=== PATIENT | male | born 1940 | race Caucasian/White ===

== ENCOUNTER 2020-08-24 13:40 | Emergency (ER) | payer MEDICARE, OTHER, SELFPAY ==
[2020-08-24 13:49] VITALS: BP 152/93; PULSE 71; RESP 18; TEMP 36.4; O2SAT 98; BMI 20.8
--- NOTE | 2020-08-24 14:10 | W.ED.SYNCOPE ---
HPI - Syncope General: Chief Complaint: Syncope Stated Complaint: LOW BP Time Seen by Provider: 08/24/20 13:51 Source: patient Mode of arrival: ambulatory Limitations: no limitations History of Present Illness: HPI narrative: 80-year-old male states he is out working in his garage and felt lightheaded. He took his blood pressure and it was in the 80s. He states this was roughly 45 minutes ago when he feels improved currently. His blood pressure here is normal. He denies any chest pain or headache before or after the event. Denies any vomiting or diarrhea. Associated symptoms: Deny abdominal pain, fever(s), headache(s) or nausea Review of Systems Const: Denies: fever(s), chills, body aches or change in appetite Eyes: Denies: blurry vision or eye discomfort ENMT: Denies: throat pain or dental pain Card: Reports: syncope Resp: Denies: dyspnea GI: Denies: abdominal pain, nausea, vomiting or diarrhea : Denies: dysuria Musc: Denies: neck pain or back pain Skin/Breast: Denies: rash Neuro: Denies: headache(s) Psych: Denies: depression [place]/Lymph: Denies: easy bruising All/Imm: Denies: urticaria Physical Exam Const: COMMON NORMALS: no acute distress, patient oriented x3 and healthy appearing HENMT: COMMON NORMALS: normocephalic and atraumatic HEAD & SCALP: normocephalic and atraumatic Eye: COMMON NORMALS: Equal, round and reactive pupils present and EOMs intact bilaterally PUPIL: Yes Equal, round and reactive pupils present Neck/C-Spine: COMMON NORMALS: full ROM and supple Chest: COMMONS NORMALS: normal inspection of the chest and normal palpation of entire chest wall Resp: COMMON NORMALS: normal respiratory effort, No retractions, No use of accessory muscles and clear to auscultation bilaterally AUSCULTATION: clear to auscultation bilaterally Cardio: COMMON NORMALS: regular rate, regular rhythm and No murmurs present (Cardio) RATE: regular rate RHYTHM: regular rhythm GI: COMMON NORMALS: Normal to inspection, nondistended, normoactive bowel sounds present, Soft to palpation, non-tender and no masses PALPATION: Yes Soft to palpation Extremity: COMMON NORMALS: normal to inspection and full ROM Neuro: COMMON NORMALS: patient oriented x3, moves all extremities and no focal motor deficits Psych: COMMON NORMALS: mental status grossly normal, Normal thought process present and cooperative THOUGHT PROCESS: Normal thought process present Skin: COMMON NORMALS: no rashes or lesions noted and no wounds GENERAL SKIN EXAM: no rashes or lesions noted Course Vital Signs: Vital signs: Vital Signs Temperature 97.5 F L 08/24/20 13:49 Pulse Rate 71 08/24/20 14:26 Respiratory Rate 16 08/24/20 14:26 Blood Pressure 133/79 08/24/20 14:26 Pulse Oximetry 99 08/24/20 14:26 MDM - Syncope MDM Narrative: Medical decision making narrative: Judd presents here with a syncopal episode that is likely vagal in nature. He has been well-appearing here with a normal blood pressure. Blood work here is normal as well. He has no signs of pulmonary bruising. Patient is stable for discharge is to follow-up with his PCP return if worsening. He understands agrees to plan. Lab Data: Labs: Lab Results 08/24/20 08/24/20 Range/Units 14:10 14:10 WBC 7.4 (4.0-10.0) 10^3/ uL RBC 5.40 H (4.1-5.3) 10^6/u L Hgb 15.3 (11.7-16.6) g/dL Hct 48.2 (42.0-52.0) % MCV 89.3 (80-94) fL MCH 28.3 (28.0-34.0) pg MCHC 31.7 (30.0-36.0) g/dL RDW 13.7 (12.1-15.1) % Plt Count 275 (130-400) 10^3/c mm MPV 10.0 (7.4-10.4) fL Neut % (Auto) 63.1 % Lymph % (Auto) 27.7 % [place] % (Auto) 6.9 % Eos % (Auto) 1.5 % Baso % (Auto) 0.5 % Neut # (Auto) 4.68 (1.8-7.7) 10^3/u L Lymph # (Auto) 2.1 (0.8-4.8) 10^3/u L [place] # (Auto) 0.5 (0.2-0.9) 10^3/u L Eos # (Auto) 0.1 (0.0-0.8) 10^3/u L Baso # (Auto) 0.0 (0.0-0.1) 10^3/u L Nucleated RBC % (a uto) 0 % Nucleated RBCs # 0.0 /100WBC Sodium 139 (136-145) mmol/L Potassium 3.8 (3.5-5.1) mmol/L Chloride 102 (98-107) mmol/L Carbon Dioxide 26 (22-29) mmol/L Anion Gap 14.8 (5-19) BUN 28 H (8-23) mg/dL Creatinine 1.2 (0.7-1.2) mg/dL GFR Calculation Not Reportable Glucose 101 (65-115) mg/dL Calculated Osmolal ity 294 (285-295) mOsm/k g Calcium 9.5 (8.5-10.5) mg/dL Imaging Data^: CXR: Attestation: I personally reviewed and interpreted this imaging study as follows: My impression: No acute abnormality Discharge Plan Discharge Patient Disposition: Home Clinical Impression: Near syncope Condition: Stable Prescriptions: No Action meloxicam 7.5 mg Tablet 7.5 mg PO DAILY PRN (Reason: UNKNOWN) RF: 0 alprazolam 0.5 mg Tablet See Rx Instructions .ROUTE .COMPLEX RF: 0 montelukast 10 mg tablet 10 mg PO DAILY RF: 0 hydrochlorothiazide 25 mg tablet 25 mg PO DAILY RF: 0 lisinopril 40 mg tablet 40 mg PO DAILY RF: 0 Discharge Orders: Discharge Order (Routine); Ordered 08/24/20 Ordered By: Britni Dorman Referrals: Bruno Mai DO [Primary Care Provider] - 1-3 days Discharge Diet: Advance as tolerated Discharge Activity: Resume usual activity Patient Instructions: Near Syncope (ED) Coding Level of Care Code ED Alley Cleaner for Brandan Fwd Exam Comprehensive
[2020-08-24 14:22] LABS: Basophils % 0.5 %; Eosinophils # 0.1 10^3/uL (0.0-0.8); Eosinophils % 1.5 %; Hematocrit 48.2 % (42.0-52.0); Hemoglobin 15.3 g/dL (11.7-16.6); Lymphocytes # 2.1 10^3/uL (0.8-4.8); Lymphocytes % 27.7 %; Mean Corpuscular HGB Conc 31.7 g/dL (30.0-36.0); Mean Corpuscular Hemoglobin 28.3 pg (28.0-34.0); Mean Corpuscular Volume 89.3 fL (80-94); Monocytes # 0.5 10^3/uL (0.2-0.9); Monocytes % 6.9 %; Neutrophils # 4.68 10^3/uL (1.8-7.7); Neutrophils % 63.1 %; Nucleated Red Blood Cells % 0 %; Platelet Count 275 10^3/cmm (130-400); Red Cell Distribution Width 13.7 % (12.1-15.1); White Blood Count 7.4 10^3/uL (4.0-10.0)
[2020-08-24] MEDS: sodium chloride 0.9% 1,000 ML 999 ML IV (14:25)
[2020-08-24 14:26] VITALS: BP 133/79; PULSE 71; RESP 16; O2SAT 99
[2020-08-24 14:42] LABS: Anion Gap 14.8 (5-19); Blood Urea Nitrogen 28 mg/dL (8-23); Calcium 9.5 mg/dL (8.5-10.5); Carbon Dioxide 26 mmol/L (22-29); Chloride 102 mmol/L (98-107); Glucose 101 mg/dL (65-115); Osmolality Calculated 294 mOsm/kg (285-295); Potassium 3.8 mmol/L (3.5-5.1); Sodium 139 mmol/L (136-145)
--- NOTE | 2020-08-24 14:54 | XR_ITS ---
WS: [id number] XR chest 1V portable [id number] REASON FOR EXAM: syncope FINDINGS: The chest is unchanged compared to 06/01/2020. Moderate tortuosity of the thoracic aorta. Normal heart size. Flattening of the hemidiaphragms and some prominence of the interstitial bronchovascular markings in both lower lungs. Old calcified granulomatous changes bilaterally. No active pulmonary parenchymal or pleural disease. No significant abnormality of the bony thorax. XR/XR chest 1V portable [id number] IMPRESSION: No acute chest abnormality.
[2020-08-24 15:26] VITALS: BP 151/86; PULSE 74; RESP 18; O2SAT 98
== END 2020-08-24 15:27 | disposition home or self-care (01) ==
PROVIDERS: Emergency Provider Emergency Medicine; Family Provider Internal Medicine; PCP Internal Medicine
DX: R55 Syncope and collapse (principal)
CPT/HCPCS: 12345; 71045; 80048; 85025; 96360; 99283; J7030

== ENCOUNTER 2020-10-23 13:31 | Emergency (ER) | payer MEDICARE, OTHER, SELFPAY ==
[2020-10-23 13:50] VITALS: BP 142/92; PULSE 75; RESP 20; TEMP 36.3; O2SAT 99; BMI 23.5
--- NOTE | 2020-10-23 14:14 | XRR_ITS ---
PROCEDURE INFORMATION: Exam: XR Chest, 1 View Exam date and time: 10/23/2020 2:14 PM Age: 80 years old Clinical indication: Condition or disease; Other: Covid TECHNIQUE: Imaging protocol: XR of the chest Views: 1 view. COMPARISON: CR XR chest 1V portable [id number] 08/24/2020 2:54 PM FINDINGS: Lungs: Mildly hyperaerated lungs consistent with deep inspiratory effort vs reactive airway disease vs mild COPD . Pleural space: Unremarkable. No pleural effusion. No pneumothorax. Heart/Mediastinum: Unremarkable. No cardiomegaly. Bones/joints: Unremarkable. XR/XR chest 1V portable [id number] IMPRESSION: Mildly hyperaerated lungs consistent with deep inspiratory effort vs reactive airway disease vs mild COPD .
[2020-10-23] MEDS: ondansetron 4 MG Tablet PO (18:21)
[2020-10-23 18:23] VITALS: O2SAT 99
--- NOTE | 2020-10-23 18:40 | ED_ITS ---
HPI - COVID General: Chief Complaint: COVID symptoms Stated Complaint: COVID + Time Seen by Provider: 10/23/20 16:59 Source: patient Mode of arrival: ambulatory Limitations: no limitations Triage information: No fever, cough or shortness of breath . Exposure to COVID + person last 14 days History of Present Illness: MD complaint: known COVID positive Prior covid testing: yes, results known Prior testing date: 10/21/20 COVID 19 common symptoms: positive fever(s), chills, cough, non-productive cough, fatigue, body aches and nausea; negative dyspnea, headache(s), loss of sense of smell and/or taste, throat pain, nasal congestion, vomiting or diarrhea COVID 19 other sytmptoms: positive lethargy; negative chest pressure, chest pain, pleuritic pain, requiring oxygen, requiring more oxygen, respiratory distress, cyanosis, confusion, new neurological complaints or other concerning symptoms Onset (ago): day(s) (4) Severity: moderate Pertinent comorbid conditions: hypertension Treatment prior to arrival: acetaminophen COVID Results: No Data to Display Review of Systems General: Reports: 10 or more systems reviewed and unremarkable except in HPI and below Const: Reports: fever(s), chills, body aches and fatigue Eyes: Denies: change in vision or blurry vision ENMT: Denies: throat pain or nasal congestion Card: Denies: chest pain Resp: Reports: non-productive cough; Denies: dyspnea GI: Reports: nausea; Denies: vomiting or diarrhea : Denies: flank pain, dysuria, urinary frequency, urinary urgency or urinary hesitancy Musc: Denies: neck pain, back pain or extremity swelling Skin/Breast: Denies: rash, pruritus or erythema Neuro: Denies: headache(s) or confusion Endo: Denies: polyuria, polydipsia or tired all the time Physical Exam Const: COMMON NORMALS: no acute distress, average body habitus, patient oriented x3, no limitations, healthy appearing, alert and well nourished HENMT: COMMON NORMALS: normocephalic, atraumatic and moist oral mucous membranes HEAD & SCALP: normocephalic and atraumatic Neck/C-Spine: COMMON NORMALS: no meningeal signs and no JVD Resp: COMMON NORMALS: normal respiratory effort, No retractions, No use of accessory muscles, clear to auscultation bilaterally and percussion normal AUSCULTATION: clear to auscultation bilaterally PERCUSSION: percussion normal Cardio: COMMON NORMALS: no JVD, regular rate, regular rhythm, S1 normal heart sound present, S2 normal heart sound present, No gallops present (Cardio), No clicks present (Cardio), No murmurs present (Cardio), No rub (Cardio) and Peripheral pulses 2+ throughout RATE: regular rate RHYTHM: regular rhythm HEART SOUNDS: S1 normal heart sound present and S2 normal heart sound present PERIPHERAL PULSES: Peripheral pulses 2+ throughout GI: COMMON NORMALS: Normal to inspection, nondistended, normoactive bowel sounds present, Soft to palpation, non-tender, No hepatosplenomegaly present, no masses and no bruits PALPATION: Yes Soft to palpation and Yes No hepatosplenomegaly present Extremity: COMMON NORMALS: normal to inspection, full ROM, capillary refill normal, no calf tenderness and no pedal edema Neuro: COMMON NORMALS: patient oriented x3 SENSORIUM/ORIENTATION: Yes alert MENINGEAL SIGNS: Yes no meningeal signs Skin: COMMON NORMALS: no rashes or lesions noted, no wounds, turgor normal, no jaundice, no petechiae and no mottling GENERAL SKIN EXAM: no rashes or lesions noted and turgor normal Course Reevaluation(s): Reevaluation #1: When I went over the information including the EUA for the antibody infusion for COVID-19, the patient was concerned that it is an emergency use authorization and noted for FDA approval. He therefore said he wants to talk to his about it before agreeing to get the medication. He therefore did not sign the consent form would like to be discharged home to discuss with his . We will therefore discharge him home. I advised him that he will need to follow-up with his primary care provider to have him set up for the infusion if he does agree to get it. He voiced understanding. Time: 19:20 Vital Signs: Vital signs: Vital Signs Temperature 97.3 F L 10/23/20 13:50 Pulse Rate 84 10/23/20 20:03 Respiratory Rate 18 10/23/20 20:03 Blood Pressure 142/92 10/23/20 13:50 Pulse Oximetry 98 10/23/20 20:03 MDM - COVID MDM Narrative: Medical decision making narrative: 80-year-old male with a history of hypertension who was recently diagnosed with COVID-19. He presents because he was feeling worse with body aches, nausea but no difficulty breathing. His vital signs were stable throughout his ED stay and his oxygen saturation was in the high 90s on room air. I discussed getting antibody infusions with him and setting him up in the infusion center to get it. His is scheduled to get it tomorrow and they are going to get it together. However when the patient was informed that this is an emergency use authorization he was hesitant to sign the consent form and wants to discuss with his before he agrees to the infusion. He is therefore advised to discuss with his primary care provider when he makes a decision and to be set up for an outpatient infusion if he agrees to receive the infusion otherwise he should continue conservative measures. He is advised to self isolate for at least 10 days from symptom onset. Medical Records: Attestation: I reviewed the patient's medical records. Lab Data: Attestation: I reviewed the patient's lab results. Labs: Lab Results 10/23/20 10/23/20 Range/Units 18:25 18:25 WBC 5.8 (4.0-10.0) 10^3/ uL RBC 5.63 H (4.1-5.3) 10^6/u L Hgb 16.0 (11.7-16.6) g/dL Hct 50.3 (42.0-52.0) % MCV 89.3 (80-94) fL MCH 28.4 (28.0-34.0) pg MCHC 31.8 (30.0-36.0) g/dL RDW 14.7 (12.1-15.1) % Plt Count 230 (130-400) 10^3/c mm MPV 10.4 (7.4-10.4) fL Neut % (Auto) 74.6 % Lymph % (Auto) 16.8 % [place] % (Auto) 8.2 % Eos % (Auto) 0.0 % Baso % (Auto) 0.2 % Neut # (Auto) 4.36 (1.8-7.7) 10^3/u L Lymph # (Auto) 1.0 (0.8-4.8) 10^3/u L [place] # (Auto) 0.5 (0.2-0.9) 10^3/u L Eos # (Auto) 0.0 (0.0-0.8) 10^3/u L Baso # (Auto) 0.0 (0.0-0.1) 10^3/u L Nucleated RBC % (a uto) 0 % Nucleated RBCs # 0.0 /100WBC Sodium 139 (136-145) mmol/L Potassium 4.4 (3.5-5.1) mmol/L Chloride 100 (98-107) mmol/L Carbon Dioxide 26 (22-29) mmol/L Anion Gap 17.4 (5-19) BUN 26 H (8-23) mg/dL Creatinine 0.8 (0.7-1.2) mg/dL GFR Calculation Not Reportable Glucose 122 H (65-115) mg/dL Calculated Osmolal ity 294 (285-295) mOsm/k g Calcium 10.0 (8.5-10.5) mg/dL Total Bilirubin 0.4 (0.15-1.2) mg/dL AST 29 (0-40) U/L ALT 32 (0-41) U/L Alkaline Phosphata se 105 (40-130) IU/L Total Protein 7.8 (6.6-8.7) g/dL Albumin 4.4 (3.5-5.2) g/dL Globulin 3.4 (1.3-4.6) g/dL Imaging Data: CXR: Attestation: I personally reviewed and interpreted this imaging study as follows: Radiologist's impression: [address] [address] XRay Report Signed Patient: Judd Beth #: [id number] : 2Acct#:[id number] Age/Sex: 80 / MADM Date: 10/23/20 Loc: ERRoom/Bed: Attending Dr: Ordering Provider/Ordering MD: Zoey Blanchard Date of Service: 10/23/20 Procedure(s): XR chest 1V portable [id number] Accession Number(s): [id number] Report Number: [id number] PROCEDURE INFORMATION: Exam: XR Chest, 1 View Exam date and time: 10/23/2020 2:14 PM Age: 80 years old Clinical indication: Condition or disease; Other: Covid TECHNIQUE: Imaging protocol: XR of the chest Views: 1 view. COMPARISON: CR XR chest 1V portable [id number] 08/24/2020 2:54 PM FINDINGS: Lungs: Mildly hyperaerated lungs consistent with deep inspiratory effort vs reactive airway disease vs mild COPD . Pleural space: Unremarkable. No pleural effusion. No pneumothorax. Heart/Mediastinum: Unremarkable. No cardiomegaly. Bones/joints: Unremarkable. XR/XR chest 1V portable [id number] IMPRESSION: Mildly hyperaerated lungs consistent with deep inspiratory effort vs reactive airway disease vs mild COPD . Dictated By:Mathieu Sheppard MD Signed By:Mathieu Sheppardigned Date/Time:10/23/201446 DD/ 45 COVID Results: No Data to Display Monoclonal Antibody Treatments Inclusion/Exclusion Criteria weight >/= 40 kg and + direct Sars-Cov-2 test less than 7-10 days ago age >/= 65 and age >/= 55 and has hypertension not requiring hospitalization, not requiring oxygen (if not chronically on oxygen) and no increase oxygen requirement (if chronically on oxygen) Patient education patient/family/caregiver received/reviewed fact sheet, Emergency Use Authorization/unapproved drug status discussed with patient/family/caregiver, alternatives to this treatment discussed with patient/family/caregiver, risks and benefits of medication reviewed with patient/family/caregiver, patient/family/caregiver given opportunity for questions, which were answered and patient does not consent (DO NOT GIVE) (He does not consent at this time) Plan for treatment Meets criteria for Monoclonal Antibody infusion Other information We will discuss his before he makes a final determination as to whether to receive the antibody infusion. Discharge Plan Discharge Patient Disposition: Home Clinical Impression: COVID-19, Nausea Condition: Stable Prescriptions: New Zofran 4 mg tablet 4 mg PO Q8H PRN (Reason: nausea and vomiting) Qty: 20 RF: 0 Continued prednisone 20 mg tablet 20 mg PO DAILY@0600 RF: 0 doxycycline monohydrate 100 mg capsule 100 mg PO DAILY@0600 RF: 0 meloxicam 7.5 mg Tablet 7.5 mg PO DAILY PRN (Reason: UNKNOWN) RF: 0 montelukast 10 mg tablet 10 mg PO DAILY@0600 RF: 0 hydrochlorothiazide 25 mg tablet 25 mg PO DAILY@0600 RF: 0 lisinopril 40 mg tablet 40 mg PO DAILY@0600 RF: 0 Discharge Orders: Discharge ED (Routine); Ordered 10/23/20 Ordered By: Shira Fox Referrals: Bruno Mai DO [Primary Care Provider] - 1-3 days Discharge Diet: Usual diet Discharge Activity: Increase activity as tolerated Patient Instructions: Acute Nausea and Vomiting (ED), Viral Syndrome - Adult Activity Restrictions/Additional Instructions: Return for any new or worsening symptoms. Have the conversation with your as he wanted to to see if you are willing to take the antibody infusion. If you do decide to take the infusion, discuss with your primary care provider who can then set up the outpatient infusion for this. Continue your home medications. Coding Level of Care Code ED Resident Programs Assistant for Brandan Fwd Exam Comprehensive
[2020-10-23 18:41] LABS: Basophils % 0.2 %; Hematocrit 50.3 % (42.0-52.0); Lymphocytes % 16.8 %; Mean Corpuscular HGB Conc 31.8 g/dL (30.0-36.0); Mean Corpuscular Hemoglobin 28.4 pg (28.0-34.0); Mean Corpuscular Volume 89.3 fL (80-94); Mean Platelet Volume 10.4 fL (7.4-10.4); Monocytes # 0.5 10^3/uL (0.2-0.9); Monocytes % 8.2 %; Neutrophils # 4.36 10^3/uL (1.8-7.7); Neutrophils % 74.6 %; Nucleated Red Blood Cells % 0 %; Platelet Count 230 10^3/cmm (130-400); Red Blood Count 5.63 10^6/uL (4.1-5.3); Red Cell Distribution Width 14.7 % (12.1-15.1); White Blood Count 5.8 10^3/uL (4.0-10.0)
--- NOTE | 2020-10-23 19:01 | PC.NURSE ---
Pt stated he was not sure if he wants to take the BUM IV infusing in AM. Provided pt with paperwork and sent home with pt for review. Provider at bedside.
[2020-10-23 19:02] LABS: Alanine Aminotransferase 32 U/L (0-41); Albumin Level 4.4 g/dL (3.5-5.2); Alkaline Phosphatase 105 IU/L (40-130); Anion Gap 17.4 (5-19); Aspartate Amino Transferase 29 U/L (0-40); Blood Urea Nitrogen 26 mg/dL (8-23); Carbon Dioxide 26 mmol/L (22-29); Chloride 100 mmol/L (98-107); Creatinine Clr Calc Pharmacy 86.3647; Globulin 3.4 g/dL (1.3-4.6); Glucose 122 mg/dL (65-115); Osmolality Calculated 294 mOsm/kg (285-295); Potassium 4.4 mmol/L (3.5-5.1); Sodium 139 mmol/L (136-145); Total Bilirubin 0.4 mg/dL (0.15-1.2); Total Protein 7.8 g/dL (6.6-8.7)
--- NOTE | 2020-10-23 19:59 | PC.NURSE ---
Report from KENTON Blancas
[2020-10-23 20:03] VITALS: PULSE 84; RESP 18; O2SAT 98
== END 2020-10-23 20:05 | disposition home or self-care (01) ==
PROVIDERS: Physician Assistant; Emergency Provider Family Medicine; PCP Internal Medicine
DX: U07.1 COVID-19 (principal); R11.0 Nausea
CPT/HCPCS: 12345; 71045; 80053; 85025; 99281; 99283; Q0162

== ENCOUNTER 2021-01-02 21:11 | Emergency (ER) | payer MEDICARE, OTHER, SELFPAY ==
[2021-01-02 21:14] VITALS: BP 95/53; PULSE 79; RESP 20; TEMP 36.3; O2SAT 95; BMI 23.5
--- NOTE | 2021-01-02 21:21 | ECG_ITS ---
[facility] Test Date: 2021-01-02 Pat Name: Judd Beth Department: Room: Gender: Male [employer] Machine: : 1940 Requested By: Paulie Moralez Order Number: [id number] Donnelly MD: Armida Dillard M.D. Measurements Intervals [place] Rate: 69 P: 44 PA: 167 QRS: 268 QRSD: 156 T: 59 QT: 422 QTc: 454 Interpretive Statements SINUS RHYTHM RIGHT AXIS DEVIATION [QRS AXIS > 100] RIGHT BUNDLE BRANCH BLOCK [120+ ms QRS DURATION, UPRIGHT V1, 40+ ms S IN I/aVL/V4/V5/V6] Compared to ECG 02/09/2015 09:22:38 Right-axis deviation now present Left-axis deviation no longer present Electronically Signed On 01-03-2021 7:27:37 CDT by Armida Dillard M.D. [id number]
[2021-01-02 21:22] VITALS: BP 95/53; PULSE 69; RESP 17; O2SAT 94
--- NOTE | 2021-01-02 21:22 | XR_ITS ---
WS: [id number] XR chest 1V portable [id number] REASON FOR EXAM: Cough FINDINGS: The chest is unchanged compared to previous examination of 10/23/2020. Mild tortuosity of the thoracic aorta without aneurysmal dilatation. Normal heart size. Mild accentuation of the interstitium in both lower lungs. Calcified granulomatous change in both hem ithoraces. No active pulmonary parenchymal or pleural disease. No significant change in the bony thorax for age. XR/XR chest 1V portable [id number] IMPRESSION: No acute pulmonary abnormality.
--- NOTE | 2021-01-02 21:22 | ED_ITS ---
HPI - General Adult General: Chief complaint: General Medical Stated complaint: LIGHT HEADED Time Seen by Provider: 01/02/21 21:17 Source: patient, EMS and RN notes reviewed Mode of arrival: EMS History of Present Illness: HPI narrative: This patient is a 80-year-old male who presents to the emergency department with complaint of profound fatigue weakness body aches hypotension and fever. Patient states he feels exactly the same as he did when he had the arboleda virus. Patient states he received his first vaccine shot yesterday and has had these profound symptoms today. Patient's blood pressure reportedly was 60 systolic via EMS and they gave the patient IV fluid bolus during transport. Patient temperature on arrival is 97.8. Blood pressure is low 90s over 60s. Patient distal fingers on both hands appear to be purpleish. Patient denies a history of Raynaud's phenomenon. Patient denies pain. Onset (ago): hour(s) Severity: moderate Associated symptoms: Deny chest pain, dyspnea, headache(s), nausea, rash, palpitations or vomiting Review of Systems General: Reports: 10 or more systems reviewed and unremarkable except in HPI and below Const: Reports: fever(s) and fatigue; Denies: chills or body aches Eyes: Denies: change in vision or blurry vision ENMT: Denies: throat pain, hoarseness or mouth pain Card: Denies: chest pain, palpitations, irregular heart rhythm, edema, swelling of feet/ankles or lightheadedness Resp: Denies: dyspnea, productive cough, non-productive cough, wheezing or pain on inspiration GI: Reports: abdominal pain; Denies: nausea or vomiting : Reports: flank pain; Denies: dysuria, urinary frequency, urinary urgency or urinary hesitancy Musc: Reports: muscle weakness; Denies: neck pain, back pain, extremity pain, extremity swelling, joint pain, joint swelling, joint redness, joint warmth or limited range of motion Skin/Breast: Denies: rash, pruritus, erythema or skin tenderness Neuro: Denies: headache(s), numbness in extremities or weakness in extremities Psych: Denies: anxiety or depression PFS ED PFSH: Medical History COPD (chronic obstructive pulmonary disease) Essential (primary) hypertension Lung nodule Osteoarthritis (arthritis due to wear and tear of joints) Personal history of nicotine dependence Surgical History History of cholecystectomy Family History Other Hypertension Social History Smoking and tobacco status: current every day smoker Alcohol intake: current Alcohol intake frequency: few times a month Caregiver/support person: Yes Lives independently: Yes Household members: spouse Housing: House Marital status: service: Yes Current occupational status: retired Current gender identity: Male Physical Exam Const: COMMON NORMALS: no acute distress, average body habitus, patient oriented x3, no limitations, healthy appearing, alert and well nourished HENMT: COMMON NORMALS: normocephalic, atraumatic, external ears normal, EAC's normal, TM's normal bilaterally, Normal external nose present and Normal nasal mucous membranes and turbinates present HEAD & SCALP: normocephalic and atraumatic NOSE: Normal external nose present and Normal nasal mucous membranes and turbinates present EXTERNAL EAR: Yes external ears normal EXTERNAL AUDITORY CANAL: EAC's normal TYMPANIC MEMBRANE: TM's normal bilaterally Neck/C-Spine: COMMON NORMALS: full ROM, no lymphadenopathy, supple, no meningeal signs, no JVD, Thyroid normal and No carotid bruits THYROID: Thyroid normal Chest: COMMONS NORMALS: normal inspection of the chest, normal palpation of entire chest wall, normal inspection of the breasts and normal palpation of the breasts Breast/axilla inspection: Yes normal inspection of the breasts BREAST/AXILLA PALPATION: Yes normal palpation of the breasts Resp: COMMON NORMALS: normal respiratory effort, No retractions, No use of accessory muscles, clear to auscultation bilaterally and percussion normal AUSCULTATION: clear to auscultation bilaterally PERCUSSION: percussion normal Cardio: COMMON NORMALS: no JVD, regular rate, regular rhythm, S1 normal heart sound present, S2 normal heart sound present, No gallops present (Cardio), No clicks present (Cardio), No murmurs present (Cardio), No rub (Cardio) and Peripheral pulses 2+ throughout RATE: regular rate RHYTHM: regular rhythm HEART SOUNDS: S1 normal heart sound present and S2 normal heart sound present PERIPHERAL PULSES: Peripheral pulses 2+ throughout GI: COMMON NORMALS: Normal to inspection, nondistended, normoactive bowel sounds present, Soft to palpation, non-tender, No hepatosplenomegaly present, no masses and no bruits PALPATION: Yes Soft to palpation and Yes No hepatosplenomegaly present : COMMON NORMALS: Yes no CVA tenderness BLADDER/KIDNEY EXAM: Yes no CVA tenderness Back/Pelvis: COMMON NORMALS: no CVA tenderness, thoracic and lumbar spine normal to inspection, no thoracic nor lumbar tenderness, thoraco-lumbar ROM normal and straight leg raise negative bilaterally Extremity: COMMON NORMALS: full ROM, capillary refill normal, no joint enlargement, no clubbing, cyanosis or edema, no calf tenderness and no pedal edema NARRATIVE EXTREMITY EXAM: Tips of his fingers on the distal part of the phalanges are bluish in color while the rest of his hands and skin are red patient denies pain Neuro: COMMON NORMALS: patient oriented x3 SENSORIUM/ORIENTATION: Yes alert MENINGEAL SIGNS: Yes no meningeal signs Course Reevaluation(s): Reevaluation #1: Myself and the nurse at the bedside. Patient is feeling much improved blood pressure 109/67 heart rate 69 patient has no complaints other than laying in the bed. Patient states that hurts his back. I did recommend the patient be admitted to observation for further evaluation and continued fluid. Patient has declined and wishes to be discharged home. I did discuss at length with patient risk concerns with significant reaction to the vaccine considering that the patient has significant reaction to the Covid virus itself. Patient states understanding the risk concerns but wishes to be discharged home nurse at the bedside present during this interview. Patient be discharged home per his request Time: 22:55 Vital Signs: Vital signs: Vital Signs Temperature 97.3 F L 01/02/21 21:14 Pulse Rate 69 01/02/21 22:51 Respiratory Rate 19 H 01/02/21 22:51 Blood Pressure 109/67 01/02/21 22:51 Pulse Oximetry 98 01/02/21 22:51 MDM - General Adult MDM Narrative: Medical decision making narrative: Hypotension, cardiac disease, viral syndrome, immune response, Lab Data: Attestation: I reviewed the patient's lab results. Labs: Lab Results 01/02/21 01/02/21 01/02/21 Range/Units 20:51 20:51 20:51 WBC 5.7 (4.0-10.0) 10^3/ uL RBC 5.08 (4.1-5.3) 10^6/u L Hgb 14.7 (11.7-16.6) g/dL Hct 46.0 (42.0-52.0) % MCV 90.6 (80-94) fL MCH 28.9 (28.0-34.0) pg MCHC 32.0 (30.0-36.0) g/dL RDW 14.7 (12.1-15.1) % Plt Count 202 (130-400) 10^3/c mm MPV 10.9 H (7.4-10.4) fL Neut % (Auto) 73.0 % Lymph % (Auto) 17.8 % [place] % (Auto) 7.9 % Eos % (Auto) 0.2 % Baso % (Auto) 0.9 % Neut # (Auto) 4.16 (1.8-7.7) 10^3/u L Lymph # (Auto) 1.0 (0.8-4.8) 10^3/u L [place] # (Auto) 0.5 (0.2-0.9) 10^3/u L Eos # (Auto) 0.0 (0.0-0.8) 10^3/u L Baso # (Auto) 0.1 (0.0-0.1) 10^3/u L Nucleated RBC % (a uto) 0 % Nucleated RBCs # 0.0 /100WBC PT 14.60 (12.1-14.9) SECO NDS INR 1.11 (0.8-1.2) APTT 30.9 (23.9-36.7) SECO NDS D-Dimer 1.77 H (0-0.59) ug/mIFE U Sodium 138 (136-145) mmol/L Potassium 4.0 (3.5-5.1) mmol/L Chloride 103 (98-107) mmol/L Carbon Dioxide 23 (22-29) mmol/L Anion Gap 16.0 (5-19) BUN 24 H (8-23) mg/dL Creatinine 1.3 H (0.7-1.2) mg/dL GFR Calculation Not Reportable Glucose 104 (65-115) mg/dL Calculated Osmolal ity 290 (285-295) mOsm/k g Calcium 8.8 (8.5-10.5) mg/dL Total Bilirubin 0.9 (0.15-1.2) mg/dL AST 18 (0-40) U/L ALT 11 (0-41) U/L Alkaline Phosphata se 85 (40-130) IU/L Troponin T Gen 5 n g/L (0-15) ng/L NT-Pro-B Natriuret Pep 267 (0-450) pg/mL Total Protein 6.1 L (6.6-8.7) g/dL Albumin 3.7 (3.5-5.2) g/dL Globulin 2.4 (1.3-4.6) g/dL / Range/Units 20:51 WBC (4.0-10.0) 10^3/ uL RBC (4.1-5.3) 10^6/u L Hgb (11.7-16.6) g/dL Hct (42.0-52.0) % MCV (80-94) fL MCH (28.0-34.0) pg MCHC (30.0-36.0) g/dL RDW (12.1-15.1) % Plt Count (130-400) 10^3/c mm MPV (7.4-10.4) fL Neut % (Auto) % Lymph % (Auto) % [place] % (Auto) % Eos % (Auto) % Baso % (Auto) % Neut # (Auto) (1.8-7.7) 10^3/u L Lymph # (Auto) (0.8-4.8) 10^3/u L [place] # (Auto) (0.2-0.9) 10^3/u L Eos # (Auto) (0.0-0.8) 10^3/u L Baso # (Auto) (0.0-0.1) 10^3/u L Nucleated RBC % (a uto) % Nucleated RBCs # /100WBC PT (12.1-14.9) SECO NDS INR (0.8-1.2) APTT (23.9-36.7) SECO NDS D-Dimer (0-0.59) ug/mIFE U Sodium (136-145) mmol/L Potassium (3.5-5.1) mmol/L Chloride (98-107) mmol/L Carbon Dioxide (22-29) mmol/L Anion Gap (5-19) BUN (8-23) mg/dL Creatinine (0.7-1.2) mg/dL GFR Calculation Glucose (65-115) mg/dL Calculated Osmolal ity (285-295) mOsm/k g Calcium (8.5-10.5) mg/dL Total Bilirubin (0.15-1.2) mg/dL AST (0-40) U/L ALT (0-41) U/L Alkaline Phosphata se (40-130) IU/L Troponin T Gen 5 n g/L 41 H (0-15) ng/L NT-Pro-B Natriuret Pep (0-450) pg/mL Total Protein (6.6-8.7) g/dL Albumin (3.5-5.2) g/dL Globulin (1.3-4.6) g/dL Discharge Plan Discharge Patient Disposition: Home Clinical Impression: Hypotension, Alteration in immune response, Vaccination complication Condition: Stable Prescriptions: No Action ipratropium-albuterol 0.5 mg-3 mg(2.5 mg base)/3 mL solution for nebulization 3 ml inhalation Q6H RF: 0 hydrocodone-acetaminophen 5-325 mg tablet 1 tab PO BID PRNRF: 0 cyclobenzaprine 10 mg tablet 10 mg PO BID PRN (Reason: muscle spasm) RF: 0 prednisone 20 mg tablet 20 mg PO DAILY@0600 RF: 0 doxycycline monohydrate 100 mg capsule 100 mg PO DAILY@0600 RF: 0 Zofran 4 mg tablet 4 mg PO Q8H PRN (Reason: nausea and vomiting) Qty: 20 RF: 0 meloxicam 7.5 mg Tablet 7.5 mg PO DAILY PRN (Reason: UNKNOWN) RF: 0 montelukast 10 mg tablet 10 mg PO DAILY@0600 RF: 0 hydrochlorothiazide 25 mg tablet 25 mg PO DAILY@0600 RF: 0 lisinopril 40 mg tablet 40 mg PO DAILY@0600 RF: 0 Discharge Orders: Discharge ED (Routine); Ordered 01/02/21 Ordered By: Paulie Moralez Referrals: Bruno Mai DO [Primary Care Provider] - Discharge Diet: Usual diet Discharge Activity: Resume usual activity and Increase activity as tolerated Patient Instructions: Opioid Safety Activity Restrictions/Additional Instructions: Encourage p.o. fluids. Tylenol Motrin as needed for fever pain. Understand low blood pressure you have a risk for falls. you are being discharged per your request follow-up with your primary care physician in 2 to 3 days. 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
[2021-01-02 21:30] LABS: Basophils # 0.1 10^3/uL (0.0-0.1); Basophils % 0.9 %; Eosinophils % 0.2 %; Hemoglobin 14.7 g/dL (11.7-16.6); Lymphocytes % 17.8 %; Mean Corpuscular Hemoglobin 28.9 pg (28.0-34.0); Mean Corpuscular Volume 90.6 fL (80-94); Mean Platelet Volume 10.9 fL (7.4-10.4); Monocytes # 0.5 10^3/uL (0.2-0.9); Monocytes % 7.9 %; Neutrophils # 4.16 10^3/uL (1.8-7.7); Nucleated Red Blood Cells % 0 %; Platelet Count 202 10^3/cmm (130-400); Red Blood Count 5.08 10^6/uL (4.1-5.3); Red Cell Distribution Width 14.7 % (12.1-15.1); White Blood Count 5.7 10^3/uL (4.0-10.0)
[2021-01-02 21:42] LABS: INR 1.11 (0.8-1.2); Partial Thromboplastin Time 30.9 SECONDS (23.9-36.7)
[2021-01-02 21:45] LABS: D Dimer 1.77 ug/mIFEU (0-0.59)
[2021-01-02 21:55] LABS: Troponin T (5th) Once 41 ng/L (0-15)
[2021-01-02 22:00] VITALS: BP 97/52; PULSE 68; RESP 23; O2SAT 96
[2021-01-02 22:05] LABS: Alanine Aminotransferase 11 U/L (0-41); Albumin Level 3.7 g/dL (3.5-5.2); Alkaline Phosphatase 85 IU/L (40-130); Aspartate Amino Transferase 18 U/L (0-40); Blood Urea Nitrogen 24 mg/dL (8-23); Calcium 8.8 mg/dL (8.5-10.5); Carbon Dioxide 23 mmol/L (22-29); Chloride 103 mmol/L (98-107); Globulin 2.4 g/dL (1.3-4.6); Glucose 104 mg/dL (65-115); NT Pro B Type Natriuretic Pept 267 pg/mL (0-450); Osmolality Calculated 290 mOsm/kg (285-295); Sodium 138 mmol/L (136-145); Total Bilirubin 0.9 mg/dL (0.15-1.2); Total Protein 6.1 g/dL (6.6-8.7)
[2021-01-02] MEDS: sodium chloride 0.9% 1,000 ML 999 ML IV (22:25)
[2021-01-02 22:30] VITALS: BP 107/63; PULSE 67; RESP 21; O2SAT 96
[2021-01-02 22:51] VITALS: BP 109/67; PULSE 69; RESP 19; O2SAT 98
[2021-01-02 23:00] VITALS: BP 120/71; PULSE 71; RESP 21; O2SAT 98
[2021-01-03 00:02] VITALS: BP 133/85; PULSE 76; RESP 21; O2SAT 98
== END 2021-01-03 00:05 | disposition home or self-care (01) ==
PROVIDERS: Emergency Provider Emergency Medicine; PCP Internal Medicine
DX: T88.1XXA Other complications following immunization, not elsewhere classified, initial encounter (principal); I95.9 Hypotension, unspecified; J44.9 Chronic obstructive pulmonary disease, unspecified; I10 Essential (primary) hypertension; F17.210 Nicotine dependence, cigarettes, uncomplicated; I70.0 Atherosclerosis of aorta
CPT/HCPCS: 71045; 80053; 83880; 84484; 85025; 85378; 85610; 85730; 93005; 99284; J7030

== ENCOUNTER → 2021-09-19 10:31 | Outpatient (BNVA) | payer MEDICARE, BC, SELFPAY | PROVIDERS: PCP Internal Medicine; Visit Provider Nurse Practitioner | DX: M25.552 Pain in left hip (principal); I10 Essential (primary) hypertension; E55.9 Vitamin D deficiency, unspecified; M54.50 Low back pain, unspecified; M54.6 Pain in thoracic spine | CPT/HCPCS: 72072; 72100; 73502; 80053; 80061; 82306; 82607; 84443; 85025 ==

== ENCOUNTER 2022-02-02 20:47 | Emergency (ER) | payer MEDICARE, BC, SELFPAY ==
[2022-02-02] VITALS (7 sets, daily range): BP systolic 78–93; BP diastolic 52–60; PULSE 73–83; RESP 18; TEMP 37.2; O2SAT 94–98; BMI 21.0
--- NOTE | 2022-02-02 21:24 | XRR_ITS ---
PROCEDURE INFORMATION: Exam: XR Chest Exam date and time: 02/02/2022 9:34 PM Age: 81 years old Clinical indication: Sternal or substernal pain; Additional info: Chest pain TECHNIQUE: Imaging protocol: XR of the chest. Views: 1 view. COMPARISON: CR XR chest 1V portable [id number] 01/02/2021 9:23 PM FINDINGS: Lungs: There is a background emphysema and pulmonary fibrosis. This appears stable compared with 01/02/2021. Pleural spaces: Unremarkable. No pleural effusion. No pneumothorax. Heart/Mediastinum: Unremarkable. No cardiomegaly. Vasculature: There is mild tortuosity of the thoracic aorta. Bones/joints: Unremarkable. XR/XR chest 1V portable [id number] IMPRESSION: There are no acute chest findings. Stable appearance of the chest compared with 01/02/2021.
--- NOTE | 2022-02-02 21:25 | ECG_ITS ---
[facility] Test Date: 2022-02-02 Pat Name: Judd Beth Department: Room: Gender: Male [employer] Technician: : 1940 Requested By: Gustavo Chao Order Number: [id number] Andrzej MD: Armida Dillard M.D. Measurements Intervals [place] Rate: 75 P: 70 DC: 167 QRS: 259 QRSD: 148 T: 67 QT: 407 QTc: 457 Interpretive Statements SINUS RHYTHM RIGHT AXIS DEVIATION [QRS AXIS > 100] RIGHT BUNDLE BRANCH BLOCK Compared to ECG 01/02/2021 21:25:53 Myocardial infarct finding now present Electronically Signed On 02-03-2022 16:11:50 CDT by Armida Dillard M.D. [email or web address]
--- NOTE | 2022-02-02 21:37 | ED_ITS ---
Documented by User: Gustavo Chao MD 02/04/22 12:54 HPI - General Adult General: Chief complaint: Dizziness Stated complaint: Nauseous Time Seen by Provider: 02/02/22 21:13 History of Present Illness: Patient is a 81-year-old male with a history of COPD, hypertension, generalized anxiety presenting to the emergency room for concerns of decreased PO intake, nauesa/vomiting/diarrhea, and lightheadedness and generalized weakness for last 2 to 3 days. Per patient son, patient has not been eating for the last 2 to 3 days. Has been feeling increasingly more lightheaded last 2 days. In addition, patient has nausea and vomiting and diarrhea. Patient's son and wanted patient to be checked out. On arrival, patient denies any chest pain, palpitation, lightheadedness, nausea/vomiting fever/chills currently. Patient has no abdominal complaints, diarrhea, melena/hematochezia or complaints. Onset:2-3 days ago Duration:intermittent Location:home Severity:moderate Associated symptoms: Reports nausea and vomiting; Deny chest pain, dyspnea, rash or palpitations Review of Systems Const: Reports: other (+generalized weakness); Denies: fever(s) or chills Eyes: Denies: change in vision ENMT: Denies: mouth pain Card: Denies: chest pain or palpitations Resp: Denies: dyspnea or non-productive cough GI: Reports: nausea, vomiting and diarrhea; Denies: abdominal pain : Denies: dysuria Musc: Denies: extremity pain Skin/Breast: Denies: rash or new lesions Neuro: Denies: weakness in extremities Psych: Reports: other (Normal mood) Fuad/Lymph: Denies: easy bruising PFSH ED PFSH: Medical History COPD (chronic obstructive pulmonary disease) Essential (primary) hypertension RIAZ (generalized anxiety disorder) Lung nodule Osteoarthritis (arthritis due to wear and tear of joints) Personal history of nicotine dependence Surgical History History of cholecystectomy Family History Other Hypertension Social History Smoking and tobacco status: current every day smoker Second hand smoke exposure: No Smoking risk assessment/counseling performed?: Yes Alcohol intake: current Alcohol intake frequency: few times a month Desire information about alcohol rehabilitation?: No Counseling given: No Desire information about substance/drug rehabilitation?: No Counseling given: No Adopted: No Caregiver/support person: Yes Lives independently: Yes Household members: spouse Housing: House Marital status: service: Yes Current occupational status: retired Current occupational exposures/hazards: No Current gender identity: Male Physical Exam Const: COMMON NORMALS: alert HENMT: COMMON NORMALS: atraumatic HEAD & SCALP: atraumatic MOUTH: moist mucous membranes abnormal Eye: COMMON NORMALS: EOMs intact bilaterally and conjunctivae normal CONJUNCTIVA: Yes conjunctivae normal Neck/C-Spine: COMMON NORMALS: full ROM and supple Resp: COMMON NORMALS: normal respiratory effort and clear to auscultation bilaterally AUSCULTATION: clear to auscultation bilaterally Cardio: COMMON NORMALS: regular rate RATE: regular rate GI: COMMON NORMALS: Soft to palpation and non-tender PALPATION: Yes Soft to palpation OTHER: No focal TTP. NO guarding rebound, guarding, rigidity. No CVA tenderness to percussion. Neg Bryant/Neg McBurney's point tenderness, no suprabupic tenderness to palpation. Extremity: COMMON NORMALS: full ROM Neuro: SENSORIUM/ORIENTATION: Yes alert MOTOR EXAM: No Abnormal motor strength present and Other motor observations present (no focal motor deficits) Psych: COMMON NORMALS: speech normal SPEECH: Yes normal speech MOOD & AFFECT: Yes euthymic mood Course Vital Signs: Vital signs: Vital Signs Temperature 99.0 F 02/02/22 20:55 Pulse Rate 74 02/03/22 02:05 Respiratory Rate 18 02/03/22 02:05 Blood Pressure 93/70 02/03/22 02:05 Pulse Oximetry 97 02/03/22 02:05 MDM - General Adult Medical Decision Making 81-year-old male with a history of COPD/ hypertension presenting to emergency room for concerns of nausea vomiting diarrhea decreased p.o. intake and generalized weakness. On physical exam, patient is noted to be dry. Rest of exam within normal limit. Work-up to show white count 7.9. Creatinine 1.3. Troponin of 618. On presentation but this is concerning for possible enteritis. Patient received IVF, and GI cocktail. Case signed out to Dr. Dorman pending reassessment and repeat troponin. Lab Data : 02/02/22 21:35 02/02/22 21:35 Radiology Impressions Chest X-Ray 02/02/22 21:24 IMPRESSION: There are no acute chest findings. Stable appearance of the chest compared with 01/02/2021. Laboratory Results WBC 7.9 10^3/uL (4.0-10.0) 02/02/22 21:35 RBC 5.40 10^6/uL (4.1-5.3) H 02/02/22 21:35 Hgb 15.6 g/dL (11.7-16.6) 02/02/22 21:35 Hct 48.2 % (42.0-52.0) 02/02/22 21:35 MCV 89.3 fl (80-94) 02/02/22 21:35 MCH 28.9 pg (28.0-34.0) 02/02/22 21:35 MCHC 32.4 g/dL (30.0-36.0) 02/02/22 21:35 RDW 14.6 % (12.1-15.1) 02/02/22 21:35 Plt Count 196 10^3/cmm (130-400) 02/02/22 21:35 MPV 11.1 fL (7.4-10.4) H 02/02/22 21:35 Neut % (Auto) 78.8 % 02/02/22 21:35 Lymph % (Auto) 14.2 % 02/02/22 21:35 Vernon % (Auto) 5.4 % 02/02/22 21:35 Eos % (Auto) 0.9 % 02/02/22 21:35 Baso % (Auto) 0.4 % 02/02/22 21:35 Neut # (Auto) 6.23 10^3/uL (1.8-7.7) 02/02/22 21:35 Lymph # (Auto) 1.1 10^3/uL (0.8-4.8) 02/02/22 21:35 Vernon # (Auto) 0.4 10^3/uL (0.2-0.9) 02/02/22 21:35 Eos # (Auto) 0.1 10^3/uL (0.0-0.8) 02/02/22 21:35 Baso # (Auto) 0.0 10^3/uL (0.0-0.1) 02/02/22 21:35 Nucleated RBC % (auto) 0 % 02/02/22 21:35 Nucleated RBCs # 0.0 /100WBC 02/02/22 21:35 Sodium 137 mmol/L (136-145) 02/02/22 21:35 Potassium 3.9 mmol/L (3.5-5.1) 02/02/22 21:35 Chloride 101 mmol/L (98-107) 02/02/22 21:35 Carbon Dioxide 23 mmol/L (22-29) 02/02/22 21:35 Anion Gap 16.9 (5-19) 02/02/22 21:35 BUN 35 mg/dL (8-23) H 02/02/22 21:35 Creatinine 1.3 mg/dL (0.7-1.2) H 02/02/22 21:35 GFR Calculation Not Reportable 02/02/22 21:35 Glucose 117 mg/dL (65-115) H 02/02/22 21:35 Calculated Osmolality 293 mOsm/kg (285-295) 02/02/22 21:35 Calcium 8.6 mg/dL (8.5-10.5) 02/02/22 21:35 Total Bilirubin 0.9 mg/dL (0.15-1.2) 02/02/22 21:35 AST 18 U/L (0-40) 02/02/22 21:35 ALT 13 U/L (0-41) 02/02/22 21:35 Alkaline Phosphatase 89 IU/L (40-130) 02/02/22 21:35 Troponin T Baseline 18 ng/L (0-15) H 02/02/22 21:35 Troponin T 120 Minute 17.52 ng/L (0-15) H 02/02/22 23:35 Delta Troponin T -0.48 ABS# (0-10) L 02/02/22 23:35 NT-Pro-B Natriuret Pep 127 pg/mL (0-450) 02/02/22 21:35 Total Protein 6.8 g/dL (6.6-8.7) 02/02/22 21:35 Albumin 3.7 g/dL (3.5-5.2) 02/02/22 21:35 Globulin 3.1 g/dL (1.3-4.6) 02/02/22 21:35 Lipase 16 U/L (13-60) 02/02/22 21:35 Imaging Data Other Imaging: Radiologist's impression: [address] [place] [address] XRay Report Signed Patient: Judd Beth Unit #: [id number] : 1940 Age/Sex: 81 / M ADM Date: 02/02/22 Loc: ER Room/Bed: Attending Dr: Ordering Provider/Ordering MD: Gustavo Chao MD Date of Service: 02/02/22 Procedure(s): XR chest 1V portable [id number] Accession Number(s): [id number] Report Number: [id number] PROCEDURE INFORMATION: Exam: XR Chest Exam date and time: 02/02/2022 9:34 PM Age: 81 years old Clinical indication: Sternal or substernal pain; Additional info: Chest pain TECHNIQUE: Imaging protocol: XR of the chest. Views: 1 view. COMPARISON: CR XR chest 1V portable [id number] 01/02/2021 9:23 PM FINDINGS: Lungs: There is a background emphysema and pulmonary fibrosis. This appears stable compared with 01/02/2021. Pleural spaces: Unremarkable. No pleural effusion. No pneumothorax. Heart/Mediastinum: Unremarkable. No cardiomegaly. Vasculature: There is mild tortuosity of the thoracic aorta. Bones/joints: Unremarkable. XR/XR chest 1V portable [id number] IMPRESSION: There are no acute chest findings. Stable appearance of the chest compared with 01/02/2021. ? Dictated By: Luis Enrique William MD Signed By: Luis Enrique William MD Signed Date/Time: 02/02/222158 DD/ 33 Discharge Plan Discharge Patient Disposition: Home Clinical Impression: Nausea & vomiting, Diarrhea Condition: Stable Prescriptions: New acetaminophen 500 mg tablet 500 mg PO Q6H PRN (Reason: pain) 5 Days Qty: 20 0RF Pepcid 20 mg tablet 20 mg PO BID PRN (Reason: abdominal pain) 10 Days Qty: 20 0RF ondansetron 4 mg tablet,disintegrating 4 mg PO TID PRN (Reason: nausea and vomiting) 4 Days Qty: 12 0RF Maalox Advanced 1,000-60 mg tablet,chewable 1 tab PO TID PRN (Reason: abdominal pain) 7 Days Qty: 21 0RF No Action ipratropium-albuterol 0.5 mg-3 mg(2.5 mg base)/3 mL solution for nebulization 3 ml inhalation Q6H 0RF hydrochlorothiazide 25 mg tablet 25 mg PO DAILY@0600 Qty: 90 0RF lisinopril 40 mg tablet 40 mg PO DAILY@0600 Qty: 90 0RF gabapentin 100 mg capsule 100 mg PO TID Qty: 90 2RF fluoxetine [Prozac] 20 mg capsule 20 mg PO QAM Qty: 90 1RF albuterol sulfate [Ventolin HFA] 90 mcg/actuation HFA aerosol inhaler 2 puff inhalation Q6H PRN (Reason: shortness of breath or wheezing) Qty: 8.5 2RF montelukast 10 mg tablet 10 mg PO DAILY@0600 0RF Discharge Orders: Discharge ED (Routine); Ordered 02/03/22 Ordered By: Britni Dorman Referrals: Bruno Mai DO [Primary Care Provider] - Discharge Diet: Advance as tolerated Discharge Activity: Increase activity as tolerated Patient Instructions: Acute Nausea and Vomiting (ED) Activity Restrictions/Additional Instructions: Please come back if you have any worsening abdominal pain, fever or chills, nausea or vomiting, diarrhea, blood in the stool, inability hold down liquid or solids, or any new concerning complaints. Coding Level of Care Code ED Micromatic Hone Operator for Chg Fwd Exam Comprehensive Documented by User: Britni Dorman MD 02/03/22 02:17 HPI - General Adult General: Chief complaint: Dizziness Stated complaint: Nauseous Time Seen by Provider: 02/02/22 21:13 PFSH ED PFSH: Medical History COPD (chronic obstructive pulmonary disease) Essential (primary) hypertension RIAZ (generalized anxiety disorder) Lung nodule Osteoarthritis (arthritis due to wear and tear of joints) Personal history of nicotine dependence Surgical History History of cholecystectomy Family History Other Hypertension Social History Smoking and tobacco status: current every day smoker Second hand smoke exposure: No Smoking risk assessment/counseling performed?: Yes Alcohol intake: current Alcohol intake frequency: few times a month Desire information about alcohol rehabilitation?: No Counseling given: No Desire information about substance/drug rehabilitation?: No Counseling given: No Adopted: No Caregiver/support person: Yes Lives independently: Yes Household members: spouse Housing: House Marital status: service: Yes Current occupational status: retired Current occupational exposures/hazards: No Current gender identity: Male Course Vital Signs: Vital signs: Vital Signs Temperature 99.0 F 02/02/22 20:55 Pulse Rate 74 02/03/22 02:05 Respiratory Rate 18 02/03/22 02:05 Blood Pressure 93/70 02/03/22 02:05 Pulse Oximetry 97 02/03/22 02:05 [facility] - General Adult Medical Decision Making 81-year-old male with a history of COPD/ hypertension presenting to emergency room for concerns of nausea vomiting diarrhea decreased p.o. intake and gener alized weakness. On physical exam, patient is noted to be dry. Rest of exam within normal limit. Work-up to show white count 7.9. Creatinine 1.3. Troponin of 618. On presentation but this is concerning for possible enteritis. Patient received IVF, and GI cocktail. Case signed out to Dr. Dorman pending reassessment and repeat troponin. Patient presents with some dehydration he feels much improved after IV fluids requesting discharge blood work repeat troponin here normal blood pressure here has been improved with IV fluids he is to follow-up with his PCP and return if worsening understands agrees to plan. Lab Data : 02/02/22 21:35 02/02/22 21:35 Radiology Impressions Chest X-Ray 02/02/22 21:24 IMPRESSION: There are no acute chest findings. Stable appearance of the chest compared with 01/02/2021. Laboratory Results WBC 7.9 10^3/uL (4.0-10.0) 02/02/22 21:35 RBC 5.40 10^6/uL (4.1-5.3) H 02/02/22 21:35 Hgb 15.6 g/dL (11.7-16.6) 02/02/22 21:35 Hct 48.2 % (42.0-52.0) 02/02/22 21:35 MCV 89.3 fl (80-94) 02/02/22 21:35 MCH 28.9 pg (28.0-34.0) 02/02/22 21:35 MCHC 32.4 g/dL (30.0-36.0) 02/02/22 21:35 RDW 14.6 % (12.1-15.1) 02/02/22 21:35 Plt Count 196 10^3/cmm (130-400) 02/02/22 21:35 MPV 11.1 fL (7.4-10.4) H 02/02/22 21:35 Neut % (Auto) 78.8 % 02/02/22 21:35 Lymph % (Auto) 14.2 % 02/02/22 21:35 Vernon % (Auto) 5.4 % 02/02/22 21:35 Eos % (Auto) 0.9 % 02/02/22: Baso % (Auto) 0.4 % 02/02/22:35 Neut # (Auto) 6.23 10^3/uL (1.8-7.7) 02/02/22 21:35 Lymph # (Auto) 1.1 10^3/uL (0.8-4.8) 02/02/22:35 Vernon # (Auto) 0.4 10^3/uL (0.2-0.9) 02/02/22 21:35 Eos # (Auto) 0.1 10^3/uL (0.0-0.8) 02/02/22 21:35 Baso # (Auto) 0.0 10^3/uL (0.0-0.1) 02/02/22 21:35 Nucleated RBC % (auto) 0 % 02/02/22 21:35 Nucleated RBCs # 0.0 /100WBC 02/02/22 21:35 Sodium 137 mmol/L (136-145) 02/02/22 21:35 Potassium 3.9 mmol/L (3.5-5.1) 02/02/22 21:35 Chloride 101 mmol/L (98-107) 02/02/22 21:35 Carbon Dioxide 23 mmol/L (22-29) 02/02/22 21:35 Anion Gap 16.9 (5-19) 02/02/22 21:35 BUN 35 mg/dL (8-23) H 02/02/22 21:35 Creatinine 1.3 mg/dL (0.7-1.2) H 02/02/22 21:35 GFR Calculation Not Reportable 02/02/22 21:35 Glucose 117 mg/dL (65-115) H 02/02/22 21:35 Calculated Osmolality 293 mOsm/kg (285-295) 02/02/22 21:35 Calcium 8.6 mg/dL (8.5-10.5) 02/02/22 21:35 Total Bilirubin 0.9 mg/dL (0.15-1.2) 02/02/22 21:35 AST 18 U/L (0-40) 02/02/22 21:35 ALT 13 U/L (0-41) 02/02/22 21:35 Alkaline Phosphatase 89 IU/L (40-130) 02/02/22 21:35 Troponin T Baseline 18 ng/L (0-15) H 02/02/22 21:35 Troponin T 120 Minute 17.52 ng/L (0-15) H 02/02/22 23:35 Delta Troponin T -0.48 ABS# (0-10) L 02/02/22 23:35 NT-Pro-B Natriuret Pep 127 pg/mL (0-450) 02/02/22 21:35 Total Protein 6.8 g/dL (6.6-8.7) 02/02/22 21:35 Albumin 3.7 g/dL (3.5-5.2) 02/02/22 21:35 Globulin 3.1 g/dL (1.3-4.6) 02/02/22 21:35 Lipase 16 U/L (13-60) 02/02/22 21:35 Discharge Plan Discharge Patient Disposition: Home Clinical Impression: Nausea & vomiting, Diarrhea Condition: Stable Prescriptions: New acetaminophen 500 mg tablet 500 mg PO Q6H PRN (Reason: pain) 5 Days Qty: 20 0RF Pepcid 20 mg tablet 20 mg PO BID PRN (Reason: abdominal pain) 10 Days Qty: 20 0RF ondansetron 4 mg tablet,disintegrating 4 mg PO TID PRN (Reason: nausea and vomiting) 4 Days Qty: 12 0RF Maalox Advanced 1,000-60 mg tablet,chewable 1 tab PO TID PRN (Reason: abdominal pain) 7 Days Qty: 21 0RF No Action ipratropium-albuterol 0.5 mg-3 mg(2.5 mg base)/3 mL solution for nebulization 3 ml inhalation Q6H 0RF hydrochlorothiazide 25 mg tablet 25 mg PO DAILY@0600 Qty: 90 0RF lisinopril 40 mg tablet 40 mg PO DAILY@0600 Qty: 90 0RF gabapentin 100 mg capsule 100 mg PO TID Qty: 90 2RF fluoxetine [Prozac] 20 mg capsule 20 mg PO QAM Qty: 90 1RF albuterol sulfate [Ventolin HFA] 90 mcg/actuation HFA aerosol inhaler 2 puff inhalation Q6H PRN (Reason: shortness of breath or wheezing) Qty: 8.5 2RF montelukast 10 mg tablet 10 mg PO DAILY@0600 0RF Discharge Orders: Discharge ED (Routine); Ordered 02/03/22 Ordered By: Britni Dorman Referrals: Bruno Mai DO [Primary Care Provider] - Discharge Diet: Advance as tolerated Discharge Activity: Increase activity as tolerated Patient Instructions: Acute Nausea and Vomiting (ED) Activity Restrictions/Additional Instructions: Please come back if you have any worsening abdominal pain, fever or chills, nausea or vomiting, diarrhea, blood in the stool, inability hold down liquid or solids, or any new concerning complaints. Coding Level of Care Code ED Micromatic Hone Operator for Chg Fwd Exam Comprehensive
[2022-02-02 21:47] LABS: Basophils % 0.4 %; Eosinophils # 0.1 10^3/uL (0.0-0.8); Eosinophils % 0.9 %; Hematocrit 48.2 % (42.0-52.0); Hemoglobin 15.6 g/dL (11.7-16.6); Lymphocytes # 1.1 10^3/uL (0.8-4.8); Lymphocytes % 14.2 %; Mean Corpuscular HGB Conc 32.4 g/dL (30.0-36.0); Mean Corpuscular Hemoglobin 28.9 pg (28.0-34.0); Mean Corpuscular Volume 89.3 fl (80-94); Mean Platelet Volume 11.1 fL (7.4-10.4); Monocytes # 0.4 10^3/uL (0.2-0.9); Monocytes % 5.4 %; Neutrophils # 6.23 10^3/uL (1.8-7.7); Neutrophils % 78.8 %; Nucleated Red Blood Cells % 0 %; Platelet Count 196 10^3/cmm (130-400); Red Cell Distribution Width 14.6 % (12.1-15.1); White Blood Count 7.9 10^3/uL (4.0-10.0)
[2022-02-02 22:10] LABS: Troponin(5th) Baseline 18 ng/L (0-15)
[2022-02-02 22:15] LABS: Alanine Aminotransferase 13 U/L (0-41); Albumin Level 3.7 g/dL (3.5-5.2); Alkaline Phosphatase 89 IU/L (40-130); Anion Gap 16.9 (5-19); Aspartate Amino Transferase 18 U/L (0-40); Blood Urea Nitrogen 35 mg/dL (8-23); Calcium 8.6 mg/dL (8.5-10.5); Carbon Dioxide 23 mmol/L (22-29); Chloride 101 mmol/L (98-107); Globulin 3.1 g/dL (1.3-4.6); Glucose 117 mg/dL (65-115); Lipase 16 U/L (13-60); NT Pro B Type Natriuretic Pept 127 pg/mL (0-450); Osmolality Calculated 293 mOsm/kg (285-295); Potassium 3.9 mmol/L (3.5-5.1); Sodium 137 mmol/L (136-145); Total Bilirubin 0.9 mg/dL (0.15-1.2); Total Protein 6.8 g/dL (6.6-8.7)
[2022-02-02] MEDS: lidocaine 2% viscous 15 ML, aluminum-mag hydrox-simethicon 30 ML, sucralfate oral liq 1 GM PO (22:26)
[2022-02-02] MEDS: sodium chloride 0.9% 1,000 ML 999 ML IV (22:32)
--- NOTE | 2022-02-02 23:25 | ECG_ITS ---
[facility] Test Date: 2022-02-02 Pat Name: Judd Beth Department: Room: Gender: Male [employer] K[employer]: : 1940 Requested By: Gustavo Chao Order Number: [id number] Andrzej MD: Armida Dillard M.D. Measurements Intervals [place] Rate: 71 P: 62 AK: 167 QRS: 262 QRSD: 154 T: 64 QT: 417 QTc: 454 Interpretive Statements SINUS RHYTHM RIGHT AXIS DEVIATION [QRS AXIS > 100] RIGHT BUNDLE BRANCH BLOCK [120+ ms QRS DURATION, UPRIGHT V1, 40+ ms S IN I/aVL/V4/V5/V6] POSSIBLE SEPTAL MYOCARDIAL INFARCTION , OF INDETERMINATE AGE [30 ms Q WAVE IN V1/V2] Compared to ECG 02/02/2022 21:32:06 No significant changes Electronically Signed On 02-03-2022 16:21:38 CDT by Armida Dillard M.D. [id number]
[2022-02-03 00:08] VITALS: BP 98/62; PULSE 75; RESP 18; O2SAT 97
[2022-02-03 00:31] LABS: Troponin 5 2HR 17.52 ng/L (0-15)
[2022-02-03 00:33] LABS: Troponin 5 2HR Delta -0.48 ABS# (0-10)
[2022-02-03 00:38] VITALS: BP 90/58; PULSE 73; RESP 18; O2SAT 99
[2022-02-03] MEDS: sodium chloride 0.9% 1,000 ML 999 ML IV (00:44)
[2022-02-03 01:08] VITALS: BP 97/62; PULSE 75; RESP 18; O2SAT 97
[2022-02-03 01:38] VITALS: BP 99/64; PULSE 79; RESP 18; O2SAT 96
[2022-02-03] MEDS: diphenoxylate/atropine Tablet 1 TAB PO (02:00)
[2022-02-03 02:05] VITALS: BP 93/70; PULSE 74; RESP 18; O2SAT 97
--- NOTE | 2022-02-05 11:13 | DCPLANNER ---
manager home had message to speak with patient about getting a follow up appointment for patient with his primary care physician. Patient stated that he could make his appointment if he feels like he needs it.
== END 2022-02-03 02:05 | disposition home or self-care (01) ==
PROVIDERS: Emergency Medicine; Emergency Provider Emergency Medicine; PCP Internal Medicine
DX: R11.2 Nausea with vomiting, unspecified (principal); R19.7 Diarrhea, unspecified; J44.9 Chronic obstructive pulmonary disease, unspecified; I10 Essential (primary) hypertension; F41.1 Generalized anxiety disorder; F17.210 Nicotine dependence, cigarettes, uncomplicated; E86.0 Dehydration
CPT/HCPCS: 71045; 80053; 83690; 83880; 84484; 85025; 93005; 96360; 96361; 99284; J7030

== ENCOUNTER → 2022-05-07 09:40 | Outpatient (BNVA) | payer MEDICARE, BC, SELFPAY | PROVIDERS: PCP Internal Medicine; Visit Provider Nurse Practitioner | DX: I10 Essential (primary) hypertension (principal); E55.9 Vitamin D deficiency, unspecified; K58.9 Irritable bowel syndrome, unspecified; M51.36 Other intervertebral disc degeneration, lumbar region; J30.2 Other seasonal allergic rhinitis; J44.9 Chronic obstructive pulmonary disease, unspecified | CPT/HCPCS: 80053; 80061; 82306; 84443; 85025 ==

== ENCOUNTER → 2022-07-24 08:48 | Outpatient (BNVA) | payer MEDICARE, BC, SELFPAY | PROVIDERS: PCP Internal Medicine; Visit Provider Nurse Practitioner | DX: K58.0 Irritable bowel syndrome with diarrhea (principal); R63.4 Abnormal weight loss; R19.7 Diarrhea, unspecified | CPT/HCPCS: 80053; 81000; 85025 ==

== ENCOUNTER → 2022-12-02 15:54 | Outpatient (BNVA) | payer MEDICARE, BC, SELFPAY | PROVIDERS: PCP Internal Medicine; Visit Provider Nurse Practitioner | DX: I10 Essential (primary) hypertension (principal); K21.9 Gastro-esophageal reflux disease without esophagitis | CPT/HCPCS: 80053 ==

== ENCOUNTER → 2023-02-25 10:03 | Outpatient (BNVA) | payer MEDICARE, BC, SELFPAY | PROVIDERS: PCP Internal Medicine; Visit Provider Nurse Practitioner | DX: R63.4 Abnormal weight loss (principal); J44.9 Chronic obstructive pulmonary disease, unspecified; M19.90 Unspecified osteoarthritis, unspecified site; M48.061 Spinal stenosis, lumbar region without neurogenic claudication | CPT/HCPCS: 71046; 73522 ==

== ENCOUNTER → 2023-06-12 08:56 | Outpatient (BNVA) | payer MEDICARE, BC, SELFPAY | PROVIDERS: PCP Internal Medicine; Visit Provider Anesthesiology Pain Medicine | DX: M54.16 Radiculopathy, lumbar region (principal); M47.816 Spondylosis without myelopathy or radiculopathy, lumbar region; M51.36 Other intervertebral disc degeneration, lumbar region; M19.90 Unspecified osteoarthritis, unspecified site; M43.16 Spondylolisthesis, lumbar region | CPT/HCPCS: 99204 ==

== ENCOUNTER → 2023-06-30 16:41 | Outpatient (BNVA) | payer MEDICARE, BC, SELFPAY | PROVIDERS: PCP Internal Medicine; Visit Provider Nurse Practitioner | DX: I10 Essential (primary) hypertension | CPT/HCPCS: 80053; 80061; 84443; 85025 ==

== ENCOUNTER 2023-07-08 07:44 | Outpatient (CLI) | payer MEDICARE, BC, SELFPAY ==
--- NOTE | 2023-07-08 08:00 | MR_ITS ---
WS: [id number] MRI LUMBAR SPINE NONCONTRAST HISTORY: Chronic back pain reading to LEFT hip. COMPARISON: 01/06/2009 TECHNIQUE: Sagittal and axial multisequence imaging is submitted. Straightening of the normal lumbar lordosis. 2 mm retrolisthesis of L1, L2 and L3. No acute fracture. Marrow edema in the endplates of L4 and L5. Severe disc space narrowing at L4-5 and moderate at L5-S1. Conus terminates normally at L1-2 disc level. L1-L2: Mild annular disc bulging and osteophytic ridging. Disc encroaches upon the subarticular reces ses, greatest on the RIGHT. There is disc contacting the traversing RIGHT L2 nerve root. Less contact on the LEFT L2 nerve root. Mild central, bilateral subarticular recess and foraminal stenosis. L2-L3: Mild annular disc bulging with mild facet hypertrophy. Mild disc encroachment upon the subarti cular recesses. L3-L4: Mild osteophytic ridging and annular disc bulging. LEFT subarticular recess disc protrusion di splaces the LEFT lateral thecal sac and the nerve roots. There is contact on both traversing nerve ro ots. Disc contacts the traversing L4 nerve roots, RIGHT greater than LEFT. Moderate central, bilatera l subarticular recess and mild foraminal stenosis. L4-L5: Diffuse annular disc bulging with mild osteophytic ridging. Disc encroaches upon the subarticu lar recesses. Mild contact on the traversing L5 nerve roots. Mild central and subarticular recess jaida nosis. Moderate RIGHT foraminal stenosis due to combination of osteophytes, facet and disc disease. L5-S1: Moderate diffuse annular disc bulging with ligamentum flavum and facet arthritis. Disc encroac iván upon the thecal sac. Focal disc protrusion contacts the RIGHT S1 nerve root. Lesser contact on t he LEFT S1 nerve root. Mild central, bilateral subarticular recess stenosis. Severe LEFT foraminal st enosis. Complete effacement of fat in the LEFT foramen. Moderate RIGHT foraminal stenosis. Abdominal aortic aneurysm at 3.9 cm. No aneurysm was described on the CT of 01/11/2015. IMPRESSION: 1. 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 2. L3-4: LEFT subarticular recess disc protrusion displacing the LEFT L4 nerve root. Moderate central , bilateral subarticular recess and mild foraminal stenosis. 3. L4-5: Moderate RIGHT foraminal stenosis. Disc contacts the traversing nerve roots in the subarticu lar recesses. 4. L5-S1: Severe LEFT foraminal stenosis and moderate RIGHT foraminal stenosis. There is a tiny focal disc protrusion contacting the RIGHT S1 nerve root. Mild central and bilateral subarticular recess s tenosis. 5. L1-2: Mild central, bilateral subarticular recess and foraminal stenosis. Disc contacts the evans sing RIGHT L2 nerve root. 6. Abdominal aortic aneurysm 3.9 cm. Recommend follow-up CT angiogram abdominal aorta. Aneurysm is ne w since 2014.
== END 2023-07-08 07:45 | disposition home or self-care (01) ==
PROVIDERS: PCP Internal Medicine; Visit Provider Anesthesiology Pain Medicine
DX: M48.07 Spinal stenosis, lumbosacral region (principal); M51.17 Intervertebral disc disorders with radiculopathy, lumbosacral region; G89.29 Other chronic pain; I71.40 Abdominal aortic aneurysm, without rupture, unspecified
CPT/HCPCS: 72148

== ENCOUNTER → 2023-07-16 09:12 | Outpatient (BNVA) | payer MEDICARE, BC, SELFPAY | PROVIDERS: PCP Internal Medicine; Visit Provider Anesthesiology Pain Medicine | DX: M47.816 Spondylosis without myelopathy or radiculopathy, lumbar region; M51.36 Other intervertebral disc degeneration, lumbar region; M19.90 Unspecified osteoarthritis, unspecified site; M48.061 Spinal stenosis, lumbar region without neurogenic claudication | CPT/HCPCS: 99214 ==

== ENCOUNTER → 2023-07-23 14:53 | Outpatient (BNVA) | payer MEDICARE, BC, SELFPAY | PROVIDERS: PCP Internal Medicine; Visit Provider Anesthesiology Pain Medicine | DX: M54.16 Radiculopathy, lumbar region (principal) | CPT/HCPCS: 64483; 64484; J1100; J3490 ==

== ENCOUNTER → 2023-08-06 08:53 | Outpatient (BNVA) | payer MEDICARE, BC, SELFPAY | PROVIDERS: PCP Nurse Practitioner; Visit Provider Anesthesiology Pain Medicine | DX: M47.816 Spondylosis without myelopathy or radiculopathy, lumbar region; M51.36 Other intervertebral disc degeneration, lumbar region; M19.90 Unspecified osteoarthritis, unspecified site; M43.16 Spondylolisthesis, lumbar region | CPT/HCPCS: 99214 ==

== ENCOUNTER → 2023-09-30 10:12 | Outpatient (BNVA) | payer MEDICARE, BC, SELFPAY | PROVIDERS: PCP Nurse Practitioner; Visit Provider Anesthesiology Pain Medicine | DX: M47.816 Spondylosis without myelopathy or radiculopathy, lumbar region; M51.36 Other intervertebral disc degeneration, lumbar region; M19.90 Unspecified osteoarthritis, unspecified site; M43.16 Spondylolisthesis, lumbar region | CPT/HCPCS: 99214 ==

== ENCOUNTER → 2023-10-30 09:13 | Outpatient (BNVA) | payer MEDICARE, BC, SELFPAY | PROVIDERS: PCP Nurse Practitioner; Visit Provider Anesthesiology Pain Medicine | DX: M51.36 Other intervertebral disc degeneration, lumbar region; M47.816 Spondylosis without myelopathy or radiculopathy, lumbar region; M19.90 Unspecified osteoarthritis, unspecified site; M43.16 Spondylolisthesis, lumbar region | CPT/HCPCS: 99214 ==

== ENCOUNTER → 2023-12-02 09:07 | Outpatient (BNVA) | payer MEDICARE, BC, SELFPAY | PROVIDERS: PCP Nurse Practitioner; Visit Provider Anesthesiology Pain Medicine | DX: M51.36 Other intervertebral disc degeneration, lumbar region; M47.816 Spondylosis without myelopathy or radiculopathy, lumbar region; M19.90 Unspecified osteoarthritis, unspecified site; M43.16 Spondylolisthesis, lumbar region | CPT/HCPCS: 99214 ==

== ENCOUNTER → 2023-12-09 11:38 | Outpatient (BNVA) | payer MEDICARE, SELFPAY | PROVIDERS: PCP Nurse Practitioner; Visit Provider Nurse Practitioner | DX: I10 Essential (primary) hypertension | CPT/HCPCS: 80053; 80061; 82607; 84443; 85025 ==

== ENCOUNTER → 2024-01-06 11:03 | Outpatient (BNVA) | payer MEDICARE, SELFPAY | PROVIDERS: PCP Nurse Practitioner; Visit Provider Anesthesiology Pain Medicine | DX: M51.36 Other intervertebral disc degeneration, lumbar region; M47.816 Spondylosis without myelopathy or radiculopathy, lumbar region; M19.90 Unspecified osteoarthritis, unspecified site; M43.16 Spondylolisthesis, lumbar region | CPT/HCPCS: 99214 ==

== ENCOUNTER → 2024-02-25 11:45 | Outpatient (BNVA) | payer MEDICARE, SELFPAY | PROVIDERS: PCP Nurse Practitioner; Visit Provider Nurse Practitioner | DX: R63.4 Abnormal weight loss (principal); E53.8 Deficiency of other specified B group vitamins; F41.1 Generalized anxiety disorder; I10 Essential (primary) hypertension; J30.89 Other allergic rhinitis; J30.2 Other seasonal allergic rhinitis; K58.0 Irritable bowel syndrome with diarrhea | CPT/HCPCS: 80053; 82607; 85025 ==

== ENCOUNTER → 2024-03-04 10:45 | Outpatient (BNVA) | payer MEDICARE, SELFPAY | PROVIDERS: PCP Nurse Practitioner; Visit Provider Anesthesiology Pain Medicine | DX: M19.90 Unspecified osteoarthritis, unspecified site; Z87.891 Personal history of nicotine dependence; M43.16 Spondylolisthesis, lumbar region; M51.36 Other intervertebral disc degeneration, lumbar region; M47.816 Spondylosis without myelopathy or radiculopathy, lumbar region | CPT/HCPCS: 99214 ==

== ENCOUNTER 2024-03-31 09:33 | Emergency (ER) | payer MEDICARE, SELFPAY ==
[2024-03-31 09:36] VITALS: BP 151/95; PULSE 79; RESP 18; TEMP 36.8; O2SAT 98
--- NOTE | 2024-03-31 09:39 | XRR_ITS ---
PROCEDURE INFORMATION: Exam: XR Right Ribs with PA Chest Exam date and time: 03/31/2024 9:49 AM Age: 84 years old Clinical indication: Injury or trauma; Fall; Rib area; Blunt trauma (contusions or hematomas) TECHNIQUE: Imaging protocol: Radiologic exam of the right ribs with PA chest. Views: 3 views COMPARISON: CR XR chest 2V* [id number] 02/25/2023 10:10 AM FINDINGS: Lungs: Both lungs demonstrate diffuse interstitial coarsening which is felt to be chronic. No lung mass or infiltrate. Pleural spaces: Unremarkable. No pleural effusion. No pneumothorax. Heart/Mediastinum: Unremarkable. No cardiomegaly. Bones/joints: Unremarkable. XR/XR ribs RT mn 3V w CXR1V [id number] IMPRESSION: No acute findings.
--- NOTE | 2024-03-31 09:40 | ED_ITS ---
HPI - Fall General: Chief Complaint: General Medical Stated Complaint: Dr. Kaur sent him. Rib pain and low oxygen Time Seen by Provider: 03/31/24 09:39 Source: patient Mode of arrival: ambulatory Limitations: no limitations History of Present Illness: 84-year-old male states that he had a fa ll last week he fell onto his right side he has been having some right-sided rib pain since then its much worse with palpation he denies hitting his head denies any loss of consciousness. He rates his pain a 5 out of 10 currently. Associated symptoms-after fall: Reports chest pain; Denies abdominal pain, headache(s) or neck pain Review of Systems Const: Denies: fever(s), chills, body aches or change in appetite ENMT: Denies: throat pain or dental pain Card: Reports: chest pain Resp: Denies: dyspnea GI: Denies: abdominal pain, nausea, vomiting or diarrhea Musc: Denies: neck pain or back pain Skin/Breast: Denies: rash Neuro: Denies: headache(s) PFSH ED PFSH: Medical History Abdominal aortic aneurysm (AAA) 3.0 cm to 5.5 cm in diameter in male Irritable bowel syndrome with diarrhea Seasonal and perennial allergic rhinitis RIAZ (generalized anxiety disorder) Personal history of nicotine dependence Lung nodule Osteoarthritis (arthritis due to wear and tear of joints) COPD (chronic obstructive pulmonary disease) Essential (primary) hypertension Surgical History History of cholecystectomy Family History Other Hypertension Social History Smoking and tobacco/nicotine status: current every day tobacco/nicotine user Second hand smoke exposure: No Alcohol intake: current Alcohol intake frequency: few times a month Substance/Drug Use: never Adopted: No Caregiver/support person: Yes Lives independently: Yes Household members: spouse Housing: House Marital status: service: Yes Current occupational status: retired Current occupational exposures/hazards: No Do you think of yourself as: Straight/Heterosexual Current gender identity: Male Physical Exam Const: COMMON NORMALS: no acute distress, patient oriented x3 and healthy appearing HENMT: COMMON NORMALS: normocephalic and atraumatic HEAD & SCALP: normocephalic and atraumatic Eye: COMMON NORMALS: Equal, round and reactive pupils present and EOMs intact bilaterally PUPIL: Yes Equal, round and reactive pupils present Neck/C-Spine: COMMON NORMALS: full ROM and supple Chest: COMMONS NORMALS: normal inspection of the chest OTHER: Tenderness noted to right lateral chest wall Resp: COMMON NORMALS: normal respiratory effort, No retractions, No use of accessory muscles and clear to auscultation bilaterally AUSCULTATION: clear to auscultation bilaterally Cardio: COMMON NORMALS: regular rate, regular rhythm and No murmurs present (Cardio) RATE: regular rate RHYTHM: regular rhythm GI: COMMON NORMALS: Normal to inspection, nondistended, normoactive bowel sounds present, Soft to palpation, non-tender and no masses PALPATION: Yes Soft to palpation Extremity: COMMON NORMALS: normal to inspection and full ROM Neuro: COMMON NORMALS: patient oriented x3, moves all extremities and no focal motor deficits Psych: COMMON NORMALS: mental status grossly normal, Normal thought process present and cooperative THOUGHT PROCESS: Normal thought process present Skin: COMMON NORMALS: no rashes or lesions noted and no wounds GENERAL SKIN EXAM: no rashes or lesions noted Course Vital Signs: Vital signs: Vital Signs Temperature 98.2 F 03/31/24 09:36 Pulse Rate 79 03/31/24 09:36 Respiratory Rate 18 03/31/24 09:36 Blood Pressure 151/95 03/31/24 09:36 Pulse Oximetry 98 03/31/24 09:36 Oxygen Delivery Me thod Room Air 03/31/24 09:36 MDM - Fall Medical Decision Making Patient presents here with likely right-sided chest wall contusion x-ray here showed no acute abnormalities he is stable for discharge follow-up with PCP return if worsening he understands agrees to plan. Medical Records I reviewed the patient's medical records. Lab Data Radiology Impressions Ribs X-Ray 03/31/24 09:39 IMPRESSION: No acute findings. No radiology studies performed this visit Discharge Plan Discharge Patient Disposition: Home Clinical Impression: Contusion of rib on right side Condition: Stable Prescriptions: New Naprosyn 500 mg tablet 500 mg PO BID PRN (Reason: pain) Qty: 20 0RF No Action clonidine HCl 0.1 mg tablet 0.1 mg PO BID PRN (Reason: hypertensive emergency) Qty: 60 2RF Rx Instructions: SPB>160 or DBP> 90 acetaminophen-codeine 300-30 mg tablet 1 tab PO TID PRN (Reason: pain) 30 Days Qty: 90 1RF Rx Instructions: Not to be taken with other opioids, benzodiazepines or alcohol mirtazapine [Remeron] 15 mg tablet 15 mg PO .at supper Qty: 30 2RF Rx Instructions: Help eat and sleep cyanocobalamin (vitamin B-12) 1,000 mcg/mL solution 1,000 mcg IM .monthly Qty: 1 2RF escitalopram oxalate [Lexapro] 20 mg tablet 20 mg PO DAILY Qty: 90 1RF hydrochlorothiazide 25 mg tablet 25 mg PO DAILY@0600 Qty: 90 1RF Hold Instructions: Doctor's Order lisinopril 40 mg tablet 40 mg PO DAILY@0600 Qty: 90 1RF montelukast 10 mg tablet 10 mg PO DAILY@0600 Qty: 90 1RF dexamethasone 4 mg tablet 4 mg PO DAILY Qty: 30 2RF (DME) syringe with needle 3 mL 22 gauge x 1 syringe See Rx Instructions .ROUTE .MEDSUPPLY Qty: 1 2RF Rx Instructions: monthly with B12 Discharge Orders: Discharge ED (Routine); Ordered 03/31/24 Ordered By: Britni Dorman Referrals: Chon Gloria, IMAGING SYSTEM ADMINISTRATOR-C [Primary Care Provider] - 1-3 days Discharge Diet: Advance as tolerated Discharge Activity: Resume usual activity Patient Instructions: Chest Wall Pain (ED) Coding Level of Care Code ED Cloth Bleaching Range Back Tender for Brandan Naranjo
[2024-03-31] MEDS: HYDROcodone-acetaminophen 5-325 mg Tablet 1 TAB PO (09:46)
[2024-03-31 10:39] VITALS: PULSE 63; O2SAT 95
== END 2024-03-31 10:41 | disposition home or self-care (01) ==
PROVIDERS: Emergency Provider Emergency Medicine; PCP Nurse Practitioner
DX: S20.211A Contusion of right front wall of thorax, initial encounter (principal); Z72.0 Tobacco use; J44.9 Chronic obstructive pulmonary disease, unspecified; I10 Essential (primary) hypertension; W19.XXXA Unspecified fall, initial encounter; M51.36 Other intervertebral disc degeneration, lumbar region; M47.816 Spondylosis without myelopathy or radiculopathy, lumbar region; M43.16 Spondylolisthesis, lumbar region; M19.90 Unspecified osteoarthritis, unspecified site
CPT/HCPCS: 71101; 99214; 99283

== ENCOUNTER 2024-04-15 15:10 | Observation (INO) | payer MEDICARE, SELFPAY ==
[2024-04-15] VITALS (8 sets, daily range): BP systolic 109–141; BP diastolic 58–87; PULSE 54–84; RESP 13–20; TEMP 36.4–36.6; O2SAT 93–99; BMI 18.4
--- NOTE | 2024-04-15 16:47 | XRR_ITS ---
PROCEDURE INFORMATION: Exam: XR Chest Exam date and time: 04/15/2024 4:53 PM Age: 84 years old Clinical indication: Tachypnea; Additional info: Dyspnea/cough TECHNIQUE: Imaging protocol: Radiologic exam of the chest. Views: 1 view. COMPARISON: CR XR ribs RT mn 3V w CXR1V [id number] 03/31/2024 9:49 AM FINDINGS: Lungs: Emphysema. Density in the right infrahilar region appears similar to 03/31/2024. The lungs are otherwise clear. Pleural spaces: Unremarkable. No pleural effusion. No pneumothorax. Heart/Mediastinum: Unremarkable. No cardiomegaly. Bones/joints: C-spine fusion hardware. XR/XR chest 1V portable [id number] IMPRESSION: 1. Density in the right infrahilar region could represent pneumonia. A neoplastic nodule is not entirely excluded. Follow-up with CT imaging is recommended.
[2024-04-15 17:01] LABS: Basophils % 0.3 %; Eosinophils # 0.1 10^3/uL (0.0-0.8); Eosinophils % 0.8 %; Hematocrit 43.1 % (37-53); Lymphocytes # 2.9 10^3/uL (0.8-4.8); Lymphocytes % 30.7 %; Mean Corpuscular HGB Conc 32.7 g/dL (30-55); Mean Corpuscular Hemoglobin 30.6 pg (27-33); Mean Corpuscular Volume 93.5 fl (82-101); Mean Platelet Volume 9.3 fL (7.4-10.4); Monocytes # 0.5 10^3/uL (0.2-0.9); Monocytes % 5.2 %; Neutrophils # 5.79 10^3/uL (1.8-7.7); Neutrophils % 62.5 %; Nucleated Red Blood Cells % 0 %; Platelet Count 265 10^3/cmm (157-399); Red Blood Count 4.61 10^6/uL (3.85-5.65); Red Cell Distribution Width 14.8 % (12.1-15.1); White Blood Count 9.27 10^3/uL (3.29-11.43)
--- NOTE | 2024-04-15 17:05 | ED_ITS ---
HPI - Recheck/Abnormal Lab/Rx 2 General: Chief Complaint: Recheck/Abnormal Lab/Rx Stated Complaint: low bp, sent from urgent care to admitt Time Seen by Provider: 04/15/24 16:43 Source: patient Mode of arrival: ambulatory History of Present Illness: 84-year-old male presents emergency room complaining of low blood pressure and significant leg swellings began over the last several days. States normally his legs are not swollen. He said some mild orthopnea no PND. He notes that any exertion he gets very short of breath. He usually is very active is up weed eating doing outdoor work became more short of breath with it denies any chest pain. He went into the primary care clinic today because his blood pressure was very low he got lightheaded and dizzy and is found to have systolic pressure of 72 he is on hydrochlorothiazide and furosemide as well as lisinopril and has as needed clonidine for accelerated hypertension. Associated symptoms: shortness of breath Review of Systems 2 Const: Denies: fever(s) or chills Card: Reports: edema, swelling of feet/ankles, dyspnea on exertion and orthopnea; Denies: chest pain or palpitations Resp: Reports: dyspnea GI: Denies: abdominal pain : Denies: dysuria, urinary frequency or urinary urgency Musc: Denies: neck pain or back pain Skin/Breast: Denies: rash PFSH ED 2 PFSH: Medical History Abdominal aortic aneurysm (AAA) 3.0 cm to 5.5 cm in diameter in male Irritable bowel syndrome with diarrhea Seasonal and perennial allergic rhinitis RIAZ (generalized anxiety disorder) Personal history of nicotine dependence Lung nodule Osteoarthritis (arthritis due to wear and tear of joints) COPD (chronic obstructive pulmonary disease) Essential (primary) hypertension Surgical History History of cholecystectomy Family History Other Hypertension Social History Smoking and tobacco/nicotine status: unknown if used tobacco/nicotine Second hand smoke exposure: No Alcohol intake: current Alcohol intake frequency: few times a month Substance/Drug Use: never Adopted: No Caregiver/support person: Yes Lives independently: Yes Household members: spouse Housing: House Marital status: service: Yes Current occupational status: retired Current occupational exposures/hazards: No Do you think of yourself as: Straight/Heterosexual Current gender identity: Male Physical Exam 2 Const: GENERAL APPEARANCE: cooperative and comfortable O RIENTATION/CONSCIOUSNESS: Yes awake, Yes oriented to person, Yes oriented to place and Yes oriented to time HENMT: COMMON NORMALS: normocephalic, atraumatic and hearing grossly normal bilaterally HEAD & SCALP: normocephalic and atraumatic Resp: COMMON NORMALS: normal respiratory effort, No retractions and No use of accessory muscles AUSCULTATION: crackles Cardio: COMMON NORMALS: regular rate, regular rhythm and No murmurs present (Cardio) RATE: regular rate RHYTHM: regular rhythm GI: COMMON NORMALS: Soft to palpation and No hepatosplenomegaly present A USCULTATION: Yes normoactive bowel sounds PALPATION: Yes Soft to palpation, No Tenderness to palpation present (GI), No Guarding due to palpation present (GI) and Yes No hepatosplenomegaly present Extremity: COMMON NORMALS: normal to inspection, capillary refill normal and no calf tenderness GENERAL: Yes edema Neuro: SENSORIUM/ORIENTATION: Yes oriented to person, Yes oriented to place and Yes oriented to time Skin: COMMON NORMALS: no rashes or lesions noted GENERAL SKIN EXAM: no rashes or lesions noted Course 2 Vital Signs: Vital signs: Vital Signs Temperature 97.7 F 04/16/24 04:00 Pulse Rate 57 L 04/16/24 05:57 Respiratory Rate 18 04/16/24 04:00 Blood Pressure 135/78 04/16/24 04:00 Pulse Oximetry 94 04/16/24 04:00 Oxygen Delivery Me thod Room Air 04/16/24 04:00 MDM - Recheck/Abnormal Lab/Rx Medical Decision Making Significant swelling bilateral lower extremities. He has no sign of DVT he has not been hypoxic or tachycardic. He has been hypotensive earlier. He denies any chest pain or discomfort. Will admit he is on several potentially nephrotoxic drugs Lasix hydrochlorothiazide and lisinopril he does have a mild acute kidney injury. Chest x-ray is abnormal will likely need a CT with contrast at some point to evaluate further. He is not requiring any oxygen supplementation. Blood pressures initially at his doctor's office from the 70 systolic range. They have improved some. Additionally he is noted poor exercise tolerance. Discussed with hospitalist will admit for further evaluation Justman medications treatment of his acute kidney injury and evaluation of the abnormal chest x-ray and fluid overload. Medical Records I reviewed the patient's medical records. Lab Data I reviewed the patient's lab results. 04/16/24 03:45 04/16/24 03:45 Radiology Impressions Chest X-Ray 04/15/24 16:47 IMPRESSION: 1. Density in the right infrahilar region could represent pneumonia. A neoplastic nodule is not entirely excluded. Follow-up with CT imaging is recommended. Chest CT 04/15/24 18:15 IMPRESSION: 1. Wedge-shaped atelectasis or less likely pneumonia in the medial segment of the right middle lobe. No definite evidence of neoplasm. 2. Centrilobular emphysema. 3. 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 4. Age-indeterminate mild T3 compression fracture. Laboratory Results WBC 9.27 10^3/uL (3.29-11.43) 04/15/24 16:52 RBC 4.61 10^6/uL (3.85-5.65) 04/15/24 16:52 Hgb 14.10 g/dL (11.27-16.99) 04/15/24 16:52 Hct 43.1 % (37-53) 04/15/24 16:52 MCV 93.5 fl (82-101) 04/15/24 16:52 MCH 30.6 pg (27-33) 04/15/24 16:52 MCHC 32.7 g/dL (30-55) 04/15/24 16:52 RDW 14.8 % (12.1-15.1) 04/15/24 16:52 Plt Count 265 10^3/cmm (157-399) 04/15/24 16:52 MPV 9.3 fL (7.4-10.4) 04/15/24 16:52 Neut % (Auto) 62.5 % 04/15/24 16:52 Lymph % (Auto) 30.7 % 04/15/24 16:52 [place] % (Auto) 5.2 % 04/15/24 16:52 Eos % (Auto) 0.8 % 04/15/24 16:52 Baso % (Auto) 0.3 % 04/15/24 16:52 Neut # (Auto) 5.79 10^3/uL (1.8-7.7) 04/15/24 16:52 Lymph # (Auto) 2.9 10^3/uL (0.8-4.8) 04/15/24 16:52 [place] # (Auto) 0.5 10^3/uL (0.2-0.9) 04/15/24 16:52 Eos # (Auto) 0.1 10^3/uL (0.0-0.8) 04/15/24 16:52 Baso # (Auto) 0.0 10^3/uL (0.0-0.1) 04/15/24 16:52 Nucleated RBC % (auto) 0 % 04/15/24 16:52 Nucleated RBCs # 0.0 /100WBC 04/15/24 16:52 D-Dimer 3.07 ug/mLFEU (0-0.59) H 04/15/24 16:52 Sodium 143 mmol/L (136-145) 04/15/24 16:52 Potassium 3.5 mmol/L (3.5-5.1) 04/15/24 16:52 Chloride 102 mmol/L (98-107) 04/15/24 16:52 Carbon Dioxide 32 mmol/L (22-29) H 04/15/24 16:52 Anion Gap 12.5 (5-19) 04/15/24 16:52 BUN 29 mg/dL (8-23) H 04/15/24 16:52 Creatinine 1.4 mg/dL (0.7-1.2) H 04/15/24 16:52 GFR Calculation Not Reportable 04/15/24 16:52 Glucose 73 mg/dL (65-115) 04/15/24 16:52 Calculated Osmolality 300 mOsm/kg (285-295) H 04/15/24 16:52 Calcium 9.1 mg/dL (8.5-10.5) 04/15/24 16:52 Total Bilirubin 0.4 mg/dL (0.15-1.2) 04/15/24 16:52 AST 22 U/L (0-40) 04/15/24 16:52 ALT 18 U/L (0-41) 04/15/24 16:52 Alkaline Phosphatase 101 U/L (40-130) 04/15/24 16:52 Creatine Kinase 56 U/L (39-308) 04/15/24 16:52 Troponin T Baseline 22 ng/L (0-15) H 04/15/24 16:52 NT-Pro-B Natriuret Pep 178 pg/mL (0-450) 04/15/24 16:52 Total Protein 6.0 g/dL (6.6-8.7) L 04/15/24 16:52 Albumin 3.8 g/dL (3.5-5.2) 04/15/24 16:52 Globulin 2.2 g/dL (1.3-4.6) 04/15/24 16:52 Procalcitonin 0.07 ng/mL (0-0.5) 04/15/24 16:52 TSH 3.46 uIU/mL (0.27-4.20) 04/15/24 16:52 All radiology interpretation(s) finalized by discharge Discharge Plan Discharge Patient Disposition: Admitted As Inpatient Admit Provider: Amy Middleton Clinical Impression: New onset of congestive heart failure, DEAN (acute kidney injury), Hypotension Condition: Stable Coding Level of Care Code ED Bit Setter for Brandan Naranjo
[2024-04-15 17:19] LABS: Anion Gap 12.5 (5-19); Blood Urea Nitrogen 29 mg/dL (8-23); Calcium 9.1 mg/dL (8.5-10.5); Carbon Dioxide 32 mmol/L (22-29); Chloride 102 mmol/L (98-107); Potassium 3.5 mmol/L (3.5-5.1); Sodium 143 mmol/L (136-145); Total Bilirubin 0.4 mg/dL (0.15-1.2)
--- NOTE | 2024-04-15 17:26 | ECG_ITS ---
[facility] Test Date: 2024-04-15 Pat Name: Judd Beth Department: Room: Gender: Male Tennis Net Maker: : 1940 Requested By: Manjit Colón Order Number: [id number] Andrzej MD: Tim Win M.D. Measurements Intervals [place] Rate: 72 P: 81 TN: 144 QRS: 255 QRSD: 149 T: 64 QT: 438 QTc: 481 Interpretive Statements SINUS RHYTHM RIGHT AXIS DEVIATION [QRS AXIS > 100] RIGHT BUNDLE BRANCH BLOCK [120+ ms QRS DURATION, UPRIGHT V1, 40+ ms S IN I/aVL/V4/V5/V6] Compared to ECG 02/02/2022 23:00:28 Myocardial infarct finding no longer present Electronically Signed On 04-16-2024 20:36:54 CDT by Tim Win M.D. [id number]
[2024-04-15 17:33] LABS: Troponin(5th) Baseline 22 ng/L (0-15)
[2024-04-15 17:50] LABS: Alanine Aminotransferase 18 U/L (0-41); Albumin Level 3.8 g/dL (3.5-5.2); Alkaline Phosphatase 101 U/L (40-130); Aspartate Amino Transferase 22 U/L (0-40); Creatine Phosphokinase 56 U/L (39-308); Globulin 2.2 g/dL (1.3-4.6); Glucose 73 mg/dL (65-115); NT Pro B Type Natriuretic Pept 178 pg/mL (0-450); Osmolality Calculated 300 mOsm/kg (285-295)
[2024-04-15 17:57] LABS: Procalcitonin 0.07 ng/mL (0-0.5)
--- NOTE | 2024-04-15 18:15 | CTR_ITS ---
PROCEDURE INFORMATION: Exam: CT Chest Without Contrast; Diagnostic Exam date and time: 04/15/2024 6:59 PM Age: 84 years old Clinical indication: Other: Pna TECHNIQUE: Imaging protocol: Diagnostic computed tomography of the chest without contrast. Radiation optimization: All CT scans at this facility use at least one of these dose optimization techniques: automated exposure control; mA and/or kV adjustment per patient size (includes targeted exams where dose is matched to clinical indication); or iterative reconstruction. COMPARISON: CR (CHEST, ) 04/15/2024 4:53 PM RADIATION DOSE METRICS: Total DLP (mGy-cm): 287.51 FINDINGS: Lungs: Centrilobular emphysema. Small calcified granulomas in the posterior right upper lobe. Wedge-shaped opacity with volume loss and patent bronchi in the medial segment of the right middle lobe. No visible mass or nodule. Pleural spaces: Unremarkable. No pneumothorax. No pleural effusion. Heart: Unremarkable. No cardiomegaly. No pericardial effusion. Coronary arteries: Dense coronary artery calcifications. Lymph nodes: Small intrapulmonary lymph node along the left major fissure. No follow-up recommended. No mediastinal or hilar lymphadenopathy. Vasculature: 4.2 cm aneurysmal dilatation of the ascending thoracic aorta. Partially visualized 3.1 cm aneurysm in the infrarenal abdominal aorta. Calcified plaque throughout the aorta. Gallbladder and biliary ducts: Cholecystectomy. Prominence of the bile ducts is most likely chronic reservoir effect. Pneumobilia, consistent with prior sphincterotomy. Bones/joints: C-spine fusion hardware. Mild degenerative changes in the thoracic spine. Mild age-indeterminate T3 compression fracture. Soft tissues: Unremarkable. CT/CT chest con [id number] IMPRESSION: 1. Wedge-shaped atelectasis or less likely pneumonia in the medial segment of the right middle lobe. No definite evidence of neoplasm. 2. Centrilobular emphysema. 3. 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 4. Age-indeterminate mild T3 compression fracture.
--- NOTE | 2024-04-15 18:18 | P.HP_ITS ---
Providers/Chief Complaint 2 Primary Care Provider: JOVANNY Downs Chief Complaint: low bp, sent from urgent care to admitt History of Present Illness Judd Beth is a 84 year old male who presented to hospital with 2-week history of orthopnea PND lower extremity weakness and swelling. Patient stating that he has been very active for his age, no history of CO or CHF, he smokes 2 packs/day, went to urgent care clinic for worsening of lower extremity weakness. Patient is stating that today he started getting nauseous when he was working in his backyard that prompted his visit to the urgent clinic from there he was sent to the ER for further evaluation of CHF. In the ER he has significant D- dimer I have requested CT scan of chest without contrast for now to rule out malignancy there is concern for CHF versus pneumonia, creatinine 1.4, CA significant extremity swelling, BNP is below 400, will request venous Doppler and CT chest for now Patient will get IV diuresis, will get admission to the hospital Review of Systems 2 Const: Reports: fatigue; Denies: fever(s) Eyes: Denies: change in vision ENMT: Denies: throat pain Card: Reports: swelling of feet/ankles Resp: Reports: dyspnea GI: Reports: nausea; Denies: abdominal pain Medications/Allergies Home Medications Medication Instructions Recorded Confirmed Last Taken Type clonidine HCl 0.1 mg tablet 0.1 mg PO BID PRN hypertensive 10/06/23 04/15/24 Unknown Rx emergency #60 tabs cyanocobalamin (vitamin B-12) 1,000 mcg IM .monthly #1 mL 02/25/24 04/15/24 Unknown Rx 1,000 mcg/mL injection solution dexamethasone 4 mg tablet 4 mg PO DAILY #30 tabs 02/25/24 04/15/24 03/31/24 Rx escitalopram oxalate 20 mg tablet 20 mg PO DAILY #90 tabs 02/25/24 04/15/24 03/31/24 Rx (Lexapro) hydrochlorothiazide 25 mg tablet 25 mg PO DAILY@0600 swelling or 02/25/24 04/15/24 03/31/24 Rx high blood pressure #90 tabs lisinopril 40 mg tablet 40 mg PO DAILY@0600 #90 tabs 02/25/24 04/15/24 03/31/24 Rx mirtazapine 15 mg tablet (Remeron) 15 mg PO .at supper #30 tabs 02/25/24 04/15/24 03/30/24 Rx montelukast 10 mg tablet 10 mg PO DAILY@0600 #90 tabs 02/25/24 04/15/24 03/31/24 Rx syringe with needle 3 mL 22 gauge #1 ea 03/15/24 04/15/24 Unknown Rx x 1 acetaminophen 300 mg-codeine 30 mg 1 tab PO TID PRN pain 30 days #90 03/31/24 04/15/24 Unknown Rx tablet tabs naproxen 500 mg tablet (Naprosyn) 500 mg PO BID PRN pain #20 tabs 03/31/24 04/15/24 Unknown Rx furosemide 40 mg tablet See Rx Instructions PO QAM 5 days 04/09/24 04/15/24 Unknown Rx #10 tabs Allergies Allergy/AdvReac Type Severity Reaction Status Date / Time No Known Allergies Allergy Verified 04/15/24 14:15 PFSH Acute 2 PFSH: Medical History Abdominal aortic aneurysm (AAA) 3.0 cm to 5.5 cm in diameter in male Irritable bowel syndrome with diarrhea Seasonal and perennial allergic rhinitis RIAZ (generalized anxiety disorder) Personal history of nicotine dependence Lung nodule Osteoarthritis (arthritis due to wear and tear of joints) COPD (chronic obstructive pulmonary disease) Essential (primary) hypertension Surgical History History of cholecystectomy Family History Other Hypertension Social History Smoking and tobacco/nicotine status: unknown if used tobacco/nicotine Second hand smoke exposure: No Alcohol intake: current Alcohol intake frequency: few times a month Substance/Drug Use: never Adopted: No Caregiver/support person: Yes Lives independently: Yes Household members: spouse Housing: House Marital status: service: Yes Current occupational status: retired Current occupational exposures/hazards: No Do you think of yourself as: Straight/Heterosexual Current gender identity: Male Vitals/I&O/Wt Last Vital Signs Temp 97.5 F L 04/15/24 15:14 Pulse 70 04/15/24 17:28 Resp 18 04/15/24 17:28 BP 136/75 04/15/24 17:28 Pulse Ox 96 04/15/24 17:28 O2 Del Method Room Air 04/15/24 17:28 Weight last 48 hrs Weight 65.317 kg Physical Exam 2 Narrative: Active sign of fluid overload Currently room air Hemodynamically stable GCS 15 Lower extremity edema extending all the way up to his knees Awake and alert S1, S2 Currently on room air Pleasant cooperative Abdomen soft Laying in Semi-Garcia position Data 04/15/24 16:52 04/15/24 16:52 A&P Assessment and plan (1) New onset of congestive heart failure: (2) Essential (primary) hypertension: (3) Lower extremity edema: (4) Personal history of nicotine dependence: (5) DEAN (acute kidney injury): Plan New onset CHF Requested echo Start IV Lasix No active chest pain Troponin without significant delta EKG without ischemic or infarctive changes Check D-dimer Rule out malignancy DEAN: Cardiorenal? Patient takes hydrochlorothiazide, lisinopril naproxen along Lasix which can contribute to her high creatinine Baseline creatinine seems to be normal Community-acquired pneumonia Start ceftriaxone azithromycin Not requiring oxygen Afebrile Smokes 2 packs/day Active for his age Lives with son, raising her grandson as well Owns his own home Goals of care discussed: He is DNR/DNI Request procalcitonin, B12, TSH, D-dimer Follows up with Dr. Kaur for his opioids he takes for back pain, no typical signs of cauda equina Attestations 2 Medical Necessity Statement*: Anticipating more than 2 midnights for management of new onset CHF, pneumonia, DEAN Diagnoses New onset of congestive heart failure I50.9 Essential (primary) hypertension I10 Lower extremity edema R60.0 Personal history of nicotine dependence Z87.891 DEAN (acute kidney injury) N17.9
[2024-04-15 18:39] LABS: D Dimer 3.07 ug/mLFEU (0-0.59)
--- NOTE | 2024-04-15 18:47 | ECG_ITS ---
[facility] Test Date: 2024-04-15 Pat Name: Judd Beth Department: Room: 278 Gender: Male Cross Tie Maker: : 1940 Requested By: Manjit Colón Order Number: [id number] Andrzej MD: Tim Win M.D. Measurements Intervals [place] Rate: 68 P: 85 HI: 146 QRS: 259 QRSD: 152 T: 75 QT: 457 QTc: 487 Interpretive Statements SINUS RHYTHM RIGHT AXIS DEVIATION [QRS AXIS > 100] RIGHT BUNDLE BRANCH BLOCK [120+ ms QRS DURATION, UPRIGHT V1, 40+ ms S IN I/aVL/V4/V5/V6] Compared to ECG 04/15/2024 17:26:06 No significant changes Electronically Signed On 04-16-2024 20:48:26 CDT by Tim Win M.D. [email or web address]
[2024-04-15] MEDS: FUROsemide 10 mg/mL SDV 4mL 40 MG IVP (19:07)
--- NOTE | 2024-04-15 20:24 | USCV_ITS ---
Judd Beth Age: 84 Gender: M : 1940 Exam Date: 04/15/2024 20:39 Ordering Phys: Amy Middleton MD Technologist: MEGHA Exam Location: [facility] [place] Indication: BLE edema. No history of DVT per patient. HISTORY: BLE edema. No history of DVT per patient. PROCEDURES: Venous duplex imaging was performed in bilateral lower extremities. The following venous structures were evaluated: common femoral vein, profunda vein, proximal portion of the greater saphenous vein, superficial femoral vein, and the popliteal vein. In addition, the posterior tibial and peroneal veins were evaluated. Serial compression, augmentation maneuvers, and spectral Doppler flow evaluation were performed, which were normal. FINDINGS: Normal 2-D Doppler and augmentation and compressibility throughout the lower extremity venous structures. Additional imaging through the proximal calf veins also reveals no thrombus. Limited evaluation of the greater saphenous vein is patent with no thrombus. CONCLUSIONS No DVT bilateral lower extremities. Dr. Edith Hagen DO (Electronically Signed) Final Date: 16 April 2024 09:37 S
--- NOTE | 2024-04-15 20:24 | USCV_ITS ---
Judd Beth Age: 84 Gender: M : 1940 Exam Date: 04/15/2024 21:08 Ordering Phys: Amy Middleton MD Technologist: MEGHA [place]am Location[place] [facility] [place] Indication: Orthopnea, dyspnea on exertion, BLE edema, evaluate for possible CHF. No history of cardiac intervention per patient. BP: 136 / 80 HR: 55 Rhythm: Sinus bradycardia Technical Quality: Adequate MEASUREMENTS (Male / Female) Normal Values 2D ECHO LV Diastolic Diameter PLAX 3.8 cm 4.2 - 5.9 / 3.9 - 5.3 cm IVS Diastolic Thickness 1.5 cm 0.6 - 1.0 / 0.6 - 0.9 cm IVS Systolic Thickness 2.0 cm LVPW Diastolic Thickness 1.5 cm 0.6 - 1.0 / 0.6 - 0.9 cm LVPW Systolic Thickness 1.2 cm LVOT Diameter 1.9 cm LV Ejection Fraction 2D Teich 56.8 % LV Ejection Fraction MOD 2C 65.2 % LV Ejection Fraction 2C AL 65.0 % LA Diameter 2.0 cm LA Sys Volume AL 20.8 cm cubed LA Sys Volume Index AL 11.3 cm cubed/m squared Aorta at Sinotubular Diameter 3.3 cm IVC Diameter 1.2 cm M-MODE LA Ao Ratio MM 1.0 AV Cusp Separation MM 2.0 cm DOPPLER AV Peak Velocity 99.0 cm/s LVOT Peak Velocity 84.0 cm/s AV Area Cont Eq vti 2.4 cm squared AV Area Cont Eq pk 2.3 cm squared MV Peak Velocity 76.0 cm/s MV Area PHT 2.2 cm squared Mitral E to A Ratio 0.7 TV Peak Velocity 240.7 cm/s TR Peak Velocity 258.0 cm/s TR Peak Gradient 26.6 mmHg TV Peak E Velocity 47.0 cm/s Right Atrial Pressure 3.0 mmHg Pulmonary Artery Systolic Pressu 29.6 mmHg PV Peak Velocity 80.0 cm/s FINDINGS Left Ventricle Normal left ventricular size and systolic function, EF 65%. No regional wall motion abnormalities. Right Ventricle Normal right ventricular size and systolic function. Right Atrium Normal right atrial size. Left Atrium Normal left atrial size. Mitral Valve No significant valvular abnormalities Aortic Valve Thickened aortic valve. Tricuspid Valve Trace tricuspid valve regurgitation. Pulmonic Valve Pulmonic valve not well visualized. Pericardium Echo-free space suggestive of left-sided pleural effusion Aorta Normal aortic annulus size. IVC Normal inferior vena cava. CONCLUSIONS Normal left ventricular size and systolic function, EF 65%. No regional wall motion abnormalities. Normal right ventricular size and systolic function. Thickened aortic valve. Trace tricuspid valve regurgitation. Estimated pulmonary artery peak systolic pressure 30 mmHg Possible left-sided pleural effusion, moderate No similar previous studies are available for comparison Dr Tim Win MD [facility] (Electronically Signed) Final Date: 15 April 2024 22:08 S
[2024-04-15 21:08] LABS: Thyroid Stimulating Hormone 3.46 uIU/mL (0.27-4.20)
[2024-04-15 21:26] LABS: Troponin(5th) Baseline 21 ng/L (0-15)
[2024-04-15] MEDS: heparin 5,000 unit/mL INJ 1 mL 5000 UNIT SUBCUT (21:52)
[2024-04-15 22:14] LABS: Add Urine Microscopic? NO
[2024-04-15 22:17] LABS: Bilirubin Urine Neg (Negative); Blood Urine Neg (Negative); Glucose Urine UA Norm (Normal); Ketones Urine Negative (Negative); Leukocyte Esterase Urine Negative (Negative); Nitrate Urine Negative; Protein Urine Neg (Negative); Urine Appearance Clear (CLEAR); Urine Color Yellow (Yellow); Urobilinogen Urine Norm (Negative); pH Urine 7 (5-7)
[2024-04-15 22:18] LABS: Charge for UA Resulting for Rev
--- NOTE | 2024-04-15 22:47 | ECG_ITS ---
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 Measurements Intervals [place] Rate: 52 P: -13 AL: 177 QRS: 158 QRSD: 161 T: -13 QT: 490 QTc: 457 Interpretive Statements SINUS BRADYCARDIA RIGHT BUNDLE BRANCH BLOCK [120+ ms QRS DURATION, UPRIGHT V1, 40+ ms S IN I/aVL/V4/V5/V6] LEFT POSTERIOR FASCICULAR BLOCK [QRS AXIS > 109, INFERIOR Q] SEPTAL MYOCARDIAL INFARCTION , OF INDETERMINATE AGE [40+ ms Q WAVE IN V1/V2] Compared to ECG 04/15/2024 20:21:55 Left posterior fascicular block now present Myocardial infarct finding now present Sinus rhythm no longer present Right-axis deviation no longer present Electronically Signed On 04-16-2024 20:50:26 CDT by Tim Win M.D. [email or web address]
[2024-04-15 23:36] LABS: Troponin 5 2HR 20.76 ng/L (0-15)
[2024-04-15 23:37] LABS: Troponin 5 2HR Delta -0.24 ABS# (0-10)
[2024-04-16] MEDS: acetaminophen 325 mg Tablet 650 MG PO (03:26)
[2024-04-16 04:00] VITALS: BP 135/78; PULSE 60; RESP 18; TEMP 36.5; O2SAT 94
--- NOTE | 2024-04-16 04:19 | PC.NURSE ---
Pt stated he went to the bathroom twice and forgot he had a urinal at bedside.
[2024-04-16 04:21] VITALS: BMI 18.3
[2024-04-16 05:13] LABS: Basophils # 0.1 10^3/uL (0.0-0.1); Basophils % 0.7 %; Eosinophils # 0.1 10^3/uL (0.0-0.8); Eosinophils % 1.1 %; Hematocrit 44.8 % (37-53); Lymphocytes # 2.1 10^3/uL (0.8-4.8); Mean Corpuscular HGB Conc 32.4 g/dL (30-55); Mean Corpuscular Hemoglobin 30.5 pg (27-33); Mean Corpuscular Volume 94.3 fl (82-101); Mean Platelet Volume 9.6 fL (7.4-10.4); Monocytes # 0.6 10^3/uL (0.2-0.9); Monocytes % 6.3 %; Neutrophils # 5.87 10^3/uL (1.8-7.7); Neutrophils % 67.6 %; Nucleated Red Blood Cells % 0 %; Platelet Count 246 10^3/cmm (157-399); Red Blood Count 4.75 10^6/uL (3.85-5.65); Red Cell Distribution Width 14.7 % (12.1-15.1)
[2024-04-16 05:38] LABS: Troponin 5 6HR 20.93 ng/L (0-15)
[2024-04-16 05:43] LABS: Anion Gap 14.4 (5-19); Blood Urea Nitrogen 26 mg/dL (8-23); Calcium 8.6 mg/dL (8.5-10.5); Carbon Dioxide 33 mmol/L (22-29); Chloride 102 mmol/L (98-107); Glucose 85 mg/dL (65-115); Magnesium 2.1 mg/dL (1.7-2.3); Osmolality Calculated 306 mOsm/kg (285-295); Phosphorus 3.3 mg/dL (2.5-4.5); Potassium 3.4 mmol/L (3.5-5.1); Sodium 146 mmol/L (136-145); Troponin 5 6HR Delta -0.07 ng/L (0-12)
[2024-04-16 05:57] VITALS: PULSE 57
[2024-04-16 07:23] VITALS: BP 132/70; PULSE 73; RESP 17; TEMP 36.8; O2SAT 92
[2024-04-16] MEDS: sennosides-docusate Tablet 1 TAB PO (08:18)
[2024-04-16] MEDS: amlodipine 10 mg Tablet PO (08:18)
[2024-04-16] MEDS: FUROsemide 10 mg/mL SDV 10mL 40 MG IVP (08:18)
[2024-04-16] MEDS: azithromycin 250 mg Tablet 500 MG PO (08:18)
[2024-04-16] MEDS: cefTRIAXone 1,000 MG in sodium chloride 0.9% (plus) 50 ML 100 MG IV (08:19)
[2024-04-16] MEDS: heparin 5,000 unit/mL INJ 1 mL 5000 UNIT SUBCUT (08:19)
--- NOTE | 2024-04-16 09:59 | PC.SOCIAL ---
IMM Update pg 2 of IMM updated and reviewed w/ patient. Copy provided and copy dated, initialed and placed in chart.
--- NOTE | 2024-04-16 10:07 | PC.CHAP ---
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 visit [] Patient/Family/Request visit [] Outpatient visit [] Follow-up visit [] Physician referral [] Code/Alert [x] Routine visit [] Staff referral [] Actively dying [] Patient sleeping [] Family support [] [] Out of room [] Palliative care [] [] Receiving care in room [] Pre-surgical visit [] Trauma [] Long length of stay [] ICU visit [] Other: Relational/Emotional Strength [x] Patient feels connected with others/family/visitors/staff [] Distress [] Loneliness/isolation [] Abandonment Spirituality of Patient [x] Person of Mae [] Attends Hindu of their Mea [x] Believes in Prayer [] Reads Bible or Worship materials [] There are Spiritual issues to be addressed Assembler Unit Interventions [x] Prayer [x] Active listening [x] Non-anxious presence [] Spiritual/emotional support [] Crisis/trauma care [] Spiritual counseling [] Bereavement support [] Provided bereavement packet [] Provided Bible/devotional materials [] Provided toy/stuffed animal, coloring book to patient or family member [] Provided Communion [] Anointing/[place] [] Salvation [] Completed spiritual assessment [] Other: Impact on Illness or Injury [] Angry [] Fearful [x] Anxious [] Often cries [] Exhaustion [] Unable to work [] Unable to attend sabianist [] Unable to walk/stand [] Unable to read [] Unable to drive [] Unable to eat/drink [] Unable to sleep [] Unable to be with family [] Patient intubated [] Other: Summary Patient Stated can not wait to go home. Time spent with patient 15 Min
--- NOTE | 2024-04-16 10:16 | PM.DCS ---
Discharge Providers Date of Admission: 04/15/24 18:30 Date of Discharge: April 16, 2024 Attending Provider at Admission: Amy Middleton MD Attending Provider at Discharge: Amy Middleton MD Primary Care Provider: JOVANNY Downs Diagnoses at Discharge Discharge Diagnosis (1) New onset of congestive heart failure: Status: Acute (2) Essential (primary) hypertension: Status: Chronic (3) Lower extremity edema: Status: Acute (4) Personal history of nicotine dependence: Status: Chronic (5) DEAN (acute kidney injury): Status: Acute Reason for Visit Reason for Visit: low bp, sent from urgent care to [facility] Hospital Course Hospital Course 84-year-old male who was admitted for management evaluation of new onset CHF with orthopnea PND, he also required 2 L of oxygen, had DEAN cardiorenal in nature, patient was given IV Lasix which improved kidney function, we have weaned him off oxygen to room air at the time of discharge, patient is wanting to go home, his echo showed preserved ejection fraction, venous Doppler did not show any sign of DVT however his D-dimer 3.07, requested CT chest with did not show any signs of malignancy however there was concern on chest x-ray, patient is an active smoker, patient stating that in case of any emergency he does not want chest compressions or intubation or defibrillation he is DNR/DNI. I have asked patient to take Lasix along potassium. I have asked and counseled him to keep his output foot greater than the input and watch his sodium which should be less than 2 g a day. His troponins were trending down during this hospitalization he never experienced any chest pain. He has been in sinus bradycardia without significant symptoms. Does not need pacemaker at this point. His creatinine is 1.2 at the time of discharge, patient will get potassium for hypokalemia. High B12, normal TSH, Physical Exam Narrative: Awake and alert Currently on room air Abdomen soft Lower extremity edema improving Edema still present Pleasant cooperative Nonfocal neuroexam Uses a cane Discharge Data Studies Completed and Pending Completed Studies During Hospitalization Category Date Time Status CT chest wo con [id number] Stat Cat Scan 04/15/24 18:15 Completed XR chest 1V portable [id number] Stat Exams 04/15/24 16:47 [place] [id number] Routine Ultrasound 04/15/24 20:24 Completed CV. echo complete* [id number] Routine Ultrasound 04/15/24 20:24 Completed Radiology Impressions Chest X-Ray 04/15/24 16:47 IMPRESSION: 1. Density in the right infrahilar region could represent pneumonia. A neoplastic nodule is not entirely excluded. Follow-up with CT imaging is recommended. Chest CT 04/15/24 18:15 IMPRESSION: 1. Wedge-shaped atelectasis or less likely pneumonia in the medial segment of the right middle lobe. No definite evidence of neoplasm. 2. Centrilobular emphysema. 3. 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 4. Age-indeterminate mild T3 compression fracture. Laboratory Results WBC 8.70 10^3/uL (3.29-11.43) 04/16/24 03:45 RBC 4.75 10^6/uL (3.85-5.65) 04/16/24 03:45 Hgb 14.50 g/dL (11.27-16.99) 04/16/24 03:45 Hct 44.8 % (37-53) 04/16/24 03:45 MCV 94.3 fl (82-101) 04/16/24 03:45 MCH 30.5 pg (27-33) 04/16/24 03:45 MCHC 32.4 g/dL (30-55) 04/16/24 03:45 RDW 14.7 % (12.1-15.1) 04/16/24 03:45 Plt Count 246 10^3/cmm (157-399) 04/16/24 03:45 MPV 9.6 fL (7.4-10.4) 04/16/24 03:45 Neut % (Auto) 67.6 % 04/16/24 03:45 Lymph % (Auto) 24.0 % 04/16/24 03:45 Sanders % (Auto) 6.3 % 04/16/24 03:45 Eos % (Auto) 1.1 % 04/16/24 03:45 Baso % (Auto) 0.7 % 04/16/24 03:45 Neut # (Auto) 5.87 10^3/uL (1.8-7.7) 04/16/24 03:45 Lymph # (Auto) 2.1 10^3/uL (0.8-4.8) 04/16/24 03:45 Sanders # (Auto) 0.6 10^3/uL (0.2-0.9) 04/16/24 03:45 Eos # (Auto) 0.1 10^3/uL (0.0-0.8) 04/16/24 03:45 Baso # (Auto) 0.1 10^3/uL (0.0-0.1) 04/16/24 03:45 Nucleated RBC % (auto) 0 % 04/16/24 03:45 Nucleated RBCs # 0.0 /100WBC 04/16/24 03:45 D-Dimer 3.07 ug/mLFEU (0-0.59) H 04/15/24 16:52 Sodium 146 mmol/L (136-145) H 04/16/24 03:45 Potassium 3.4 mmol/L (3.5-5.1) L 04/16/24 03:45 Chloride 102 mmol/L (98-107) 04/16/24 03:45 Carbon Dioxide 33 mmol/L (22-29) H 04/16/24 03:45 Anion Gap 14.4 (5-19) 04/16/24 03:45 BUN 26 mg/dL (8-23) H 04/16/24 03:45 Creatinine 1.2 mg/dL (0.7-1.2) 04/16/24 03:45 GFR Calculation Not Reportable 04/16/24 03:45 Glucose 85 mg/dL (65-115) 04/16/24 03:45 Calculated Osmolality 306 mOsm/kg (285-295) H 04/16/24 03:45 Calcium 8.6 mg/dL (8.5-10.5) 04/16/24 03:45 Phosphorus 3.3 mg/dL (2.5-4.5) 04/16/24 03:45 Magnesium 2.1 mg/dL (1.7-2.3) 04/16/24 03:45 Total Bilirubin 0.4 mg/dL (0.15-1.2) 04/15/24 16:52 AST 22 U/L (0-40) 04/15/24 16:52 ALT 18 U/L (0-41) 04/15/24 16:52 Alkaline Phosphatase 101 U/L (40-130) 04/15/24 16:52 Creatine Kinase 56 U/L (39-308) 04/15/24 16:52 Troponin T Baseline 21 ng/L (0-15) H 04/15/24 21:01 Troponin T 120 Minute 20.76 ng/L (0-15) H 04/15/24 23:07 Delta Troponin T -0.24 ABS# (0-10) L 04/15/24 23:07 Troponin T Hi Sens 6Hr 20.93 ng/L (0-15) H 04/16/24 03:45 Troponin T Hi Sens 6Hr Delta -0.07 ng/L (0-12) L 04/16/24 03:45 NT-Pro-B Natriuret Pep 178 pg/mL (0-450) 04/15/24 16:52 Total Protein 6.0 g/dL (6.6-8.7) L 04/15/24 16:52 Albumin 3.8 g/dL (3.5-5.2) 04/15/24 16:52 Globulin 2.2 g/dL (1.3-4.6) 04/15/24 16:52 Procalcitonin 0.07 ng/mL (0-0.5) 04/15/24 16:52 TSH 3.46 uIU/mL (0.27-4.20) 04/15/24 16:52 Urine Color Yellow (Yellow) 04/15/24 21:49 Urine Appearance Clear (CLEAR) 04/15/24 21:49 Urine pH 7 (5-7) 04/15/24 21:49 Ur Specific [place] 1.000 (1.005-1.030) L 04/15/24 21:49 Urine Protein Neg (Negative) 04/15/24 21:49 Urine Glucose (UA) Norm (Normal) 04/15/24 21:49 Urine Ketones Negative (Negative) 04/15/24 21:49 Urine Blood Neg (Negative) 04/15/24 21:49 Urine Nitrate Negative 04/15/24 21:49 Urine Bilirubin Neg (Negative) 04/15/24 21:49 Urine Urobilinogen Norm mg/dL (Negative) 04/15/24 21:49 Ur Leukocyte Esterase Negative (Negative) 04/15/24 21:49 Vitals Last Vital Signs Temp 98.2 F 04/16/24 07:23 Pulse 73 04/16/24 07:23 Resp 17 04/16/24 07:23 BP 132/70 04/16/24 07:23 Pulse Ox 92 04/16/24 07:23 O2 Del Method Room Air 04/16/24 07:23 Discharge Plan Discharge Patient Disposition: Home Condition: Stable Prescriptions: New azithromycin 250 mg Tablet 500 mg PO DAILY Qty: 5 0RF potassium chloride 10 mEq tablet extended release 10 meq PO DAILY Qty: 30 1RF Rx Instructions: Only take when you take Lasix Continued mirtazapine [Remeron] 15 mg tablet 15 mg PO .at supper Qty: 30 2RF Rx Instructions: Help eat and sleep cyanocobalamin (vitamin B-12) 1,000 mcg/mL solution 1,000 mcg IM .monthly Qty: 1 2RF escitalopram oxalate [Lexapro] 20 mg tablet 20 mg PO DAILY Qty: 90 1RF lisinopril 40 mg tablet 40 mg PO DAILY@0600 Qty: 90 1RF montelukast 10 mg tablet 10 mg PO DAILY@0600 Qty: 90 1RF acetaminophen-codeine 300-30 mg tablet 1 tab PO TID PRN (Reason: pain) 30 Days Qty: 90 1RF Rx Instructions: Not to be taken with other opioids, benzodiazepines or alcohol (DME) syringe with needle 3 mL 22 gauge x 1 syringe See Rx Instructions .ROUTE .MEDSUPPLY Qty: 1 2RF Rx Instructions: monthly with B12 Changed furosemide 40 mg tablet 40 mg PO QAM Qty: 90 2RF Rx Instructions: take in ONE tablet in the AM, Discontinued clonidine HCl 0.1 mg tablet 0.1 mg PO BID PRN (Reason: hypertensive emergency) Qty: 60 2RF Rx Instructions: SPB>160 or DBP> 90 hydrochlorothiazide 25 mg tablet 25 mg PO DAILY@0600 Qty: 90 1RF Hold Instructions: Doctor's Order dexamethasone 4 mg tablet 4 mg PO DAILY Qty: 30 2RF naproxen [Naprosyn] 500 mg tablet 500 mg PO BID PRN (Reason: pain) Qty: 20 0RF Discharge Orders: Discharge Order (Routine); Ordered 04/16/24 Ordered By: Amy Middleton Referrals: Chon Gloria [facility] [Primary Care Provider] - (We have notified your physician's clinic of the need for a follow-up appointment to be scheduled. If you have not heard from them within the next 2 business days, please call them directly. ) Discharge Diet: Cardiac Patient Instructions: Azithromycin (By mouth), Heart Failure (GEN), Acute Kidney Injury (GEN), CHF Stoplight, Opioid Safety Activity Restrictions/Additional Instructions: You will take Lasix 40 mg daily, whenever you take Lasix please make sure to take potassium with it, in case you achieve your dry weight and there is no significant swelling of lower extremity you can stop taking Lasix and potassium I have discontinued your hydrochlorothiazide You may resume your lisinopril for your blood pressure We have started treating you for diastolic congestive heart failure with preserved ejection fraction. There is no sign of clot in your legs, Please watch her sodium which should be less than 2 g a day, your output should be greater than your input for fluid to keep in negative fluid balance during your heart failure exacerbations You also have T3 spine fracture for which we will recommend Tylenol, Discharge Attestations Time Spent in Discharge Care*: greater than 30 min Quality Metrics Clinical Quality Measures [ No reported AMI, CVA or VTE this stay] Coding Level of Care Code Acute Code for Chg Fwd Diagnoses New onset of congestive heart failure I50.9 Essential (primary) hypertension I10 Lower extremity edema R60.0 Personal history of nicotine dependence Z87.891 DEAN (acute kidney injury) N17.9
[2024-04-16 11:23] VITALS: BP 111/63; PULSE 84
--- NOTE | 2024-04-16 12:11 | PC.NURSE ---
Discharge Note Patient discharged to home via POV accompanied by spouse. 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 Mobile pharmacy medications and/or prescriptions provided. Belongings/home medications returned.
[2024-04-16 12:12] VITALS: BP 111/63; PULSE 84
== END 2024-04-16 12:12 | disposition home or self-care (01) ==
LOC: ER 17:06 → MEDSURG 19:43
PROVIDERS: Admitting Provider Internal Medicine; Emergency Provider Family Medicine; PCP Nurse Practitioner; Visit Provider Internal Medicine
DX: I11.0 Hypertensive heart disease with heart failure (principal); I50.30 Unspecified diastolic (congestive) heart failure; R60.0 Localized edema; Z87.891 Personal history of nicotine dependence; N17.9 Acute kidney failure, unspecified; F41.1 Generalized anxiety disorder; J44.9 Chronic obstructive pulmonary disease, unspecified
CPT/HCPCS: 36415; 71045; 71250; 80048; 80053; 81003; 82550; 83735; 83880; 84100; 84145; 84443; 84484; 85025; 85378; 93005; 93306; 93970; 96372; 96374; 99285; G0378; J0696; J1644; J1940; Q0144

== ENCOUNTER 2024-04-28 19:12 | Emergency (ER) | payer OTHER, SELFPAY ==
[2024-04-28 19:13] VITALS: BP 92/55; PULSE 80; RESP 15; TEMP 36.9; O2SAT 97
--- NOTE | 2024-04-28 19:39 | ED_ITS ---
HPI - General Adult 2 General: Chief complaint: General Medical Stated complaint: Swollen feet and ankles Time Seen by Provider: 04/28/24 19:21 Source: patient and family Mode of arrival: ambulatory Limitations: no limitations History of Present Illness: This patient returns to the emergency department because of swelling of both his feet and ankles. He was recently admitted to this facility because of similar symptoms and left after treatment in the hospital. He states that despite the medications he feels like that his swelling has not had much improvement in his lower extremity swelling. He states he also has intermittent episodes of what he calls heartburn. He states they sometimes, with activity sometimes at rest. He states that his not necessarily associated with eating. He states he has shortness of breath with lying flat and also with activity. He continues to smoke tobacco. according to his he does have a nebulizer at home but rarely uses it. He had no recent fevers chills or other illness. He is unaware of any heart attacks or MIs or stenting. He does have a history of congestive heart failure. Associated symptoms: Reports dyspnea; Deny confusion, nausea, rash, palpitations, syncope or vomiting Review of Systems 2 Const: Denies: fever(s) or chills ENMT: Denies: odynophagia, nasal discharge or nasal congestion Card: Denies: palpitations, irregular heart rhythm, syncope or pre-syncope Resp: Reports: dyspnea; Denies: productive cough or non-productive cough GI: Denies: abdominal pain, nausea, vomiting or diarrhea Musc: Reports: extremity swelling; Denies: neck pain, back pain or extremity pain Skin/Breast: Denies: rash Neuro: Denies: numbness in extremities, weakness in extremities or confusion Endo: Denies: polyuria or polydipsia Fuad/Lymph: Denies: easy bruising or easy bleeding PFSH ED 2 PFSH: Medical History Hypotension DEAN (acute kidney injury) New onset of congestive heart failure Lower extremity edema Abdominal aortic aneurysm (AAA) 3.0 cm to 5.5 cm in diameter in male Irritable bowel syndrome with diarrhea Seasonal and perennial allergic rhinitis RIAZ (generalized anxiety disorder) Personal history of nicotine dependence Lung nodule Osteoarthritis (arthritis due to wear and tear of joints) COPD (chronic obstructive pulmonary disease) Essential (primary) hypertension Surgical History History of cholecystectomy Family History Other Hypertension Social History Smoking and tobacco/nicotine status: unknown if used tobacco/nicotine Second hand smoke exposure: No Alcohol intake: current Alcohol intake frequency: few times a month Substance/Drug Use: never Adopted: No Caregiver/support person: Yes Lives independently: Yes Household members: spouse Housing: House Marital status: service: Yes Current occupational status: retired Current occupational exposures/hazards: No Do you think of yourself as: Straight/Heterosexual Current gender identity: Male Physical Exam 2 Narrative: EXAM NARRATIVE: Patient is alert no acute distress. Is somewhat hard of hearing but wears hearing aids bilaterally. He is comfortable and cooperative Const: COMMON NORMALS: no acute distress, average body habitus and patient oriented x3 GENERAL APPEARANCE: cooperative and comfortable HENMT: COMMON NORMALS: normocephalic, Normal nasal mucous membranes and turbinates present and moist oral mucous membranes HEAD & SCALP: n ormocephalic NOSE: Normal nasal mucous membranes and turbinates present Eye: COMMON NORMALS: Equal, round and reactive pupils present, EOMs intact bilaterally and conjunctivae normal CONJUNCTIVA: Yes conjunctivae normal P UPIL: Yes Equal, round and reactive pupils present Neck/C-Spine: COMMON NORMALS: full ROM, no JVD and No carotid bruits Chest: COMMONS NORMALS: normal inspection of the chest and normal palpation of entire chest wall Resp: COMMON NORMALS: normal respiratory effort, No retractions, No use of accessory muscles and clear to auscultation bilaterally AUSCULTATION: clear to auscultation bilaterally and diminished lung sounds (At bases) Cardio: COMMON NORMALS: no JVD, regular rate, regular rhythm, No murmurs present (Cardio) and Peripheral pulses 2+ throughout RATE: regular rate R HYTHM: regular rhythm PERIPHERAL PULSES: Peripheral pulses 2+ throughout GI: COMMON NORMALS: Normal to inspection, nondistended, normoactive bowel sounds present, Soft to palpation, non-tender, no masses and no bruits P ALPATION: Yes Soft to palpation : COMMON NORMALS: Yes no CVA tenderness BLADDER/KIDNEY EXAM: Yes no CVA tenderness Back/Pelvis: COMMON NORMALS: no CVA tenderness, thoracic and lumbar spine normal to inspection, no thoracic nor lumbar tenderness and thoraco-lumbar ROM normal Extremity: COMMON NORMALS: full ROM, capillary refill normal and no calf tenderness NARRATIVE EXTREMITY EXAM: Bilateral pretibial edema extending approximately two thirds up the lower leg. Intact peripheral pulses and good capillary refill. Neuro: COMMON NORMALS: patient oriented x3, moves all extremities, no focal motor deficits and no sensory deficits noted Skin: COMMON NORMALS: no rashes or lesions noted, turgor normal and no jaundice GENERAL SKIN EXAM: no rashes or lesions noted and turgor normal Course 2 Reevaluation(s): Reevaluation #1: POCUS was used to perform a limited bedside cardiac ultrasound. Using his subxiphoid view the LV RV LA and RA are all visualized. There did not appear to be any gross regional wall motion abnormalities. Was no evidence of pericardial effusion. Time: 19:55 Reevaluation #2: After 2 voiding attempts the patient still had residual volume in excess of 250 mL. Plan will be to place a Osborne catheter and start him on Flomax. Will have him follow-up with his primary care office in 1 week for Osborne removal and repeat chemistries. We will hold his lisinopril to continue his Lasix. He is also advised to avoid nonsteroidals. We discussed return precautions in detail with the patient and his spouse. They were both appreciative of care. Time: 21:55 Vital Signs: Vital signs: Vital Signs Temperature 98.4 F 04/28/24 19:13 Pulse Rate 80 04/28/24 19:13 Respiratory Rate 15 04/28/24 19:13 Blood Pressure 92/55 04/28/24 19:13 Pulse Oximetry 97 04/28/24 19:13 Oxygen Delivery Me thod Room Air 04/28/24 19:13 [facility] - General Adult Medical Decision Making This patient returns to the emergency department because of lower extremity swelling. He states that despite his use of medications prescribed he has not had much improvement. [place] any other concomitant symptoms other than his usual dyspnea with exertion. He denied any specific chest pain but occasionally has heartburn. Denies any fevers chills or other constitutional symptoms. He has current history made a differential rather broad. Laboratories were obtained as well as imaging. It was notable that he had evidence of increased BUN/creatinine ratio with a significant elevation in his creatinine consistent with DEAN. It is unclear whether this was related to his TRISH inhibitor or volume depletion. He has BNP was slightly elevated but this has to be put in context of his diminished kidney function. Bedside echo did not reveal any wall motion abnormalities or pericardial effusion. CT scan will be obtained to ensure no evidence of obstructive uropathy. His biomarkers are not considered significant in the light of his current presentation as well as with no dynamic changes on serial EKGs and his acute kidney injury will affect his clearance. CT scan was reassuring. The patient was noted to have a residual urine volume after spontaneous voiding of 350 mL and even after another attempt at voiding he still had a high residual volume. Osborne catheter was placed and he will be started on Flomax. His TRISH inhibitor will be stopped. He will have a urology consult placed as well as a follow-up with his primary care doctor. Medical Records I reviewed the patient's medical records. Prior echocardiogram is reassuring. Prior kidney function was noted as well. Lab Data I reviewed the patient's lab results. 04/28/24 19:52 04/28/24 19:52 Radiology Impressions Chest X-Ray 04/28/24 19:39 IMPRESSION: 1. No acute cardiopulmonary abnormality. If there is ongoing clinical concern, consider correlation with CT. 2. Emphysematous changes. Abdomen/Pelvis CT 04/28/24 20:40 IMPRESSION: 1. No evidence of acute abnormality in the abdomen or pelvis within limitations of a noncontrast exam. 2. Aneurysmal dilatation of the infrarenal abdominal aorta. Follow-up vascular evaluation is recommended. Laboratory Results WBC 6.07 10^3/uL (3.29-11.43) 04/28/24 19:52 RBC 4.24 10^6/uL (3.85-5.65) 04/28/24 19:52 Hgb 12.70 g/dL (11.27-16.99) 04/28/24 19: Hct 38.9 % (37-53) 04/28/24 19:52 MCV 91.7 fl (82-101) 04/28/24 19: MCH 30.0 pg (27-33) 04/28/24 19: MCHC 32.6 g/dL (30-55) 04/28/24 19:52 RDW 14.9 % (12.1-15.1) 04/28/24 19:52 Plt Count 206 10^3/cmm (157-399) 04/28/24 19:52 MPV 9.6 fL (7.4-10.4) 04/28/24 19:52 Neut % (Auto) 45.9 % 04/28/24 19:52 Lymph % (Auto) 45.3 % 04/28/24 19:52 Adams % (Auto) 7.9 % 04/28/24 19:52 Eos % (Auto) 0.3 % 04/28/24 19:52 Baso % (Auto) 0.3 % 04/28/24 19:52 Neut # (Auto) 2.78 10^3/uL (1.8-7.7) 04/28/24 19:52 Lymph # (Auto) 2.8 10^3/uL (0.8-4.8) 04/28/24 19:52 Adams # (Auto) 0.5 10^3/uL (0.2-0.9) 04/28/24 19:52 Eos # (Auto) 0.0 10^3/uL (0.0-0.8) 04/28/24 19:52 Baso # (Auto) 0.0 10^3/uL (0.0-0.1) 04/28/24 19:52 Nucleated RBC % (auto) 0 % 04/28/24 19:52 Nucleated RBCs # 0.0 /100WBC 04/28/24 19:52 Sodium 140 mmol/L (136-145) 04/28/24 19:52 Potassium 3.3 mmol/L (3.5-5.1) L 04/28/24 19:52 Chloride 106 mmol/L (98-107) 04/28/24 19:52 Carbon Dioxide 20 mmol/L (22-29) L 04/28/24 19:52 Anion Gap 17.3 (5-19) 04/28/24 19:52 BUN 53 mg/dL (8-23) H 04/28/24 19:52 Creatinine 3.4 mg/dL (0.7-1.2) H 04/28/24 19:52 GFR Calculation Not Reportable 04/28/24 19:52 Glucose 93 mg/dL (65-115) 04/28/24 19:52 Calculated Osmolality 304 mOsm/kg (285-295) H 04/28/24 19:52 Calcium 8.9 mg/dL (8.5-10.5) 04/28/24 19:52 Total Bilirubin 0.2 mg/dL (0.15-1.2) 04/28/24 19:52 AST 21 U/L (0-40) 04/28/24 19:52 ALT 13 U/L (0-41) 04/28/24 19:52 Alkaline Phosphatase 86 U/L (40-130) 04/28/24 19:52 Troponin T Baseline 35 ng/L (0-15) H 04/28/24 19:52 NT-Pro-B Natriuret Pep 552 pg/mL (0-450) H 04/28/24 19:52 Total Protein 6.0 g/dL (6.6-8.7) L 04/28/24 19:52 Albumin 3.5 g/dL (3.5-5.2) 04/28/24 19:52 Globulin 2.5 g/dL (1.3-4.6) 04/28/24 19:52 All radiology interpretation(s) finalized by discharge EKG Data EKG 1: I personally reviewed and interpreted this EKG as follows: Interpretation: Resting EKG reveals a ventricular rate of 68 bpm. [place] interval, QRS duration, corrected QT interval normal. He has prolonged QRS duration consistent with a right bundle branch block. No acute ST-T wave changes noted. QRS complexes and otherwise EKG unchanged from prior tracings within the system Computer generated interpretation: Chest X-Ray 04/28/24 19:39 IMPRESSION: 1. No acute cardiopulmonary abnormality. If there is ongoing clinical concern, consider correlation with CT. 2. Emphysematous changes. Abdomen/Pelvis CT 04/28/24 20:40 IMPRESSION: 1. No evidence of acute abnormality in the abdomen or pelvis within limitations of a noncontrast exam. 2. Aneurysmal dilatation of the infrarenal abdominal aorta. Follow-up vascular evaluation is recommended. EKG 2: I personally reviewed and interpreted this EKG as follows: Interpretation: Repeat EKG this visit reveals sinus rhythm at 60 bpm with normal [place] interval, QRS duration, corrected QT interval. Continues to have a right bundle branch block pattern unchanged from prior EKG. Computer generated interpretation: Chest X-Ray 04/28/24 19:39 IMPRESSION: 1. No acute cardiopulmonary abnormality. If there is ongoing clinical concern, consider correlation with CT. 2. Emphysematous changes. Abdomen/Pelvis CT 04/28/24 20:40 IMPRESSION: 1. No evidence of acute abnormality in the abdomen or pelvis within limitations of a noncontrast exam. 2. Aneurysmal dilatation of the infrarenal abdominal aorta. Follow-up vascular evaluation is recommended. Discharge Plan Discharge Patient Disposition: Home Clinical Impression: Acute kidney injury, Urinary retention Condition: Stable Prescriptions: New tamsulosin 0.4 mg capsule 0.4 mg PO DAILY Qty: 30 1RF No Action mirtazapine [Remeron] 15 mg tablet 15 mg PO .at supper Qty: 30 2RF Rx Instructions: Help eat and sleep cyanocobalamin (vitamin B-12) 1,000 mcg/mL solution 1,000 mcg IM .monthly Qty: 1 2RF escitalopram oxalate [Lexapro] 20 mg tablet 20 mg PO DAILY Qty: 90 1RF lisinopril 40 mg tablet 40 mg PO DAILY@0600 Qty: 90 1RF montelukast 10 mg tablet 10 mg PO DAILY@0600 Qty: 90 1RF acetaminophen-codeine 300-30 mg tablet 1 tab PO TID PRN (Reason: pain) 30 Days Qty: 90 1RF Rx Instructions: Not to be taken with other opioids, benzodiazepines or alcohol (DME) syringe with needle 3 mL 22 gauge x 1 syringe See Rx Instructions .ROUTE .MEDSUPPLY Qty: 1 2RF Rx Instructions: monthly with B12 azithromycin 250 mg Tablet 500 mg PO DAILY Qty: 5 0RF potassium chloride 10 mEq tablet extended release 10 meq PO DAILY Qty: 30 1RF Rx Instructions: Only take when you take Lasix furosemide 40 mg tablet 40 mg PO QAM Qty: 90 2RF Rx Instructions: take in ONE tablet in the AM, Discharge Orders: Discharge ED (Routine); Ordered 04/28/24 Ordered By: Indio Santos Referrals: Chon Gloria, SKID MACHINE OPERATOR-C [Primary Care Provider] - Mirza Walden MD [Physician] - 4-7 days (DEAN stopped TRISH; follow up) Discharge Diet: Usual diet Patient Instructions: Opioid Safety, Pain Management Activity Restrictions/Additional Instructions: As we discussed you we have placed a catheter because your bladder is not emptying appropriately which is affecting your kidney function. We have asked that you stop your lisinopril and also do not take Naprosyn ibuprofen or any of the similar type medications. You should continue all your other usual medications. You should call Dr. Curry tomorrow to arrange an appointment in the next 4 to 7 days for reevaluation and also catheter removal. If you have any difficulty with your catheter you may return to the emergency department at any time. We have also placed a consultation for urology referral to the urologist in [place]. Coding Level of Care Code ED Director Of Medical Services for Brandan Naranjo
--- NOTE | 2024-04-28 19:39 | XRR_ITS ---
PROCEDURE INFORMATION: Exam: XR Chest Exam date and time: 04/28/2024 7:57 PM Age: 84 years old Clinical indication: Shortness of breath; Additional info: Edema TECHNIQUE: Imaging protocol: Radiologic exam of the chest. Views: 1 view. COMPARISON: CT chest [facility] [id number] 04/15/2024 6:59 PM FINDINGS: Lungs: No focal consolidation. Emphysematous changes. Pleural spaces: No evidence of pneumothorax. No evidence of pleural effusion. Heart/Mediastinum: Cardiomediastinal silhouette is within normal limits. Bones/joints: No evidence of acute osseous abnormality. Cervical fusion hardware noted. XR/XR chest 1V portable [id number] IMPRESSION: 1. No acute cardiopulmonary abnormality. If there is ongoing clinical concern, consider correlation with CT. 2. Emphysematous changes.
--- NOTE | 2024-04-28 19:46 | ECG_ITS ---
[facility] Test Date: 2024-04-28 Pat Name: Judd Beth Department: Room: Gender: Male Channel Cementer: : 1940 Requested By: Indio Santos Order Number: [id number] Andrzej MD: Diego Caldwell M.D. Measurements Intervals [place] Rate: 68 P: 71 IN: 175 QRS: 260 QRSD: 157 T: 77 QT: 437 QTc: 467 Interpretive Statements SINUS RHYTHM RIGHT AXIS DEVIATION [QRS AXIS > 100] RIGHT BUNDLE BRANCH BLOCK [120+ ms QRS DURATION, UPRIGHT V1, 40+ ms S IN I/aVL/V4/V5/V6] Compared to ECG 04/15/2024 23:03:16 Right-axis deviation now present Sinus bradycardia no longer present Left posterior fascicular block no longer present Myocardial infarct finding no longer present Electronically Signed On 04-28-2024 22:42:44 CDT by Diego Caldwell M.D. [id number]
[2024-04-28 20:02] LABS: Basophils % 0.3 %; Eosinophils % 0.3 %; Hematocrit 38.9 % (37-53); Lymphocytes # 2.8 10^3/uL (0.8-4.8); Lymphocytes % 45.3 %; Mean Corpuscular HGB Conc 32.6 g/dL (30-55); Mean Corpuscular Volume 91.7 fl (82-101); Mean Platelet Volume 9.6 fL (7.4-10.4); Monocytes # 0.5 10^3/uL (0.2-0.9); Monocytes % 7.9 %; Neutrophils # 2.78 10^3/uL (1.8-7.7); Neutrophils % 45.9 %; Nucleated Red Blood Cells % 0 %; Platelet Count 206 10^3/cmm (157-399); Red Blood Count 4.24 10^6/uL (3.85-5.65); Red Cell Distribution Width 14.9 % (12.1-15.1); White Blood Count 6.07 10^3/uL (3.29-11.43)
[2024-04-28 20:18] LABS: Troponin(5th) Baseline 35 ng/L (0-15)
[2024-04-28 20:25] LABS: Slide Review Slide Review Perform
[2024-04-28 20:29] LABS: Alanine Aminotransferase 13 U/L (0-41); Albumin Level 3.5 g/dL (3.5-5.2); Alkaline Phosphatase 86 U/L (40-130); Anion Gap 17.3 (5-19); Aspartate Amino Transferase 21 U/L (0-40); Blood Urea Nitrogen 53 mg/dL (8-23); Calcium 8.9 mg/dL (8.5-10.5); Carbon Dioxide 20 mmol/L (22-29); Chloride 106 mmol/L (98-107); Creatinine Clr Calc Pharmacy 15.4754; Globulin 2.5 g/dL (1.3-4.6); Glucose 93 mg/dL (65-115); NT Pro B Type Natriuretic Pept 552 pg/mL (0-450); Osmolality Calculated 304 mOsm/kg (285-295); Potassium 3.3 mmol/L (3.5-5.1); Sodium 140 mmol/L (136-145); Total Bilirubin 0.2 mg/dL (0.15-1.2)
--- NOTE | 2024-04-28 20:40 | CTR_ITS ---
PROCEDURE INFORMATION: Exam: CT Abdomen And Pelvis Without Contrast Exam date and time: 04/28/2024 8:47 PM Age: 84 years old Clinical indication: Screening exam; Other: Shawn eval for obstructive uropathy TECHNIQUE: Imaging protocol: Computed tomography of the abdomen and pelvis without contrast. Radiation optimization: All CT scans at this facility use at least one of these dose optimization techniques: automated exposure control; mA and/or kV adjustment per patient size (includes targeted exams where dose is matched to clinical indication); or iterative reconstruction. COMPARISON: CR XR hip BI 3-4V wo/w pel [id number] 02/25/2023 10:10 AM RADIATION DOSE METRICS: Total DLP (mGy-cm): 345 FINDINGS: Lungs: Subsegmental bibasilar atelectasis. The visualized lung bases are otherwise clear. Diaphragm: No evidence of diaphragmatic defect. Liver: No evidence of focal hepatic lesion within limitation of a noncontrast exam. Gallbladder and biliary ducts: Status post cholecystectomy. Mild intrahepatic biliary dilatation. There is moderate extrahepatic biliary dilatation, frequently seen post cholecystectomy. CBD measures up to 15 mm. No evidence of intraductal stone. Pancreas: Grossly unremarkable. Spleen: Grossly unremarkable. Adrenal glands: Grossly unremarkable. Kidneys and ureters: No gross renal parenchymal abnormality. No evidence of hydronephrosis or ureteral stone. Stomach and bowel: Colonic diverticulosis without evidence of acute diverticulitis. No bowel obstruction or perienteric inflammatory changes. There is wall thickening of the sigmoid colon, possibly secondary to prior bouts of diverticulitis. Consider correlation with follow-up colonoscopy to exclude an underlying mucosal lesion. Appendix: The appendix is not visualized, however there are no findings to suggest appendicitis. Intraperitoneal space: No evidence of free air or fluid collection. Vasculature: Aneurysmal dilatation of the infrarenal abdominal aorta to 3.9 cm in diameter with mural thrombus and extensive calcified atherosclerotic plaque. There is ectasia of the common iliac arteries as well. Lymph nodes: No evidence of adenopathy. Urinary bladder: Grossly unremarkable. Reproductive: Grossly unremarkable. Bones/joints: No evidence of acute fracture or aggresive osseous lesion. Moderate multilevel spondylosis of the lumbar spine with facet arthrosis and osteophytosis. Soft tissues: No evidence of fluid collection or hematoma in the superficial soft tissues. CT/CT abdomen pelvis wo con [id number] IMPRESSION: 1. No evidence of acute abnormality in the abdomen or pelvis within limitations of a noncontrast exam. 2. Aneurysmal dilatation of the infrarenal abdominal aorta. Follow-up vascular evaluation is recommended.
[2024-04-28 20:49] VITALS: BP 100/60; PULSE 63; RESP 18; O2SAT 97
[2024-04-28] MEDS: potassium bicarb 25 mEq Tablet PO (20:58)
[2024-04-28 21:13] VITALS: BP 136/77; PULSE 66; RESP 17; O2SAT 95
[2024-04-28] MEDS: tamsulosin 0.4 mg Capsule PO (21:42)
--- NOTE | 2024-04-28 21:51 | ECG_ITS ---
[facility] Test Date: 2024-04-28 Pat Name: Judd Beth Department: Room: Gender: Male Medical Staff Director: : 1940 Requested By: Indio Santos Order Number: [id number] Donnelly MD: Diego Caldwell M.D. Measurements Intervals [place] Rate: 60 P: 70 DC: 150 QRS: 264 QRSD: 158 T: 67 QT: 457 QTc: 458 Interpretive Statements SINUS RHYTHM RIGHT AXIS DEVIATION [QRS AXIS > 100] RIGHT BUNDLE BRANCH BLOCK [120+ ms QRS DURATION, UPRIGHT V1, 40+ ms S IN I/aVL/V4/V5/V6] Compared to ECG 04/28/2024 19:46:43 No significant changes Electronically Signed On 04-28-2024 22:44:32 CDT by Diego Caldwell M.D. [id number]
--- NOTE | 2024-04-28 22:00 | PC.NURSE ---
attempted to insert Osborne with 16f kit. Unable to pass the cath to the bladder with patients enlarged prostate. Coude cath obtained and attempted with 16f. Again unable to insert cath. Scant blood observed on tip of cath. 14f coude with new kit successfully placed by Veronica weems rn.
[2024-04-28 22:50] VITALS: RESP 18
--- NOTE | 2024-04-29 22:22 | DCPLANNER ---
Message sent to [facility] -
== END 2024-04-28 22:51 | disposition home or self-care (01) ==
PROVIDERS: Emergency Provider Emergency Medicine; PCP Nurse Practitioner
DX: R33.9 Retention of urine, unspecified (principal); N17.9 Acute kidney failure, unspecified; I45.10 Unspecified right bundle-branch block; R60.0 Localized edema; J44.9 Chronic obstructive pulmonary disease, unspecified; I11.0 Hypertensive heart disease with heart failure; I50.9 Heart failure, unspecified
CPT/HCPCS: 36415; 51702; 51798; 71045; 74176; 80053; 83880; 84484; 85025; 93005; 99285

== ENCOUNTER 2024-05-02 19:37 | Emergency (ER) | payer OTHER, SELFPAY ==
[2024-05-02 19:43] VITALS: BP 147/73; PULSE 80; RESP 17; TEMP 36.9; O2SAT 97; BMI 17.2
--- NOTE | 2024-05-02 20:37 | ED_ITS ---
HPI - Male Genitourinary General: Chief complaint: Urogenital-Male Stated complaint: catheter Time Seen by Provider: 05/02/24 20:29 History of Present Illness: 84-year-old male patient comes in today for removal of Osborne catheter. Patient was instructed to return in 4 days to have Osborne catheter removed. Patient appears nontoxic. Patient appears no acute distress. Patient reports discomfort with Osborne catheter in place. No fevers been reported. Review of Systems General: Reports: 10 or more systems reviewed and unremarkable except in HPI and below PFSH ED PFSH: Medical History Hypotension DEAN (acute kidney injury) New onset of congestive heart failure Lower extremity edema Abdominal aortic aneurysm (AAA) 3.0 cm to 5.5 cm in diameter in male Irritable bowel syndrome with diarrhea Seasonal and perennial allergic rhinitis RIAZ (generalized anxiety disorder) Personal history of nicotine dependence Lung nodule Osteoarthritis (arthritis due to wear and tear of joints) COPD (chronic obstructive pulmonary disease) Essential (primary) hypertension Surgical History History of cholecystectomy Family History Other Hypertension Social History Smoking and tobacco/nicotine status: unknown if used tobacco/nicotine Second hand smoke exposure: No Alcohol intake: current Alcohol intake frequency: few times a month Substance/Drug Use: never Adopted: No Caregiver/support person: Yes Lives independently: Yes Household members: spouse Housing: House Marital status: service: Yes Current occupational status: retired Current occupational exposures/hazards: No Do you think of yourself as: Straight/Heterosexual Current gender identity: Male Physical Exam Const: COMMON NORMALS: alert HENMT: COMMON NORMALS: normocephalic HEAD & SCALP: normocephalic Neck/C-Spine: COMMON NORMALS: full ROM Resp: COMMON NORMALS: normal respiratory effort and clear to auscultation bilaterally AUSCULTATION: clear to auscultation bilaterally Cardio: COMMON NORMALS: regular rate RATE: regular rate GI: COMMON NORMALS: non-tender : OTHER: Osborne catheter in place, removal of Osborne catheter, 10 cc of saline removed from balloon, removal of 16 Russian Osborne, balloon intact. Neuro: SENSORIUM/ORIENTATION: Yes alert Skin: NARRATIVE SKIN EXAM: Skin abrasion from tape to the left thigh. Course Vital Signs: Vital signs: Vital Signs Temperature 98.4 F 05/02/24 19:43 Pulse Rate 80 05/02/24 19:43 Respiratory Rate 17 05/02/24 19:43 Blood Pressure 147/73 05/02/24 19:43 Pulse Oximetry 97 05/02/24 19:43 Oxygen Delivery Me thod Room Air 05/02/24 19:43 MDM - Male Medical Decision Making 84-year-old male patient comes in with requesting removal of Osborne catheter. Patient was recommended to have Osborne catheter removed in 4 days. Patient came back this evening for removal of Osborne catheter. Patient appears nontoxic. Patient appears no acute distress. Patient reports no fever. Osborne catheter was removed. Instructed patient to attempt urination in 2 hours and then every 2 hours after. Reported that patient was unable to void in 8 to 12 hours or started having significant abdominal pain and discomfort or high fever he was to return to the ER. Patient and family both reported understanding and agreed to plan. No radiology studies performed this visit Discharge Plan Discharge Patient Disposition: Home Clinical Impression: Encounter for Osborne catheter removal Condition: Stable Prescriptions: No Action mirtazapine [Remeron] 15 mg tablet 15 mg PO .at supper Qty: 30 2RF Rx Instructions: Help eat and sleep cyanocobalamin (vitamin B-12) 1,000 mcg/mL solution 1,000 mcg IM .monthly Qty: 1 2RF escitalopram oxalate [Lexapro] 20 mg tablet 20 mg PO DAILY Qty: 90 1RF lisinopril 40 mg tablet 40 mg PO DAILY@0600 Qty: 90 1RF montelukast 10 mg tablet 10 mg PO DAILY@0600 Qty: 90 1RF acetaminophen-codeine 300-30 mg tablet 1 tab PO TID PRN (Reason: pain) 30 Days Qty: 90 1RF Rx Instructions: Not to be taken with other opioids, benzodiazepines or alcohol (DME) syringe with needle 3 mL 22 gauge x 1 syringe See Rx Instructions .ROUTE .MEDSUPPLY Qty: 1 2RF Rx Instructions: monthly with B12 azithromycin 250 mg Tablet 500 mg PO DAILY Qty: 5 0RF potassium chloride 10 mEq tablet extended release 10 meq PO DAILY Qty: 30 1RF Rx Instructions: Only take when you take Lasix furosemide 40 mg tablet 40 mg PO QAM Qty: 90 2RF Rx Instructions: take in ONE tablet in the AM, tamsulosin 0.4 mg capsule 0.4 mg PO DAILY Qty: 30 1RF Discharge Orders: Discharge ED (Routine); Ordered 05/02/24 Ordered By: Ren Mccloud Referrals: Chon Gloria, ASSISTANT DIRECTOR OF [employer]CIAL [employer] [Primary Care Provider] - Discharge Diet: Usual diet Discharge Activity: Increase activity as tolerated Activity Restrictions/Additional Instructions: In 2 hours attempt to urinate. Continue to try to urinate every 2 hours until you void. Make sure to drink plenty of fluids as you normally would. Follow-up with primary care in 2 to 3 days for recheck. Return to ED for inability to urinate after 8 to 12 hours, severe abdominal pain, or fever greater than 100.4. Coding Level of Care Code ED Granulator Machine Operator for Brandan Naranjo
== END 2024-05-02 20:58 | disposition home or self-care (01) ==
PROVIDERS: Emergency Provider Nurse Practitioner Family; PCP Nurse Practitioner
DX: Z46.6 Encounter for fitting and adjustment of urinary device (principal); I10 Essential (primary) hypertension; J44.9 Chronic obstructive pulmonary disease, unspecified; Z79.899 Other long term (current) drug therapy
CPT/HCPCS: 99282

== ENCOUNTER 2024-06-06 13:52 | Emergency (ER) | payer OTHER, MEDICARE, SELFPAY ==
[2024-06-06] VITALS (13 sets, daily range): BP systolic 98–141; BP diastolic 62–78; PULSE 51–60; RESP 13–20; TEMP 36.9; O2SAT 95–100; BMI 17.9
--- NOTE | 2024-06-06 14:03 | ECG_ITS ---
[facility] Test Date: 2024-06-06 Pat Name: Judd Beth Department: Room: Gender: Male Sql Report Developer: : 1940 Requested By: Britni Dorman Order Number: [id number] Donnelly MD: Diego Caldwell M.D. Measurements Intervals [place] Rate: 58 P: 65 [place]: 165 QRS: 255 QRSD: 149 T: 72 QT: 445 QTc: 438 Interpretive Statements SINUS BRADYCARDIA RIGHT AXIS DEVIATION [QRS AXIS > 100] RIGHT BUNDLE BRANCH BLOCK [120+ ms QRS DURATION, UPRIGHT V1, 40+ ms S IN I/aVL/V4/V5/V6] Compared to ECG 04/28/2024 21:51:24 Sinus rhythm no longer present Electronically Signed On 06-06-2024 20:06:53 CDT by Diego Caldwell M.D. [id number]
--- NOTE | 2024-06-06 14:03 | XRR_ITS ---
PROCEDURE INFORMATION: Exam: XR Chest Exam date and time: 06/06/2024 2:07 PM Age: 84 years old Clinical indication: Other: Weakness; Additional info: SOB TECHNIQUE: Imaging protocol: Radiologic exam of the chest. Views: 1 view. COMPARISON: CR (CHEST, ) 04/28/2024 7:57 PM FINDINGS: Lungs: Hyperinflated emphysematous lungs. Similar right lower lung zone patchy consolidation. Pleural spaces: Unremarkable. No pleural effusion. No pneumothorax. Heart/Mediastinum: Unremarkable. No cardiomegaly. Vasculature: Aortic arch calcifications. Bones/joints: Mild degenerative disease of the left acromioclavicular joint. Intraperitoneal space: Right upper quadrant cholecystectomy clips. XR/XR chest 1V portable [id number] IMPRESSION: No new infiltrates.
[2024-06-06] MEDS: sodium chloride 0.9% 500 ML 999 ML IV (14:10)
--- NOTE | 2024-06-06 14:16 | W.ED.DIZZY ---
HPI - Dizziness General: Chief Complaint: Dizziness Stated Complaint: WEAKNESS Time Seen by Provider: 06/06/24 14:00 Source: patient and EMS Mode of arrival: EMS Limitations: no limitations History of Present Illness: HPI Narrative: 84-year-old male that states he sitting in his garage just prior to arrival and states he started feel short of breath also having some lightheadedness. He states dizziness but upon further questioning had no room spinning or vertigo. He states he just felt weak and short of breath. He denies any headache denies any chest pain patient denies any fevers. Denies any worse improving factors states sincebeing with EMS he is felt improved. Associated symptoms: Denies chest pain, chills, headache(s), nausea or vomiting Related Data Previous Rx's Medication Instructions Recorded cyanocobalamin (vitamin B-12) 1,000 mcg IM .monthly #1 mL 02/25/24 1,000 mcg/mL injection solution escitalopram oxalate 20 mg tablet 20 mg PO DAILY #90 tabs 02/25/24 (Lexapro) lisinopril 40 mg tablet 40 mg PO DAILY@0600 #90 tabs 02/25/24 mirtazapine 15 mg tablet (Remeron) 15 mg PO .at supper #30 tabs 02/25/24 montelukast 10 mg tablet 10 mg PO DAILY@0600 #90 tabs 02/25/24 syringe with needle 3 mL 22 gauge #1 ea 03/15/24 x 1 acetaminophen 300 mg-codeine 30 mg 1 tab PO TID PRN pain 30 days #90 03/31/24 tablet tabs azithromycin 250 mg tablet 500 mg (2 x 250 mg) PO DAILY #5 04/16/24 tabs furosemide 40 mg tablet 40 mg PO QAM #90 tabs 04/16/24 potassium chloride 10 mEq 10 meq PO DAILY #30 tabs 04/16/24 tablet,extended release tamsulosin 0.4 mg capsule 0.4 mg PO DAILY #30 caps 04/28/24 Allergies Allergy/AdvReac Type Severity Reaction Status Date / Time No Known Allergies Allergy Verified 06/06/24 14:11 Review of Systems Const: Denies: fever(s), chills, body aches or change in appetite ENMT: Denies: throat pain or dental pain Card: Denies: chest pain Resp: Reports: dyspnea GI: Denies: abdominal pain, nausea, vomiting or diarrhea Musc: Denies: neck pain or back pain Skin/Breast: Denies: rash Neuro: Reports: weakness in extremities; Denies: headache(s) PFSH ED PFSH: Medical History Hypotension DAEN (acute kidney injury) New onset of congestive heart failure Lower extremity edema Abdominal aortic aneurysm (AAA) 3.0 cm to 5.5 cm in diameter in male Irritable bowel syndrome with diarrhea Seasonal and perennial allergic rhinitis RIAZ (generalized anxiety disorder) Personal history of nicotine dependence Lung nodule Osteoarthritis (arthritis due to wear and tear of joints) COPD (chronic obstructive pulmonary disease) Essential (primary) hypertension Surgical History History of cholecystectomy Family History Other Hypertension Social History Smoking and tobacco/nicotine status: unknown if used tobacco/nicotine Second hand smoke exposure: No Alcohol intake: current Alcohol intake frequency: few times a month Substance/Drug Use: never Adopted: No Caregiver/support person: Yes Lives independently: Yes Household members: spouse Housing: House Marital status: service: Yes Current occupational status: retired Current occupational exposures/hazards: No Do you think of yourself as: Straight/Heterosexual Current gender identity: Male Physical Exam Const: COMMON NORMALS: patient oriented x3 HENMT: COMMON NORMALS: normocephalic and atraumatic HEAD & SCALP: normocephalic and atraumatic Eye: COMMON NORMALS: Equal, round and reactive pupils present and EOMs intact bilaterally PUPIL: Yes Equal, round and reactive pupils present Neck/C-Spine: COMMON NORMALS: full ROM and supple Chest: COMMONS NORMALS: normal inspection of the chest and normal palpation of entire chest wall Resp: COMMON NORMALS: normal respiratory effort, No retractions, No use of accessory muscles and clear to auscultation bilaterally AUSCULTATION: clear to auscultation bilaterally Cardio: COMMON NORMALS: regular rate, regular rhythm and No murmurs present (Cardio) RATE: regular rate RHYTHM: regular rhythm GI: COMMON NORMALS: Normal to inspection, nondistended, normoactive bowel sounds present, Soft to palpation, non-tender and no masses PALPATION: Yes Soft to palpation Extremity: COMMON NORMALS: normal to inspection and full ROM Neuro: COMMON NORMALS: patient oriented x3, moves all extremities and no focal motor deficits Psych: COMMON NORMALS: mental status grossly normal, Normal thought process present and cooperative THOUGHT PROCESS: Normal thought process present Skin: COMMON NORMALS: no rashes or lesions noted and no wounds GENERAL SKIN EXAM: no rashes or lesions noted Course Vital Signs: Vital signs: Vital Signs Temperature 98.5 F 06/06/24 14:00 Pulse Rate 52 L 06/06/24 15:30 Respiratory Rate 16 06/06/24 15:30 Blood Pressure 117/69 06/06/24 15:30 Pulse Oximetry 98 06/06/24 15:30 Oxygen Delivery Me thod Room Air 06/06/24 15:30 MDM - Dizziness Medical Decision Making Patient presents here with an episode of feeling dyspneic and along with some generalized weakness he states he feels much improved here his vitals here been normal he ambulated the halls without any difficulty blood work here is normal no signs of ACS he stable for discharge follow-up with PCP and return if worsening he understands agrees to plan. Medical Records I reviewed the patient's medical records. Lab Data I reviewed the patient's lab results. 06/06/24 13:35 06/06/24 13:35 Radiology Impressions Chest X-Ray 06/06/24 14:03 IMPRESSION: No new infiltrates. Laboratory Results WBC 7.57 10^3/uL (3.29-11.43) 06/06/24 13:35 RBC 4.55 10^6/uL (3.85-5.65) 06/06/24 13:35 Hgb 13.50 g/dL (11.27-16.99) 06/06/24 13:35 Hct 42.0 % (37-53) 06/06/24 13:35 MCV 92.3 fl (82-101) 06/06/24 13:35 MCH 29.7 pg (27-33) 06/06/24 13:35 MCHC 32.1 g/dL (30-55) 06/06/24 13:35 RDW 14.2 % (12.1-15.1) 06/06/24 13:35 Plt Count 236 10^3/cmm (157-399) 06/06/24 13:35 MPV 10.0 fL (7.4-10.4) 06/06/24 13:35 Neut % (Auto) 61.7 % 06/06/24 13:35 Lymph % (Auto) 28.7 % 06/06/24 13:35 [place] % (Auto) 7.8 % 06/06/24 13:35 Eos % (Auto) 0.7 % 06/06/24 13:35 Baso % (Auto) 0.7 % 06/06/24 13:35 Neut # (Auto) 4.68 10^3/uL (1.8-7.7) 06/06/24 13:35 Lymph # (Auto) 2.2 10^3/uL (0.8-4.8) 06/06/24 13:35 [place] # (Auto) 0.6 10^3/uL (0.2-0.9) 06/06/24 13:35 Eos # (Auto) 0.1 10^3/uL (0.0-0.8) 06/06/24 13:35 Baso # (Auto) 0.1 10^3/uL (0.0-0.1) 06/06/24 13:35 Nucleated RBC % (auto) 0 % 06/06/24 13:35 Nucleated RBCs # 0.0 /100WBC 06/06/24 13:35 PT 13.40 SECONDS (12.1-14.9) 06/06/24 13:35 INR 0.99 (0.8-1.2) 06/06/24 13:35 Sodium 143 mmol/L (136-145) 06/06/24 13:35 Potassium 3.2 mmol/L (3.5-5.1) L 06/06/24 13:35 Chloride 104 mmol/L (98-107) 06/06/24 13:35 Carbon Dioxide 26 mmol/L (22-29) 06/06/24 13:35 Anion Gap 16.2 (5-19) 06/06/24 13:35 BUN 20 mg/dL (8-23) 06/06/24 13:35 Creatinine 1.0 mg/dL (0.7-1.2) 06/06/24 13:35 GFR Calculation Not Reportable 06/06/24 13:35 Glucose 101 mg/dL (65-115) 06/06/24 13:35 Calculated Osmolality 299 mOsm/kg (285-295) H 06/06/24 13:35 Calcium 8.5 mg/dL (8.5-10.5) 06/06/24 13:35 Total Bilirubin 0.6 mg/dL (0.15-1.2) 06/06/24 13:35 AST 20 U/L (0-40) 06/06/24 13:35 ALT 10 U/L (0-41) 06/06/24 13:35 Alkaline Phosphatase 74 U/L (40-130) 06/06/24 13:35 Troponin T Baseline 27 ng/L (0-15) H 06/06/24 13:35 Delta Troponin T 3.11 ABS# (0-10) 06/06/24 15:35 NT-Pro-B Natriuret Pep 401 pg/mL (0-450) 06/06/24 13:35 Total Protein 5.7 g/dL (6.6-8.7) L 06/06/24 13:35 Albumin 3.3 g/dL (3.5-5.2) L 06/06/24 13:35 Globulin 2.4 g/dL (1.3-4.6) 06/06/24 13:35 Lipase 14 U/L (13-60) 06/06/24 13:35 All radiology interpretation(s) finalized by discharge EKG Data EKG 1: I personally reviewed and interpreted this EKG as follows: EKG interpretation date: 06/06/24 EKG interpretation time: 14:13 Interpretation: sinus lisa hr [address] elevation qrs 149 qtc 441 Discharge Plan Discharge Patient Disposition: Home Clinical Impression: Dyspnea, Weakness Condition: Stable Prescriptions: No Action mirtazapine [Remeron] 15 mg tablet 15 mg PO .at supper Qty: 30 2RF Rx Instructions: Help eat and sleep cyanocobalamin (vitamin B-12) 1,000 mcg/mL solution 1,000 mcg IM .monthly Qty: 1 2RF escitalopram oxalate [Lexapro] 20 mg tablet 20 mg PO DAILY Qty: 90 1RF lisinopril 40 mg tablet 40 mg PO DAILY@0600 Qty: 90 1RF montelukast 10 mg tablet 10 mg PO DAILY@0600 Qty: 90 1RF acetaminophen-codeine 300-30 mg tablet 1 tab PO TID PRN (Reason: pain) 30 Days Qty: 90 1RF Rx Instructions: Not to be taken with other opioids, benzodiazepines or alcohol (DME) syringe with needle 3 mL 22 gauge x 1 syringe See Rx Instructions .ROUTE .MEDSUPPLY Qty: 1 2RF Rx Instructions: monthly with B12 azithromycin 250 mg Tablet 500 mg PO DAILY Qty: 5 0RF potassium chloride 10 mEq tablet extended release 10 meq PO DAILY Qty: 30 1RF Rx Instructions: Only take when you take Lasix furosemide 40 mg tablet 40 mg PO QAM Qty: 90 2RF Rx Instructions: take in ONE tablet in the AM, tamsulosin 0.4 mg capsule 0.4 mg PO DAILY Qty: 30 1RF Discharge Orders: Discharge ED (Routine); Ordered 06/06/24 Ordered By: Britni Dorman Referrals: Chon Gloria, [employer]PAREL SALES LEADER-C [Primary Care Provider] - 4-7 days Discharge Diet: Advance as tolerated Discharge Activity: Resume usual activity Patient Instructions: Weakness (ED) Coding Level of Care Code ED Skip Operator for Brandan Naranjo
[2024-06-06 14:33] LABS: Basophils # 0.1 10^3/uL (0.0-0.1); Basophils % 0.7 %; Eosinophils # 0.1 10^3/uL (0.0-0.8); Eosinophils % 0.7 %; Lymphocytes # 2.2 10^3/uL (0.8-4.8); Lymphocytes % 28.7 %; Mean Corpuscular HGB Conc 32.1 g/dL (30-55); Mean Corpuscular Hemoglobin 29.7 pg (27-33); Mean Corpuscular Volume 92.3 fl (82-101); Monocytes # 0.6 10^3/uL (0.2-0.9); Monocytes % 7.8 %; Neutrophils # 4.68 10^3/uL (1.8-7.7); Neutrophils % 61.7 %; Nucleated Red Blood Cells % 0 %; Platelet Count 236 10^3/cmm (157-399); Red Blood Count 4.55 10^6/uL (3.85-5.65); Red Cell Distribution Width 14.2 % (12.1-15.1); White Blood Count 7.57 10^3/uL (3.29-11.43)
[2024-06-06 14:45] LABS: INR 0.99 (0.8-1.2)
[2024-06-06 14:53] LABS: Troponin(5th) Baseline 27 ng/L (0-15)
[2024-06-06 15:03] LABS: Alanine Aminotransferase 10 U/L (0-41); Albumin Level 3.3 g/dL (3.5-5.2); Alkaline Phosphatase 74 U/L (40-130); Anion Gap 16.2 (5-19); Aspartate Amino Transferase 20 U/L (0-40); Blood Urea Nitrogen 20 mg/dL (8-23); Calcium 8.5 mg/dL (8.5-10.5); Carbon Dioxide 26 mmol/L (22-29); Chloride 104 mmol/L (98-107); Creatinine Clr Calc Pharmacy 51.1552; Globulin 2.4 g/dL (1.3-4.6); Glucose 101 mg/dL (65-115); Lipase 14 U/L (13-60); NT Pro B Type Natriuretic Pept 401 pg/mL (0-450); Osmolality Calculated 299 mOsm/kg (285-295); Potassium 3.2 mmol/L (3.5-5.1); Sodium 143 mmol/L (136-145); Total Bilirubin 0.6 mg/dL (0.15-1.2); Total Protein 5.7 g/dL (6.6-8.7)
[2024-06-06 15:58] LABS: Troponin 5 2HR 30.11 ng/L (0-15); Troponin 5 2HR Delta 3.11 ABS# (0-10)
--- NOTE | 2024-06-06 16:15 | ECG_ITS ---
[facility] Test Date: 2024-06-06 Pat Name: Judd Beth Department: Room: Gender: Male Student Services Representative: : 1940 Requested By: Britni Dorman Order Number: [id number] Andrzej MD: Diego Caldwell M.D. Measurements Intervals [place] Rate: 50 P: 71 [place]: 155 QRS: 263 QRSD: 161 T: 75 QT: 471 QTc: 431 Interpretive Statements SINUS BRADYCARDIA RIGHT AXIS DEVIATION [QRS AXIS > 100] RIGHT BUNDLE BRANCH BLOCK [120+ ms QRS DURATION, UPRIGHT V1, 40+ ms S IN I/aVL/V4/V5/V6] Compared to ECG 06/06/2024 14:13:13 No significant changes Electronically Signed On 06-06-2024 20:10:26 CDT by Diego Caldwell M.D. [email or web address]
== END 2024-06-06 16:46 | disposition home or self-care (01) ==
PROVIDERS: Emergency Provider Emergency Medicine; PCP Nurse Practitioner
DX: R06.00 Dyspnea, unspecified (principal); R53.1 Weakness; R00.1 Bradycardia, unspecified; I11.0 Hypertensive heart disease with heart failure; I50.9 Heart failure, unspecified; J44.9 Chronic obstructive pulmonary disease, unspecified
CPT/HCPCS: 36415; 71045; 80053; 83690; 83880; 84484; 85025; 85610; 93005; 99285; J7040

== ENCOUNTER 2024-11-12 14:50 | Outpatient (CLI) | payer OTHER, SELFPAY ==
--- NOTE | 2024-11-12 14:54 | USCV_ITS ---
Judd Beth Age: 84 Gender: M : 1940 Exam Date: 11/12/2024 15:12 Ordering Phys: Elma Jones MD Technologist: CT Exam Location: [facility] [place] Indication: BP: 138 / 70 HR: 63 Rhythm: Sinus Technical Quality: Adequate MEASUREMENTS (Male / Female) Normal Values 2D ECHO LVOT Diameter 2.0 cm LV Ejection Fraction MOD 4C 63.9 % LV Ejection Fraction MOD 2C 65.3 % LV Ejection Fraction 2C AL 64.4 % LA Diameter 3.1 cm RA Systolic Volume 4C AL 27.0 ml RA Systolic Volume 4C MOD 26.8 ml LA Sys Volume AL 28.2 cm cubed LA Sys Volume Index AL 15.4 cm cubed/m squared Aorta at Sinotubular Diameter 2.7 cm IVC Diameter 1.5 cm M-MODE LA Ao Ratio MM 1.1 AV Cusp Separation MM 2.0 cm DOPPLER AV Peak Velocity 119.0 cm/s LVOT Peak Velocity 84.0 cm/s AV Area Cont Eq vti 2.4 cm squared AV Area Cont Eq pk 2.3 cm squared MV Peak Velocity 95.0 cm/s MV Area PHT 3.9 cm squared Mitral E to A Ratio 0.7 TR Peak Velocity 253.5 cm/s TR Peak Gradient 25.7 mmHg TR Mean Velocity 195.0 cm/s TR Mean Gradient 16.7 mmHg TR Velocity Time Integral 68.2 cm TV Peak E Velocity 82.0 cm/s PV Peak Velocity 72.0 cm/s FINDINGS Left Ventricle Left ventricle is normal size. LV systolic function is normal with EF of 55-60%. No regional wall motion abnormalities are seen. Grade 1 diastolic dysfunction Right Ventricle Normal in size and function Right Atrium Normal in size Left Atrium Normal in size Mitral Valve Structurally normal mitral valve. Trace mitral regurgitation Aortic Valve Aortic valve is thickened and calcified. No significant stenosis or regurgitation. Tricuspid Valve Mild tricuspid regurgitation. Pulmonary artery systolic pressure is normal. Pulmonic Valve Not well-visualized. Pericardium Normal Aorta Normal in size IVC Appears to be normal CONCLUSIONS LV systolic function is normal with EF of 55-60%. Grade 1 diastolic dysfunction. Trace mitral regurgitation. Mild tricuspid regurgitation. Compared to prior echocardiogram from 2023, no significant changes are seen Diego Caldwell MD (Electronically Signed) Final Date: 13 November 2024 13:24 S
== END 2024-11-12 14:51 | disposition home or self-care (01) ==
LOC: RAD 14:51
PROVIDERS: PCP Nurse Practitioner; Visit Provider Family Medicine
DX: Z01.89 Encounter for other specified special examinations (principal); R93.1 Abnormal findings on diagnostic imaging of heart and coronary circulation; I70.0 Atherosclerosis of aorta; I07.1 Rheumatic tricuspid insufficiency
CPT/HCPCS: 93306

== ENCOUNTER → 2024-12-02 16:50 | Outpatient (BNVA) | payer MEDICARE, SELFPAY | PROVIDERS: PCP Nurse Practitioner; Visit Provider Registered Nurse Neonatal Intensive Care | DX: R50.9 Fever, unspecified (principal) | CPT/HCPCS: 87400 ==

== ENCOUNTER 2024-12-30 14:13 | Observation (INO) | payer OTHER, MEDICARE, SELFPAY ==
[2024-12-30] VITALS (9 sets, daily range): BP systolic 79–134; BP diastolic 50–75; PULSE 50–85; RESP 16–18; TEMP 36.4–36.6; O2SAT 92–100; BMI 17.9
--- NOTE | 2024-12-30 14:27 | XR_ITS ---
WS: [id number] Portable AP upright chest, 12/30/2024 Clinical Data: dyspnea/cough Comparison: Portable chest 06/06/2024 Findings: No nodules, masses or effusions are seen. The heart is normal. The pulmonary vascularity is not increased. No pneumonia or pneumothorax is seen. The diaphragms are flattened. The aortic arch and descending thoracic aorta show calcification and tortuosity. There is an anterior cervical disc fusion. XR/XR chest 1V portable [id number] Impression: Atherosclerosis and hyperinflation.
--- NOTE | 2024-12-30 14:27 | CTR_ITS ---
PROCEDURE INFORMATION: Exam: CT Abdomen And Pelvis Without Contrast Exam date and time: 12/30/2024 3:28 PM Age: 84 years old Clinical indication: Pain and abnormal findings; Abnormal lab test; Abnormal kidney function lab tests; Other: Diarrhea; Abdominal pain; Generalized; Additional info: Abd pain TECHNIQUE: Imaging protocol: Computed tomography of the abdomen and pelvis without contrast. Radiation optimization: All CT scans at this facility use at least one of these dose optimization techniques: automated exposure control; mA and/or kV adjustment per patient size (includes targeted exams where dose is matched to clinical indication); or iterative reconstruction. COMPARISON: CT abdomen pelvis con [id number] 04/28/2024 8:47 PM RADIATION DOSE METRICS: Total DLP (mGy-cm): 315.63 FINDINGS: Lungs: Lung bases are clear. No pleural effusion. Liver: Normal. No mass. Gallbladder and biliary ducts: The gallbladder has been resected. Pancreas: Normal. No ductal dilation. Spleen: Normal. No splenomegaly. Adrenal glands: Normal. No mass. Kidneys and ureters: Normal. No hydronephrosis. Stomach and bowel: There are multiple loops of minimally distended, fluid-filled small bowel and liquid stool is noted throughout the colon. Appendix: No evidence of appendicitis. Intraperitoneal space: Unremarkable. No free air. No significant fluid collection. Vasculature: There is a 4.1 cm infrarenal abdominal aortic aneurysm. Lymph nodes: Unremarkable. No enlarged lymph nodes. Urinary bladder: Unremarkable as visualized. Reproductive: Unremarkable as visualized. Bones/joints: Unremarkable. No acute fracture. Soft tissues: Unremarkable. CT/CT abdomen pelvis con [id number] IMPRESSION: 1. Findings suggesting acute enterocolitis 2. 4.1 cm AAA
--- NOTE | 2024-12-30 14:28 | W.ED.NAVMDI ---
HPI - Nausea/Vomiting/Diarrhea General: Chief complaint: Nausea/Vomiting/Diarrhea Stated complaint: diaherria Time Seen by Provider: 12/30/24 14:27 History of Present Illness: 84-year-old male presents emergency room with complaints of diarrhea with some nausea. He states he chronically has diarrhea for the last few days got markedly worse, multiple times per day once at times uncontrollable no recent antibiotics. Has not had any mucousy stools. He has not had any hematochezia melena hematemesis cough cramps denies dysuria dysuria frequency. Associated nausea: Yes Associated symtoms: Reports nausea; Denies chest pain or dysuria Related Data Home Medications ?Medication ?Instructions ?Recorded ?Confirmed acetaminophen 300 mg-codeine 30 mg 1 tab PO Q6H 12/30/24 12/30/24 tablet hydrochlorothiazide 25 mg tablet 25 mg PO DAILY 12/30/24 12/30/24 potassium chloride 20 mEq 20 meq PO DAILY 12/30/24 12/30/24 tablet,extended release(part/cryst) (Klor-Con M) Previous Rx's ?Medication ?Instructions ?Recorded escitalopram oxalate 20 mg tablet 20 mg PO DAILY #90 tabs 02/25/24 (Lexapro) lisinopril 40 mg tablet 40 mg PO DAILY@0600 #90 tabs 02/25/24 mirtazapine 15 mg tablet (Remeron) 15 mg PO .at supper #30 tabs 02/25/24 montelukast 10 mg tablet 10 mg PO DAILY@0600 #90 tabs 02/25/24 furosemide 40 mg tablet 40 mg PO QAM #90 tabs 04/16/24 tamsulosin 0.4 mg capsule 0.4 mg PO DAILY #30 caps 04/28/24 albuterol sulfate 90 mcg/actuation 2 puff inhalation Q6H PRN 12/02/24 aerosol inhaler (Ventolin HFA) shortness of breath or wheezing #8.5 grams Allergies Allergy/AdvReac Type Severity Reaction Status Date / Time No Known Allergies Allergy Verified 12/02/24 16:27 Review of Systems Const: Denies: fever(s) or chills Card: Denies: chest pain Resp: Denies: dyspnea GI: Reports: nausea and diarrhea; Denies: abdominal pain, hematochezia, melena or mucus in stool : Denies: dysuria, urinary frequency or urinary urgency Musc: Denies: neck pain or back pain Skin/Breast: Denies: rash PFSH ED PFSH: Medical History Hypotension DEAN (acute kidney injury) New onset of congestive heart failure Lower extremity edema Abdominal aortic aneurysm (AAA) 3.0 cm to 5.5 cm in diameter in male Irritable bowel syndrome with diarrhea Seasonal and perennial allergic rhinitis RIAZ (generalized anxiety disorder) Personal history of nicotine dependence Lung nodule Osteoarthritis (arthritis due to wear and tear of joints) COPD (chronic obstructive pulmonary disease) Essential (primary) hypertension Surgical History History of cholecystectomy Family History Other Hypertension Social History Smoking and tobacco/nicotine status: unknown if used tobacco/nicotine Second hand smoke exposure: No Alcohol intake: current Alcohol intake frequency: few times a month Substance/Drug Use: never Adopted: No Caregiver/support person: Yes Lives independently: Yes Household members: spouse Housing: House Marital status: service: Yes Current occupational status: retired Current occupational exposures/hazards: No Do you think of yourself as: Straight/Heterosexual Current gender identity: Male Physical Exam Const: COMMON NORMALS: no acute distress GENERAL APPEARANCE: cooperative and comfortable ORIENTATION/CONSCIOUSNESS: Yes awake, Yes oriented to person, Yes oriented to place and Yes oriented to time HENMT: COMMON NORMALS: normocephalic, atraumatic and hearing grossly normal bilaterally HEAD & SCALP: normocephalic and atraumatic Resp: COMMON NORMALS: normal respiratory effort, No retractions, No use of accessory muscles and clear to auscultation bilaterally AUSCULTATION: clear to auscultation bilaterally Cardio: COMMON NORMALS: regular rate, regular rhythm and No murmurs present (Cardio) RATE: regular rate RHYTHM: regular rhythm GI: COMMON NORMALS: Soft to palpation and No hepatosplenomegaly present AUSCULTATION: Yes normoactive bowel sounds PALPATION: Yes Soft to palpation, No Tenderness to palpation present (GI), No Guarding due to palpation present (GI) and Yes No hepatosplenomegaly present Extremity: COMMON NORMALS: normal to inspection, capillary refill normal, no clubbing, cyanosis or edema, no calf tenderness and no pedal edema Neuro: SENSORIUM/ORIENTATION: Yes oriented to person, Yes oriented to place and Yes oriented to time Skin: COMMON NORMALS: no rashes or lesions noted GENERAL SKIN EXAM: no rashes or lesions noted Course Vital Signs: Vital signs: Vital Signs Temperature 97.8 F 12/30/24 14:20 Pulse Rate 85 12/30/24 15:20 Respiratory Rate 17 12/30/24 14:20 Blood Pressure 84/50 12/30/24 15:20 Pulse Oximetry 98 12/30/24 15:20 Oxygen Delivery Me thod Room Air 12/30/24 15:20 MDM - Nausea/Vomiting/Diarrhea Medical Decision Making Patient has enterocolitis with acute kidney injury. CT shows urinary retention as we well. He had urinated prior to the CT there is large amount of urine in the bladder. I will place a Osborne and monitor his output. Discussed Dr. Washington orders written for observation. Medical Records I reviewed the patient's medical records. Lab Data I reviewed the patient's lab results. 12/30/24 14:45 12/30/24 14:45 Radiology Impressions Abdomen/Pelvis CT 12/30/24 14:27 IMPRESSION: 1. Findings suggesting acute enterocolitis 2. 4.1 cm AAA Chest X-Ray 12/30/24 14:27 Impression: Atherosclerosis and hyperinflation. Laboratory Results WBC 3.73 10^3/uL (3.29-11.43) 12/30/24 14:45 RBC 4.48 10^6/uL (3.85-5.65) 12/30/24 14:45 Hgb 13.00 g/dL (11.27-16.99) 12/30/24 14:45 Hct 40.3 % (37-53) 12/30/24 14:45 MCV 90.0 fl (82-101) 12/30/24 14:45 MCH 29.0 pg (27-33) 12/30/24 14:45 MCHC 32.3 g/dL (30-55) 12/30/24 14:45 RDW 14.9 % (12.1-15.1) 12/30/24 14:45 Plt Count 153 10^3/cmm (157-399) L 12/30/24 14:45 MPV 10.6 fL (7.4-10.4) H 12/30/24 14:45 Neut % (Auto) 60.1 % 12/30/24 14:45 Lymph % (Auto) 30.3 % 12/30/24 14:45 [place] % (Auto) 7.2 % 12/30/24 14:45 Eos % (Auto) 1.3 % 12/30/24 14:45 Baso % (Auto) 0.8 % 12/30/24 14:45 Neut # (Auto) 2.24 10^3/uL (1.8-7.7) 12/30/24 14:45 Lymph # (Auto) 1.1 10^3/uL (0.8-4.8) 12/30/24 14:45 [place] # (Auto) 0.3 10^3/uL (0.2-0.9) 12/30/24 14:45 Eos # (Auto) 0.1 10^3/uL (0.0-0.8) 12/30/24 14:45 Baso # (Auto) 0.0 10^3/uL (0.0-0.1) 12/30/24 14:45 Nucleated RBC % (auto) 0 % 12/30/24 14:45 Nucleated RBCs # 0.0 /100WBC 12/30/24 14:45 Sodium 137 mmol/L (136-145) 12/30/24 14:45 Potassium 3.4 mmol/L (3.5-5.1) L 12/30/24 14:45 Chloride 102 mmol/L (98-107) 12/30/24 14:45 Carbon Dioxide 20 mmol/L (22-29) L 12/30/24 14:45 Anion Gap 18.4 (5-19) 12/30/24 14:45 BUN 45 mg/dL (8-23) H 12/30/24 14:45 Creatinine 2.5 mg/dL (0.7-1.2) H 12/30/24 14:45 GFR Calculation Not Reportable 12/30/24 14:45 Glucose 168 mg/dL (65-115) H 12/30/24 14:45 Calculated Osmolality 299 mOsm/kg (285-295) H 12/30/24 14:45 Lactic Acid 1.9 mmol/L (0.5-2.2) 12/30/24 14:45 Calcium 8.5 mg/dL (8.5-10.5) 12/30/24 14:45 Total Bilirubin 0.4 mg/dL (0.15-1.2) 12/30/24 14:45 AST 19 U/L (0-40) 12/30/24 14:45 ALT 9 U/L (0-41) 12/30/24 14:45 Alkaline Phosphatase 74 U/L (40-130) 12/30/24 14:45 Creatine Kinase 79 U/L (39-308) 12/30/24 14:45 Total Protein 6.6 g/dL (6.6-8.7) 12/30/24 14:45 Albumin 3.8 g/dL (3.5-5.2) 12/30/24 14:45 Globulin 2.8 g/dL (1.3-4.6) 12/30/24 14:45 All radiology interpretation(s) finalized by discharge Discharge Plan Discharge Patient Disposition: Placed in Observation Clinical Impression: Gastroenteritis, Acute kidney injury, Acute urinary retention Coding Level of Care Code ED Netezza Architect for Brandan Naranjo
[2024-12-30] MEDS: sodium chloride 0.9% 500 ML IV (14:54)
[2024-12-30] MEDS: ondansetron 2 mg/ML SDV 2 mL 4 MG IVP (14:54)
--- NOTE | 2024-12-30 14:55 | ECG_ITS ---
[facility]: 2024-12-30 Pat Name: Judd Beth Department: Room: Gender: Male Supervisor Prep: : 1940 Requested By: Manjit Colón Order Number: [id number] Andrzej MD: Diego Caldwell M.D. Measurements Intervals [place] Rate: 59 P: -25 DC: 190 QRS: 163 QRSD: 169 T: -11 QT: 502 QTc: 499 Interpretive Statements SINUS BRADYCARDIA RIGHT BUNDLE BRANCH BLOCK [120+ ms QRS DURATION, UPRIGHT V1, 40+ ms S IN I/aVL/V4/V5/V6] LEFT POSTERIOR FASCICULAR BLOCK [QRS AXIS > 109, INFERIOR Q] Compared to ECG 06/06/2024 16:15:38 Left posterior fascicular block now present Right-axis deviation no longer present Electronically Signed On 12-31-2024 19:05:29 CDT by Diego Caldwell M.D. [email or web address]
[2024-12-30 14:58] LABS: Basophils % 0.8 %; Eosinophils # 0.1 10^3/uL (0.0-0.8); Eosinophils % 1.3 %; Hematocrit 40.3 % (37-53); Lymphocytes # 1.1 10^3/uL (0.8-4.8); Lymphocytes % 30.3 %; Mean Corpuscular HGB Conc 32.3 g/dL (30-55); Mean Platelet Volume 10.6 fL (7.4-10.4); Monocytes # 0.3 10^3/uL (0.2-0.9); Monocytes % 7.2 %; Neutrophils # 2.24 10^3/uL (1.8-7.7); Neutrophils % 60.1 %; Nucleated Red Blood Cells % 0 %; Platelet Count 153 10^3/cmm (157-399); Red Blood Count 4.48 10^6/uL (3.85-5.65); Red Cell Distribution Width 14.9 % (12.1-15.1); White Blood Count 3.73 10^3/uL (3.29-11.43)
[2024-12-30 15:12] LABS: Lactic Sepsis W/Reflex 1.9 mmol/L (0.5-2.2)
[2024-12-30 15:13] LABS: Alanine Aminotransferase 9 U/L (0-41); Albumin Level 3.8 g/dL (3.5-5.2); Alkaline Phosphatase 74 U/L (40-130); Aspartate Amino Transferase 19 U/L (0-40); Blood Urea Nitrogen 45 mg/dL (8-23); Calcium 8.5 mg/dL (8.5-10.5); Carbon Dioxide 20 mmol/L (22-29); Chloride 102 mmol/L (98-107); Creatine Phosphokinase 79 U/L (39-308); Creatinine Clr Calc Pharmacy 17.2466; Globulin 2.8 g/dL (1.3-4.6); Glucose 168 mg/dL (65-115); Osmolality Calculated 299 mOsm/kg (285-295); Sodium 137 mmol/L (136-145); Total Bilirubin 0.4 mg/dL (0.15-1.2); Total Protein 6.6 g/dL (6.6-8.7)
[2024-12-30 15:16] LABS: Anion Gap 18.4 (5-19); Potassium 3.4 mmol/L (3.5-5.1)
[2024-12-30] MEDS: sodium chloride 0.9% 500 ML 999 ML IV (15:31)
--- NOTE | 2024-12-30 16:46 | PM.HP ---
Providers/Chief Complaint Admitting Physician: Dino Lynn MD Primary Care Provider: Chon Gloria, [employer] Chief Complaint: diaherria History of Present Illness Judd Beth is a 84 year old male with a past medical history of COPD, generalized anxiety disorder, chronic diarrhea after his cholecystectomy who presents [facility] due to nausea, diarrhea, poor appetite, weakness. Currently patient is alert oriented x 2, following all commands, is very hard of hearing, his hearing aids are not working, at bedside helps with history taking. According to patient and his , he is lost about he was over 200 pounds about a year ago, he has lost about 15 pounds last few months, he has had a generalized decline, he deals with chronic diarrhea after his cholecystectomy, but recently in the last few days he has been having increased episodes of diarrhea, increased weakness, fatigue, no fevers, no chills, no bloody black stools, no abdominal pain, no lightheaded, dizziness Review of Systems Card: Denies: chest pain Resp: Denies: dyspnea GI: Reports: abdominal pain and vomiting; Denies: nausea, hematochezia or melena Medications/Allergies Home Medications ?Medication ?Instructions ?Recorded ?Confirmed ?Last Taken ?Type escitalopram oxalate 20 mg tablet 20 mg PO DAILY #90 tabs 02/25/24 12/30/24 12/30/24 Rx (Lexapro) lisinopril 40 mg tablet 40 mg PO DAILY@0600 #90 tabs 02/25/24 12/30/24 12/30/24 Rx mirtazapine 15 mg tablet (Remeron) 15 mg PO .at supper #30 tabs 02/25/24 12/30/24 12/29/24 Rx montelukast 10 mg tablet 10 mg PO DAILY@0600 #90 tabs 02/25/24 12/30/24 04/15/24 Rx furosemide 40 mg tablet 40 mg PO QAM #90 tabs 04/16/24 12/30/24 12/30/24 Rx tamsulosin 0.4 mg capsule 0.4 mg PO DAILY #30 caps 04/28/24 12/30/24 12/30/24 Rx albuterol sulfate 90 mcg/actuation 2 puff inhalation Q6H PRN 12/02/24 12/30/24 12/30/24 Rx aerosol inhaler (Ventolin HFA) shortness of breath or wheezing #8.5 grams acetaminophen 300 mg-codeine 30 mg 1 tab PO Q6H 12/30/24 12/30/24 12/30/24 History tablet hydrochlorothiazide 25 mg tablet 25 mg PO DAILY 12/30/24 12/30/24 12/30/24 History potassium chloride 20 mEq 20 meq PO DAILY 12/30/24 12/30/24 12/30/24 History tablet,extended release(part/cryst) (Klor-Con M) Allergies Allergy/AdvReac Type Severity Reaction Status Date / Time No Known Allergies Allergy Verified 12/02/24 16:27 PFSH Acute PFSH: Medical History Hypotension DEAN (acute kidney injury) New onset of congestive heart failure Lower extremity edema Abdominal aortic aneurysm (AAA) 3.0 cm to 5.5 cm in diameter in male Irritable bowel syndrome with diarrhea Seasonal and perennial allergic rhinitis RIAZ (generalized anxiety disorder) Personal history of nicotine dependence Lung nodule Osteoarthritis (arthritis due to wear and tear of joints) COPD (chronic obstructive pulmonary disease) Essential (primary) hypertension Surgical History History of cholecystectomy Family History Other Hypertension Social History Smoking and tobacco/nicotine status: unknown if used tobacco/nicotine Second hand smoke exposure: No Alcohol intake: current Alcohol intake frequency: few times a month Substance/Drug Use: never Adopted: No Caregiver/support person: Yes Lives independently: Yes Household members: spouse Housing: House Marital status: service: Yes Current occupational status: retired Current occupational exposures/hazards: No Do you think of yourself as: Straight/Heterosexual Current gender identity: Male Vitals/I&O/Wt Last Vital Signs Temp 97.8 F 12/30/24 14:20 Pulse 85 12/30/24 15:20 Resp 17 12/30/24 14:20 BP 84/50 12/30/24 15:20 Pulse Ox 98 12/30/24 15:20 O2 Del Method Room Air 12/30/24 15:20 Weight last 48 hrs Weight 53.524 kg Physical Exam Const: COMMON NORMALS: no acute distress ORIENTATION/CONSCIOUSNESS: Yes awake, Yes oriented to person and Yes oriented to place HENMT: COMMON NORMALS: normocephalic HEAD & SCALP: normocephalic Eye: COMMON NORMALS: Equal, round and reactive pupils present Resp: COMMON NORMALS: normal respiratory effort, No retractions, No use of accessory muscles and clear to auscultation bilaterally AUSCULTATION: clear to auscultation bilaterally Cardio: COMMON NORMALS: no JVD, regular rate, regular rhythm, S1 normal heart sound present and S2 normal heart sound present GI: COMMON NORMALS: Normal to inspection, nondistended, normoactive bowel sounds present, Soft to palpation and non-tender Extremity: COMMON NORMALS: no calf tenderness and no pedal edema Neuro: COMMON NORMALS: CN's II-XII intact bilaterally and moves all extremities Psych: COMMON NORMALS: mental status grossly normal Data 12/30/24 14:45 12/30/24 14:45 A&P Assessment and plan (1) Dehydration: (2) Acute kidney injury: (3) Postcholecystectomy syndrome: (4) Gastroenteritis: Plan Acute kidney injury -IV fluids -Monitor renal function Hypotension -Lactic acid within normal limits, -No chest pain, no evidence of fluid overload -History of chronic hypotension -IV fluids Dehydration, IV fluids Acute diarrhea -Has evidence of acute enterocolitis -Stool studies -Start Cipro and Flagyl Chronic diarrhea, 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
[2024-12-30] MEDS: ciprofloxacin 400 MG/200 ML PREMIX 200 MG IV (18:30)
[2024-12-30] MEDS: enoxaparin 40 mg/0.4 mL Syringe SUBCUT (18:33)
[2024-12-30] MEDS: metroNIDAZOLE IV 500 MG/100 ML PREMIX 100 MG IV (18:33)
[2024-12-30] MEDS: sodium chloride 0.9% 1,000 ML 125 ML IV (18:35)
[2024-12-30 18:50] LABS: Procalcitonin 0.08 ng/mL (0-0.5)
[2024-12-30 19:22] LABS: C Reactive Protein 3.5 mg/L (0.0-4.9); Thyroid Stimulating Hormone 6.95 uIU/mL (0.27-4.20)
[2024-12-31] VITALS (10 sets, daily range): BP systolic 89–156; BP diastolic 57–70; PULSE 56–97; RESP 16–18; TEMP 36.4–36.8; O2SAT 92–100
[2024-12-31] MEDS: metroNIDAZOLE IV 500 MG/100 ML PREMIX 100 MG IV ×2 (02:18→09:44)
[2024-12-31] MEDS: sodium chloride 0.9% 1,000 ML 125 ML IV (02:34)
[2024-12-31 02:57] LABS: Basophils % 0.4 %; Eosinophils # 0.2 10^3/uL (0.0-0.8); Lymphocytes # 1.5 10^3/uL (0.8-4.8); Lymphocytes % 28.4 %; Mean Corpuscular HGB Conc 32.3 g/dL (30-55); Mean Corpuscular Hemoglobin 29.4 pg (27-33); Mean Corpuscular Volume 90.9 fl (82-101); Mean Platelet Volume 10.3 fL (7.4-10.4); Monocytes # 0.5 10^3/uL (0.2-0.9); Monocytes % 10.3 %; Neutrophils # 3.02 10^3/uL (1.8-7.7); Neutrophils % 57.5 %; Nucleated Red Blood Cells % 0 %; Platelet Count 150 10^3/cmm (157-399); Red Blood Count 4.73 10^6/uL (3.85-5.65); White Blood Count 5.25 10^3/uL (3.29-11.43)
[2024-12-31 03:22] LABS: Alanine Aminotransferase 8 U/L (0-41); Albumin Level 3.5 g/dL (3.5-5.2); Alkaline Phosphatase 72 U/L (40-130); Anion Gap 15.9 (5-19); Aspartate Amino Transferase 14 U/L (0-40); Blood Urea Nitrogen 39 mg/dL (8-23); Calcium 8.3 mg/dL (8.5-10.5); Carbon Dioxide 23 mmol/L (22-29); Chloride 109 mmol/L (98-107); Creatinine Clr Calc Pharmacy 24.8925; Globulin 2.7 g/dL (1.3-4.6); Glucose 88 mg/dL (65-115); Magnesium 1.9 mg/dL (1.7-2.3); Osmolality Calculated 309 mOsm/kg (285-295); Phosphorus 3.3 mg/dL (2.5-4.5); Sodium 145 mmol/L (136-145); Total Bilirubin 0.3 mg/dL (0.15-1.2); Total Protein 6.2 g/dL (6.6-8.7)
[2024-12-31 03:32] LABS: Potassium 2.9 mmol/L (3.5-5.1)
[2024-12-31] MEDS: ciprofloxacin 400 MG/200 ML PREMIX 200 MG IV (04:27)
[2024-12-31] MEDS: lidocaine 1% 5 ML in potassium chloride premix 100 ML 26.25 ML IV (04:41)
[2024-12-31] MEDS: cholestyramine powder 4 gm Pkt PO (06:13)
[2024-12-31] MEDS: tamsulosin 0.4 mg Capsule PO (09:44)
[2024-12-31] MEDS: escitalopram 10 mg Tablet 20 MG PO (09:45)
--- NOTE | 2024-12-31 10:09 | PC.NURSE ---
Verbal orders for patient to have 20 mEq Potassium PO one time, OT and PT from Dr. Lynn. Orders completed in computer.
[2024-12-31] MEDS: potassium chloride ER 20 mEq Tablet PO (11:00)
[2024-12-31 12:46] LABS: C.Diff PCR (Lab) NEGATIVE (Negative)
--- NOTE | 2024-12-31 13:04 | P.DS_ITS ---
Discharge Providers Date of Admission: 12/30/24 16:39 Date of Discharge: December 31, 2024 Attending Provider at Admission: Dino Lynn MD Attending Provider at Discharge: Dino Lynn MD Primary Care Provider: JOVANNY Downs Diagnoses at Discharge Discharge Diagnosis (1) Dehydration: Status: Acute (2) Acute kidney injury: Status: Acute (3) Postcholecystectomy syndrome: Status: Acute (4) Gastroenteritis: Status: Acute Reason for Visit Reason for Visit: [facility] Hospital Course Hospital Course Judd Beth is a 84 year old male with a past medical history of COPD, generalized anxiety disorder, chronic diarrhea after his cholecystectomy who presents [facility] due to nausea, diarrhea, poor appetite, weakness. Currently patient is alert oriented x 2, following all commands, is very hard of hearing, his hearing aids are not working, at bedside helps with history taking. According to patient and his , he is lost about he was over 200 pounds about a year ago, he has lost about 15 pounds last few months, he has had a generalized decline, he deals with chronic diarrhea after his cholecystectomy, but recently in the last few days he has been having increased episodes of diarrhea, increased weakness, fatigue, no fevers, no chills, no bloody black stools, no abdominal pain, no lightheaded, dizziness Patient was admitted to [facility] for acute kidney injury, dehydration, requiring IV fluids, overall patient's clinical condition improved, creatinine on discharge 2.0. I have strongly recommended for patient to spend at least another 24 hours in the hospital so I can get his creatinine better with further fluid therapy, inpatient PT OT, however patient declines. He understands morbidity and mortality, but is adamant about going home, he has anxiety about being here in the hospital. 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 Recommended further inpatient stay, further IV IV fluids, IV antibiotics, further workup, discussed with the patient he has a high risk of readmission, morbidity and mortality associated, patient is adamant about going home, understands morbidity and mortality, voices understanding, all questions answered. Physical Exam Const: COMMON NORMALS: no acute distress and patient oriented x3 Resp: COMMON NORMALS: normal respiratory effort, No retractions, No use of accessory muscles and clear to auscultation bilaterally AUSCULTATION: clear to auscultation bilaterally Cardio: COMMON NORMALS: regular rate, regular rhythm, S1 normal heart sound present and S2 normal heart sound present RATE: regular rate RHYTHM: regular rhythm HEART SOUNDS: S1 normal heart sound present and S2 normal heart sound present GI: COMMON NORMALS: Normal to inspection, nondistended, normoactive bowel sounds present and non-tender Extremity: COMMON NORMALS: no pedal edema Neuro: COMMON NORMALS: patient oriented x3 Psych: COMMON NORMALS: mental status grossly normal Discharge Data Studies Completed and Pending Completed Studies During Hospitalization Category Date Time Status CT abdomen pelvis wo con [id number] Stat Cat Scan 12/30/24 14:27 Completed XR chest 1V portable [id number] Stat Exams 12/30/24 14:27 Completed Pending at discharge Category Date Time Status Complete Blood Count w/Auto AM LABS Lab 01/01/25 04:00 Ordered Complete Blood Count w/Auto AM LABS Lab 01/02/25 04:00 Ordered Comprehensive Metabolic Panel AM LABS Lab 01/01/25 04:00 Ordered Comprehensive Metabolic Panel AM LABS Lab 01/02/25 04:00 Ordered Immunochemical Fecal OCB Routine Lab 12/30/24 16:42 Received Lactoferrin Routine Lab 12/30/24 16:42 Received Magnesium AM LABS Lab 01/01/25 04:00 Ordered Magnesium AM LABS Lab 01/02/25 04:00 Ordered OVA and Parasites, Conc and PE Routine Lab 12/30/24 16:42 Ordered Phosphorus AM LABS Lab 01/01/25 04:00 Ordered Phosphorus AM LABS Lab 01/02/25 04:00 Ordered Salmonella / Shigella / Campy Routine Lab 12/30/24 16:42 Ordered Urinalysis Stat Lab 12/30/24 17:04 Ordered Radiology Impressions Abdomen/Pelvis CT 12/30/24 14:27 IMPRESSION: 1. Findings suggesting acute enterocolitis 2. 4.1 cm AAA Chest X-Ray 12/30/24 14:27 Impression: Atherosclerosis and hyperinflation. Laboratory Results WBC 5.25 10^3/uL (3.29-11.43) 12/31/24 02:36 RBC 4.73 10^6/uL (3.85-5.65) 12/31/24 02:36 Hgb 13.90 g/dL (11.27-16.99) 12/31/24 02:36 Hct 43.0 % (37-53) 12/31/24 02:36 MCV 90.9 fl (82-101) 12/31/24 02:36 MCH 29.4 pg (27-33) 12/31/24 02:36 MCHC 32.3 g/dL (30-55) 12/31/24 02:36 RDW 15.0 % (12.1-15.1) 12/31/24 02:36 Plt Count 150 10^3/cmm (157-399) L 12/31/24 02:36 MPV 10.3 fL (7.4-10.4) 12/31/24 02:36 Neut % (Auto) 57.5 % 12/31/24 02:36 Lymph % (Auto) 28.4 % 12/31/24 02:36 [place] % (Auto) 10.3 % 12/31/24 02:36 Eos % (Auto) 3.0 % 12/31/24 02:36 Baso % (Auto) 0.4 % 12/31/24 02:36 Neut # (Auto) 3.02 10^3/uL (1.8-7.7) 12/31/24 02:36 Lymph # (Auto) 1.5 10^3/uL (0.8-4.8) 12/31/24 02:36 [place] # (Auto) 0.5 10^3/uL (0.2-0.9) 12/31/24 02:36 Eos # (Auto) 0.2 10^3/uL (0.0-0.8) 12/31/24 02:36 Baso # (Auto) 0.0 10^3/uL (0.0-0.1) 12/31/24 02:36 Nucleated RBC % (auto) 0 % 12/31/24 02:36 Nucleated RBCs # 0.0 /100WBC 12/31/24 02:36 Sodium 145 mmol/L (136-145) 12/31/24 02:36 Potassium 2.9 mmol/L (3.5-5.1) L 12/31/24 02:36 Chloride 109 mmol/L (98-107) H 12/31/24 02:36 Carbon Dioxide 23 mmol/L (22-29) 12/31/24 02:36 Anion Gap 15.9 (5-19) 12/31/24 02:36 BUN 39 mg/dL (8-23) H 12/31/24 02:36 Creatinine 2.0 mg/dL (0.7-1.2) H 12/31/24 02:36 GFR Calculation Not Reportable 12/31/24 02:36 Glucose 88 mg/dL (65-115) 12/31/24 02:36 Calculated Osmolality 309 mOsm/kg (285-295) H 12/31/24 02:36 Lactic Acid 1.9 mmol/L (0.5-2.2) 12/30/24 14:45 Calcium 8.3 mg/dL (8.5-10.5) L 12/31/24 02:36 Phosphorus 3.3 mg/dL (2.5-4.5) 12/31/24 02:36 Magnesium 1.9 mg/dL (1.7-2.3) 12/31/24 02:36 Total Bilirubin 0.3 mg/dL (0.15-1.2) 12/31/24 02:36 AST 14 U/L (0-40) 12/31/24 02:36 ALT 8 U/L (0-41) 12/31/24 02:36 Alkaline Phosphatase 72 U/L (40-130) 12/31/24 02:36 Creatine Kinase 79 U/L (39-308) 12/30/24 14:45 C-Reactive Protein 3.5 mg/L (0.0-4.9) 12/30/24 14:45 Total Protein 6.2 g/dL (6.6-8.7) L 12/31/24 02:36 Albumin 3.5 g/dL (3.5-5.2) 12/31/24 02:36 Globulin 2.7 g/dL (1.3-4.6) 12/31/24 02:36 Procalcitonin 0.08 ng/mL (0-0.5) 12/30/24 14:45 TSH 6.95 uIU/mL (0.27-4.20) H 12/30/24 14:45 C. difficile (PCR) Negative (Negative) 12/31/24 11:30 Vitals Last Vital Signs Temp 98.2 F 12/31/24 11:38 Pulse 72 12/31/24 11:38 Resp 18 12/31/24 11:38 BP 89/57 12/31/24 11:38 Pulse Ox 93 12/31/24 11:38 O2 Del Method Room Air 12/31/24 11:38 O2 Flow Rate 2 12/31/24 08:16 Discharge Plan Discharge Patient Disposition: Home Condition: Stable Prescriptions: New cholestyramine (with sugar) 4 gram Powder In Packet 1 ea PO QAM 30 Days Qty: 60 0RF ciprofloxacin HCl [Cipro] 500 mg tablet 500 mg PO BID 5 Days Qty: 10 0RF metronidazole 500 mg tablet 500 mg PO Q8H 5 Days Qty: 15 0RF Continued mirtazapine [Remeron] 15 mg tablet 15 mg PO .at supper Qty: 30 2RF Rx Instructions: Help eat and sleep escitalopram oxalate [Lexapro] 20 mg tablet 20 mg PO DAILY Qty: 90 1RF montelukast 10 mg tablet 10 mg PO DAILY@0600 Qty: 90 1RF albuterol sulfate [Ventolin HFA] 90 mcg/actuation HFA aerosol inhaler 2 puff inhalation Q6H PRN (Reason: shortness of breath or wheezing) Qty: 8.5 0RF acetaminophen-codeine 300-30 mg tablet 1 tab PO Q6H tamsulosin 0.4 mg capsule 0.4 mg PO DAILY Qty: 30 1RF Held lisinopril 40 mg tablet 40 mg PO DAILY@0600 Qty: 90 1RF Hold Instructions: Resume on 01/03/25. potassium chloride [Klor-Con M20] 20 mEq tablet,ER particles/crystals 20 meq PO DAILY Hold Instructions: Resume on 01/03/25. hydrochlorothiazide 25 mg tablet 25 mg PO DAILY Hold Instructions: Resume on 01/04/25. furosemide 40 mg tablet 40 mg PO QAM Qty: 90 2RF Hold Instructions: Resume on 01/03/25. Rx Instructions: take in ONE tablet in the AM, Discharge Orders: Discharge Order (Routine); Ordered 12/31/24 Ordered By: Dino Lynn Referrals: Chon Gloria, [employer] [Primary Care Provider] - (We have notified your physician's clinic of the need for a follow-up appointment to be scheduled. If you have not heard from them within the next 2 business days, please call them directly. ) Discharge Diet: Cardiac Discharge Activity: Resume usual activity Patient Instructions: Opioid Safety, Pain Management Activity Restrictions/Additional Instructions: - Drink plenty of electrolyte balanced fluids ? Please take antibiotics as prescribed ? Please use cholestyramine for diarrhea Discharge Attestations Time Spent in Discharge Care*: greater than 30 min Quality Metrics Clinical Quality Measures [ No reported AMI, CVA or VTE this stay] Coding Level of Care Code 36877 Total time (in minutes) for Discharge: 45 Diagnoses Dehydration E86.0 Acute kidney injury N17.9 Postcholecystectomy syndrome K91.5 Gastroenteritis K52.9
--- NOTE | 2024-12-31 13:30 | PC.NURSE ---
Notified Dr. Lynn patients blood pressure sitting is 82/54 manually. Patients blood pressure lying down is 96/64. Patient is assymptomatic. No new ordeers at this time.
--- NOTE | 2024-12-31 15:56 | PC.NURSE ---
Discussed discharge with patient and spouse. Discussed new medications, follow up appointments and what medications are to be held and when to restart them. Held medications circled and resume date underlined. All questions answered and verbalized understanding from both parties.
== END 2024-12-31 16:01 | disposition home or self-care (01) ==
LOC: ER 16:00 → MEDSURG 16:39
PROVIDERS: Admitting Provider Family Medicine; Emergency Provider Family Medicine; PCP Nurse Practitioner; Visit Provider Family Medicine
DX: N17.9 Acute kidney failure, unspecified (principal); J44.9 Chronic obstructive pulmonary disease, unspecified; F41.1 Generalized anxiety disorder; Z90.49 Acquired absence of other specified parts of digestive tract; H91.90 Unspecified hearing loss, unspecified ear; I11.0 Hypertensive heart disease with heart failure; I50.9 Heart failure, unspecified; Z87.891 Personal history of nicotine dependence; E86.0 Dehydration; K91.5 Postcholecystectomy syndrome; K52.9 Noninfective gastroenteritis and colitis, unspecified; R63.4 Abnormal weight loss; Z68.1 Body mass index [BMI] 19.9 or less, adult; R33.9 Retention of urine, unspecified; Z79.899 Other long term (current) drug therapy
CPT/HCPCS: 36415; 71045; 74176; 80053; 82274; 82550; 83605; 83630; 83735; 84100; 84145; 84443; 85025; 86140; 87493; 93005; 94664; 96365; 96367; 96372; 96375; 97116; 97161; 97165; 99285; G0378; J0744; J1650; J2405; J3480; J3490; J7030; J7040

== ENCOUNTER → 2025-01-04 14:20 | Outpatient (BNVA) | payer OTHER, MEDICARE, SELFPAY | PROVIDERS: PCP Nurse Practitioner; Visit Provider Nurse Practitioner | DX: E87.6 Hypokalemia (principal) | CPT/HCPCS: 80053; 85025 ==

== ENCOUNTER 2025-01-06 14:22 | Outpatient (CLI) | payer MEDICARE, SELFPAY ==
[2025-01-06 15:08] LABS: Anion Gap 16.9 (5-19); Blood Urea Nitrogen 21 mg/dL (8-23); Calcium 8.7 mg/dL (8.5-10.5); Carbon Dioxide 21 mmol/L (22-29); Chloride 110 mmol/L (98-107); Glucose 137 mg/dL (65-115); Osmolality Calculated 305 mOsm/kg (285-295); Sodium 145 mmol/L (136-145)
[2025-01-06 15:16] LABS: Potassium 2.9 mmol/L (3.5-5.1)
== END 2025-01-06 14:23 | disposition home or self-care (01) ==
LOC: LAB 14:25
PROVIDERS: PCP Nurse Practitioner; Visit Provider Nurse Practitioner
DX: E87.6 Hypokalemia (principal)
CPT/HCPCS: 36415; 80048

== ENCOUNTER 2025-01-21 10:26 | Outpatient (CLI) | payer MEDICARE, SELFPAY ==
[2025-01-21 11:29] LABS: Blood Urea Nitrogen 22 mg/dL (8-23); Calcium 8.7 mg/dL (8.5-10.5); Carbon Dioxide 26 mmol/L (22-29); Chloride 107 mmol/L (98-107); Glucose 84 mg/dL (65-115); Osmolality Calculated 299 mOsm/kg (285-295); Sodium 143 mmol/L (136-145)
== END 2025-01-21 10:27 | disposition home or self-care (01) ==
PROVIDERS: PCP Nurse Practitioner; Visit Provider Nurse Practitioner
DX: E87.6 Hypokalemia (principal)
CPT/HCPCS: 36415; 80048

== ENCOUNTER → 2025-01-24 10:57 | Outpatient (BNVA) | payer MEDICARE, SELFPAY | PROVIDERS: PCP Nurse Practitioner; Referring Provider Family Medicine; Visit Provider Nurse Practitioner Family | DX: L57.8 Other skin changes due to chronic exposure to nonionizing radiation (principal); D48.5 Neoplasm of uncertain behavior of skin; L57.0 Actinic keratosis | CPT/HCPCS: 11102; 17000; 17280; 69100; 99203 ==

== ENCOUNTER 2025-02-27 17:50 | Inpatient (IN) | payer OTHER, SELFPAY ==
--- OUTSIDE RECORDS SUMMARY | 2024-05-06 04:00 | XMS_ITS | Encounter Summary ---
Author Name [facility] Organization [facility] Address [address] [place] [address] Care Team Providers Care Racing Secretary Name Role Phone ELMA JONES Primary Care Provider Unavailabl e Insurance Providers: All historical and current Section Date Range: From patient's date of to the date document was created. This section includes the names of all active insurance providers for the patient. Insurance Provider Type of Coverage Plan Name Start of Policy Coverage End of Policy Coverage Group Number Member ID Insurance Provider's Telephone Number Policy Stapleton's Name Patient's Relationship to Policy Stapleton A[employer]NA [facility] (WNR) MEDICARE ADVANTAGE [facility] (WNR) Oct 20, 2023 [id number] DMITRIY JOHNSON PATIENT Selected Encounter This section includes the information on record at ME for the Encounter. Date/Time Encounter Type Encounter Description Reason Provider Source May 06, 2024 09:00 AM OFFICE O/P EST MOD 30 MIN PRIMARY CARE/MEDICINE ICD-10-CM J44.9 Chronic obstructive pulmonary disease, unspecified ELMA JONES IHBunny Encounter Template Text not used by ME Assessments - Encounter Diagnoses This section includes the primary and secondary diagnoses documented for the Encounter. Date/Time Primary/Secondary Diagnosis Diagnosis Name Provider Source May 06, 2024 10:07 AM PRIMARY Chronic obstructive pulmonary disease, unspecified ELMA JONES [facility] May 06, 2024 10:07 AM SECONDARY Benign prostatic hyperplasia without lower urinry tract symp ELMA JONES [place] [facility] May 06, 2024 10:07 AM SECONDARY Chronic diastolic (congestive) heart failure [facility] May 06, 2024 10:07 AM SECONDARY Essential (primary) hypertension [facility] May 06, 2024 10:07 AM SECONDARY Low back pain, unspecified ELMA JONES [facility] May 06, 2024 10:07 AM SECONDARY Noninfective gastroenteritis and colitis, unspecified [facility] May 06, 2024 10:07 AM SECONDARY Prediabetes [facility] Plan of Treatment: Future Appointments (+ 6 months) and Future Tests (+/- 45 days) The Plan of Treatment section includes future care activities for the [facility] This section includes future appointments and future orders which are active, pending or scheduled. Future Appointments This section includes appointments that were scheduled to occur 6 months from the date of the Encounter, up to a maximum of 20 appointments. The data comes from all [place] treatment facilities. Appointment Date/Time Appointment Type Appointme nt Facility Name May 13, 2024 01:45 PM AMBULATORY - MEDICINE [facility] May 20, 2024 10:00 AM AM[facility]UL[facility]ORY - [place]IC[place] [facility] May 21, 2024 09:45 AM AMBULATORY - MEDICINE [facility] Jun 04, 2024 10:45 AM AMBULATORY - MEDICINE [facility] Jun 07, 2024 10:45 AM AMBULATORY - MEDICINE [facility] Jun 23, 2024 08:30 AM AMBULATORY - MEDICINE [facility] Jun 23, 2024 08:31 AM [facility]BULATORY - MEDICINE [place] [facility] Jun 23, 2024 11:30 AM [facility]ICINE [place] [facility] Jul 20, 2024 10:45 AM [facility]ORY - MEDICINE [place] [facility] Jul 20, 2024 12:00 PM [facility]BULATORY - MEDICINE [place] [facility] Jul 20, 2024 12:01 PM [facility]ORY - MEDICINE [place] [facility] Aug 17, 2024 01:00 PM AMBULATORY - MEDICINE [facility] Aug 17, 2024 01:01 PM AMBULATORY - MEDICINE [place] [facility] Sep 13, 2024 12:00 PM AMBULATORY - MEDICINE [facility] Sep 13, 2024 12:01 PM AMBULATORY - MEDICINE [place] [facility] Sep 23, 2024 09:15 AM AMBULATORY - MEDICINE [facility] Sep 23, 2024 09:16 AM [facility] Oct 26, 2024 09:00 AM AMBULATORY - MEDICINE [facility] Nov 02, 2024 08:30 AM AMBULATORY - MEDICINE [facility] Lab Results: +/- 30 days of the encounter This section includes the Chemistry and Hematology Lab Results on record with ME for the patient. Radiology Reports and Pathology Reports are provided separately, in subsequent sections. Lab Results This section contains the Chemistry/Hematology Results that were resulted 30 days before or 30 daysafter the date of the Encounter. Date/Time Source Result Type Result - Unit Interpretation Reference Range Specimen Type Comment May 06, 2024 10:07 AM [facility] CB PROST. SPECIFIC AG.(PB-STL) SERUM Specimen Ty pe: SERUM No comment entered. Ordering Provider: ELMA JONES Report Released Date/Time: May 06, 2024 09:46 AM Reporting Lab: [place] [facility] [address] [place] [address] Performing Lab: [place] [facility] [address] [place] [address] PROST. SPECIFIC AG.(PB-STL) 0.68 ng/mL 0 -4 May 06, 2024 10:07 AM [facility] BASIC METABOLIC PANEL PLASMA Specimen Type: PL ASMA No comment entered. Ordering Provider: ELMA JONES Report Released Date/Time: May 06, 2024 09:32 AM Reporting Lab: [place] [facility] [address] [place] [address] Performing Lab: [place] [facility] [address] [place] [address] CREATININE 1.44 mg/dL H 0.7-1.3 UREA NITROGEN 21 mg/dL 9-25 GLUCOSE 88 mg/dL 72-99 SODIUM 140 meq/L 136-145 POTASSIUM 3.9 meq/L 3.5-5 CHLORIDE 104 meq/L 98-107 CARBON DIOXIDE 25 meq/L 22-31 CALCIUM 8.9 mg/dL 8.4-10.4 EGFR (CKD-EPI 2020) 49 May 06, 2024 10:07 AM [facility] BRAIN NATRIURETIC PEPTIDE PLASMA Specimen Type : PLASMA No comment entered. Ordering Provider: ELMA JONES Report Released Date/Time: May 06, 2024 10:03 AM Reporting Lab: [place] [facility] [address] [place] [address] Performing Lab: [place] [facility] [address] [place] [address] BRAIN NATRIURETIC PEPTIDE 93 pg/mL 0-100 Vital Signs: All taken on the encounter date This section contains inpatient and outpatient Vital Signs collected on the date of the Encounter. Date/Time Temperature Pulse Blood Pressure Respiratory Rate SP02 Pain Height Weight Body Mass Index Source May 06, 2024 09:42 AM 19 0 74 139.5 18 [facility] May 06, 2024 09:28 AM 97.7 90 99/63 94 [facility] Social History: Smoking Status (Most current) and Tobacco Use (All prior to encounter date) This section includes the most current, and the historical, smoking and tobacco- related health factors from the ME facility where the Encounter took place. Current Smoking Status This section includes the most current smoking, or tobacco-related health factor, from the ME facility where the Encounter took place. Date/Time Current Smoking Status Comment Mauricio ity Oct 31, 2023 08:30 AM VA-TOBACCO USER EVERY DAY [facility] Tobacco Use History This section includes a history of the smoking, or tobacco-related health factors, that were collected on or before the date of the Encounter. The data comes from the ME facility where the Encounter took place. 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 [facility] Oct 31, 2023 08:30 AM VA-TOBACCO USE MED NO [facility] Oct 31, 2023 08:30 AM VA-TOBACCO USE WI 30 MIN OF WAKE UP [place] [facility] Oct 31, 2023 08:30 AM VA-TOBACCO USER EVERY DAY [place] [facility] Oct 29, 2022 08:30 AM VA-TOBACCO USE 30 YEARS OR MORE [place] [facility] Oct 29, 2022 08:30 AM VA-TOBACCO USE ADVICE [place] [place] [facility] Oct 29, 2022 08:30 AM 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 [place] [facility] Oct 29, 2022 08:30 AM VA-TOBACCO USE MED NO [place] [facility] Oct 29, 2022 08:30 AM VA-TOBACCO USE WI 30 MIN OF WAKE UP [place] Oct 29, 2022 08:30 AM VA-TOBACCO USER EVERY DAY [place] [place] Nov 09, 2019 12:37 PM VA-TOBACCO USE > 1 5 LESS THAN 30 YEARS [place] [place] Nov 09, 2019 12:37 PM VA-TOBACCO USE ADVICE [facility] Nov 09, 2019 12:37 PM 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 Date/Time Encounter Note(s) Provider Source May 07, 2024 04:05 PM PHYSICIAN LETTERS: LOCAL TITLE: TEST RESULT GENERAL LETTER [facility] STANDARD TITLE: PHYSICIAN LETTERS DATE OF NOTE: MAY 07, 2024@16:05 ENTRY DATE: MAY 07, 2024@16:05:20 AUTHOR: ELMA JONES COSIGNER: URGENCY: STATUS: COMPLETED [facility] [address] [place] [id number] May 07, 2024 Mr. Linnea Johnson [address] [place] [id number] Dear Mr. Johnson: This letter is to inform you regarding your recent laboratory tests. The ordering provider has reviewed these reports and will take necessary action, if needed. Date Lab Test Result H/L Unit Range 05/06/2024 BNP 93 pg/mL 0 - 100 05/06/2024 PSA, TOTAL 0.68 ng/mL 0 - 4 05/06/2024 eGFR 49 - 05/06/2024 SODIUM 140 mEq/L 136 - 145 05/06/2024 POTASSIUM 3.9 mEq/L 3.5 - 5 05/06/2024 CHLORIDE 104 mEq/L 98 - 107 05/06/2024 UREA NITROGEN 21 mg/dL 9 - 25 05/06/2024 CREATININE, SERUM 1.44 H mg/dL 0.7 - 1.3 05/06/2024 CALCIUM, SERUM 8.9 mg/dL 8.4 - 10.4 05/06/2024 CO2 25 mEq/L 22 - 31 05/06/2024 GLUCOSE 88 mg/dL 72 - 99 If you are seeing any outside provider(s), please share this information with him/her. If you have any questions, please feel free to contact our clinic. Sincerely, Elma Jones MD [facility] Primary [facility] May 06, 2024 09:30 AM PRIMARY CARE PROGR ESS NOTE: LOCAL TITLE: PRIMARY CARE CLINIC PROGRESS NOTE PB STANDARD TITLE: PRIMARY CARE PROGRESS NOTE DATE OF NOTE: MAY 06, 2024@09:30 ENTRY DATE: MAY 06, 2024@09:30:42 AUTHOR: ELMA JONES EXP COSIGNER: URGENCY: STATUS: COMPLETED SUBJECTIVE: LINNEA JOHNSON is a 84 years old MALE. HPI: Presents to the clinic today to establish care with me as well as an ER follow-up. He was in the emergency room on April 28 with urinary retention had a Osborne catheter placed he is also had acute renal injury and his lisinopril was placed on hold. He reports the emergency room due to complaint of swelling in bilateral feet and ankles he has now had that for about a month he has had no change in that. 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 STATIONS/DEPLOYMENTS: No MAJOR ACCIDENTS OR INJURIES WHILE ON ACTIVE DUTY: No MST: No SURGICAL HX: cholycystectomy PROBLEM LIST: 1) COPD - Chronic Obstructive Pulmonary Disease ([facility] [id number]) 2) HTN - Hypertension ([facility] [id number]) 3) Cataracts 4) Chronic low back pain 5) Prediabetes 6) Chronic diarrhea 7) Benign prostatic hyperplasia Active Outpatient Medications (including Supplies): Active Outpatient Medications Status 1) ALBUTEROL 3/IPRATROP 0.5MG/3ML INHL 3ML INHALE 1 VIAL ACTIVE (3ML) BY NEBULIZATION FOUR TIMES A DAY DIRECTED NEEDED FOR COPD 2) ESCITALOPRAM OXALATE 20MG TAB TAKE ONE TABLET BY ACTIVE MOUTH ONCE A DAY FOR DEPRESSION 3) LISINOPRIL 40MG TAB TAKE ONE TABLET BY MOUTH ONCE A ACTIVE DAY FOR HIGH BLOOD PRESSURE 4) MONTELUKAST NA 10MG TAB TAKE ONE TABLET BY MOUTH ACTIVE EVERY EVENING FOR COPD 5) POTASSIUM CL 20MEQ SA TAB (DISPERSIBLE) TAKE ONE-HALF ACTIVE TABLET BY MOUTH ONCE A DAY FOR POTASSIUM SUPPLEMENTATION TAKE WITH FOOD Active Non-VA Medications Status 1) Non-VA CODEINE 30/ACETAMINOPHEN 300MG TAB 1 TABLET BY ACTIVE MOUTH TWICE DAILY NEEDED 2) Non-VA FUROSEMIDE 40MG TAB BY MOUTH EVERY AM ACTIVE 3) Non-VA MIRTAZAPINE 30MG TAB 15MG BY MOUTH AT BEDTIME ACTIVE 4) Non-VA TAMSULOSIN HCL 0.4MG CAP 0.4MG BY MOUTH EVERY ACTIVE EVENING Isosorbide 30 mg daily 9 Total Medications Allergies: Patient has answered NKA Review of Systems: as per HPI and Systemic: Denies fatigue, fever, chills, or weight loss CV: Denies chest pain, palpitations Pulmonary: Denies hemoptysis, Shortness of breath, dyspnea on exertion GI: Denies constipation, bloody stools, diarrhea, indigestion, or n/v Ext: Denies any swelling Neuro: Denies slurred speech or dizziness Skin: Denies abnormal lesions; denies any new rashes PSYCH: Denies SI/HI; denies nightmares OBJECTIVE: Vital Signs Temperature: 97.7 F [36.5 C] (05/06/2024 09:28) Respiratory Rate: 19 (05/06/2024 09:42) Pulse Rate: 90 (05/06/2024 09:28) Blood Pressure: 99/63 (05/06/2024 09:28) HT: 74 in [188.0 cm] (05/06/2024 09:42) WT: 139.5 lb [63.28 kg] (05/06/2024 09:42) BMI: 17.9 94% (05/06/2024 09:28) Physical Exam General: NAD noted, A&Ox3, pleasant, appears stated age HEENT: NCAT, TM's clear, nares and oropharynx clear Neck: Supple with normal active ROM, without any lymphadenopathy Heart: RRR, no murmur, clicks, or rub Resp: Lungs CTA bilaterally, respirations even and unlabored Ext: No clubbing, cyanosis, 3+ edema bilateraal ankles and feety Skin: Warm, pink, and dry, no rashes Neuro: Grossly intact Psych: Affect normal, answers questions appropriately throughout visit A/P: ASSESSMENT and PLAN Health Maintenance: Labs reviewed with patient and printout given to patient. Discussed preventative health to include diet and exercise as well as immunizations. COPD -denies no change in his breathing and has not been using his albuterol CHF-we will add a BNP to his lab work today along with a BMP due to that the Lasix and off the lisinopril. We will increase the Lasix to 40 mg twice daily and stop his isosorbide. HTN -he is little on the low side today we will stop his isosorbide however increase in his Lasix to twice a day at this time due to his edema he will come back in on or for a nurse visit for blood pressure and weight check. Weight loss-we will obtain labs and a dietary consult Chronic diarrhea for several years-stable ECG today shows normal sinus rhythm of 74 with a left axis right bundle branch block Stable. Discussed medications with patient; med rec completed. Continue current regimen as prescribed by PCP and specialists. RTC as needed if developing any new or worsening symptoms. Please notify PACT with medication changes or for orders coordination as needed if seen by a specialist in the future. Will f/u with patient once updated labs / imaging / testing received; otherwise f/u as listed below. Follow-up: As scheduled in October with fasting labs prior to appointment and/or as needed. Discussed with patient that in the event of community imaging / testing being ordered in the future, once the imaging / testing has been completed, please notify PACT of completion at outside facility if not called with results within 1 week by a VA PACT member; this is due to intermittent lapses in notification of imaging completion within [facility]. All questions answered; agrees to plan of care. Follow up as listed above, annually, and as needed. Keep all appointments. Medications Reconciled. See AVS given to . Time spent 30 minutes. /es/ Elma Jones MD [facility] Signed: 05/06/2024 10:08 ELMA JONES [facility] May 06, 2024 09:14 AM PRIMARY CARE NURSI NG NOTE: LOCAL TITLE: PRIMARY CARE NURSING PROGRESS NOTE (TEXT) NURSING P STANDARD TITLE: PRIMARY CARE NURSING NOTE DATE OF NOTE: MAY 06, 2024@09:14 ENTRY DATE: MAY 06, 2024@09:14:45 AUTHOR: NATALIA LANCASTER EXP COSIGNER: URGENCY: STATUS: COMPLETED Established Patient LINNEA JOHNSON IS A 84 YEAR OLD MALE BEING SEEN IN CLINIC MAY 06, 2024. == == REASON FOR VISIT: [place] here for ER follow up Are you receiving care any where other than the ME? Yes, List: [facility] AND [facility]GICAL HISTORY: Does patient report using home oxygen? No CURRENT ACTIVE MEDICATIONS FOR REVIEW: Allergies/ADRs (Tool #5) FACILITY ALLERGY/ADR -------- No Remote Allergy/ADR Data available for this patient [facility] No Known Allergies Med. Reconciliation (Tool #1) INCLUDED IN THIS LIST: Alphabetical list of active outpatient prescriptions dispensed from this ME (local) and dispensed from another ME or [facility] facility (remote) as well as inpatient orders (local pending and active), local clinic medications, locally documented non-VA medications, and local prescriptions that have or been discontinued in the past 90 days. Non-VA Meds Last Documented On: Oct 31, 2023 NOTE The display of VA prescriptions dispensed from another ME or [facility]D facility (remote) is limited to active outpatient prescription entries matched to National Drug File at the originating site and may not include some items such as investigational drugs, compounds, etc. NOT INCLUDED IN THIS LIST: Medications self-entered by the patient into personal health records (i.e. [facility] are NOT included in this list. Non-VA medications documented outside this ME, remote inpatient orders (regardless of status) and remote clinic medications are NOT included in this list. The patient and provider must always discuss medications the patient is taking, regardless of where the medication was dispensed or obtained. OUTPT ALBUTEROL 3/IPRATROP 0.5MG/3ML INHL 3ML (Status = Active) INHALE 1 VIAL (3ML) BY NEBULIZATION FOUR TIMES A DAY DIRECTED NEEDED FOR COPD Rx# [id number] Last Released: 11/05/23 Qty/Days Supply: 360/90 Rx Expiration Date: 10/31/24 Refills Remainin Indication: FOR COPD Non-VA CODEINE 30/ACETAMINOPHEN 300MG TAB TAKE ONE TABLET BY MOUTH TWICE DAILY NEEDED VA RX: Non-VA medication not recommended by VA provider VA RX: Patient wants to buy from Non-ME pharmacy VA RX: Medication prescribed by Non-VA provider OUTPT ESCITALOPRAM OXALATE 20MG TAB (Status = Active) TAKE ONE TABLET BY MOUTH ONCE A DAY FOR DEPRESSION Rx# [id number] Last Released: 11/05/23 Qty/Days Supply: Rx Expiration Date: 10/31/24 Refills Remainin Indication: FOR DEPRESSION Non-VA FUROSEMIDE 20MG TAB TAKE ONE TABLET BY MOUTH EVERY MORNING VA RX: Patient wants to buy from Non-ME pharmacy VA RX: Medication prescribed by Non-VA provider OUTPT LISINOPRIL 40MG TAB (Status = Active) TAKE ONE TABLET BY MOUTH ONCE A DAY FOR HIGH BLOOD PRESSURE Rx# [id number] Last Released: 11/03/23 Qty/Days Supply: Rx Expiration Date: 10/31/24 Refills Remainin Indication: FOR HIGH BLOOD PRESSURE OUTPT MONTELUKAST NA 10MG TAB (Status = Active) TAKE ONE TABLET BY MOUTH EVERY EVENING FOR COPD Rx# [id number] Last Released: 11/04/23 Qty/Days Supply: Rx Expiration Date: 10/31/24 Refills Remainin Indication: FOR COPD OUTPT POTASSIUM CL 20MEQ SA TAB (DISPERSIBLE) (Status = Active) TAKE ONE-HALF TABLET BY MOUTH ONCE A DAY FOR POTASSIUM SUPPLEMENTATION TAKE WITH FOOD Rx# [id number] Last Released: 11/10/23 Qty/Days Supply: Rx Expiration Date: 11/05/24 Refills Remainin Indication: FOR POTASSIUM SUPPLEMENTATION SUPPLIES PHARMACY TERMS AND POSSIBLE PATIENT ACTIONS INPT = ME inpatient order IV = VA intravenous medication OUTPT = ME outpatient prescription PHARMACY POSSIBLE PATIENT TERMS EXPLANATION ACTIONS -------- ----- ACTIVE A prescription that can be If you have refills, filled at the local ME pharmacy. you may request a refill of this prescription from your VA pharmacy. CLINIC A medication you received during If you have questions a visit to a VA clinic or about this medication emergency department. contact your ME healthcare team. DISCONTINUED A prescription your provider has Contact your VA stopped. It is no longer healthcare team if you available to be sent to you or need more of this picked up at the ME pharmacy medication. window. A prescription which is too old Contact your VA to fill. This does not refer to healthcare team if you the expiration date of the need more of this medication in the container. medication. NON-VA A medication that came from If this medication someplace other than a VA information is pharmacy. This may be a incorrect or out of prescription from either the VA date, please tell your or non VA providers that was VA healthcare team. filled outside the VA. Or, it may be an bnnc-hpy-mhrqpmt (OTC), herbal, dietary supplements or sample medication. ON HOLD An active prescription that will Contact your VA not be filled until pharmacy pharmacy when you need resolves the issue. more of this medication. PARKED An active prescription that will Contact your VA not be filled until the patient pharmacy when you need requests it. this medication. PENDING This prescription order has been If you have been sent to the pharmacy for review instructed to start and is not ready yet. this medication now, contact your VA pharmacy. SUSPENDED An active prescription that is Contact your ME not scheduled to be filled yet. pharmacy if you need You should receive it before this medication now. you run out. Patient reports taking meds other than as directed/ordered: IS PATIENT TAKING ANY OVER THE COUNTER MEDICATIONS, SUCH VITAMINS OR HERBAL SUPPLEMENTS, INCLUDING ANY MEDICATIONS PRESCRIBED BY ANOTHER PHYSICIAN? No ALLERGIES/ADVERSE REACTIONS: Patient has answered NKA Does patient have any new allergies to report since last visit? NO VITALS: TEMPERATURE: 97.8 F [36.6 C] (10/31/2023 08:35) BP: 138/84 (10/31/2023 08:49) RESP: 20 (10/31/2023 08:35) PULSE: 80 (10/31/2023 08:35) HT: 74 in [188.0 cm] (10/29/2022 08:30) WT: 146.8 lb [66.59 kg] (10/31/2023 08:35) BMI: 18.9 PAIN ASSESSMENT: (Most Recent Pain Score in Vitals Package: 3 (10/31/2023 08:35) ) The patient indicated that they and their close contacts have not traveled outside of the [place] in the past 21 days. The patient reports the following symptoms: No symptoms present The patient is not immunocompromised. The patient does not report having a history of Multi Drug Resistant Organism (MDRO) within the last five years. The patient does not report having been exposed to measles, chickenpox, or zoster in last 30 days. Patient reports no pain at this visit. Pain Score = 0. STRESS: Thank you for your service. Now let us serve you. At the [facility], we strive to provide you with exceptional health care that improves your health and well-being. Are you feeling sad, empty, or depressed? Yes Do you need to talk about things in your life that worry you or cause you stress? No Do you need to talk about personal problems, family problems, alcohol use, drug use, or mental or emotional illness? No SUICIDE SCREENING: The patient was asked, Over the past two weeks, how often have you been bothered by thoughts that you would be better off or of hurting yourself in some way? Not At All SPIRITUAL ASSESSMENT: Are there christianity practices or spiritual concerns you want the accreditation manager, your physician, and other health care team members to immediately know about? No Patient advised to call the clinic for any concerns, questions, or symptoms. Patient and/or caregiver verbalized understanding of plan of care. /demetrice/ EVELINE PEÑALOZA CBSHARA Signed: 05/06/2024 09:34 NATALIA LANCASTER [place] JORDI
--- OUTSIDE RECORDS SUMMARY | 2024-05-06 06:28 | XMS_ITS ---
Author Organization [employer] [employer] Address [address] [place] [address] Care Team Providers Care Draw Bench Operator Name Role Phone GIAN QIU Unavailable [phone] KATHY KUMAR Unavailable [phone] REASON FOR VISIT Referral Encounters Encounter Location Date Provider Diagnosis [facility] [address] [facility] [place] [address] 05/06/2024 KATHY KUMAR Plan Of Treatment No Information Progress Notes * Judd JOHNSONDOB:1940 ( 84 yo M)Acc No.[id number]:05/06/2024 Patient: Judd ORTIZ :1940 A ge:84 Y S ex:Male Address:[address] [place] [address], [place], [address] * true * Date: Generated for Patel pantoja/Chadwick/Freddyitting on: 0 02/28/2025 05:31 AM CDT
--- OUTSIDE RECORDS SUMMARY | 2024-05-06 08:06 | XMS_ITS | Encounter Summary ---
Author Name [facility] [place] [facility] [place] Address [address] [place] [address] Care Team Providers Care Hay Baler Name Role Phone DARWIN FLETCHER Primary Care Provider Unavailabl e Insurance Providers: [...] Name Patient's Relationship to Policy [place] AETNA [facility] (WNR) MEDICARE ADVANTAGE [facility] (WNR) Oct 20, 2023 [id number] DMITRIY JOHNSON HN PATIENT Selected Encounter This section includes the information on record at [place] for the Encounter. Date/Time Encounter Type Encounter Description Reason Pro vider Source May 06, 2024 01:06 PM Outpatient Encounter PRIMARY CARE/MEDICINE IHE Encounter Template Text not used by [place] Plan of Treatment: Future Appointments (+ 6 months) and Future Tests (+/- 45 days) The Plan of Treatment section includes future care activities for the patient from all [place] treatmentfacilities. This section includes future appointments and future orders which are active, pending or scheduled. Future Appointments This section includes appointments that were scheduled to occur 6 months from the date of the Encounter, up to a maximum of 20 appointments. The data comes from all [place] treatment facilities. Appointment Date/Time Appointment Type Appointme nt Facility Name May 13, 2024 01:45 PM [facility] [place] [facility] May 20, 2024 10:00 AM [facility] [place] [facility] May 21, 2024 09:45 AM [facility] [facility] Jun 04, 2024 10:45 AM [facility] [facility] Jun 07, 2024 10:45 AM [facility] [facility] Jun 23, 2024 08:30 AM [facility] [facility] Jun 23, 2024 08:31 AM [facility] [place] [facility] Jun 23, 2024 11:30 AM [facility] Jul 20, 2024 10:45 AM [facility] [facility] Jul 20, 2024 12:00 PM [facility] [facility] Jul 20, 2024 12:01 PM [facility] [place] [facility] Aug 17, 2024 01:00 PM [facility] Aug 17, 2024 01:01 PM [facility] [place] [facility] Sep 13, 2024 12:00 PM [facility] Sep 13, 2024 12:01 PM [facility] [place] [facility] Sep 23, 2024 09:15 AM [facility] - MEDICINE [facility] Sep 23, 2024 09:16 AM AMBULATORY - MEDICINE [facility] Oct 26, 2024 09:00 AM [facility]BUL[facility]ORY - MEDICINE [facility] Nov 02, 2024 08:30 AM AMBUL[facility]ORY - MEDICINE [facility] Lab Results: +/- 30 days of the encounter This section includes the Chemistry and Hematology Lab Results on record with [place] for the patient. Radiology Reports and Pathology Reports are provided separately, in subsequent sections. Lab Results This section contains the Chemistry/Hematology Results that were resulted 30 days before or 30 daysafter the date of the Encounter. Date/Time Source Result Type Result - Unit Interpretation Reference Range Specimen Type Comment May 06, 2024 10:07 AM [facility] BASIC METABOLIC PANEL PLASMA Specimen Type: PLASMA No comment entered. Ordering Provider: DARWIN FLETCHER Report Released Date/Time: May 06, 2024 09:32 AM Reporting Lab: [place] [facility] [address] [place] [address] Performing Lab: [place] [facility] [address] [place] [address] CREATININE 1.44 mg/dL H 0.7-1.3 UREA NITROGEN 21 mg/dL 9-25 GLUCOSE 88 mg/dL 72-99 SODIUM 140 meq/L 136-145 POTASSIUM 3.9 meq/L 3.5-5 CHLORIDE 104 meq/L 98-107 CARBON DIOXIDE 25 meq/L 22-31 CALCIUM 8.9 mg/dL 8.4-10.4 EGFR (CKD-EPI 2020) 49 May 06, 2024 10:07 AM [facility] PROST. SPECIFIC AG.(PB-STL) SERUM Specimen Ty pe: SERUM No comment entered. Ordering Provider: DARWIN FLETCHER Report Released Date/Time: May 06, 2024 09:46 AM Reporting Lab: [place] [facility] [address] [place] [address] Performing Lab: [place] [facility] [address] [place] [address] PROST. SPECIFIC AG.(PB-STL) 0.68 ng/mL 0 -4 May 06, 2024 10:07 AM [facility] BRAIN NATRIURETIC PEPTIDE PLASMA Specimen Type : PLASMA No comment entered. Ordering Provider: DARWIN FLETCHER Report Released Date/Time: May 06, 2024 10:03 AM Reporting Lab: [place] [facility] [address] [place] [address] Performing Lab: [place] [facility] [address] [place] [address] BRAIN NATRIURETIC PEPTIDE 93 pg/mL 0-100 Vital Signs: All taken on the encounter date This section contains inpatient and outpatient Vital Signs collected on the date of the Encounter. Date/Time Temperature Pulse Blood Pressure Respiratory Rate SP02 Pain Height Weight Body Mass Index Source May 06, 2024 09:42 AM 19 0 74 139.5 18 [facility] May 06, 2024 09:28 AM 97.7 90 99/63 94 [facility] Social History: Smoking Status (Most current) and Tobacco Use (All prior to encounter date) This section includes the most current, and the historical, smoking and tobacco- related health factors from the [place] facility where the Encounter took place. Current Smoking Status This section includes the most current smoking, or tobacco-related health factor, from the [place] facility where the Encounter took place. Date/Time Current Smoking Status Comment Facil ity Oct 31, 2023 08:30 AM VA-TOBACCO USER EVERY DAY [facility] Tobacco Use History This section includes a history of the smoking, or tobacco-related health factors, that were collected on or before the date of the Encounter. The data comes from the [place] facility where the Encounter took place. 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 Date/Time Encounter Note(s) Provider Source May 06, 2024 01:12 PM CARDIOLOGY NOTE: LOCAL TITLE: CP EKG PB STANDARD TITLE: CARDIOLOGY NOTE DATE OF NOTE: MAY 06, 2024@13:12:16 ENTRY DATE: MAY 06, 2024@13:12:16 AUTHOR: CLINICAL,DEVICE PRO EXP COSIGNER: URGENCY: STATUS: COMPLETED PROCEDURE SUMMARY CODE: Machine Resulted DATE/TIME PERFORMED: MAY 06, 2024@09:53:2 DOCUMENT IN On The BillTA IMAGING SEE FULL REPORT IN VISTA IMAGING SIGNATURE NOT REQUIRED SEE SIGNATURE IN VISTA IMAGING (MUSE EKG POP) AUTO-INSTRUMENT DIAGNOSIS Procedure: 26631 12 Lead ECG Release Status: Released Off-Line Verified Date Verified: May 06, 2024@13:12:12 18667.2 Ventricular Rate: 74 BPM 54649.3 Atrial Rate: 74 BPM 14965.4 P-R Interval: 164 ms 91771.5 QRS Duration: 142 ms 27674.6 Q-T Interval: 424 ms 39099 QTC Calculation(Bazett)470 ms 85196.12 Calculated P Moore: 62 degrees 00840.13 Calculated R Moore: 263 degrees 38318.14 Calculated T Moore: 62 degrees Normal sinus rhythm Right bundle branch block Abnormal ECG No previous ECGs available Confirmed by PATRIA JOSEPH . ([id number]) on 05/06/2024 1:12:05 PM Administrative Closure: 05/06/2024 by: CLINICAL,DEVICE PROXY SERVICE CLINICAL,DEVICE PROXY SERVICE [facility]
--- OUTSIDE RECORDS SUMMARY | 2024-05-13 08:45 | XMS_ITS | Encounter Summary ---
Author Name [facility] [place] [facility] [facility] [place] Address [address] [place] [id number] Care Team Providers Care Residential Appliance Repair Technician Name Role Phone DARWIN JONES Primary Care Provider Unavailabl e Insurance [...] Name Patient's Relationship to Policy [place] AETNA [facility] (WNR) MEDICARE ADVANTAGE [facility] (WNR) Oct 20, 2023 [id number] DMITRIY JOHNSON HN PATIENT Selected Encounter This section includes the information on record at [place] for the Encounter. Date/Time Encounter Type Encounter Description Reason Provider Source May 13, 2024 01:45 PM OFF/OP EST FEBRUARY X REQ PHY/QHP PRIMARY CARE/MEDICINE ICD-10-CM I10 Essential (primary) hypertension GERARDO HERNANDEZ [facility] Encounter Template Text not used by [place] Assessments - Encounter Diagnoses This section includes the primary and secondary diagnoses documented for the Encounter. Date/Time Primary/Secondary Diagnosis Diagnosis Name Provider Source May 18, 2024 11:37 AM PRIMARY Essential (primary) hypertension [facility] May 18, 2024 11:37 AM SECONDARY Encounter for exam of blood pressure w abnormal findings ALANA HERNANDEZ [facility] Plan of Treatment: Future Appointments (+ 6 months) and Future Tests (+/- 45 days) The Plan of Treatment section includes future care activities for the patient [facility] [place] [facility] This section includes future appointments and future orders which are active, pending or scheduled. Future Appointments This section includes appointments that were scheduled to occur 6 months from the date of the Encounter, up to a maximum of 20 appointments. The data comes from all [place] treatment facilities. Appointment Date/Time Appointment Type Appointme nt Facility Name May 20, 2024 10:00 AM [facility] [place] [facility] May 21, 2024 09:45 AM [facility] - MEDICINE [facility] Jun 04, 2024 10:45 AM [facility] - MEDICINE [facility] Jun 07, 2024 10:45 AM [facility] [place] [facility] [facility] Jun 23, 2024 08:30 AM [facility] - MEDICINE [facility] Jun 23, 2024 08:31 AM [facility] [place] [facility] Jun 23, 2024 11:30 AM [facility] [place] [facility] Jul 20, 2024 10:45 AM [facility] - MEDICINE [facility] Jul 20, 2024 12:00 PM AMBULATORY - MEDICINE [facility] Jul 20, 2024 12:01 PM [facility] [place] [facility] Aug 17, 2024 01:00 PM AMBULATORY - MEDICINE [facility] Aug 17, 2024 01:01 PM [facility] [place] [facility] Sep 13, 2024 12:00 PM AMBULATORY - MEDICINE [facility] Sep 13, 2024 12:01 PM [facility] [facility] Sep 23, 2024 09:15 AM AMBULATORY - MEDICINE [facility] Sep 23, 2024 09:16 AM AM[facility] - MEDICINE [facility] Oct 26, 2024 09:00 AM [facility] [place] [facility] [facility] Nov 02, 2024 08:30 AM [facility]ORY - MEDICINE [facility] Nov 12, 2024 08:00 AM [facility] [place] [facility] Lab Results: +/- 30 days of the encounter This section includes the Chemistry and Hematology Lab Results on record with [place] for the patient. Radiology Reports and Pathology Reports are provided separately, in subsequent sections. Lab Results This section contains the Chemistry/Hematology Results that were resulted 30 days before or 30 daysafter the date of the Encounter. Date/Time Source Result Type Result - Unit Interpretation Reference Range Specimen Type Comment May 06, 2024 10:07 AM [facility] PROST. SPECIFIC AG.(PB-STL) SERUM Specimen Ty pe: SERUM No comment entered. Ordering Provider: DARWIN JONES Report Released Date/Time: May 06, 2024 09:46 AM Reporting Lab: [place] [facility] [address] [place] [address] Performing Lab: [place] [facility] [address] [place] [address] PROST. SPECIFIC AG.(PB-STL) 0.68 ng/mL 0 -4 May 06, 2024 10:07 AM [facility] BASIC METABOLIC PANEL PLASMA Specimen Type: PL ASMA No comment entered. Ordering Provider: DARWIN JONES Report Released Date/Time: May 06, 2024 09:32 AM Reporting Lab: [place] [facility] [address] [place] [address] Performing Lab: [place] [facility] [address] [place] [address] CREATININE 1.44 mg/dL H 0.7-1.3 UREA NITROGEN 21 mg/dL 9-25 GLUCOSE 88 mg/dL 72-99 SODIUM 140 meq/L 136-145 POTASSIUM 3.9 meq/L 3.5-5 CHLORIDE 104 meq/L 98-107 CARBON DIOXIDE 25 meq/L 22-31 CALCIUM 8.9 mg/dL 8.4-10.4 EGFR (CKD-EPI 2020) 49 May 06, 2024 10:07 AM [facility] BRAIN NATRIURETIC PEPTIDE PLASMA Specimen Type : PLASMA No comment entered. Ordering Provider: DARWIN JONES Report Released Date/Time: May 06, 2024 10:03 AM Reporting Lab: [place] [facility] [address] [place] [address] Performing Lab: [place] [facility] [address] [place] [address] BRAIN NATRIURETIC PEPTIDE 93 pg/mL 0-100 Vital Signs: All taken on the encounter date This section contains inpatient and outpatient Vital Signs collected on the date of the Encounter. Date/Time Temperature Pulse Blood Pressure Respiratory Rate SP02 Pain Height Weight Body Mass Index Source May 13, 2024 02:40 PM 73 137/75 18 143.5 18 [facility] [place] May 13, 2024 02:39 PM 71 145/78 98 [place] [facility] Social History: Smoking Status (Most current) and Tobacco Use (All prior to encounter date) This section includes the most current, and the historical, smoking and tobacco- related health factors from the [place] facility where the Encounter took place. Current Smoking Status This section includes the most current smoking, or tobacco-related health factor, from the [place] facility where the Encounter took place. Date/Time Current Smoking Status Comment Facil ity Oct 31, 2023 08:30 AM VA-TOBACCO USE [place] 30 MIN OF WAKE UP [facility] Tobacco Use History This section includes a history of the smoking, or tobacco-related health factors, that were collected on or before the date of the Encounter. The data comes from the [place] facility where the Encounter took place. 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 [facility] Oct 31, 2023 08:30 AM VA-TOBACCO USE MED NO [facility] Oct 31, 2023 08:30 AM VA-TOBACCO USE WI 30 MIN OF WAKE UP [facility] Oct 31, 2023 08:30 AM VA-TOBACCO USER EVERY DAY [facility] Oct 29, 2022 08:30 AM VA-TOBACCO USE 30 YEARS OR MORE [place] [place] [facility] Oct 29, 2022 08:30 AM VA-TOBACCO USE ADVICE [facility] Oct 29, 2022 08:30 AM VA-TOBACCO USE PRINTER MACHINE NO [facility] Oct 29, 2022 08:30 AM VA-TOBACCO USE MED NO [facility] Oct 29, 2022 08:30 AM VA-TOBACCO USE [place] 30 MIN OF WAKE UP [facility] Oct 29, 2022 08:30 AM VA-TOBACCO USER EVERY DAY [place] [facility] Nov 09, 2019 12:37 PM VA-TOBACCO USE > 1 5 LESS THAN 30 YEARS [facility] Nov 09, 2019 12:37 PM VA-TOBACCO USE ADVICE [facility] Nov 09, 2019 12:37 PM VA-TOBACCO USE PRINTER MACHINE NO [facility] Nov 09, 2019 12:37 PM VA-TOBACCO USE MED NO [facility] Nov 09, 2019 12:37 PM VA-TOBACCO USE [place] 30 MIN OF WAKE UP [facility] Nov 09, 2019 12:37 PM VA-TOBACCO USER EVERY DAY [facility] Encounter Notes: All associated encounter notes This section contains the clinical notes associated to the Encounter. Date/Time Encounter Note(s) Provider Source May 13, 2024 02:34 PM NURSING PROGRESS N OTE: LOCAL TITLE: NURSING NOTE PB STANDARD TITLE: NURSING PROGRESS NOTE DATE OF NOTE: MAY 13, 2024@14:34 ENTRY DATE: MAY 13, 2024@14:34:19 AUTHOR: PARK HERNANDEZ COSIGNER: URGENCY: STATUS: COMPLETED This is a 84 year old MALE with known Allergies as noted: Patient has answered NKA On the following Active Medications: Active Outpatient Medications (including Supplies): Active Outpatient [...] MOUTH TWICE DAILY NEEDED 2) Non-VA FUROSEMIDE 20MG TAB 20MG BY MOUTH EVERY ACTIVE MORNING 3) Non-VA MIRTAZAPINE 30MG TAB 15MG BY MOUTH AT BEDTIME ACTIVE 4) Non-VA TAMSULOSIN HCL 0.4MG CAP 0.4MG BY MOUTH EVERY ACTIVE EVENING 9 Total Medications C/C: BP and weight check S: The presented to the clinic today for BP and weight check. The reports that he is taking a whole tablet of Furosemide 20mg daily and is taking his potassium. The reports that he thinks his swelling has gone down. O/A: The ambulated to the exam room with assistance of a cane, gate is steady. The 's swelling has not improved since he was last seen a week ago. The 's weight has increased 4 lbs. From 139.5 on 05/06/24 to 143.5. His BP has also increased it was 99/63 and today it is 135/75 from 05/06/24 PCP note CHF-we will add a BNP to his lab work today along with a BMP due to that the Lasix and off the lisinopril. We will increase the Lasix to 40 mg twice daily and stop his isosorbide. Vitals were stable today. Vital Signs: as charted P: Discussed the above symptoms and assessment with Dr. Jones. Educated the that Dr. Jones had increased his Lasix to 40mg twice daily. also let him know that he should be taking the whole 20mg tablet of his potassium daily. Also let the know that he would need to come back to the clinic in one week for a follow up Nurse visit for BP and weight check The voiced understanding, is in agreement with the plan and has no further questions or complaints at this time. The ambulated to the exit in satisfactory manner. RTC: as needed Per [facility] Directive 1605.06, wristband documentation: Patient wristband was removed and destroyed by (staff name) Genaro Hernandez RN and placed in the designated [employer], [employer] bin. /demetrice/ Park Hernandez RN,BSN [place], LACY Signed: 05/13/2024 16:01 [place] HERNANDEZ [place] [facility]
--- OUTSIDE RECORDS SUMMARY | 2024-05-20 05:00 | XMS_ITS ---
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 Name Role Phone GIAN QIU Unavailable [phone] NISHA URENA Unavailable [phone] Allergies No Known Allergies Results Component Value Reference Range Notes Urinalysis, Routine Reviewed date:05/20/2024 10:56:59 AM Interpretation: Performing Lab: Notes/Report: Urine-Color yellow Appearance clear Glucose - Bilirubin - Ketones - Specific [place] 1.015 Occult Blood - pH 6.0 Urine Protein - Urobilinogen,Semi-Qn - Nitrite, Urine - WBC Esterase - REASON FOR VISIT Retention/ Pt states he has difficulty emptying bladder Medications Medication SIG (Take, Route, Frequency, Duration) Notes Start Date End Date Status Acetaminophen-Codeine #3 Active Montelukast Sodium 10 MG 1 tablet Orally Once a day Active Potassium Chloride ER 10 MEQ 1 tablet with food Orally Twice a day Active Isosorbide Mononitrate 20 MG 1 tablet Orally Twice a day Active Furosemide 40 MG 1 tablet Orally Once a day Active Mirtazapine 15 MG 1 tablet at bedtime Orally Once a day Active Escitalopram Oxalate 20 MG 1 tablet Oral ly Once a day Active Tamsulosin HCl 0.4 MG 1 capsule Orally O nce a day Active Problems Problem Type SNOMED Code ICD Code Onset Dates Problem Status W/U Status Risk Notes Problem [id number] Benign prostatic hyperplasia with lower urinary tract symptoms (N40.1) Active confirmed Vital Signs Blood pressure systolic 141 mm Hg 05/20/20 24 Blood pressure diastolic 92 mm Hg 024 Heart Rate 65 /min 05/20/2024 Height 74 in 05/20/2024 Weight 140 lbs 05/20/2024 BMI 17.97 kg/m2 05/20/2024 Height-cm 187.96 cm 05/20/2024 Weight-kg 63.5 kg 05/20/2024 Procedures Procedure Date Ordered Date Performed Result Body Sit e Bladder Scan 05/20/2024 05/20/2024 N/A Encounters Encounter Location Date Provider Diagnosis [facility] [place] [address] [facility] [place] [address] 05/20/2024 NISHA URENA Benign prostatic hyperplasia with lower urinary tract symptoms N40.1 and Urinary retention R33.9 Assessments Encounter Date Diagnosis (ICD Code) Assessment Notes Treatment Notes Treatment Clinical Notes Section Notes 05/20/2024 Benign prostatic hyperplasia with lower urinary tract symptoms (ICD-10 - N40.1) Pt with recent hospitalization with mckeon placement for a bladder scan of 250. He had noncontrast CT A/P that did not show any obstructive uropathy. He tells me he didn't feel like he was in retention. Mckeon was removed prior to visit today. His voiding has returned to baseline. He doesn't really have bothersome LUTS. He doesn't empty completely, but asymptomatic. No dysuria or hematuria. He is tolerating tamsulosin well. I do not think we need to escalate care with finasteride or transurethral procedure at this time. Will f/u in 3-4m with FR/PVR. 05/20/2024 Urinary retention (ICD-10 - R33.9) Pt with recent hospitalization with mckeon placement for a bladder scan of 250. He had noncontrast CT A/P that did not show any obstructive uropathy. He tells me he didn't feel like he was in retention. Mckeon was removed prior to visit today. His voiding has returned to baseline. He doesn't really have bothersome LUTS. He doesn't empty completely, but asymptomatic. No dysuria or hematuria. He is tolerating tamsulosin well. I do not think we need to escalate care with finasteride or transurethral procedure at this time. Will f/u in 3-4m with FR/PVR. Plan Of Treatment Next Appt Details Follow Up: 3-4m with FR/PVR, Reason: Progress Notes * Judd JOHNSONDOB:1940 ( 84 yo M)Acc No.[id number]:05/20/2024 Progress Notes Patient: Judd ORTIZ Provider: Patricia Urena APRN :1940 A ge:84 Y S ex:Male Date:05/20/2024 Address:[address] [place] [address], [id number] Subjective: * Chief Complaints: * R etention/ Pt states he has difficulty emptying bladder * HPI: * : Pt is an 84yoM who has been referred here today from the [place] for urinary retention. He was seen at [facility] ER on 04/28/24 with c/o LE edema, he was found to have a Cr was 3.4 from a baseline of 1.2 in October. He had 250cc bladder and mckeon was placed and he was started on tamsulosin. He had noncontrast CT A/P that was unremarkable. Pt denies any prior urologic history. He states that he doesn't think he has a urinary problem. He is now taking tamsulosin. He reports a moderate stream and feels like he empties well. He has frequency and urgency when he takes his lasix, but says it doesn't bother him. He does recall ever needing a catheter prior to recent hospitalization. He denies any dysuria or hematuria. Nocturia x 2. He denies any h/o elevated PSAs. Denies any family h/o malignancy. * ROS: P lease refer to patient intake ROS form. It has been reviewed and is accurate. * Medical History: * Surgical History: c holecystectomy * Hospitalization/Major Diagno stic Procedure: N o Hospitalization History. * Family History: F ather: unknown. M other: unknown. * Medications: T akingTamsulosin HCl 0.4 MG Capsule 1 capsule Orally Once a day Escitalopram Oxalate 20 MG Tablet 1 tablet Orally Once a day Mirtazapine 15 MG Tablet 1 tablet at bedtime Orally Once a day Furosemide 40 MG Tablet 1 tablet Orally Once a day Isosorbide Mononitrate 20 MG Tablet 1 tablet Orally Twice a day Potassium Chloride ER 10 MEQ Tablet Extended Release 1 tablet with food Orally Twice a day Montelukast Sodium 10 MG Tablet 1 tablet Orally Once a day Acetaminophen-Codeine #3 Medication List reviewed and reconciled with the patientTaking Tamsulosin HCl 0.4 MG Capsule 1 capsule Orally Once a day Taking Escitalopram Oxalate 20 MG Tablet 1 tablet Orally Once a day Taking Mirtazapine 15 MG Tablet 1 tablet at bedtime Orally Once a day Taking Furosemide 40 MG Tablet 1 tablet Orally Once a day Taking Isosorbide Mononitrate 20 MG Tablet 1 tablet Orally Twice a day Taking Potassium Chloride ER 10 MEQ Tablet Extended Release 1 tablet with food Orally Twice a day Taking Montelukast Sodium 10 MG Tablet 1 tablet Orally Once a day Taking Acetaminophen-Codeine #3 Medication List reviewed and reconciled with the patient * Allergies: N .K.D.A.no[Allergies Verified] Objective: * Vitals: B P: 141/92 mm Hg, HR: 65 /min, Wt: 140 lbs, Wt-k.5 kg, Ht: 74 in, Ht-cm: 187.96 cm, BMI: 17.97 Index, Body Surface Area: 1.82. * Examination: G eneral Examination: General appearance: e ldervira MCKENNA who is very [place], but alert, oriented, and in NAD. Head: n ormocephalic, atraumatic. Eyes: P ERRL, EOMI. Heart: H R regular, 3+ LE pitting edema to mid calf. Chest: r ruth even and nonlabored. Abdomen: s oft, NT, ND. Male genitourinary: N o CVAT, No SPT, No bladder distention, genital exam deferred.. Neurologic: n onfocal. Psych: n ormal affect / mood w ith good judgement and insight. Assessment: * Assessment: 1. B enign prostatic hyperplasia with lower urinary tract symptoms - N40.1 (Primary) 2 . U rinary retention - R33.9 Pt with recent hospitalizati on with mckeon placement for a bladder scan of 250. He had noncontrast CT A/P that did not show any obstructive uropathy. He tells me he didn't feel like he was in retention. Mckeon was removed prior to visit today. His voiding has returned to baseline. He doesn't really have bothersome LUTS. He doesn't empty completely, but asymptomatic. No dysuria or hematuria. He is tolerating tamsulosin well. I do not think we need to escalate care with finasteride or transurethral procedure at this time. Will f/u in 3-4m with FR/PVR. Plan: * Treatment: Value Reference Range U rine-Color yellow * A ppearance clear * G lucose - * B ilirubin - * K etones - * S pecific [place] 1.015 * O ccult Blood - * p H 6.0 * U rine Protein - * U robilinogen,Semi-Qn - * N itrite, Urine - * W BC Esterase - ?Procedure: Bladder Scan (Performed Date - 05/20/2024)* Lilly Jean 05/20/2024 10 :52:49 AM CDT > 159 ml * Procedure Codes: 5 1798 US URINE CAPACITY [id number] URINALYSIS, AUTO, W/O SCOPE * Follow Up: 3 -4m with FR/PVR * Billing Information: * Visit Code: 19814 Office Visit, New Pt., Level 4. * Procedure Codes: 85055 US URINE CAPACITY MEASURE. 09401 URINALYSIS, AUTO, W/O SCOPE. * Sign off status: Completed true * Provider: Patricia Urena APRN Date: 0 05/20/2024 Generated for Patel pantoja/Chadwick/Freddyitting on: 0 02/28/2025 05:31 AM CDT History and Physical Notes * HPI (History of Present Illness) Category Sub-Category Detail Notes Category Not es Pt is an 84yoM who [facility]. He was seen at [facility] ER on 04/28/24 with c/o LE edema, he was found to have a Cr was 3.4 from a baseline of 1.2 in October. He had 250cc bladder and mckeon was placed and he was started on tamsulosin. He had noncontrast CT A/P that was unremarkable. Pt denies any prior urologic history. He states that he doesn't think he has a urinary problem. He is now taking tamsulosin. He reports a moderate stream and feels like he empties well. He has frequency and urgency when he takes his lasix, but says it doesn't bother him. He does recall ever needing a catheter prior to recent hospitalization. He denies any dysuria or hematuria. Nocturia x 2. He denies any h/o elevated PSAs. Denies any family h/o malignancy. Examination Category Sub-Category Detail Notes Category Not es General Examination General appearance: elderly WM who is very [place], but alert, oriented, and in NAD Head: normocephalic, atrau matic Eyes: PERRL, EOMI Heart: HR regular, 3+ LE pi tting edema to mid calf Chest: resp even and nonlab ored Abdomen: soft, NT, ND Neurologic: nonfocal Male genitourinary: No CVAT, No SPT, No bladder distention, genital exam deferred. Psych: normal affect / mood with good judgement and insight
--- OUTSIDE RECORDS SUMMARY | 2024-05-21 04:45 | XMS_ITS | Encounter Summary ---
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 Date/Time Encounter Type Encounter Description Reason Provider Source May 21, 2024 09:45 AM OFF/OP EST FEBRUARY X REQ PHY/QHP PRIMARY CARE/MEDICINE ICD-10-CM R60.0 Localized edema ALANA HERNANDEZ Encounter Template Text not used by [place] Assessments - Encounter Diagnoses This section includes the primary and secondary diagnoses documented for the Encounter. Date/Time Primary/Secondary Diagnosis Diagnosis Name Provider Source May 21, 2024 11:09 AM PRIMARY Localized edema PARK HERNANDEZ [facility] Plan of Treatment: Future Appointments (+ 6 months) and Future Tests (+/- 45 days) The Plan of Treatment section includes future care activities for the patient from all [place] [facility]. This section includes future appointments and future orders which are active, pending or scheduled. Future Appointments This section includes appointments that were scheduled to occur 6 months from the date of the Encounter, up to a maximum of 20 appointments. The data comes from all [place] treatment facilities. Appointment Date/Time Appointment Type Appointme nt Facility Name Jun 04, 2024 10:45 AM [facility] Jun 07, 2024 10:45 AM [facility] Jun 23, 2024 08:30 AM [facility] Jun 23, 2024 08:31 AM [facility] [place] [facility] Jun 23, 2024 11:30 AM [facility] Jul 20, 2024 10:45 AM [facility] Jul 20, 2024 12:00 PM [facility] Jul 20, 2024 12:01 PM [facility] [place] [facility] Aug 17, 2024 01:00 PM [facility] Aug 17, 2024 01:01 PM [facility] [place] [facility] Sep 13, 2024 12:00 PM [facility] Sep 13, 2024 12:01 PM [facility] [place] [facility] Sep 23, 2024 09:15 AM [facility] Sep 23, 2024 09:16 AM [facility] MED[facility]INE [facility] Oct 26, 2024 09:00 AM [facility] Nov 02, 2024 08:30 AM [facility] Nov 12, 2024 08:00 AM [facility] [place] [facility] Nov 16, 2024 09:20 AM [facility] - MEDICINE [facility] Lab Results: +/- 30 days of the encounter This section includes the Chemistry and Hematology Lab Results on record with [place] for the patient. Radiology Reports and Pathology Reports are provided separately, in subsequent sections. Lab Results This section contains the Chemistry/Hematology Results that were resulted 30 days before or 30 daysafter the date of the Encounter. Date/Time Source Result Type Result - Unit Interpretation Reference Range Specimen Type Comment May 06, 2024 10:07 AM [facility] PROST. SPECIFIC AG.(PB-STL) SERUM Specimen Ty pe: SERUM No comment entered. Ordering Provider: ELMA JONES Report Released Date/Time: May 06, 2024 09:46 AM Reporting Lab: [place] [facility] [address] [place] [id number] Performing Lab: [place] [facility] [address] [place] [id number] PROST. SPECIFIC AG.(PB-STL) 0.68 ng/mL 0 -4 May 06, 2024 10:07 AM [facility] BASIC METABOLIC PANEL PLASMA Specimen Type: PL ASMA No comment entered. Ordering Provider: ELMA JONES Report Released Date/Time: May 06, 2024 09:32 AM Reporting Lab: [place] [facility] [address] [place] [id number] Performing Lab: [place] [facility] [address] [place] [id number] CREATININE 1.44 mg/dL H 0.7-1.3 UREA NITROGEN 21 mg/dL 9-25 GLUCOSE 88 mg/dL 72-99 SODIUM 140 meq/L 136-145 POTASSIUM 3.9 meq/L 3.5-5 CHLORIDE 104 meq/L 98-107 CARBON DIOXIDE 25 meq/L 22-31 CALCIUM 8.9 mg/dL 8.4-10.4 EGFR (CKD-EPI 2020) 49 May 06, 2024 10:07 AM [facility] BRAIN NATRIURETIC PEPTIDE PLASMA Specimen Type : PLASMA No comment entered. Ordering Provider: ELMA JONES Report Released Date/Time: May 06, 2024 10:03 AM Reporting Lab: [place] [facility] [address] [place] [id number] Performing Lab: [place] [facility] [address] [place] [id number] BRAIN NATRIURETIC PEPTIDE 93 pg/mL 0-100 Vital Signs: All taken on the encounter date This section contains inpatient and outpatient Vital Signs collected on the date of the Encounter. Date/Time Temperature Pulse Blood Pressure Respiratory Rate SP02 Pain Height Weight Body Mass Index Source May 21, 2024 09:47 AM 73 97/52 18 96 141.1 18 [facility] Social History: Smoking Status (Most current) and Tobacco Use (All prior to encounter date) This section includes the most current, and the historical, smoking and tobacco- related health factors from the [place] facility where the Encounter took place. Current Smoking Status This section includes the most current smoking, or tobacco-related health factor, from the [place] facility where the Encounter took place. Date/Time Current Smoking Status Comment Facil ity Oct 31, 2023 08:30 AM VA-TOBACCO USER EVERY DAY [facility] Tobacco Use History This section includes a history of the smoking, or tobacco-related health factors, that were collected on or before the date of the Encounter. The data comes from the [place] facility where the Encounter took place. Date/Time Smoking Status/Tobacco Use Comment F acility Oct 31, 2023 08:30 AM VA-TOBACCO USE ADVICE [facility] Oct 31, 2023 08:30 AM VA-TOBACCO USE SHELLAC POLISHER NO [facility] Oct 31, [...] Oct 29, 2022 08:30 AM VA-TOBACCO USE SHELLAC POLISHER NO [facility] Oct 29, [...] Nov 09, 2019 12:37 PM VA-TOBACCO USE SHELLAC POLISHER NO [facility] Nov 09, 2019 12:37 PM VA-TOBACCO USE MED NO [facility] Nov 09, 2019 12:37 PM VA-TOBACCO USE WI 30 MIN OF WAKE UP [facility] Nov 09, 2019 12:37 PM VA-TOBACCO USER EVERY DAY [facility] Encounter Notes: All associated encounter notes This section contains the clinical notes associated to the Encounter. Date/Time Encounter Note(s) Provider Source May 21, 2024 09:29 AM NURSING PROGRESS N OTE: LOCAL TITLE: NURSING NOTE PB STANDARD TITLE: NURSING PROGRESS NOTE DATE OF NOTE: MAY 21, 2024@09:29 ENTRY DATE: MAY 21, 2024@09:29:57 AUTHOR: PARK HERNANDEZ COSIGNER: URGENCY: STATUS: COMPLETED [...] EVERY ACTIVE EVENING 9 Total Medications C/C: Follow up BP check & Weight check S: The presented to the clinic today for follow up BP check and weight check. The reports that he is taking 40mg of Furosemide twice daily as ordered as well as his potassium. O/A: The ambulated to the exam room without assistance, gate is steady. The 's swelling is improved from where it was last week, but he does still have 2+ pitting edema on his feet and lower legs. The 's shoes are looser today and the reports that he is able to get his pants off without assistance from his now. The 's weight today is 141.1 down from 143.5 on 05/06/24. From 05/13/24 nursing note The 's swelling has not improved since he was last seen a week ago. The 's weight has increased 4 lbs. From 139.5 on 05/06/24 to 143.5. Educated the that Dr. Jones had increased his Lasix to 40mg twice daily. also let him know that he should be taking the whole 20mg tablet of his potassium daily. Also let the know that he would need to come back to the clinic in one week for a follow up Nurse visit for BP and weight check -- The 's BP is low today at 97/51. He denies any dizziness or light headedness. The reports that he is no longer taking the Lisinopril reporting that it was stopped about a month ago when he was in the hospital. Vital Signs: as charted. P: Let the know that he should continue with his mediations as ordered and continue to keep BP log and to do daily Wt. checks. Let the know that I would call him with and further recommendations. Talked to the about salt intake. The and his son report that the eats a lot of processed food and adds a lot of salt to his food. Talked to him about not adding extra salt but cautioned him to watch his BP and to notify us if his BP was staying low and or if he started feeling light headed and dizzy. The and his voiced understanding, is in agreement with the plan and has no further questions or complaints at this time. The ambulated to the exit in satisfactory manner. RTC: as needed. Per [facility] Directive 1605.06, wristband documentation: Patient wristband was removed and destroyed by (staff name) Genaro Hernandez RN and placed in the designated SnapMy[employer]ed-It bin. /demetrice/ Park Hernandez RN,BSN [facility] Signed: 05/21/2024 11:14 Receipt Acknowledged By: 05/25/2024 17:01 /es/ Elma Jones MD [facility] PARK HERNANDEZ [facility]
--- OUTSIDE RECORDS SUMMARY | 2024-06-04 05:45 | XMS_ITS | Encounter Summary ---
Author Name [facility] [place] [facility] [place] [facility] [place] Address [address] [place] [id number] Care Team Providers Care Rental Representative Name Role Phone ELMA JONES Primary Care [...] Name Patient's Relationship to Policy [place] [employer] [facility] (WNR) MEDICARE ADVANTAGE [facility] (WNR) Oct 20, 2023 [id number] [phone] [id number] DMITRIY JOHNSON HN PATIENT Selected Encounter This section includes the information on record at [place] for the Encounter. Date/Time Encounter Type Encounter Description Reason Provider Source Jun 04, 2024 10:45 AM OFF/OP EST FEBRUARY X REQ PHY/QHP PRIMARY CARE/MEDICINE ICD-10-CM Z48.02 Encounter for removal of sutures ALANA HERNANDEZ Encounter Template Text not used by [place] Assessments - Encounter Diagnoses This section includes the primary and secondary diagnoses documented for the Encounter. Date/Time Primary/Secondary Diagnosis Diagnosis Name Provider Source Jun 04, 2024 12:12 PM PRIMARY Encounter for removal of sutures [facility] Plan of Treatment: Future Appointments (+ 6 months) and Future Tests (+/- 45 days) The Plan of Treatment section includes [facility] care [facility] the [facility] [place] [facility] This section includes future appointments and future orders which are active, pending or scheduled. Future Appointments This section includes appointments that were scheduled to occur 6 months from the date of the Encounter, up to a maximum of 20 appointments. The data comes from all [place] treatment facilities. Appointment Date/Time Appointment Type Appointme nt Facility Name Jun 07, 2024 10:45 AM [facility] Jun 23, 2024 08:30 AM [facility] Jun 23, 2024 08:31 AM [facility] [place] [facility] Jun 23, 2024 11:30 AM [facility] Jul 20, 2024 10:45 AM [facility] - MEDICINE [facility] Jul 20, 2024 12:00 PM AM[facility] - MEDICINE [facility] Jul 20, 2024 12:01 PM [facility] [facility] Aug 17, 2024 01:00 PM AMBULATORY - MEDICINE [facility] Aug 17, 2024 01:01 PM [facility] [facility] Sep 13, 2024 12:00 PM AMBULATORY - MEDICINE [facility] Sep 13, 2024 12:01 PM [facility] [facility] Sep 23, 2024 09:15 AM [facility]ORY - MEDICINE [facility] Sep 23, 2024 09:16 AM [facility]ULATORY - MEDICINE [facility] Oct 26, 2024 09:00 AM [facility]ORY - MEDICINE [facility] Nov 02, 2024 08:30 AM [facility] - MEDICINE [facility] Nov 12, 2024 08:00 AM [facility] [facility] Nov 16, 2024 09:20 AM [facility]ULATORY - MEDICINE [facility] Lab Results: +/- 30 days of the encounter This section includes the Chemistry and Hematology Lab Results on record with [place] for the patient. Radiology Reports and Pathology Reports are provided separately, in subsequent sections. Lab Results This section contains the Chemistry/Hematology Results that were resulted 30 days before or 30 daysafter the date of the Encounter. Date/Time Source Result Type Result - Unit Interpretation Reference Range Specimen Type Comment Jun 23, 2024 12:19 PM [facility] COMPREHENSIVE METABOLIC PANEL PLASMA Specimen Type: PLASMA No comment entered. Ordering Provider: ELMA JONES Report Released Date/Time: Jun 23, 2024 12:18 PM Reporting Lab: [place] [facility] [address] [place] [address] Performing Lab: [place] [facility] [address] [place] [address] CREATININE 1.23 mg/dL 0.7-1.3 UREA NITROGEN 20 mg/dL 9-25 GLUCOSE 82 mg/dL 72-99 SODIUM 143 meq/L 136-145 POTASSIUM 3.5 meq/L 3.5-5 CHLORIDE 106 meq/L 98-107 CARBON DIOXIDE 23 meq/L 22-31 CALCIUM 8.6 mg/dL 8.4-10.4 PROTEIN 6.1 g/dL 6-8.6 ALBUMIN 3.7 g/dL 3.4-5 TOTAL BILIRUBIN 0.4 mg/dL 0.2-1.2 ALKALINE PHOSPHATASE 77 U/L 40-150 AST/SGOT 22 U/L 5-34 ALT/SGPT 23 U/L 8-40 EGFR (CKD-EPI 2020) 59 Jun 23, 2024 12:19 PM [facility] CBC BLOOD Specimen Type: BLOOD No comment entered. Ordering Provider: ELMA JONES Report Released Date/Time: Jun 23, 2024 12:18 PM Reporting Lab: [place] [facility] [address] [place] [address] Performing Lab: [place] [facility] [address] [place] [address] WBC 6.4 10*3/uL 3.6-11.2 RBC 4.28 10*6/uL 4.10-5.70 HGB 12.7 g/dL L 13.1-16.8 HCT 39.6 38.2-48.4 MCV 92.5 fL 80.0-100.0 MCH 29.7 pg 27.0-34.0 MCHC 32.1 g/dL L 33.0-36.0 PLT 259 10*3/uL 150-400 MPV 11.3 fL H 7.5-11.2 RDW 14.7 11.8-15.1 LYMPHOCYTES, AUTO % 29.0 MONOCYTES, AUTO % 5.6 NEUTROPHILS, AUTO % 63.4 EOSINOPHILS, AUTO % 0.9 BASOPHILS, AUTO % 0.9 LYMPHOCYTES, ABSOLUTE 1.87 10*3/uL 0.77- 4.50 MONOCYTES, ABSOLUTE 0.36 10*3/uL 0.19-0. 8 NEUTROPHILS, ABSOLUTE 4.08 10*3/uL 2.10- 8.00 EOSINOPHILS, ABSOLUTE 0.06 10*3/uL 0.00- 0.60 BASOPHILS, ABSOLUTE 0.06 10*3/uL 0.00-0. 20 IMMATURE GRANS, AUTO % 0.2 IMMATURE GRANS, AUTO ABS 0.01 10*3/uL 0. 00-0.05 May 06, 2024 10:07 AM [facility] BASIC METABOLIC PANEL PLASMA Specimen Type: PL ASMA No comment entered. Ordering Provider: ELMA JONES Report Released Date/Time: May 06, 2024 09:32 AM Reporting Lab: [place] [facility] [address] [facility] [address] Performing Lab: [place] [facility] [address] [place] [facility] CREATININE 1.44 mg/dL H 0.7-1.3 UREA NITROGEN 21 mg/dL 9-25 GLUCOSE 88 mg/dL 72-99 SODIUM 140 meq/L 136-145 POTASSIUM 3.9 meq/L 3.5-5 CHLORIDE 104 meq/L 98-107 CARBON DIOXIDE 25 meq/L 22-31 CALCIUM 8.9 mg/dL 8.4-10.4 EGFR (CKD-EPI 2020) 49 May 06, 2024 10:07 AM [facility] PROST. SPECIFIC AG.(PB-STL) SERUM Specimen Ty pe: SERUM No comment entered. Ordering Provider: ELMA JONES Report Released Date/Time: May 06, 2024 09:46 AM Reporting Lab: [place] [facility] [address] [place] [facility] Performing Lab: [place] [facility] [address] [place] [address] PROST. SPECIFIC AG.(PB-STL) 0.68 ng/mL 0 -4 May 06, 2024 10:07 AM [facility] BRAIN NATRIURETIC PEPTIDE PLASMA Specimen Type : PLASMA No comment entered. Ordering Provider: ELMA JONES Report Released Date/Time: May 06, 2024 10:03 AM Reporting Lab: [place] [facility] [address] [place] [address] Performing Lab: [place] [facility] [address] [place] [address] BRAIN NATRIURETIC PEPTIDE 93 pg/mL 0-100 Vital Signs: All taken on the encounter date This section contains inpatient and outpatient Vital Signs collected on the date of the Encounter. Date/Time Temperature Pulse Blood Pressure Respiratory Rate SP02 Pain Height Weight Body Mass Index Source Jun 04, 2024 11:40 AM 56 98/59 94 [facility] Social History: Smoking Status (Most current) and Tobacco Use (All prior to encounter date) This section includes the most current, and the historical, smoking and tobacco- related health factors from the [place] facility where the Encounter took place. Current Smoking Status This section includes the most current smoking, or tobacco-related health factor, from the [place] facility where the Encounter took place. Date/Time Current Smoking Status Comment Mauricio ity Oct 31, 2023 08:30 AM VA-TOBACCO USE [place] 30 MIN OF WAKE UP [facility] Tobacco Use History This section includes a history of the smoking, or tobacco-related health factors, that were collected on or before the date of the Encounter. The data comes from the [place] facility where the Encounter took place. Date/Time Smoking Status/Tobacco Use Comment F acility Oct 31, 2023 08:30 AM VA-TOBACCO USE ADVICE [facility] Oct 31, 2023 08:30 AM VA-TOBACCO USE HOME HEALTH TRAVEL PT NO [facility] Oct 31, [...] Oct 29, 2022 08:30 AM VA-TOBACCO USE HOME HEALTH TRAVEL PT NO [facility] Oct 29, 2022 08:30 AM VA-TOBACCO USE MED NO [facility] Oct 29, 2022 08:30 AM VA-TOBACCO USE WI 30 MIN OF WAKE UP [facility] Oct 29, 2022 08:30 AM VA-TOBACCO USER EVERY DAY [facility] Nov 09, 2019 12:37 PM VA-TOBACCO USE > 1 5 LESS THAN 30 YEARS [facility] Nov 09, 2019 12:37 PM [facility] Nov 09, 2019 12:37 PM VA-TOBACCO USE HOME HEALTH TRAVEL PT NO [facility] Nov 09, 2019 12:37 PM VA-TOBACCO USE MED NO [facility] Nov 09, 2019 12:37 PM VA-TOBACCO USE WI 30 MIN OF WAKE UP [facility] Nov 09, 2019 12:37 PM VA-TOBACCO USER EVERY DAY [facility] Encounter Notes: All associated encounter notes This section contains the clinical notes associated to the Encounter. Date/Time Encounter Note(s) Provider Source Jun 04, 2024 11:20 AM NURSING PROGRESS N OTE: LOCAL TITLE: NURSING NOTE PB STANDARD TITLE: NURSING PROGRESS NOTE DATE OF NOTE: JUN 04, 2024@11:20 ENTRY DATE: JUN 04, 2024@11:20:30 AUTHOR: PARK HERNANDEZ COSIGNER: URGENCY: STATUS: COMPLETED [...] ACTIVE DAY FOR HIGH BLOOD PRESSURE 4) MIRTAZAPINE 30MG TAB TAKE ONE-HALF TABLET BY MOUTH AT ACTIVE BEDTIME FOR DEPRESSION 5) MONTELUKAST NA 10MG TAB TAKE ONE TABLET BY MOUTH ACTIVE EVERY EVENING FOR COPD 6) POTASSIUM CL 20MEQ SA TAB (DISPERSIBLE) TAKE ONE-HALF ACTIVE TABLET BY MOUTH ONCE A DAY FOR POTASSIUM SUPPLEMENTATION TAKE WITH FOOD Active Non-VA Medications Status 1) Non-VA CODEINE 30/ACETAMINOPHEN 300MG TAB 1 TABLET BY ACTIVE MOUTH TWICE DAILY NEEDED 2) Non-VA FUROSEMIDE 20MG TAB 20MG BY MOUTH EVERY ACTIVE MORNING 3) Non-VA TAMSULOSIN HCL 0.4MG CAP 0.4MG BY MOUTH EVERY ACTIVE EVENING 9 Total Medications C/C: stitch removal S: The presented to the clinic today for suture removal. The was hospitalized at [facility] following a fall. His brought his discharge papers with him to the clinic today which had the orders as follows. Suture removal: Eyebrow suture removal on Monday 06/04, Left pinky finger suture removal on Thursday 06/07. The 's also reports that the lisinopril had been stopped about a month ago by [facility] due to low BP. Reports that [facility] restarted the Lisinopril 40mg at discharge. they restarted it but I have not been giving it to him. She reports that she had not been checking his BP at home. The has an abrasion on his left cheek as well as one over his left eyebrow. The has quite a bit of dried blood over both areas. Used saline to clean the eyebrow up so that stitches could be seen. The has a cut about 2.5cm - 3cm long over the left eye brow that has 3 stitches. O/A: The ambulated to the exam room with the use of a wheelchair. has bilateral swelling in his feet and ankles, but swelling is improved since last time the was seen. BP today 98/59 Vital Signs: as charted. P: Three stitches removed from the 's left eye brow. Let the and his know that they should continue to hold the Lisinopril until he sees Dr. Jones on 06/14/24 for hospital follow up and this medication is addressed by her. Let them know that they should call the clinic if his BP starts to be above 140/90. [place] will return to the clinic on 06/07/24 to have stitches removed from hand. The voiced understanding, is in agreement with the plan and has no further questions or complaints at this time. The ambulated to the exit in satisfactory manner. RTC: 06/07/24 Per [facility] Directive 1605.06, wristband documentation: Patient wristband was removed and destroyed by (staff name) Genaro Hernandez RN and placed in the designated [employer] bin. /demetrice/ Park Hernandez RN,BSN [facility] Signed: 06/04/2024 12:11 Receipt Acknowledged By: 06/04/2024 13:30 /demetrice/ Elma Jones MD [facility] Primary [facility] [facility]
--- OUTSIDE RECORDS SUMMARY | 2024-06-07 05:45 | XMS_ITS | Encounter Summary ---
Author Name [facility] [place] Organization [facility] [place] Address [address] [place] [id number] Care Team Providers Care Wet Chemistry Analyst Name Role Phone ELMA JONES Primary Care [...] Name Patient's Relationship to Policy [place] AETNA [facility] (WNR) MEDICARE ADVANTAGE [facility] (WNR) Oct 20, 2023 [id number] DMITRIY JOHNSON HN PATIENT Selected Encounter This section includes the information on record at [place] for the Encounter. Date/Time Encounter Type Encounter Description Reason Provider Source Jun 07, 2024 10:45 AM OFF/OP EST FEBRUARY X REQ PHY/QHP PRIMARY CARE/MEDICINE ICD-10-CM Z48.02 Encounter for removal of sutures ALANA HERNANDEZ Encounter Template Text not used by [place] Assessments - Encounter Diagnoses This section includes the primary and secondary diagnoses documented for the Encounter. Date/Time Primary/Secondary Diagnosis Diagnosis Name Provider Source Jun 07, 2024 03:35 PM PRIMARY Encounter for removal of sutures [facility] Plan of Treatment: Future Appointments (+ 6 months) and Future Tests (+/- 45 days) The Plan of Treatment section includes future care activities for the [facility] This section includes future appointments and future orders which are active, pending or scheduled. Future Appointments This section includes appointments that were scheduled to occur 6 months from the date of the Encounter, up to a maximum of 20 appointments. The data comes from all [place] treatment facilities. Appointment Date/Time Appointment Type Appointme nt Facility Name Jun 23, 2024 08:30 AM AMBULATORY - MEDICINE [facility] [place] [facility] Jun 23, 2024 08:31 AM [place] [facility] Jun 23, 2024 11:30 AM AMB[place]ATORY [place] MEDIC[place] [facility] Jul 20, 2024 10:45 AM [facility] [place] [facility] Jul 20, 2024 12:00 PM [facility] [place] [facility] Jul 20, 2024 12:01 PM [place] [place] [facility] Aug 17, 2024 01:00 PM AMBULATORY - MEDICINE [facility] CB Aug 17, 2024 01:01 PM [place]IC[place] [facility] Sep 13, 2024 12:00 PM [place] [facility] Sep 13, 2024 12:01 PM [place]IC[place] [facility] Sep 23, 2024 09:15 AM AMBULATORY - MEDICINE [facility] CB Sep 23, 2024 09:16 AM [facility] Oct 26, 2024 09:00 AM [facility] [place] [facility] Nov 02, 2024 08:30 AM AMBULATORY - MEDICINE [facility] Nov 12, 2024 08:00 AM [place] [place] [facility] Nov 16, 2024 09:20 AM AMBULATORY - MEDICINE [facility] Lab Results: +/- 30 days of [...] Type Comment Jun 23, 2024 12:19 PM [facility] COMPREHENSIVE METABOLIC PANEL PLASMA Specimen Type: PLASMA No comment entered. Ordering Provider: ELMA JONES Report Released Date/Time: Jun 23, 2024 12:18 PM Reporting Lab: [place] [facility] [address] [place] [address] Performing Lab: [place] [facility] [address] [place] [id number] CREATININE 1.23 mg/dL 0.7-1.3 UREA NITROGEN 20 [...] 2020) 59 Jun 23, 2024 12:19 PM [facility] CBC BLOOD Specimen Type: BLOOD No comment entered. Ordering Provider: ELMA JONES Report Released Date/Time: Jun 23, 2024 12:18 PM Reporting Lab: [place] [facility] [address] [place] [address] Performing Lab: [place] [facility] [address] [place] [address] WBC 6.4 10*3/uL 3.6-11.2 RBC 4.28 10*6/uL [...] GRANS, AUTO ABS 0.01 10*3/uL 0. 00-0.05 Social History: Smoking Status (Most current) and [...] 08:30 AM VA-TOBACCO USER EVERY DAY [facility] [place] [facility] Tobacco Use History This section [...] Oct 31, 2023 08:30 AM VA-TOBACCO USE SACK SORTER NO [place] [facility] Oct 31, [...] Oct 29, 2022 08:30 AM VA-TOBACCO USE [place] [facility] Oct 29, 2022 08:30 AM VA-TOBACCO USE MED NO [place] [facility] Oct 29, 2022 08:30 AM VA-TOBACCO USE WI 30 MIN OF WAKE UP [place] [facility] Oct 29, 2022 08:30 AM VA-TOBACCO USER EVERY DAY [facility] Nov 09, 2019 12:37 PM VA-TOBACCO USE > 1 5 LESS THAN 30 YEARS [place] [facility] Nov 09, 2019 12:37 PM VA-TOBACCO USE ADVICE [facility] Nov 09, 2019 12:37 PM VA-TOBACCO USE SACK SORTER NO [facility] Nov 09, 2019 12:37 PM VA-TOBACCO USE MED NO [facility] Nov 09, 2019 12:37 PM VA-TOBACCO USE WI 30 MIN OF WAKE UP [facility] Nov 09, 2019 12:37 PM VA-TOBACCO USER EVERY DAY [facility] Encounter Notes: All associated encounter notes This section contains the clinical notes associated to the Encounter. Date/Time Encounter Note(s) Provider Source Jun 07, 2024 10:33 AM NURSING PROGRESS N OTE: LOCAL TITLE: NURSING NOTE PB STANDARD TITLE: NURSING PROGRESS NOTE DATE OF NOTE: JUN 07, 2024@10:33 ENTRY DATE: JUN 07, 2024@10:33:31 AUTHOR: [facility] HERNANDEZ COSIGNER: URGENCY: STATUS: COMPLETED NURSING NOTE PB Has ADDENDA This is a 84 year old MALE [...] EVERY ACTIVE EVENING 9 Total Medications C/C: suture removal S: The returned to the clinic today to have the stitches taken out of his Left pinky. The was hospitalized at [facility] following a fall. His brought his discharge papers with him to the clinic today which had the orders as follows. Suture removal: Eyebrow suture removal on Monday 06/04, Left pinky finger suture removal on Thursday 06/07. The and has report that the will be checking into in patient rehab here in [place] today after he is done with this appointment. 2 stitches removed from the 's Left pinky without complication. No sign of infection edges are well approximated and healing well. The has no further questions or complaints at this time. The made his way to the exit in satisfactory manner. Per [facility] Directive 1605.06, wristband documentation: Patient wristband was removed and destroyed by (staff name) Genaro Hernandez RN and placed in the designated [employer] bin. /es/ Park Hernandez RN,BSN [facility] Signed: 06/07/2024 15:34 Receipt Acknowledged By: 06/07/2024 16:56 /es/ Elma Jones MD [facility] 06/14/2024 ADDENDUM STATUS: COMPLETED Appointment with [facility] scheduled for June 14, 2024 has been cancelled. Order discontinued per Veterans request. [place] will call to schedule an appointment once out of the facility. /es/ ALFONSO BREAUX Signed: 06/14/2024 11:49 [facility]
--- OUTSIDE RECORDS SUMMARY | 2024-06-23 03:31 | XMS_ITS | Encounter Summary ---
Author Name [facility] [place] Organization [facility] [place] Address [address] [place] [id number] Care Team Providers Care Press Puller Name Role Phone DARWIN FLETCHER Primary Care [...] Name Patient's Relationship to Policy [place] AETNA [facility] (WNR) MEDICARE ADVANTAGE [facility] (WNR) Oct 20, 2023 [id number] DMITRIY JOHNSON PATIENT Selected Encounter This section includes the information on record at [place] for the Encounter. Date/Time Encounter Type Encounter Description Reason Provider Source Jun 23, 2024 08:31 AM TYMPANOMETRY AUDIOLOGY ICD-10-CM H90.3 Sensorineural hearing loss, bilateral DANNIE CARRILLO IHE Encounter Template Text not used by [place] Assessments - Encounter Diagnoses This section includes the primary and secondary diagnoses documented for the Encounter. Date/Time Primary/Secondary Diagnosis Diagnosis Name Provider Source Jun 23, 2024 09:05 AM PRIMARY Sensorineural hearing loss, bilateral GERARDO,ROSA MARIA Daniel [facility] Plan of Treatment: Future Appointments (+ 6 months) and Future Tests (+/- 45 days) The Plan of Treatment section includes future care activities for the patient from all [facility] treatmentfacilities. This section includes future appointments and future orders which are active, pending or scheduled. Future Appointments This section includes appointments that were scheduled to occur 6 months from the date of the Encounter, up to a maximum of 20 appointments. The data comes from all [place] treatment facilities. Appointment Date/Time Appointment Type Appointme nt Facility Name Jul 20, 2024 10:45 AM AMBULATORY - MEDICINE [facility] [place] [facility] Jul 20, 2024 12:00 PM AM[place] [facility] Jul 20, 2024 12:01 PM [place] [facility] Aug 17, 2024 01:00 PM [facility] [place] [facility] Aug 17, 2024 01:01 PM [facility] [place] [facility] Sep 13, 2024 12:00 PM AMB[place]ATORY - MEDICINE [place] [facility] Sep 13, 2024 12:01 PM [facility] [place] [facility] Sep 23, 2024 09:15 AM AMBULATORY - MEDICINE [facility] Sep 23, 2024 09:16 AM AMBULATORY - MEDICINE [facility] Oct 26, 2024 09:00 AM AMBULATORY [place] MEDICINE [place] [facility] Nov 02, 2024 08:30 AM [facility] [place] [facility] Nov 12, 2024 08:00 AM [facility] [place] [facility] Nov 16, 2024 09:20 AM [facility] [place] [facility] Dec 16, 2024 10:45 AM [facility]ULATORY - MEDICINE [facility] Lab Results: +/- 30 days of the encounter This section includes the Chemistry and Hematology Lab Results on record with [place] for the patient. Radiology Reports and Pathology Reports are provided separately, in subsequent sections. Lab Results This section contains the Chemistry/Hematology Results that were resulted 30 days before or 30 daysafter the date of the Encounter. Date/Time Source Result Type Result - Unit Interpretation Reference Range Specimen Type Comment Jun 23, 2024 12:19 PM [facility] COMPREHENSIVE METABOLIC PANEL PLASMA Specimen Type: PLASMA No comment entered. Ordering Provider: DARWIN FLETCHER Report Released Date/Time: Jun 23, 2024 12:18 PM Reporting Lab: [place] [facility] [address] [place] [address] Performing Lab: [place] [facility] [address] [place] [address] CREATININE 1.23 mg/dL 0.7-1.3 UREA NITROGEN 20 [...] 2020) 59 Jun 23, 2024 12:19 PM [facility] CBC BLOOD Specimen Type: BLOOD No comment entered. Ordering Provider: DARWIN FLETCHER Report Released Date/Time: Jun 23, 2024 12:18 PM Reporting [facility] [address] [place] [id number] Performing Lab: [place] [facility] [address] [place] [id number] WBC 6.4 10*3/uL 3.6-11.2 RBC 4.28 10*6/uL [...] GRANS, AUTO ABS 0.01 10*3/uL 0. 00-0.05 Encounter Notes: All associated encounter notes This section contains the clinical notes associated to the Encounter. Date/Time Encounter Note(s) Provider Source Jun 23, 2024 07:07 AM AUDIOLOGY NOTE: LOCAL TITLE: HEARING CLINIC PB STANDARD TITLE: AUDIOLOGY NOTE DATE OF NOTE: JUN 23, 2024@07:07 ENTRY DATE: JUN 23, 2024@07:07:34 AUTHOR: SIMIN CARRILLO COSIGNER: URGENCY: STATUS: COMPLETED Diagnosis: Sensorineural Hearing Loss, Bilateral Treatment: Hearing Evaluation Time spent with : 60 minutes [place] seen for an audiogram via Audio Telehealth and verbally consented to the Telehealth modality. Multi-factor personally identifiable information of the was obtained verbally (full name and date of ). [place] accompanied by: none Patient site: [facility] AUDIOLOGY HEARING EVALUATION: Patient seen today for an updated hearing evaluation. - Ear surgery: no - Aural Pain/Pressure/Drainage: no - Tinnitus: no - Noise Exposure: no Patient reports static from hearing aids and difficulties with retention. HEARING DEVICES: Accessories: REMOTECONTROL 02/03/20 LITO MENARDO M90-R LEONEL R [id number] 02/03/20 LITO LANDRUM M90-R LEONEL L [id number] - M ZIG ZAG STITCHER 4.0 - SIZE 2 - VENTED DOME 4.0 - SMALL - CERUSHIELD DISK AUDIOMETRIC EXAM: Otoscopy was performed by collaboration of telehealth clinical point of care technician and provider via telehealth technology/video otoscope which revealed: Right: unremarkable Left: occluding cerumen Patient educated on use of ear drops for cerumen management. Tympanograms: Right: could not maintain seal Left: consistent with normal middle ear function Acoustic Reflex Thresholds: not performed due to time constraints Pure-Tone Air and Bone-Conduction Audiometric Testing revealed: Right: mild to severe sensorineural hearing loss Left: mild to profound sensorineural hearing loss Speech Director Regulatory Agency Threshold testing yielded: Right: 60 dBHL Left: 65 dBHL Word Recognition testing yielded: Right: 64% @ 85 dBHL Left: 60% @ 85 dBHL Word scoring may be impacted by quality of audio through telehealth medium. Patient could not tolerate a louder presentation level. Test Reliability: Good Cleaned hearing aids including replacement of receivers/domes. Installed size small dome in place of medium. A listening check revealed proper function. PROVIDER COMMENTS/RECOMMENDATIONS: Hearing test results were reviewed with patient. Patient is a hearing aid candidate. Patient was counseled regarding realistic expectations for hearing aids, more specifically that hearing aids can make sounds louder but may not make speech more clear or understandable. Hearing conservation techniques were discussed and recommended. Hearing aid options were discussed, and the following devices ordered: Validic AI ITC R (CANAL) - HEARCLEAR Accessories: [employer] REMOTE CONTROL 2.0 Ear mold impressions could not be performed today due to occluding wax in left ear. Patient will return to clinic for ear lavage/impressions. PLAN: 1) Return to clinic for cerumen management and ear mold impressions. Patient educated on use of softening drops. 2) Return to clinic in four weeks for 60 minutes hearing aid fitting. 3) Recommend hearing evaluation annually or prn. [place] expressed understanding and is in agreement with the plan. * Patient would like to mail 2020 hearing aid for battery replacement and sizzling at fitting. /demetrice/ Saud Dan [facility] Signed: 06/23/2024 12:42 SIMIN CARRILLO [facility]
--- OUTSIDE RECORDS SUMMARY | 2024-06-23 06:30 | XMS_ITS | Encounter Summary ---
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 Date/Time Encounter Type Encounter Description Reason Provider Source Jun 23, 2024 11:30 AM OFFICE O/P EST MOD 30 MIN PRIMARY CARE/MEDICINE ICD-10-CM I95.2 Hypotension due to drugs JUSTINE,ELMA IHE Encounter Template Text not used by [place] Assessments - Encounter Diagnoses This section includes the primary and secondary diagnoses documented for the Encounter. Date/Time Primary/Secondary Diagnosis Diagnosis Name Provider Source Jun 23, 2024 12:39 PM PRIMARY Hypotension due to drugs JUSTINE,ELMA [facility] Jun 23, 2024 12:39 PM SECONDARY Low back pain, unspecified JUSTINE,ELMA [facility] Jun 23, 2024 12:39 PM SECONDARY Unspecified fall, sequela ELMA JONES [facility] Plan of Treatment: Future Appointments (+ 6 months) and Future Tests (+/- 45 days) The Plan of Treatment section includes future care activities for the patient from all [place] treatmentfacarteret health careities. This section includes future appointments and future orders which are active, pending or scheduled. Future Appointments This section includes appointments that were scheduled to occur 6 months from the date of the Encounter, up to a maximum of 20 appointments. The data comes from all [place] treatment facilities. Appointment Date/Time Appointment Type Appointme nt Facility Name Jul 20, 2024 10:45 AM [facility] [place] [facility] [place] [facility] Jul 20, 2024 12:00 PM [facility] [place] [facility] Jul 20, 2024 12:01 PM [facility] [place] [facility] Aug 17, 2024 01:00 PM [facility] [place] [facility] Aug 17, 2024 01:01 PM [facility] [place] [facility] Sep 13, 2024 12:00 PM [facility] [place] [facility] Sep 13, 2024 12:01 PM [facility] [place] [facility] Sep 23, 2024 09:15 AM AM[facility]ULATORY - MEDICINE [facility] Sep 23, 2024 09:16 AM AM[facility]UL[facility]ORY - MEDICINE [facility] Oct 26, 2024 09:00 AM [facility] [place] [facility] Nov 02, 2024 08:30 AM [facility] [place] [facility] Nov 12, 2024 08:00 AM [facility] [place] [facility] [facility] Nov 16, 2024 09:20 AM [facility] [place] [facility] Dec 16, 2024 10:45 AM AMBULATORY - MEDICINE [facility] Lab Results: +/- 30 days of the encounter This section includes the Chemistry and Hematology Lab Results on record with [place] for the patient. Radiology Reports and Pathology Reports are provided separately, in subsequent sections. Lab Results This section contains the Chemistry/Hematology Results that were resulted 30 days before or 30 daysafter the date of the Encounter. Date/Time Source Result Type Result - Unit Interpretation Reference Range Specimen Type Comment Jun 23, 2024 12:19 PM [facility] COMPREHENSIVE METABOLIC PANEL PLASMA Specimen Type: PLASMA No comment entered. Ordering Provider: ELMA JONES Report Released Date/Time: Jun 23, 2024 12:18 PM Reporting Lab: [place] [facility] [address] [place] [id number] Performing Lab: [place] [facility] [address] [place] [id number] CREATININE 1.23 mg/dL 0.7-1.3 UREA NITROGEN 20 [...] 2020) 59 Jun 23, 2024 12:19 PM [facility] CBC BLOOD Specimen Type: BLOOD No comment entered. Ordering Provider: ELMA JONES Report Released Date/Time: Jun 23, 2024 12:18 PM Reporting Lab: [place] [facility] [address] [place] [id number] Performing Lab: [place] [facility] [address] [place] [id number] WBC 6.4 10*3/uL 3.6-11.2 RBC 4.28 10*6/uL [...] GRANS, AUTO ABS 0.01 10*3/uL 0. 00-0.05 Vital Signs: All taken on the encounter date This section contains inpatient and outpatient Vital Signs collected on the date of the Encounter. Date/Time Temperature Pulse Blood Pressure Respiratory Rate SP02 Pain Height Weight Body Mass Index Source Jun 23, 2024 12:15 PM 5 [facility] Jun 23, 2024 12:14 PM 98.2 85 108/67 17 98 133.9 17 [facility] Social History: Smoking Status (Most current) and Tobacco Use (All prior to encounter date) This section includes the most current, and the historical, smoking and tobacco- related health factors from the [place] facility where the Encounter took place. Current Smoking Status This section includes the most current smoking, or tobacco-related health factor, from the [place] facility where the Encounter took place. Date/Time Current Smoking Status Comment Facil ity Oct 31, 2023 08:30 AM VA-TOBACCO USE WI 30 MIN OF WAKE UP [facility] Tobacco Use History This section includes a history of the smoking, or tobacco-related health factors, that were collected on or before the date of the Encounter. The data comes from the [place] facility where the Encounter took place. 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 [facility] Oct 31, 2023 08:30 AM VA-TOBACCO USE MED NO [facility] Oct 31, 2023 08:30 AM VA-TOBACCO USE WI 30 MIN OF WAKE UP [facility] Oct 31, 2023 08:30 AM VA-TOBACCO USER EVERY DAY [facility] Oct 29, 2022 08:30 AM VA-TOBACCO USE 30 YEARS OR MORE [facility] Oct 29, 2022 08:30 AM VA-TOBACCO USE ADVICE [facility] Oct 29, 2022 08:30 AM 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 Date/Time Encounter Note(s) Provider Source Aug 05, 2024 03:06 PM PHYSICIAN LETTERS: LOCAL TITLE: TEST RESULT GENERAL LETTER [facility] STANDARD TITLE: PHYSICIAN LETTERS DATE OF NOTE: AUG 05, 2024@15:06 ENTRY DATE: AUG 05, 2024@15:06:15 AUTHOR: ELMA JONES EXP COSIGNER: URGENCY: STATUS: COMPLETED [facility] [address] [place] [address] AUG 05, 2024 LINNEA JOHNSON [address] [place] [id number] Dear Linnea Johnson, I would like to update you on your recent test results. CHEM 7 - This is important information about the current status of your kidneys, liver, and electrolyte and acid/base balance as well as of your blood sugar and blood proteins. SODIUM 144 mEq/L 08/04/2024 09:32 POTASSIUM 4.1 mEq/L 08/04/2024 09:32 CHLORIDE 107 mEq/L 08/04/2024 09:32 UREA NITROGEN 25 mg/dL 08/04/2024 09:32 CREATININE 1.14 mg/dL 08/04/2024 09:32 CALCIUM 8.9 mg/dL 08/04/2024 09:32 CARBON DIOXIDE 26 mEq/L 08/04/2024 09:32 GLUCOSE 94 mg/dL 08/04/2024 09:32 EGFR (CKD-EPI 2020) 64 08/04/2024 09:32 These readings are within normal limits. FUTURE APPOINTMENTS: 08/17/2024 13:00 PB-ANNEMARIE CVT AUDIO FIT 3(PA 08/17/2024 13:01 PB-CVT AUDIO FIT 3(PRO) 10/26/2024 09:00 [facility] ( 11/02/2024 08:30 PB-ANNEMARIE PACT ECHO PCP Sincerely, Elma Jones MD [facility] Care LINNEA JOHNSON [facility] Jun 25, 2024 10:43 AM PHYSICIAN LETTERS: LOCAL TITLE: TEST RESULT GENERAL LETTER ST STANDARD TITLE: PHYSICIAN LETTERS DATE OF NOTE: JUN 25, 2024@10:43 ENTRY DATE: JUN 25, 2024@10:44:16 AUTHOR: ELMA JONES EXP COSIGNER: URGENCY: STATUS: COMPLETED [address] [address] Jun 25, 2024 Mr. Linnea Johnson [address] [address] Dear Mr. Johnson: This letter is to inform you regarding your recent laboratory tests. The ordering provider has reviewed these reports and will take necessary action, if needed. Date Lab Test Result H/L Unit Range 06/23/2024 WBC 6.4 10*3/uL 3.6 - 11.2 06/23/2024 RBC 4.28 10*6/uL 4.10 - 5.70 06/23/2024 HEMOGLOBIN 12.7 L g/dL 13.1 - 16.8 06/23/2024 HEMATOCRIT 39.6 % 38.2 - 48.4 06/23/2024 MCV 92.5 fL 80.0 - 100.0 06/23/2024 MCH 29.7 pg 27.0 - 34.0 06/23/2024 MCHC 32.1 L g/dL 33.0 - 36.0 06/23/2024 RDW 14.7 % 11.8 - 15.1 06/23/2024 PLATELETS 259 10*3/uL 150 - 400 06/23/2024 MPV 11.3 H fL 7.5 - 11.2 06/23/2024 NEUTROPHIL % 63.4 % - 06/23/2024 LYMPHOCYTE % 29.0 % - 06/23/2024 MONOCYTES, AUTO % 5.6 % - 06/23/2024 EO% 0.9 % - 06/23/2024 BASOPHILS, AUTO % 0.9 % - 06/23/2024 IG% 0.2 % - 06/23/2024 NEUT ABS 4.08 10*3/uL 2.10 - 8.00 06/23/2024 LYMPH ABS 1.87 10*3/uL 0.77 - 4.50 06/23/2024 MONO ABS 0.36 10*3/uL 0.19 - 0.8 06/23/2024 EO ABS 0.06 10*3/uL 0.00 - 0.60 06/23/2024 BASO ABS 0.06 10*3/uL 0.00 - 0.20 06/23/2024 IG ABS 0.01 10*3/uL 0.00 - 0.05 06/23/2024 eGFR 59 - 06/23/2024 SODIUM 143 mEq/L 136 - 145 06/23/2024 POTASSIUM 3.5 mEq/L 3.5 - 5 06/23/2024 CHLORIDE 106 mEq/L 98 - 107 06/23/2024 UREA NITROGEN 20 mg/dL 9 - 25 06/23/2024 CREATININE, SERUM 1.23 mg/dL 0.7 - 1.3 06/23/2024 CALCIUM, SERUM 8.6 mg/dL 8.4 - 10.4 06/23/2024 PROTEIN, TOTAL 6.1 g/dL 6 - 8.6 06/23/2024 ALBUMIN, SERUM 3.7 g/dL 3.4 - 5 06/23/2024 ALKALINE PHOSPHAT 77 U/L 40 - 150 06/23/2024 ALT (SGPT) 23 U/L 8 - 40 06/23/2024 AST (SGOT) 22 U/L 5 - 34 06/23/2024 BILIRUBIN, TOTAL 0.4 mg/dL 0.2 - 1.2 06/23/2024 CO2 23 mEq/L 22 - 31 06/23/2024 GLUCOSE 82 mg/dL 72 - 99 If you are seeing any outside provider(s), please share this information with him/her. If you have any questions, please feel free to contact our clinic. Sincerely, Elma Jones MD [facility] LINNEA [facility]OHNSON [facility] Jun 23, 2024 11:55 AM PRIMARY CARE PROGR ESS NOTE: LOCAL TITLE: PRIMARY CARE CLINIC PROGRESS NOTE PB STANDARD TITLE: PRIMARY CARE PROGRESS NOTE DATE OF NOTE: JUN 23, 2024@11:55 ENTRY DATE: JUN 23, 2024@11:56:01 AUTHOR: ELMA JONES EXP COSIGNER: URGENCY: STATUS: COMPLETED CC: ER/hospital/rehab follow up. HPI: He was life flighted on 05/30/24 to [facility] after a fall with an orbital fracture. At discharge they wanted him to go to rehab but he did not. We went to the ER on Jun 06 for complaint of lightheadedness and weakness. He has been having low BP at home at times with SBP in the 80s. He did go to rehab on 06/07 and doing better overall and feeling stronger; except for the low BP. He is no longer seeing Dr. Kaur and would like me to assume his management of pain. He does take Tylenol #3 usually BID and that keeps his pain controlled. 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 JOB/DUTIES: [employer] OVERSEAS STATIONS/DEPLOYMENTS: No MAJOR ACCIDENTS OR INJURIES WHILE ON ACTIVE DUTY: No MST: No SURGICAL HX: cholecystectomy PROBLEM LIST: 1) COPD - Chronic Obstructive Pulmonary Disease ([facility] [id number]) 2) HTN - Hypertension ([facility] [id number]) 3) Cataracts 4) Chronic low back pain 5) Prediabetes 6) Chronic diarrhea 7) Benign prostatic hyperplasia 8) Subarachnoid hemorrhage 9) Sensorineural hearing loss of bilateral ears Active Outpatient Medications (including Supplies): Active Outpatient [...] MOUTH EVERY ACTIVE EVENING 9 Total Medications OBJECTIVE: Vital Signs Temperature: 97.7 F [36.5 C] (05/06/2024 09:28) Respiratory Rate: 18 (05/21/2024 09:47) Pulse Rate: 56 (06/04/2024 11:40) Blood Pressure: 98/59 (06/04/2024 11:40) HT: 74 in [188.0 cm] (05/06/2024 09:42) WT: 141.1 lb. [64.00 kg] (05/21/2024 09:47) BMI: 18.2 94% (06/04/2024 11:40) Physical Exam General: NAD noted, A&Ox3, pleasant, appears stated age HEENT: NCAT, TM's clear, nares and oropharynx clear Neck: Supple with normal active ROM, without any lymphadenopathy Heart: RRR, no murmur, clicks, or rub Resp: Lungs CTA bilaterally, respirations even and unlabored Abdomen: Soft, non-distended, non-tender Ext: No clubbing, cyanosis, edema or obvious deformity Neuro: Grossly intact Psych: Affect normal, answers questions appropriately throughout visit Assessment/Plan: 1) Frequent fall with hypotension- improved strength with rehab; will stop his isosorbide since he has no cardiac history and denies any chest pain. Will come back for a BP check in 1-2 weeks. Using a cane. 2) BPH- denies any issues and would like to try off the tamsulosin. 3) Chronic low back pain- I will assume his pain management and opioid consent signed. Follow-up: as scheduled in October and/or as needed. Discussed with patient that [...] given to . Time spent 30 minutes. /demetrice/ Elma Jones MD [facility] Primary Care Signed: 06/23/2024 12:39 ELMA JONES [facility] Jun 23, 2024 11:44 AM PRIMARY CARE NURSI NG NOTE: LOCAL TITLE: PRIMARY CARE NURSING PROGRESS NOTE (TEXT) NURSING P STANDARD TITLE: PRIMARY CARE NURSING NOTE DATE OF NOTE: JUN 23, 2024@11:44 ENTRY DATE: JUN 23, 2024@11:44:13 AUTHOR: PARK HERNANDEZ COSIGNER: URGENCY: STATUS: COMPLETED PRIMARY CARE NURSING PROGRESS NOTE (TEXT) NURSING PB Has ADDENDA Established Patient LINNEA JOHNSON IS A 84 YEAR OLD MALE BEING SEEN IN CLINIC JUN 23, 2024. == == REASON FOR VISIT: Hospital follow up for fall. Has done rehab post fall. is also here to sign a pain contract for Acet/codeine 300/30. [place] reporting pain a 5, but is in pain treatment. Are you receiving care any where other than the [facility]? No HEALTH AND SURGICAL HISTORY: Does patient report using home oxygen? No CURRENT ACTIVE MEDICATIONS FOR REVIEW: Allergies/ADRs (Tool #5) FACILITY ALLERGY/ADR -------- No Remote Allergy/ADR Data available for this patient [facility] No Known Allergies Med. Reconciliation (Tool #1) INCLUDED IN THIS LIST: Alphabetical list of active outpatient prescriptions dispensed from this [place] (local) and dispensed from another VA or [facility]D facility (remote) as well as inpatient orders (local pending and active), local clinic medications, locally documented non-VA medications, and local prescriptions that have or been discontinued in the past 90 days. Non-VA Meds Last Documented On: May 06, 2024 NOTE The display of VA prescriptions dispensed from another VA or DoD facility (remote) is limited to active outpatient prescription entries matched to National Drug File at the originating site and may not include some items such as investigational drugs, compounds, etc. NOT INCLUDED IN THIS LIST: Medications self-entered by the patient into personal health records (i.e. [employer]) are NOT included in this list. Non-VA medications documented outside this [place], remote inpatient orders (regardless of status) and remote clinic medications are NOT included in this list. The patient and provider must always discuss medications the patient is taking, regardless of where the medication was dispensed or obtained. OUTPT ALBUTEROL 3/IPRATROP 0.5MG/3ML INHL 3ML (Status = Active) INHALE 1 VIAL (3ML) BY NEBULIZATION FOUR TIMES A DAY DIRECTED NEEDED FOR COPD Rx# [id number] Last Released: 11/05/23 Qty/Days Supply: Rx Expiration Date: 10/31/24 Refills Remainin Indication: FOR COPD Non-VA CODEINE 30/ACETAMINOPHEN 300MG TAB TAKE ONE TABLET BY MOUTH TWICE DAILY NEEDED VA RX: Non-VA medication not recommended by VA provider VA RX: Patient wants to buy from Non-VA pharmacy VA RX: Medication prescribed by Non-VA provider OUTPT ESCITALOPRAM OXALATE 20MG TAB (Status = Active) TAKE ONE TABLET BY MOUTH ONCE A DAY FOR DEPRESSION Rx# [id number] Last Released: 11/05/23 Qty/Days Supply: Rx Expiration Date: 10/31/24 Refills Remainin Indication: FOR DEPRESSION Non-VA FUROSEMIDE 20MG TAB TAKE ONE TABLET BY MOUTH EVERY MORNING VA RX: Patient wants to buy from Non-VA pharmacy [place] RX: Medication prescribed by Non-VA provider OUTPT LISINOPRIL 40MG TAB (Status = Active) TAKE ONE TABLET BY MOUTH ONCE A DAY FOR HIGH BLOOD PRESSURE Rx# [id number] Last Released: 11/03/23 Qty/Days Supply: Rx Expiration Date: 10/31/24 Refills Remainin Indication: FOR HIGH BLOOD PRESSURE OUTPT MIRTAZAPINE 30MG TAB (Status = Active) TAKE ONE-HALF TABLET BY MOUTH AT BEDTIME FOR DEPRESSION Rx# [id number] Last Released: 05/31/24 Qt Supply: Rx Expiration Date: 05/29/25 Refills Remainin Indication: FOR DEPRESSION OUTPT MONTELUKAST NA 10MG TAB (Status = Active) TAKE ONE TABLET BY MOUTH EVERY EVENING FOR COPD Rx# [id number] Last Released: 11/04/23 Qty/ Supply: Rx Expiration Date: 10/31/24 Refills Remainin Indication: FOR COPD OUTPT POTASSIUM CL 20MEQ SA TAB (DISPERSIBLE) (Status = Active) TAKE ONE-HALF TABLET BY MOUTH ONCE A DAY FOR POTASSIUM SUPPLEMENTATION TAKE WITH FOOD Rx# [id number] Last Released: 11/10/23 Qt/ Supply: Rx Expiration Date: 11/05/24 Refills Remainin Indication: FOR POTASSIUM SUPPLEMENTATION Non-VA TAMSULOSIN HCL 0.4MG CAP TAKE 1 CAPSULE BY MOUTH EVERY EVENING VA RX: Patient wants to buy from Non-[place] pharmacy VA RX: Medication prescribed by Non[place] provider Indication: FOR BENIGN PROSTATIC HYPERPLASIA SUPPLIES PHARMACY TERMS AND POSSIBLE PATIENT ACTIONS INPT = [place] inpatient order IV = [place] intravenous medication OUTPT = [place] outpatient prescription PHARMACY POSSIBLE PATIENT TERMS EXPLANATION ACTIONS -------- ----- ACTIVE A prescription that can be If you have refills, filled at the local VA pharmacy. you may request a refill of this prescription from your VA pharmacy. CLINIC A medication you received during If you have questions a visit to a VA clinic or about this medication emergency department. contact your VA healthcare team. DISCONTINUED A prescription your provider has Contact your VA stopped. It is no longer healthcare team if you available to be sent to you or need more of this picked up at the VA pharmacy medication. window. A prescription which is [...] the VA. Or, it may be an ofpc-tqj-ltduwow (OTC), herbal, dietary supplements or sample medication. [...] An active prescription that is Contact your VA not scheduled to be filled yet. pharmacy if you need You should receive it before this medication now. you run out. Patient reports taking meds other than as directed/ordered: is not using the albuterol/ipratrop inhaler, Lisinoprilwas stopped due to low BP IS PATIENT TAKING ANY OVER THE COUNTER MEDICATIONS, SUCH VITAMINS OR HERBAL SUPPLEMENTS, INCLUDING ANY MEDICATIONS PRESCRIBED BY ANOTHER PHYSICIAN? Yes, List: Isosorbide, ALLERGIES/ADVERSE REACTIONS: Patient has answered NKA Does patient have any new allergies to report since last visit? VITALS: TEMPERATURE: 97.7 F [36.5 C] (05/06/2024 09:28) BP: 98/59 (06/04/2024 11:40) RESP: 18 (05/21/2024 09:47) PULSE: 56 (06/04/2024 11:40) HT: 74 in [188.0 cm] (05/06/2024 09:42) WT: 141.1 lb [64.00 kg] (05/21/2024 09:47) BMI: 18.2 PAIN ASSESSMENT: (Most Recent Pain Score in Vitals Package: 0 (05/06/2024 09:42) ) The patient indicated that they and [...] chickenpox, or zoster in last 30 days. STRESS: Thank you for your service. Now let us serve you. At the [facility], we strive to provide you with exceptional [...] Not At All SPIRITUAL ASSESSMENT: Are there jehovah's witness practices or spiritual concerns you want the card filer, your physician, and other health care team members to immediately know about? No Patient advised to call the clinic for any concerns, questions, or symptoms. Patient and/or caregiver verbalized understanding of plan of care. /demetrice/ Park Hernandez RN,LACY [place] Signed: 06/23/2024 12:17 06/23/2024 ADDENDUM STATUS: COMPLETED Per [facility] Directive 1605.06, wristband documentation: Patient wristband was removed and destroyed by (staff name) Patricia HERNANDEZ RN and placed in the designated [employer] bin. /demetrice/ Park Hernandez RN,BSLACY [place] Signed: 06/23/2024 12:24 PARK HERNANDEZ
--- OUTSIDE RECORDS SUMMARY | 2024-07-20 05:45 | XMS_ITS | Encounter Summary ---
Author Name [facility] [place] [facility] [facility] [place] Address [address] [place] [id number] Care Team Providers Care Pin Inserter Regulator Name Role Phone ELMA JONES Primary Care [...] Name Patient's Relationship to Policy [place] [employer] [facility] (WNR) MEDICARE ADVANTAGE [facility] (WNR) Oct 20, 2023 [id number] DMITRIY JOHNSON HN PATIENT Selected Encounter This section includes the information on record at [place] for the Encounter. Date/Time Encounter Type Encounter Description Reason Provider Source Jul 20, 2024 10:45 AM OFF/OP EST FEBRUARY X REQ PHY/QHP PRIMARY CARE/MEDICINE ICD-10-CM H61.22 Impacted cerumen, left ear [facility] Encounter Template Text not used by [facility] Assessments - Encounter Diagnoses This section includes the primary and secondary diagnoses documented for the Encounter. Date/Time Primary/Secondary Diagnosis Diagnosis Name Provider Source Jul 20, 2024 11:37 AM PRIMARY Impacted cerumen, left ear [facility] Jul 20, 2024 11:37 AM SECONDARY Localized edema [facility] Plan of Treatment: Future Appointments (+ 6 months) and Future Tests (+/- 45 days) The Plan of Treatment section includes future care activities for the patient from all [place] [facility]. This section includes future appointments and future orders which are active, pending or scheduled. Future Appointments This section includes appointments that were scheduled to occur 6 months from the date of the Encounter, up to a maximum of 20 appointments. The data comes from all [place] treatment facilities. Appointment Date/Time Appointment Type Appointme nt Facility Name Aug 17, 2024 01:00 PM AMBULATORY - MEDICINE [facility] [place] [facility] Aug 17, 2024 01:01 PM [place] [facility] Sep 13, 2024 12:00 PM [place] [facility] Sep 13, 2024 12:01 PM [place] [facility] Sep 23, 2024 09:15 AM AMBULATORY - MEDICINE [facility] Sep 23, 2024 09:16 AM AMBULATORY - MEDICINE [facility] Oct 26, 2024 09:00 AM AMBULATORY - MEDICINE [facility] Nov 02, 2024 08:30 AM AMBULATORY - MEDICINE [facility] Nov 12, 2024 08:00 AM [place] [facility] Nov 16, 2024 09:20 AM [place] [facility] Dec 16, 2024 10:45 AM AMBULATORY - MEDICINE [facility] Dec 28, 2024 01:00 PM AM[place]ORY - MEDICINE [place] [facility] Lab Results: +/- 30 days of the encounter This section includes the Chemistry and Hematology Lab Results on record with [place] for the patient. Radiology Reports and Pathology Reports are provided separately, in subsequent sections. Lab Results This section contains the Chemistry/Hematology Results that were resulted 30 days before or 30 daysafter the date of the Encounter. Date/Time Source Result Type Result - Unit Interpretation Reference Range Specimen Type Comment Aug 04, 2024 09:32 AM [facility] BASIC METABOLIC PANEL PLASMA Specimen Type: PLASMA No comment entered. Ordering Provider: ELMA JONES Report Released Date/Time: Jul 26, 2024 01:19 PM Reporting Lab: [place] [facility] [address] [place] [address] Performing Lab: [place] [facility] [address] [place] [address] CREATININE 1.14 mg/dL 0.7-1.3 UREA NITROGEN 25 mg/dL 9-25 GLUCOSE 94 mg/dL 72-99 SODIUM 144 meq/L 136-145 POTASSIUM 4.1 meq/L 3.5-5 CHLORIDE 107 meq/L 98-107 CARBON DIOXIDE 26 meq/L 22-31 CALCIUM 8.9 mg/dL 8.4-10.4 EGFR (CKD-EPI 2020) 64 Jun 23, 2024 12:19 PM [facility] COMPREHENSIVE METABOLIC PANEL PLASMA Specimen Type: PLASMA No comment entered. Ordering Provider: ELMA JONES Report Released Date/Time: Jun 23, 2024 12:18 PM Reporting Lab: [place] [facility] [address] [place] [address] Performing Lab: [place] [facility] [address] [place] [address] CREATININE 1.23 mg/dL 0.7-1.3 UREA NITROGEN 20 [...] 2020) 59 Jun 23, 2024 12:19 PM [facility] CB CBC BLOOD Specimen Type: BLOOD No comment entered. Ordering Provider: ELMA JONES Report Released Date/Time: Jun 23, 2024 12:18 PM Reporting Lab: [place] [facility] [address] [place] [address] Performing Lab: [place] [facility] [address] [place] [address] WBC 6.4 10*3/uL 3.6-11.2 RBC 4.28 10*6/uL [...] and tobacco- related health factors from the [place] facility where the Encounter took place. Current Smoking Status This section includes the most current smoking, or tobacco-related health factor, from the [place] facility where the Encounter took place. Date/Time Current Smoking Status Comment Mauricio ity Oct 31, 2023 08:30 AM VA-TOBACCO USER EVERY DAY [facility] Tobacco Use History This section includes a history of the smoking, or tobacco-related health factors, that were collected on or before the date of the Encounter. The data comes from the [place] facility where the Encounter took place. 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 [facility] Oct 31, 2023 08:30 AM VA-TOBACCO USE MED NO [facility] Oct 31, 2023 08:30 AM VA-TOBACCO USE WI 30 MIN OF WAKE UP [facility] Oct 31, 2023 08:30 AM VA-TOBACCO USER EVERY DAY [facility] Oct 29, 2022 08:30 AM VA-TOBACCO USE 30 YEARS OR MORE [facility] Oct 29, 2022 08:30 AM VA-TOBACCO USE ADVICE [facility] Oct 29, 2022 08:30 AM 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 Date/Time Encounter Note(s) Provider Source Jul 21, 2024 09:34 AM ADDENDUM: LOCAL TITLE: Addendum STANDARD TITLE: ADDENDUM DATE OF NOTE: JUL 21, 2024@09:34:53 ENTRY DATE: JUL 21, 2024@09:34:54 AUTHOR: ELMA JONES EXP COSIGNER: URGENCY: STATUS: COMPLETED Called out 10-day supply to [facility] pharmacy of Lasix 40 mg daily and potassium 10 mg daily. If patient has not been taking them and is restarting he needs to have a BMP a week after starting to make sure his potassium and kidney function is doing well. /demetrice/ Elma Jones MD [facility] Signed: 07/21/2024 09:35 Receipt Acknowledged By: 07/26/2024 13:19 /demetrice/ Prak Hernandez RN,BSN [place] --- Original Document --- 07/20/24 NURSING NOTE PB: This is a 84 year old MALE with known Allergies as noted: Patient has answered NKA On the following Active Medications: Active Outpatient Medications (including Supplies): Active Outpatient Medications Status 1) ALBUTEROL 3/IPRATROP 0.5MG/3ML INHL 3ML INHALE 1 VIAL ACTIVE (3ML) BY NEBULIZATION FOUR TIMES A DAY DIRECTED NEEDED FOR COPD 2) CODEINE 30/ACETAMINOPHEN 300MG TAB TAKE 1 TABLET BY ACTIVE MOUTH EVERY 6 HOURS NEEDED FOR PAIN CAUTION: DO NOT EXCEED 4000MG PER DAY ACETAMINOPHEN (APAP) FROM ALL MEDS. 3) ESCITALOPRAM OXALATE 20MG TAB TAKE ONE TABLET BY ACTIVE MOUTH ONCE A DAY FOR DEPRESSION 4) LISINOPRIL 40MG TAB TAKE ONE TABLET BY MOUTH ONCE A ACTIVE DAY FOR HIGH BLOOD PRESSURE 5) MIRTAZAPINE 30MG TAB TAKE ONE-HALF TABLET BY MOUTH AT ACTIVE BEDTIME FOR DEPRESSION 6) MONTELUKAST NA 10MG TAB TAKE ONE TABLET BY MOUTH ACTIVE EVERY EVENING FOR COPD 7) POTASSIUM CL 20MEQ SA TAB (DISPERSIBLE) TAKE ONE-HALF ACTIVE TABLET BY MOUTH ONCE A DAY FOR POTASSIUM SUPPLEMENTATION TAKE WITH FOOD Active Non-VA Medications Status 1) Non-VA FUROSEMIDE 20MG TAB 20MG BY MOUTH EVERY ACTIVE MORNING 8 Total Medications C/C: ear flush and swelling in left arm and wrist. S: The presented to the clinic today for ear flush prior to hearing exam, also has complaint of left arm and wrist swelling x 3 days. removed hearing aids, instructed not to use his hearing aids for 2 hours to allow his ears to dry, voiced understanding. In the Left ear, unable to visualize TM, ear flushed till clear. The Right is clear TM visualized no flush needed. O/A: The ambulated to the exam room with assistance of a cane, gate is slow and unsteady. The has swelling in his left wrist and arm going up to his elbow, the and his son report that it has been swollen for the past 3 days but report that it is better than it was. The brought a bag of medications with him today and reports that this is all he is currently taking. -CODEINE 30/ACETAMINOPHEN 300MG -ESCITALOPRAM OXALATE 20MG -LISINOPRIL 40MG -MONTELUKAST NA 10MG Asked the and his son several times about the Furosemide and potassium, the does not think he is taking it but is not sure. P: Discussed the above symptoms and assessment with Dr. Jones. Let the and son know that without knowing if he is taking the Furosemide we cannot really do anything about the arm. Asked the son to double check and see if he is taking the furosemide, and let him know if he is not he needed to restart it to see if it improved his swelling. Asked that he call and update me on his medications. The voiced understanding, is in agreement with the plan and has no further questions or complaints at this time. The ambulated to the exit in satisfactory manner. The exit in satisfactory manner. RTC: as needed Per A Directive 1605.06, wristband documentation: Patient wristband was removed and destroyed by (staff name) Genaro Hernandez RN and placed in the designated [employer] bin. /demetrice/ Park Hernandez RN,BSN [facility] Signed: 07/20/2024 11:37 Receipt Acknowledged By: 07/21/2024 08:20 /demetrice/ Elma Jones MD [facility] 07/20/2024 ADDENDUM STATUS: COMPLETED Talked to the about medication set up. The and his son both reported that this would be helpful. /demetrice/ Park Hernandez RN,BSDominique [facility] Signed: 07/20/2024 11:38 07/20/2024 ADDENDUM STATUS: COMPLETED The 's Alannah called and reported that the is unable to refill his Furosemide and the potassium because he got these from an urgent care provider. The 's reports that she is not sure how long he has not been taking it because he gets upset with her when she tries to ask about his medications. She reports that she would like Dr. Jones to fill it if possible. The 's reports that the was most recently taking -Furosemide 40mg daily -Potassium 10mg daily She also [place] [facility] [place] /demetrice/ Park Hernandez RN,TAY [facility] Signed: 07/20/2024 16:08 Receipt Acknowledged By: 07/21/2024 09:33 /demetrice/ Elma Jones MD [facility] JUSTINEELMA CMAPOS [facility] Jul 20, 2024 04:01 PM ADDENDUM: LOCAL TITLE: Addendum STANDARD TITLE: ADDENDUM DATE OF NOTE: JUL 20, 2024@16:01:38 ENTRY DATE: JUL 20, 2024@16:01:38 AUTHOR: PARK HERNANDEZIGNER: URGENCY: STATUS: COMPLETED The 's Alannah called and reported that the is unable to refill his Furosemide and the potassium because he got these from an urgent care provider. The 's reports that she is not sure how long he has not been taking it because he gets upset with her when she tries to ask about his medications. She reports that she would like Dr. Jones to fill it if possible. The 's reports that the was most recently taking -Furosemide 40mg daily -Potassium 10mg daily She also reports that the uses [facility] [place]. /es/ Park Hernandez RN,BSN [place] [facility] Signed: 07/20/2024 16:08 Receipt Acknowledged By: 07/21/2024 09:33 /es/ Elma Jones MD [facility] --- Original Document --- 07/20/24 NURSING NOTE PB: This is a 84 year old MALE with known Allergies as noted: Patient has answered NKA On the following Active Medications: Active Outpatient Medications (including Supplies): Active Outpatient Medications Status 1) ALBUTEROL 3/IPRATROP 0.5MG/3ML INHL 3ML INHALE 1 VIAL ACTIVE (3ML) BY NEBULIZATION FOUR TIMES A DAY DIRECTED NEEDED FOR COPD 2) CODEINE 30/ACETAMINOPHEN 300MG TAB TAKE 1 TABLET BY ACTIVE MOUTH EVERY 6 HOURS NEEDED FOR PAIN CAUTION: DO NOT EXCEED 4000MG PER DAY ACETAMINOPHEN (APAP) FROM ALL MEDS. 3) ESCITALOPRAM OXALATE 20MG TAB TAKE ONE TABLET BY ACTIVE MOUTH ONCE A DAY FOR DEPRESSION 4) LISINOPRIL 40MG TAB TAKE ONE TABLET BY MOUTH ONCE A ACTIVE DAY FOR HIGH BLOOD PRESSURE 5) MIRTAZAPINE 30MG TAB TAKE ONE-HALF TABLET BY MOUTH AT ACTIVE BEDTIME FOR DEPRESSION 6) MONTELUKAST NA 10MG TAB TAKE ONE TABLET BY MOUTH ACTIVE EVERY EVENING FOR COPD 7) POTASSIUM CL 20MEQ SA TAB (DISPERSIBLE) TAKE ONE-HALF ACTIVE TABLET BY MOUTH ONCE A DAY FOR POTASSIUM SUPPLEMENTATION TAKE WITH FOOD Active Non-VA Medications Status 1) Non-VA FUROSEMIDE 20MG TAB 20MG BY MOUTH EVERY ACTIVE MORNING 8 Total Medications C/C: ear flush and swelling in left arm and wrist. S: The presented to the clinic today for ear flush prior to hearing exam, also has complaint of left arm and wrist swelling x 3 days. removed hearing aids, instructed not to use his hearing aids for 2 hours to allow his ears to dry, voiced understanding. In the Left ear, unable to visualize TM, ear flushed till clear. The Right is clear TM visualized no flush needed. O/A: The ambulated to the exam room with assistance of a cane, gate is slow and unsteady. The has swelling in his left wrist and arm going up to his elbow, the and his son report that it has been swollen for the past 3 days but report that it is better than it was. The brought a bag of medications with him today and reports that this is all he is currently taking. -CODEINE 30/ACETAMINOPHEN 300MG -ESCITALOPRAM OXALATE 20MG -LISINOPRIL 40MG -MONTELUKAST NA 10MG Asked the and his son several times about the Furosemide and potassium, the does not think he is taking it but is not sure. P: Discussed the above symptoms and assessment with Dr. Jones. Let the and son know that without knowing if he is taking the Furosemide we cannot really do anything about the arm. Asked the son to double check and see if he is taking the furosemide, and let him know if he is not he needed to restart it to see if it improved his swelling. Asked that he call and update me on his medications. The voiced understanding, is in agreement with the plan and has no further questions or complaints at this time. The ambulated to the exit in satisfactory manner. The exit in satisfactory manner. RTC: as needed Per [facility] Directive 1605.06, wristband documentation: Patient wristband was removed and destroyed by (staff name) Genaro Hernandez RN and placed in the designated [employer] bin. /es/ Park Hernandez RN,BSDominique [facility] Signed: 07/20/2024 11:37 Receipt Acknowledged By: 07/21/2024 08:20 /es/ Elma Jones MD [facility] 07/20/2024 ADDENDUM STATUS: COMPLETED Talked to the about medication set up. The and his son both reported that this would be helpful. /es/ Park Hernandez RN,TAY [facility] Signed: 07/20/2024 11:38 P[facility] HERNANDEZ [facility] Jul 20, 2024 11:01 AM NURSING PROGRESS N OTE: LOCAL TITLE: NURSING NOTE PB STANDARD TITLE: NURSING PROGRESS NOTE DATE OF NOTE: JUL 20, 2024@11:01 ENTRY DATE: JUL 20, 2024@11:01:59 AUTHOR: PARK HERNANDEZ EXP COSIGNER: URGENCY: STATUS: COMPLETED NURSING NOTE PB Has ADDENDA This is a 84 year old MALE with known Allergies as noted: Patient has answered NKA On the following Active Medications: Active Outpatient Medications (including Supplies): Active Outpatient Medications Status 1) ALBUTEROL 3/IPRATROP 0.5MG/3ML INHL 3ML INHALE 1 VIAL ACTIVE (3ML) BY NEBULIZATION FOUR TIMES A DAY DIRECTED NEEDED FOR COPD 2) CODEINE 30/ACETAMINOPHEN 300MG TAB TAKE 1 TABLET BY ACTIVE MOUTH EVERY 6 HOURS NEEDED FOR PAIN CAUTION: DO NOT EXCEED 4000MG PER DAY ACETAMINOPHEN (APAP) FROM ALL MEDS. 3) ESCITALOPRAM OXALATE 20MG TAB TAKE ONE TABLET BY ACTIVE MOUTH ONCE A DAY FOR DEPRESSION 4) LISINOPRIL 40MG TAB TAKE ONE TABLET BY MOUTH ONCE A ACTIVE DAY FOR HIGH BLOOD PRESSURE 5) MIRTAZAPINE 30MG TAB TAKE ONE-HALF TABLET BY MOUTH AT ACTIVE BEDTIME FOR DEPRESSION 6) MONTELUKAST NA 10MG TAB TAKE ONE TABLET BY MOUTH ACTIVE EVERY EVENING FOR COPD 7) POTASSIUM CL 20MEQ SA TAB (DISPERSIBLE) TAKE ONE-HALF ACTIVE TABLET BY MOUTH ONCE A DAY FOR POTASSIUM SUPPLEMENTATION TAKE WITH FOOD Active Non-VA Medications Status 1) Non-VA FUROSEMIDE 20MG TAB 20MG BY MOUTH EVERY ACTIVE MORNING 8 Total Medications C/C: ear flush and swelling in left arm and wrist. S: The presented to the clinic today for ear flush prior to hearing exam, also has complaint of left arm and wrist swelling x 3 days. removed hearing aids, instructed not to use his hearing aids for 2 hours to allow his ears to dry, voiced understanding. In the Left ear, unable to visualize TM, ear flushed till clear. The Right is clear TM visualized no flush needed. O/A: The ambulated to the exam room with assistance of a cane, gate is slow and unsteady. The has swelling in his left wrist and arm going up to his elbow, the and his son report that it has been swollen for the past 3 days but report that it is better than it was. The brought a bag of medications with him today and reports that this is all he is currently taking. -CODEINE 30/ACETAMINOPHEN 300MG -ESCITALOPRAM OXALATE 20MG -LISINOPRIL 40MG -MONTELUKAST NA 10MG Asked the and his son several times about the Furosemide and potassium, the does not think he is taking it but is not sure. P: Discussed the above symptoms and assessment with Dr. Jones. Let the and son know that without knowing if he is taking the Furosemide we cannot really do anything about the arm. Asked the son to double check and see if he is taking the furosemide, and let him know if he is not he needed to restart it to see if it improved his swelling. Asked that he call and update me on his medications. The voiced understanding, is in agreement with the plan and has no further questions or complaints at this time. The ambulated to the exit in satisfactory manner. The exit in satisfactory manner. RTC: as needed Per [facility] Directive 1605.06, wristband documentation: Patient wristband was removed and destroyed by (staff name) Genaro Hernandez RN and placed in the designated [employer] bin. /karime Hernandez RN,TAY [facility] Signed: 07/20/2024 11:37 Receipt Acknowledged By: 07/21/2024 08:20 /karime Jones MD [facility] 07/20/2024 ADDENDUM STATUS: COMPLETED Talked to the about medication set up. The and his son both reported that this would be helpful. /karime Hernandez RN,TAY [facility] Signed: 07/20/2024 11:38 07/20/2024 ADDENDUM STATUS: COMPLETED The 's Alannah called and reported that the is unable to refill his Furosemide and the potassium because he got these from an urgent care provider. The 's reports that she is not sure how long he has not been taking it because he gets upset with her when she tries to ask about his medications. She reports that she would like Dr. Jones to fill it if possible. The 's reports that the was most recently taking -Furosemide 40mg daily -Potassium 10mg daily She also [facility] [place]. /demetrice/ Park Hernandez RN,TAY [facility] Signed: 07/20/2024 16:08 Receipt Acknowledged By: 07/21/2024 09:33 /karime Jones MD [facility] 07/21/2024 ADDENDUM STATUS: COMPLETED Called out 10-day supply to [facility] pharmacy of Lasix 40 mg daily and potassium 10 mg daily. If patient has not been taking them and is restarting he needs to have a BMP a week after starting to make sure his potassium and kidney function is doing well. /demetrice/ Elma Jones MD [facility] Signed: 07/21/2024 09:35 Receipt Acknowledged By: * AWAITING SIGNATURE * PARK HERNANDEZ,PARK Morales [facility]
--- OUTSIDE RECORDS SUMMARY | 2024-07-20 07:01 | XMS_ITS | Encounter Summary ---
Author Name [facility] [place] Organization [place] Address [address] [place] [id number] Care Team Providers Care Director Of Corporate Marketing Name Role Phone DARWIN FLETCHER Primary Care [...] [facility] (WNR) Oct 20, 2023 [id number] [phone] [id number] DMITRIY JOHNSON PATIENT Selected Encounter This section includes the information on record at [place] for the Encounter. Date/Time Encounter Type Encounter Description Reason Provider Source Jul 20, 2024 12:01 PM EAR IMPRESSION AUDIOLOGY ICD-10-CM Z46.1 Encounter for fitting and adjustment of hearing aid ROSA MARIA CARRILLO RA [facility] Encounter Template Text not used by [place] Assessments - Encounter Diagnoses This section includes the primary and secondary diagnoses documented for the Encounter. Date/Time Primary/Secondary Diagnosis Diagnosis Name Provider Source Jul 20, 2024 12:06 PM PRIMARY Encounter for fitting and adjustment of hearing aid ROSA MARIA CARRILLO RA [facility] Jul 20, 2024 12:06 PM SECONDARY Sensorineural hearing loss, bilateral ROSA MARIA CARRILLO RA [facility] Plan of Treatment: Future Appointments (+ 6 months) and Future Tests (+/- 45 days) The Plan of Treatment section includes future care activities for the patient from all [place] [facility] This section includes future appointments and future orders which are active, pending or scheduled. Future Appointments This section includes appointments that were scheduled to occur 6 months from the date of the Encounter, up to a maximum of 20 appointments. The data comes from all [place] treatment facilities. Appointment Date/Time Appointment Type Appointme nt Facility Name Aug 17, 2024 01:00 PM [place] [facility] Aug 17, 2024 01:01 PM [place] [facility] Sep 13, 2024 12:00 PM [place] [facility] Sep 13, 2024 12:01 PM [place] [facility] Sep 23, 2024 09:15 AM AMBULATORY - MEDICINE [facility] Sep 23, 2024 09:16 AM [facility]ULATORY - MEDICINE [facility] Oct 26, 2024 09:00 AM [place] [facility] Nov 02, 2024 08:30 AM AMBULATORY - MEDICINE [facility] Nov 12, 2024 08:00 AM [place] [facility] Nov 16, 2024 09:20 AM [place] [facility] Dec 16, 2024 10:45 AM AMBULATORY - MEDICINE [facility] Dec 28, 2024 01:00 PM [place] [facility] Lab Results: +/- 30 days of the encounter This section includes the Chemistry and Hematology Lab Results on record with [place] for the patient. Radiology Reports and Pathology Reports are provided separately, in subsequent sections. Lab Results This section contains the Chemistry/Hematology Results that were resulted 30 days before or 30 daysafter the date of the Encounter. Date/Time Source Result Type Result - Unit Interpretation Reference Range Specimen Type Comment Aug 04, 2024 09:32 AM [facility] BASIC METABOLIC PANEL PLASMA Specimen Type: PLASMA No comment entered. Ordering Provider: DARWIN FLETCHER Report Released Date/Time: Jul 26, 2024 01:19 PM Reporting Lab: [place] [facility] [address] [place] [address] Performing Lab: [place] [facility] [address] [place] [address] CREATININE 1.14 mg/dL 0.7-1.3 UREA NITROGEN 25 mg/dL 9-25 GLUCOSE 94 mg/dL 72-99 SODIUM 144 meq/L 136-145 POTASSIUM 4.1 meq/L 3.5-5 CHLORIDE 107 meq/L 98-107 CARBON DIOXIDE 26 meq/L 22-31 CALCIUM 8.9 mg/dL 8.4-10.4 EGFR (CKD-EPI 2020) 64 Jun 23, 2024 12:19 PM [facility] COMPREHENSIVE METABOLIC PANEL PLASMA Specimen Type: PLASMA No comment entered. Ordering Provider: DARWIN FLETCHER Report Released Date/Time: Jun 23, 2024 12:18 PM Reporting Lab: [place] [facility] [address] [place] [address] Performing Lab: [place] [facility] [address] [place] [address] CREATININE 1.23 mg/dL 0.7-1.3 UREA NITROGEN 20 [...] 2020) 59 Jun 23, 2024 12:19 PM [facility] CBC BLOOD Specimen Type: BLOOD No comment entered. Ordering Provider: DARWIN FLETCHER Report Released Date/Time: Jun 23, 2024 12:18 PM Reporting Lab: [place] [facility] [address] [place] [address] Performing Lab: [place] [facility] [address] [place] [address] WBC 6.4 10*3/uL 3.6-11.2 RBC 4.28 10*6/uL [...] Encounter. Date/Time Encounter Note(s) Provider Source Jul 20, 2024 07:00 AM AUDIOLOGY NOTE: LOCAL TITLE: HEARING CLINIC STANDARD TITLE: AUDIOLOGY NOTE DATE OF NOTE: JUL 20, 2024@07:00 ENTRY DATE: JUL 20, 2024@07:00:05 AUTHOR: SIMIN CARRILLO COSIGNER: URGENCY: STATUS: COMPLETED Diagnosis: Sensorineural hearing loss, Bilateral Treatment: Hearing Aid Check Time spent with : 30 minutes seen for a hearing aid check via Audio Telehealth and verbally consented to the Telehealth modality. Multi-factor personally identifiable information of the was obtained verbally (full name and date of ). accompanied by: son Patient site: [facility] ____ HISTORY: Reason for Appointment: Patient is here today for bilateral ear mold impressions. HEARING DEVICES: 02/03/20 PHONAK AUDEO M90-R LEONEL R [id number] 02/03/20 PHONAK AUDEO M90-R LEONEL L [id number] Accessories: REMOTECONTROL - M LAY MIDWIFE 4.0 - SIZE 2 - VENTED DOME 4.0 - SMALL - CERUSHIELD DISK OBJECTIVE/ASSESSMENT: Otoscopy was performed by collaboration of telehealth clinical install and repair technician and provider via telehealth technology/video otoscope which revealed: Right ear: unremarkable Left ear: unremarkable Ear mold impressions performed without incident. Impressions mailed with order form to vendor. KATJA AI ITC R (CANAL) - HEARCLEAR Accessories: [employer]on REMOTE CONTROL 2.0 The was counseled/educated on services provided today and is in agreement with the plan. PLAN: Return to clinic for hearing aid fitting. * Patient would like to mail 2019 hearing aid for battery replacement and sizzling at fitting. /demetrice/ Saud Dan [facility] Signed: 07/20/2024 12:10 SIMIN CARRILLO [facility]
--- OUTSIDE RECORDS SUMMARY | 2024-07-28 09:38 | XMS_ITS | Encounter Summary ---
Author Name [facility] [place] Address [address] [place] [address] Care Team Providers Care Palletizer Operator Name Role Phone DARWIN FLETCHER Primary Care [...] Name Patient's Relationship to Policy [place] [employer] [facility] (WNR) MEDICARE ADVANTAGE [facility] (WNR) Oct 20, 2023 [id number] DMITRIY JOHNSON HN PATIENT Selected Encounter This section includes the information on record at [place] for the Encounter. Date/Time Encounter Type Encounter Description Reason Pro vider Source Jul 28, 2024 02:38 PM Outpatient Encounter ADMIN PAT ACTIVTIES (MASNONCT) IHE Encounter Template Text not used by [place] Plan of Treatment: Future Appointments (+ 6 months) and Future Tests (+/- 45 days) The Plan of Treatment section includes future care activities for the patient from all [place] treatmentfacilities. This section includes future appointments and future orders which are active, pending or scheduled. Future Appointments This section includes appointments that were scheduled to occur 6 months from the date of the Encounter, up to a maximum of 20 appointments. The data comes from all [place] treatment facilities. Appointment Date/Time Appointment Type Appointme nt Facility Name Aug 17, 2024 01:00 PM AMBULATORY - MEDICINE [facility] Aug 17, 2024 01:01 PM [place] [facility] Sep 13, 2024 12:00 PM AMBULATORY - MEDICINE [facility] Sep 13, 2024 12:01 PM [place]ORY [place]IC[place] [facility] Sep 23, 2024 09:15 AM AMBULATORY - MEDICINE [facility] Sep 23, 2024 09:16 AM AMBULATORY - MEDICINE [facility] Oct 26, 2024 09:00 AM AMBULATORY - MEDICINE [facility] Nov 02, 2024 08:30 AM AMBULATORY - MEDICINE [facility] Nov 12, 2024 08:00 AM [place] [facility] Nov 16, 2024 09:20 AM AMBULATORY - MEDICINE [facility] Dec 16, 2024 10:45 AM AMBULATORY - MEDICINE [facility] Dec 28, 2024 01:00 PM AMBULATORY - MEDICINE [place] [facility] Lab Results: +/- 30 days of the encounter This section includes the Chemistry and Hematology Lab Results on record with [place] for the patient. Radiology Reports and Pathology Reports are provided separately, in subsequent sections. Lab Results This section contains the Chemistry/Hematology Results that were resulted 30 days before or 30 daysafter the date of the Encounter. Date/Time Source Result Type Result - Unit Interpretation Reference Range Specimen Type Comment Aug 04, 2024 09:32 AM [facility] BASIC METABOLIC PANEL PLASMA Specimen Type: PLASMA No comment entered. Ordering Provider: DARWIN FLETCHER Report Released Date/Time: Jul 26, 2024 01:19 PM Reporting Lab: [place] [facility] [address] [place] [address] Performing Lab: [place] [facility] [address] [place] [address] CREATININE 1.14 mg/dL 0.7-1.3 UREA NITROGEN 25 mg/dL 9-25 GLUCOSE 94 mg/dL 72-99 SODIUM 144 meq/L 136-145 POTASSIUM 4.1 meq/L 3.5-5 CHLORIDE 107 meq/L 98-107 CARBON DIOXIDE 26 meq/L 22-31 CALCIUM 8.9 mg/dL 8.4-10.4 EGFR (CKD-EPI 2020) 64 Social History: Smoking Status (Most current) and Tobacco Use (All prior to encounter date) This section includes the most current, and the historical, smoking and tobacco- related health factors from the [place] facility where the Encounter took place. Current Smoking Status This section includes the most current smoking, or tobacco-related health factor, from the [place] facility where the Encounter took place. Date/Time Current Smoking Status Comment Facil ity Oct 31, 2023 08:30 AM VA-TOBACCO USER EVERY DAY [place] [facility] Tobacco Use History This section includes a history of the smoking, or tobacco-related health factors, that were collected on or before the date of the Encounter. The data comes from the [place] facility where the Encounter took place. Date/Time Smoking Status/Tobacco Use Comment F acility Oct 31, 2023 08:30 AM VA-TOBACCO USE ADVICE [place] [facility] Oct 31, 2023 08:30 AM VA-TOBACCO USE BRANCH SALES AND SERVICE REPRESENTATIVE NO [place] [facility] Oct 31, [...] Oct 29, 2022 08:30 AM VA-TOBACCO USE BRANCH SALES AND SERVICE REPRESENTATIVE NO [place] [facility] Oct 29, [...] Nov 09, 2019 12:37 PM VA-TOBACCO USE BRANCH SALES AND SERVICE REPRESENTATIVE NO [place] [facility] Nov 09, 2019 12:37 PM VA-TOBACCO USE MED NO [place] [facility] Nov 09, 2019 12:37 PM VA-TOBACCO USE WI 30 MIN OF WAKE UP [place] [facility] Nov 09, 2019 12:37 PM VA-TOBACCO USER EVERY DAY [facility] Encounter Notes: All associated encounter notes This section contains the clinical notes associated to the Encounter. Date/Time Encounter Note(s) Provider Source Jul 28, 2024 02:38 PM GENERAL MEDICINE N OTE: LOCAL TITLE: General Note PB STANDARD TITLE: GENERAL MEDICINE NOTE DATE OF NOTE: JUL 28, 2024@14:38 ENTRY DATE: JUL 28, 2024@14:39:07 AUTHOR: DEREJE YEN EXP COSIGNER: URGENCY: STATUS: COMPLETED Rec'd hearing aids/remote control certified in [facility]. has upcoming appt for fitting. /demetrice/ [facility]A [facility] Signed: 07/28/2024 14:40 DEREJE YEN [facility]
--- OUTSIDE RECORDS SUMMARY | 2024-08-17 08:01 | XMS_ITS | Encounter Summary ---
Author Name Department [place] Organization [place] Address [address] [place] [id number] Care Team Providers Care Fisheries Technician Name Role Phone DARWIN FLETCHER Primary Care [...] Name Patient's Relationship to Policy [place] [employer]ET[employer] [facility] (WNR) MEDICARE ADVANTAGE [facility] (WNR) Oct 20, 2023 [id number] DMITRIY JOHNSON PATIENT Selected Encounter This section includes the information on record at [place] for the Encounter. Date/Time Encounter Type Encounter Description Reason Provider Source Aug 17, 2024 01:01 PM CONFORMITY EVALUATION AUDIOLOGY ICD-10-CM Z46.1 Encounter for fitting and adjustment of hearing aid ROSA MARIA CARRILLO RA [facility] Encounter Template Text not used by [place] Assessments - Encounter Diagnoses This section includes the primary and secondary diagnoses documented for the Encounter. Date/Time Primary/Secondary Diagnosis Diagnosis Name Provider Source Aug 17, 2024 12:57 PM PRIMARY Encounter for fitting and adjustment of hearing aid ROSA MARIA CARRILLO RA [facility] Aug 17, 2024 12:57 PM SECONDARY Sensorineural hearing loss, bilateral ROSA MARIA CARRILLO RA [facility] Plan of Treatment: Future Appointments (+ 6 months) and Future Tests (+/- 45 days) The Plan of Treatment section includes future care activities for the patient from all [place] [facility]. This section includes future appointments and future orders which are active, pending or scheduled. Future Appointments This section includes appointments that were scheduled to occur 6 months from the date of the Encounter, up to a maximum of 20 appointments. The data comes from all [place] treatment facilities. Appointment Date/Time Appointment Type Appointme nt Facility Name Sep 13, 2024 12:00 PM AM[facility]ULATORY - MEDICINE [facility] Sep 13, 2024 12:01 PM [facility] [place]IC[place] [facility] Sep 23, 2024 09:15 AM [facility] - [facility]INE [facility] Sep 23, 2024 09:16 AM AMBULATORY - MEDICINE [facility] Oct 26, 2024 09:00 AM AMBULATORY - MEDICINE [facility] Nov 02, 2024 08:30 AM AM[facility] - MEDICINE [facility] Nov 12, 2024 08:00 AM AM[facility] [place]IC[place] [facility] Nov 16, 2024 09:20 AM AM[facility] - MEDICINE [facility] Dec 16, 2024 10:45 AM AMBULATORY - MEDICINE [facility] Dec 28, 2024 01:00 PM AMBULATORY - MEDICINE [facility] Lab Results: +/- 30 days of the encounter This section includes the Chemistry and Hematology Lab Results on record with [place] for the patient. Radiology Reports and Pathology Reports are provided separately, in subsequent sections. Lab Results This section contains the Chemistry/Hematology Results that were resulted 30 days before or 30 daysafter the date of the Encounter. Date/Time Source Result Type Result - Unit Interpretation Reference Range Specimen Type Comment Aug 04, 2024 09:32 AM [facility] BASIC METABOLIC PANEL PLASMA Specimen Type: PLASMA No comment entered. Ordering Provider: DARWIN FLETCHER Report Released Date/Time: Jul 26, 2024 01:19 PM Reporting Lab: [place] [facility] [address] [place] [address] Performing Lab: [place] [facility] [address] [place] [address] CREATININE 1.14 mg/dL 0.7-1.3 UREA NITROGEN 25 mg/dL 9-25 GLUCOSE 94 mg/dL 72-99 SODIUM 144 meq/L 136-145 POTASSIUM 4.1 meq/L 3.5-5 CHLORIDE 107 meq/L 98-107 CARBON DIOXIDE 26 meq/L 22-31 CALCIUM 8.9 mg/dL 8.4-10.4 EGFR (CKD-EPI 2020) 64 Encounter Notes: All associated encounter notes This section contains the clinical notes associated to the Encounter. Date/Time Encounter Note(s) Provider Source Aug 17, 2024 07:32 AM AUDIOLOGY NOTE: LOCAL TITLE: HEARING CLINIC STANDARD TITLE: AUDIOLOGY NOTE DATE OF NOTE: AUG 17, 2024@07:32 ENTRY DATE: AUG 17, 2024@07:32:16 AUTHOR: SIMIN CARRILLO COSIGNER: URGENCY: STATUS: COMPLETED Diagnosis: Sensorineural Hearing Loss, Bilateral Treatment: Hearing Aid Fitting Time spent with : 60 minutes seen for a hearing aid fitting via Audio Telehealth and verbally consented to the Telehealth modality. Multi-factor personally identifiable information of the was obtained verbally (full name and date of ). Garber accompanied by: son Patient site: [facility] SUBJECTIVE: Patient is here for the issue of new hearing aids. HEARING DEVICES: was fit with the following hearing devices and accessories today: 07/2024 JARROD HIGHTOWER IRA [facility] Carmen [id number] 08/25/27 01/22/2507/2024 JARROD TRAN R L [id number] 08/25/27 01/22/25 Accessories: [employer]KOTE[employer] REMOTE CONTROL 2.0 - HEARCLEAR BACK UP HEARING DEVICES: 02/03/20 PHONAK AUDEO M90-R LEONEL R [id number] 02/03/20 PHONAK AUDEO M90-R LEONEL L [id number] Accessories: REMOTECONTROL - M REVENUE AGENT 4.0 - SIZE 2 - VENTED DOME 4.0 - MEDIUM - CERUSHIELD DISK OBJECTIVE/ASSESSMENT: Otoscopy was performed by collaboration of telehealth clinical emissions repair technician and provider via telehealth technology/video otoscope which revealed: Right ear: unremarkable Left ear: unremarkable Probe-Microphone Measures: Conformity evaluation was performed using real ear measures with NAL-NL2 ([employer]) targets. Maximum output was within the predicted upper limit of comfort. Hearing aids set to experience level 3 target gain per patient subjective listening preference. Feedback pmo project manager completed. Familiarized patient with sound indicators (low battery signal, volume control, etc.). Device(s) issued in Remote Conservation Coordinator System. Physical Fit/Comfort: Good per patient. Sound Quality: Good per patient. Settings: - Programs: Automatic - Volume control: short press (right/raise, left/lower) - On/Off device: long press DIRECT PATIENT EDUCATION-30 minutes Garber educated on: - Use of batteries/gasoline plant operator - Hearing aid care and maintenance - Adjustment period/ importance of daily consistent use (8- 12hrs/day) - Realistic expectations - Effective communication strategies - Pet/child warning - Patient instructed not to wear devices in excessive noise - Installation and use of additional accessories - Ordering supplies through [facility] - Repair process - Trial period demonstrated how to: - Insert/remove hearing aid(s) - Adjust volume control/program switch - Change batteries/charge hearing aid(s) was provided: - Hearing aid manual - [place] form 2477b was counseled/educated on services provided today and is in agreement with the plan. Patient was given clinic phone number and encouraged to contact the clinic as needs arise. PLAN: Return to clinic for follow up/check. Please complete outcome measures questionnaire at that time. * Mail 2020 hearing aid for battery replacement. Devices will be returned to direct through [facility]. /es/ Saud Dan [facility] Signed: 08/17/2024 13:09 SIMIN CARRILLO [facility]
--- OUTSIDE RECORDS SUMMARY | 2024-08-30 12:00 | XMS_ITS ---
Author Organization [facility] Address [address] [place] [address] Care Team Providers Care Director Instrumentation Name Role Phone GIAN QIU Unavailable [phone] ROMELNISHA FARRELL Unavailable [phone] REASON FOR VISIT 3 mo w/ fr/pvr Encounters Encounter Location Date Provider Diagnosis [facility] [address] [place] [address] 08/30/2024 NISHA URENA Plan Of Treatment No Information Progress Notes * Judd JOHNSONDOB:1940 ( 85 yo M)Acc No.[id number]:08/30/2024 Progress Notes Patient: Judd ORTIZ Provider: Patricia Urena APRN :1940 A ge:84 Y S ex:Male Date:08/30/2024 Address:[address] [place] [address], [facility] Subjective: * Chief Complaints: * 1 . 3 mo w/ fr/pvr. * Medical History: Objective: * Vitals: Assessment: Plan: * Treatment: * Billing Information: * Visit Code: * Procedure Codes: * Electronic signature of RONALD URENA APRN on 02/28/2025 at 05:31 AM CDT Sign off status: Pending * Provider: Patricia Urena APRN Date: 10/30/2023 Generated for Patel pantoja/Chadwick/Fabiano on: 0 02/28/2025 05:31 AM CDT
--- OUTSIDE RECORDS SUMMARY | 2024-09-13 07:01 | XMS_ITS ---
Author Name [facility] [place] Organization [place] Address [address] [place] [address] Care Team Providers Care Joint Cutter Name Role Phone DARWIN FLETCHER Primary Care [...] Name Patient's Relationship to Policy [place] AETNA [facility] (WNR) MEDICARE ADVANTAGE [facility] (WNR) Oct 20, 2023 [id number] DMITRIY JOHNSON PATIENT Selected Encounter This section includes the information on record at [place] for the Encounter. Date/Time Encounter Type Encounter Description Reason Provider Source Sep 13, 2024 12:01 PM HEARING AID REPAIR/MODIFYIN G AUDIOLOGY ICD-10-CM Z46.1 Encounter for fitting and adjustment of hearing aid ROSA MARIA CARRILLO RA [facility] Encounter Template Text not used by [place] Assessments - Encounter Diagnoses This section includes the primary and secondary diagnoses documented for the Encounter. Date/Time Primary/Secondary Diagnosis Diagnosis Name Provider Source Sep 13, 2024 12:09 PM PRIMARY Encounter for fitting and adjustment of hearing aid ROSA MARIA CARRILLO RAAR JAYA FONTANA [facility] Sep 13, 2024 12:09 PM SECONDARY Sensorineural hearing loss, bilateral ROSA MARIA CARRILLO RA [facility] Plan of Treatment: Future Appointments (+ 6 months) and Future Tests (+/- 45 days) The Plan of Treatment section includes future care activities for the patient from [facility] [place] [facility] This section includes future appointments and future orders which are active, pending or scheduled. Future Appointments This section includes appointments that were scheduled to occur 6 months from the date of the Encounter, up to a maximum of 20 appointments. The data comes from all [place] treatment facilities. Appointment Date/Time Appointment Type Appointme nt Facility Name Sep 23, 2024 09:15 AM AMBULATORY - MEDICINE [facility] Sep 23, 2024 09:16 AM AMBULATORY - MEDICINE [facility] Oct 26, 2024 09:00 AM AMBULATORY - MEDICINE [facility] Nov 02, 2024 08:30 AM AMBULATORY - MEDICINE [facility] Nov 12, 2024 08:00 AM AMBULATORY - MEDICINE [facility] Nov 16, 2024 09:20 AM AMBULATORY - MEDICINE [facility] Dec 16, 2024 10:45 AM AMBULATORY - MEDICINE [facility] Dec 28, 2024 01:00 PM AMBULATORY - MEDICINE [facility] February 25, 2025 08:00 AM AMBULATORY - MEDICINE [facility] Encounter Notes: All associated encounter notes This section contains the clinical notes associated to the Encounter. Date/Time Encounter Note(s) Provider Source Sep 13, 2024 07:31 AM AUDIOLOGY NOTE: LOCAL TITLE: HEARING CLINIC STANDARD TITLE: AUDIOLOGY NOTE DATE OF NOTE: SEP 13, 2024@07:31 ENTRY DATE: SEP 13, 2024@07:31:21 AUTHOR: SIMIN CARRILLO COSIGNER: URGENCY: STATUS: COMPLETED Diagnosis: Sensorineural hearing loss, Bilateral Treatment: Hearing Aid Follow Up Time spent with [place]: 30 minutes [place] seen for a hearing aid check via Audio Telehealth and verbally consented to the Telehealth modality. Multi-factor personally identifiable information of the was obtained verbally (full name and date of ). Patient site: [facility] ____ HISTORY: was previously seen for the fitting of new hearing aids. Patient returns today for follow up. [place] reports acclimating well to the hearing aids and feels they are beneficial. He notes some difficulty with insertion and occasional feedback. [place] reports receiving the first shipment of supplies in the mail. HEARING DEVICES: 07/2024 [facility] AI ITC R R [id number] 08/25/27 01/22/2507/2024 [facility] ITC R L [id number] 08/25/27 01/22/25 Accessories: [employer] REMOTE CONTROL 2.0 - HEARCLEAR BACK UP HEARING DEVICES: 02/03/20 PHONAK AUDEO M90-R LEONEL R [id number] 02/03/20 PHONAK AUDEO M90-R LEONEL L [id number] Accessories: REMOTECONTROL - M CLUB CAR ATTENDANT 4.0 - SIZE 2 - VENTED DOME 4.0 - MEDIUM - CERUSHIELD DISK OBJECTIVE/ASSESSMENT: Otoscopy was performed by collaboration of telehealth clinical rvda master certified rv technician and provider via telehealth technology/video otoscope which revealed: Right ear: unremarkable Left ear: unremarkable Devices were cleaned and checked including replacement of filters. A listening check performed by TCT revealed proper function. Patient was re-instructed on hearing aid maintenance and re-educated on ordering more supplies when needed. Practiced proper insertion. Educated patient to check that devices are inserted correctly if experiencing feedback. International Outcome Inventory for Hearing Aids administered and saved in ROES. The was counseled/educated on services provided today and is in agreement with the plan. PLAN: Return to clinic as needed. /demetrice/ Saud Dan [facility] Signed: 09/13/2024 12:17 SIMIN CARRILLO [facility]
--- OUTSIDE RECORDS SUMMARY | 2024-09-23 04:15 | XMS_ITS | Encounter Summary ---
Author Name [facility] [place] Address [address] [place] [id number] Care Team Providers Care Automotive Warranty Administrator Name Role Phone DARWIN FLETCHER Primary Care [...] Name Patient's Relationship to Policy [place] AETNA [facility] (WNR) MEDICARE ADVANTAGE [facility] (WNR) Oct 20, 2023 [id number] DMITRIY JOHNSON PATIENT Selected Encounter This section includes the information on record at [place] for the Encounter. Date/Time Encounter Type Encounter Description Reason Provider Source Sep 23, 2024 09:15 AM TELEHEALTH FACILITY FEE PRIMARY CARE/MEDICINE ICD-10-CM I50.22 Chronic systolic (congestive) heart failure LINNEA STAHL Bunny Encounter Template Text not used by [place] Assessments - Encounter Diagnoses This section includes the primary and secondary diagnoses documented for the Encounter. Date/Time Primary/Secondary Diagnosis Diagnosis Name Provider Source Sep 24, 2024 02:32 PM PRIMARY Chronic systolic (congestive) heart failure LEO ELLINGTON [facility] Plan of Treatment: Future Appointments (+ [...] 20 appointments. The data comes from all [facility]. Appointment Date/Time Appointment Type Appointme nt Facility Name Oct 26, 2024 09:00 AM AMBULATORY - MEDICINE [facility] Nov 02, 2024 08:30 AM AMBULATORY - MEDICINE [facility] Nov 12, 2024 08:00 AM AMBULATORY - MEDICINE [facility] Nov 16, 2024 09:20 AM AMBULATORY - MEDICINE [facility] Dec 16, 2024 10:45 AM AMBULATORY - MEDICINE [facility] Dec 28, 2024 01:00 PM AMBULATORY - MEDICINE [facility] February 25, 2025 08:00 AM AMBULATORY - MEDICINE [facility] Active, Pending, and Scheduled Orders This section includes a listing of several types of active, pending, and scheduled orders, including clinic medications orders, diagnostic test orders, procedure orders and consult orders; where the start date of the order is 45 days before the date of the Encounter or 45 days after the date of theEncounter. The data comes from all [facility]. Test Date/Time Test Type Test Details Facility Name Nov 02, 2024 10:00 AM Consult Order COMMUNITY CARE-DERMATOLOGY [id number] Cons Procurement Engineer's Choice [facility] Vital Signs: All taken on the encounter date This section contains inpatient and outpatient Vital Signs collected on the date of the Encounter. Date/Time Temperature Pulse Blood Pressure Respiratory Rate SP02 Pain Height Weight Body Mass Index Source Sep 23, 2024 09:37 AM 68 170/111 20 97 0 74.0 133.5 17 [facility] Sep 23, 2024 09:36 AM 69 159/83 100 [facility] Sep 23, 2024 09:33 AM 98.2 69 172/107 97 [facility] Sep 23, 2024 09:32 AM 74 97 [facility] Social History: Smoking Status (Most current) and Tobacco Use (All prior to encounter date) This section includes the most current, and the historical, smoking and tobacco- related health factors from the [place] facility where the Encounter took place. Current Smoking Status This section includes the most current smoking, or tobacco-related health factor, from the [place] facility where the Encounter took place. Date/Time Current Smoking Status Comment Facil ity Oct 31, 2023 08:30 AM VA-TOBACCO USER EVERY DAY [facility] Tobacco Use History This section includes a history of the smoking, or tobacco-related health factors, that were collected on or before the date of the Encounter. The data comes from the [place] facility where the Encounter took place. 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 Date/Time Encounter Note(s) Provider Source Sep 23, 2024 09:55 AM PRIMARY CARE JACKY DENSON NOTE: LOCAL TITLE: PRIMARY CARE NURSING PROGRESS NOTE (TEXT) NURSING P STANDARD TITLE: PRIMARY CARE NURSING NOTE DATE OF NOTE: SEP 23, 2024@09:55 ENTRY DATE: SEP 23, 2024@09:55:06 AUTHOR: LEO ELLINGTON EXP COSIGNER: URGENCY: STATUS: COMPLETED Established Patient LINNEA JOHNSON IS A 84 YEAR OLD MALE BEING SEEN IN CLINIC SEP 23, 2024. REASON FOR VISIT: here today with c/o Bilateral LL Edema and congestion. He is also requesting that all of his medications be sent to the [facility] instead of the [place] d/t the copay. He is also c/o feeling frustrated and down about his condition but denies depression or thoughts of Suicide. Are you receiving care any where other than the [place]? Yes, List: [facility] HISTORY: Does patient report using home oxygen? No CURRENT ACTIVE MEDICATIONS FOR REVIEW: Allergies/ADRs (Tool #5) FACILITY ALLERGY/ADR -------- No Remote Allergy/ADR Data available for this patient [facility] No Known Allergies Med. Reconciliation (Tool #1) INCLUDED IN THIS LIST: Alphabetical list of active outpatient prescriptions dispensed from this [facility] (local) and dispensed from another [place] or [facility] facility (remote) as well as inpatient orders (local pending and active), local clinic medications, locally documented non-VA medications, and local prescriptions that have or been discontinued in the past 90 days. Non-VA Meds Last Documented On: May 06, 2024 NOTE The display of VA prescriptions dispensed from another [place] or [facility] facility (remote) is limited to active outpatient prescription entries matched to National Drug File at the originating site and may not include some items such as investigational drugs, compounds, etc. NOT INCLUDED IN THIS LIST: Medications self-entered by the patient into personal health records (i.e. Meddle) are NOT included in this list. Non-VA medications documented outside this [place], remote inpatient orders (regardless of status) and remote clinic medications are NOT included in this list. The patient and provider must always discuss medications the patient is taking, regardless of where the medication was dispensed or obtained. OUTPT ALBUTEROL 3/IPRATROP 0.5MG/3ML INHL 3ML (Status = Active) INHALE 1 VIAL (3ML) BY NEBULIZATION FOUR TIMES A DAY DIRECTED NEEDED FOR COPD Rx# [id number] Last Released: 11/05/23 Qty/Days Supply: 360 Rx Expiration Date: 10/31/24 Refills Remainin Indication: FOR COPD OUTPT CODEINE 30/ACETAMINOPHEN 300MG TAB (Status = Active) TAKE 1 TABLET BY MOUTH EVERY 6 HOURS NEEDED FOR PAIN CAUTION: DO NOT EXCEED 4000MG PER DAY ACETAMINOPHEN (APAP) FROM ALL MEDS. Rx# [id number] Last Released: 06/28/24 Qty/Days Supply: 6030 Rx Expiration Date: 12/24/24 Refills Remainin Indication: FOR PAIN OUTPT ESCITALOPRAM OXALATE 20MG TAB (Status = Active) TAKE ONE TABLET BY MOUTH ONCE A DAY FOR DEPRESSION Rx# [id number] Last Released: 11/05/23 Qty/Days Supply: 90 Rx Expiration Date: 10/31/24 Refills Remainin Indication: FOR DEPRESSION Non-VA FUROSEMIDE 20MG TAB TAKE ONE TABLET BY MOUTH EVERY MORNING VA RX: Patient wants to buy from Non-VA pharmacy VA RX: Medication prescribed by Non-VA provider OUTPT FUROSEMIDE 40MG TAB (Status = Active) TAKE ONE TABLET BY MOUTH EVERY DAY FOR FLUID RETENTION (EDEMA) Rx# [id number] Last Released: 07/23/24 Qty/Days Supply: Rx Expiration Date: 07/22/25 Refills Remainin Indication: FOR FLUID RETENTION (EDEMA) OUTPT LISINOPRIL 40MG TAB (Status = Active) TAKE ONE TABLET BY MOUTH ONCE A DAY FOR HIGH BLOOD PRESSURE Rx# [id number] Last Released: 11/03/23 Qty/Days Supply: Rx Expiration Date: 10/31/24 Refills Remainin Indication: FOR HIGH BLOOD PRESSURE OUTPT MIRTAZAPINE 30MG TAB (Status = Active) TAKE ONE-HALF TABLET BY MOUTH AT BEDTIME FOR DEPRESSION Rx# [id number] Last Released: 05/31/24 Qty/Days Supply: Rx Expiration Date: 05/29/25 Refills Remainin Indication: FOR DEPRESSION OUTPT MONTELUKAST NA 10MG TAB (Status = Active) TAKE ONE TABLET BY MOUTH EVERY EVENING FOR COPD Rx# [id number] Last Released: 11/04/23 Qty/Days Supply: Rx Expiration Date: 10/31/24 Refills Remainin Indication: FOR COPD OUTPT POTASSIUM CL 20MEQ SA TAB (DISPERSIBLE) (Status = Active/Suspended) TAKE ONE-HALF TABLET BY MOUTH ONCE A DAY FOR POTASSIUM SUPPLEMENTATION TAKE WITH FOOD Rx# [id number] Last Released: 11/10/23 Qty/Days Supply: Rx Expiration Date: 11/05/24 Refills Remainin Indication: FOR POTASSIUM SUPPLEMENTATION SUPPLIES PHARMACY TERMS AND POSSIBLE PATIENT ACTIONS INPT = [place] inpatient order IV = [place] intravenous medication OUTPT = [place] outpatient prescription PHARMACY POSSIBLE PATIENT TERMS EXPLANATION ACTIONS -------- --- ACTIVE A prescription that can be If you have refills, filled at the local [place] pharmacy. you may request a refill of [...] more of this picked up at the [place] pharmacy medication. window. A prescription which is [...] the [facility]. Or, it may be an dxry-iyl-lcigeiq (OTC), herbal, dietary supplements or sample medication. [...] before this medication now. you run out. ======== Patient reports taking meds other than as Not taking Mirtazapine and is out of his Potassium. IS PATIENT TAKING ANY OVER THE COUNTER MEDICATIONS, SUCH VITAMINS OR HERBAL SUPPLEMENTS, INCLUDING ANY MEDICATIONS PRESCRIBED BY ANOTHER PHYSICIAN? No ALLERGIES/ADVERSE REACTIONS: Patient has answered NKA Does patient have any new allergies to report since last visit? NO VITALS: TEMPERATURE: 98.2 F [36.8 C] (09/23/2024 09:33) BP: 170/111 (09/23/2024:37) RESP: 20 (09/23/2024:) PULSE: 68 (09/23/2024:) HT: 74.0 in [188.0 cm] (09/23/2024) WT: 133.5 lb [60.55 kg] (09/23/2024:) BMI: 17.2 PAIN ASSESSMENT: (Most Recent Pain Score in Vitals Package: 0 (09/23/2024:) ) The patient indicated that they and [...] Now let us serve you. At the [facility], we strive to provide you with exceptional health care that improves your health and well-being. Are you feeling sad, empty, or depressed? No Do you need to talk about things [...] Not At All SPIRITUAL ASSESSMENT: Are there temple practices or spiritual concerns you want the investment banking associate, your physician, and other health care team members to immediately know about? No Patient advised to call the clinic for any concerns, questions, or symptoms. Patient and/or caregiver verbalized understanding of plan of care. Frail/Elderly Screen: IADL Screen - [place] Instrumental Activities of Daily Living Scale Ability to use telephone: (1 point) Operates Telephone on own initiative; looks up and dials numbers. Shopping: (0 points) Needs to be accompanied on any shopping trip. Food preparation: (0 points) Heats and serves prepared meals, or prepares meals but does not maintain adequate diet. Housekeeping: (1 points) Needs help with all home maintenance tasks. Laundry: (1 point) Launders small items, rinses socks, stockings, etc. Mode of transportation: (0 points) Travel limited to taxi or automobile with assistance of another. Responsibility for own medications: (1 point) Is responsible for taking medications in correct dosages at correct times. Ability to handle finances: (1 point) Manages financial matters independently (budgets, writes checks, pays rent and bills, goes to bank); collects and keeps track of income. Total score: 5 points 8 = High function, independent 0 = Low function, dependent Falls Screen: No falls within the past 12 months. Incontinence Screen No incontinence. Advanced Directive Screen/Greeter Guest Services: ADVANCE DIRECTIVE SCREENING: I asked if the patient has an advance directive, and determined that: Patient has an Advance Directive. Patient does not wish to make any changes to the Advance Directive at this time. ADVANCE DIRECTIVE NOTIFICATION I provided the patient with written notification about advance directives. Level of understanding: Pain Assessment: - PAIN ASSESSMENT: .. Patient reports no pain at this visit. Pain Score = 0. Patient's self identified pain goal: 0 VVC DIGITAL DIVIDE CAPABILITY REMINDER: Patient is not interested in VVC at this time. 'S RIGHT TO DECLINE STATEMENT [place] understands they have the right to decline the use of Telehealth Technology at any time without adverse affects on their continued access to healthcare. [facility] - PHP MAP: PERSONAL HEALTH PLAN INVENTORY & MAP [place]'s Response: Family /es/ LEO ELLINGTON LPN Signed: 09/23/2024 09:59 LEO ELLINGTON [facility]
--- OUTSIDE RECORDS SUMMARY | 2024-09-23 04:16 | XMS_ITS | Encounter Summary ---
Author Name [facility] [place] Organization [facility] [place] Address [address] [place] [address] Care Team Providers Care Chief I Dispatcher Name Role Phone DARWIN FLETCHER Primary Care [...] Name Patient's Relationship to Policy [place] [employer] [facility] (WNR) MEDICARE ADVANTAGE [facility] (WNR) Oct 20, 2023 [id number] DMITRIY JOHNSON PATIENT Selected Encounter This section includes the information on record at [place] for the Encounter. Date/Time Encounter Type Encounter Description Reason Provider Source Sep 23, 2024 09:16 AM OFFICE O/P EST LOW 20 MIN PRIMARY CARE/MEDICINE ICD-10-CM I50.22 Chronic systolic (congestive) heart failure LINNEA STAHL [place] Encounter Template Text not used by [place] Assessments - Encounter Diagnoses This section includes the primary and secondary diagnoses documented for the Encounter. Date/Time Primary/Secondary Diagnosis Diagnosis Name Provider Source Sep 23, 2024 10:12 AM PRIMARY Chronic systolic (congestive) heart failure LINNEA STAHL [facility] Sep 23, 2024 10:12 AM SECONDARY Chronic obstructive pulmonary disease, unspecified LINNEA STAHL [facility] Sep 23, 2024 10:12 AM SECONDARY Essential (primary) hypertension LINNEA STAHL [facility] Plan of Treatment: Future Appointments (+ 6 months) and Future Tests (+/- 45 days) The Plan of Treatment section includes future care activities for the patient [facility] [place] [facility] This section includes future appointments and future orders which are active, pending or scheduled. Future Appointments This section includes appointments that were scheduled to occur 6 months from the date of the Encounter, up to a maximum of 20 appointments. The data comes from all [facility]. Appointment Date/Time Appointment Type Appointme nt Facility Name Oct 26, 2024 09:00 AM AMBULATORY - MEDICINE [facility] Nov 02, 2024 08:30 AM AMBULATORY - MEDICINE [facility] Nov 12, 2024 08:00 AM AMBULATORY - MEDICINE [facility] Nov 16, 2024 09:20 AM AMBULATORY - MEDICINE [facility] Dec 16, 2024 10:45 AM AMBULATORY - MEDICINE [facility] Dec 28, 2024 01:00 PM AMBULATORY - MEDICINE [facility] February 25, 2025 08:00 AM AMBULATORY - MEDICINE [facility] Active, Pending, and Scheduled Orders This section includes a listing of several types of active, pending, and scheduled orders, including clinic medications orders, diagnostic test orders, procedure orders and consult orders; where the start date of the order is 45 days before the date of the Encounter or 45 days after the date of theEncounter. The data comes from all [facility]. Test Date/Time Test Type Test Details Facility Name Nov 02, 2024 10:00 AM Consult Order COMMUNITY CARE-DERMATOLOGY [id number] Cons [employer] [facility] Encounter Notes: All associated encounter notes This section contains the clinical notes associated to the Encounter. Date/Time Encounter Note(s) Provider Source Sep 23, 2024 10:06 AM PRIMARY CARE PROGR ESS NOTE: LOCAL TITLE: PRIMARY CARE CLINIC PROGRESS NOTE PB STANDARD TITLE: PRIMARY CARE PROGRESS NOTE DATE OF NOTE: SEP 23, 2024@10:06 ENTRY DATE: SEP 23, 2024@10:06:35 AUTHOR: LINNEA STAHL EXP COSIGNER: URGENCY: STATUS: COMPLETED SUBJECTIVE: LINNEA JOHNSON is a 84 y.o.MALE. HPI: [place] contacted via Telehealth appointment due to location/staffing limitations. Patient is located at the [facility] for this appointment, whereas [facility] affiliated provider is located off-site utilizing remotely secured video connection. Patient is being seen for c/o lower ext edema bilat. he is on lasix 40 mg daily. Previously, he had taken 40 mg bid due to this same issue. We will increase to 40 mg bid for a couple weeks and then he will take the pm dose only as needed if swelling starts worsening again. he has been sitting around more lately as he has not had any energy. we discussed adding cardiology consult due to worsening of swelling and dx of chf but he wishes to trial the above plan initially. we will also measure him for compression stockings which he will start wearing. he will also start elevating his lower ext during the day when he is sitting around. he will continue his potassium supplement daily. Problem List 1) COPD - Chronic Obstructive Pulmonary Disease ([facility] [id number]) 2) HTN - Hypertension ([facility] [id number]) 3) Cataracts 4) Chronic low back pain 5) Prediabetes 6) Chronic diarrhea 7) Benign prostatic hyperplasia 8) Subarachnoid hemorrhage 9) Sensorineural hearing loss of bilateral ears 10) Urinary retention Active Outpatient Medications (including Supplies): Active Outpatient [...] MOUTH ONCE A DAY FOR DEPRESSION 4) FUROSEMIDE 40MG TAB TAKE ONE TABLET BY MOUTH EVERY ACTIVE DAY FOR FLUID RETENTION (EDEMA) 5) LISINOPRIL 40MG TAB TAKE ONE TABLET BY MOUTH ONCE A ACTIVE DAY FOR HIGH BLOOD PRESSURE 6) MIRTAZAPINE 30MG TAB TAKE ONE-HALF TABLET BY MOUTH AT ACTIVE BEDTIME FOR DEPRESSION 7) MONTELUKAST NA 10MG TAB TAKE ONE TABLET BY MOUTH ACTIVE EVERY EVENING FOR COPD 8) POTASSIUM CL 20MEQ SA TAB (DISPERSIBLE) TAKE ONE-HALF ACTIVE (S) TABLET BY MOUTH ONCE A DAY FOR POTASSIUM SUPPLEMENTATION TAKE WITH FOOD Active Non-VA Medications Status 1) Non-VA FUROSEMIDE 20MG TAB 20MG BY MOUTH EVERY ACTIVE MORNING 9 Total Medications Allergies: Patient has answered NKA Review of Systems Systemic: Denies fatique, fever, chills, or weight loss CV: Denies chest pain, palpitations Pulm: Denies hemoptysis GI: Denies constipation, bloody stools. Musculo- skeletal: Denies swelling Neuro: Denies slurred speech Skin: Denies abnormal lesions; denies any new rashes PSYCH: Denies SI/HI OBJECTIVE: Vital Signs Temperature: 98.2 F [36.8 C] (09/23/2024 09:33) Respiratory Rate: 20 (09/23/2024 09:37) Pulse Rate: 68 (09/23/2024 09:37) Blood Pressure: 170/111 (09/23/2024 09:37) HT: 74.0 in [188.0 cm] (09/23/2024 09:37) WT: 133.5 lb [60.55 kg] (09/23/2024 09:37) BMI: 17.2 SPO2: 97% (09/23/2024 09:37) Vital Signs per chart to date and reviewed by signee. Physical Exam: exam completed utilising telecart with clear steth. General: NAD noted, A&Ox3, pleasant, appears stated age HEENT: NCAT Neck: Supple, normal ROM Heart: s1 s2 wnl, no murmurs noted. Resp: Respirations even and unlabored; CTA APL Abdomen: Non-distended appearing Musculo- skeletal: No obvious deformity Neuro: Grossly intact Psych: Affect normal, answers questions appropriately throughout visit A/P: ASSESSMENT and PLAN CHF/lower ext edema bilat: he is on lasix 40 mg daily. Previously, he had taken 40 mg bid due to this same issue. We will increase to 40 mg bid for a couple weeks and then he will take the pm dose only as needed if swelling starts worsening again. he has been sitting around more lately as he has not had any energy. we discussed adding cardiology consult due to worsening of swelling and dx of chf but he wishes to trial the above plan initially. we will also measure him for compression stockings which he will start wearing. he will also start elevating his lower ext during the day when he is sitting around. he will continue his potassium supplement daily. labs reviewed from july which were wnl/unremarkable. Stable. Discussed health conditions listed above and medications with patient; med rec completed. Continue current regimen as prescribed by PCP and specialists. RTC as needed if developing any new or worsening symptoms. Please notify PACT with medication changes or for orders coordination as needed if seen by a specialist in the future. Will f/u with patient once updated labs / imaging / testing received; otherwise f/u as listed below. Follow-up: months and/or as needed. All questions answered; agrees to plan of care. Follow up as listed above, annually, and as needed. Keep all appointments. Medications Reconciled. Time spent 30 minutes. Discussed with patient that in the event of community imaging / testing being ordered in the future, once the imaging / testing has been completed, please notify PACT of completion at outside facility if not called with results within 1 week by a [facility] member; this is due to intermittent lapses in notification of imaging completion within [facility]. Appointment was conducted via [employer] Video Connect, Video to home, or Telehealth via in-person interview within the local [place] [facility] as discussed in note above. VVC / Video to home / Telehealth via in-person interview appointment information: The following items were reviewed: - The nature of telehealth, its benefits, and risks. - Confidentiality and its limits. - The importance of having a confidential location for the service. - The emergency plan. - The appointment should be treated like an in person appointment (no smoking or driving during session, showing up fully dressed, etc.) *The Virtual Medical Room locked for this encounter (VVC or Video to home). *A survey of the environment was conducted and it is appropriate to conduct a CVT/VVC appointment. *Confirmed [place]'s Non-[facility] location for appointment (VVC or Video to home). *[place] was notified of right to decline Telehealth services and eligibility for other options. consented to be seen via CVT/VVC/Telehealth via in-person interview at local [facility]. EMERGENCY PLAN In the event of an emergency, the [place] or family will call emergency services, if capable. Teleprovider will remain in the virtual medical room until emergency response arrives and handoff to emergency services is complete. If [place] is unable to make emergency call, Teleprovider is to call the national E911 service at [phone] and ask to be connected to emergency services for the [place]'s location. Crisis Hotline: 129.623.2542 [employer] Help Desk (NTTHD): 302.396.5656 or 105-030-8631 Verified Provider's location and contact information for this appointment: Other Location: [place] CB or Remote from home // [facility] Signed: 09/23/2024 10:11 LINNEA STAHL [facility]
--- OUTSIDE RECORDS SUMMARY | 2024-11-02 03:30 | XMS_ITS | Encounter Summary ---
Author Name [facility] [place] [facility] [place] Address [address] [place] [address] Care Team Providers Care Manager Oncology Name Role Phone ELMA FLETCHER Primary Care Provider Unavailabl e Insurance [...] Name Patient's Relationship to Policy [place] [employer] [facility] (WNR) MEDICARE ADVANTAGE [facility] (WNR) Oct 20, 2023 [id number] DMITRIY JOHNSON PATIENT Selected Encounter This section includes the information on record at [place] for the Encounter. Date/Time Encounter Type Encounter Description Reason Provider Source Nov 02, 2024 08:30 AM OFFICE O/P EST MOD 30 MIN PRIMARY CARE/MEDICINE ICD-10-CM J44.9 Chronic obstructive pulmonary disease, unspecified ELMA FLETCHER IHBunny Encounter Template Text not used by [place] Assessments - Encounter Diagnoses This section includes the primary and secondary diagnoses documented for the Encounter. Date/Time Primary/Secondary Diagnosis Diagnosis Name Provider Source Nov 02, 2024 01:23 PM PRIMARY Chronic obstructive pulmonary disease, unspecified ELMA FLETCHER [facility] Nov 02, 2024 01:23 PM SECONDARY Benign prostatic hyperplasia without lower urinry tract symp [facility] [place] [facility] Nov 02, 2024 01:23 PM SECONDARY Chronic systolic (congestive) heart failure [facility] [place] [facility] Nov 02, 2024 01:23 PM SECONDARY Depression, unspecified [facility] Nov 02, 2024 01:23 PM SECONDARY Encounter for immunization [place] [facility] Nov 02, 2024 01:23 PM SECONDARY Essential (primary) hypertension [facility] Nov 02, 2024 01:23 PM SECONDARY Low back pain, unspecified [facility] Nov 02, 2024 01:23 PM SECONDARY Noninfective gastroenteritis and colitis, unspecified [facility] Nov 02, 2024 01:23 PM SECONDARY Prediabetes [facility] [place] [facility] Nov 02, 2024 01:23 PM SECONDARY Retention of urine, unspecified ELMA FLETCHER [place] [facility] Nov 02, 2024 01:23 PM SECONDARY Sensorineural hearing loss, bilateral [facility] Nov 02, 2024 01:23 PM SECONDARY Squamous cell carcinoma of skin, unspecified [facility] [facility] Plan of Treatment: Future Appointments (+ 6 months) and Future Tests (+/- 45 days) The Plan of Treatment section includes future care activities for the patient from all [place] treatmentst. anne hospitalities. This section includes future appointments and future orders which are active, pending or scheduled. Future Appointments This section includes appointments that were scheduled to occur 6 months from the date of the Encounter, up to a maximum of 20 appointments. The data comes from all [place] treatment facilities. Appointment Date/Time Appointment Type Appointme nt Facility Name Nov 12, 2024 08:00 AM AMBULATORY - MEDICINE [place] [facility] Nov 16, 2024 09:20 AM AMBULATORY - MEDICINE [facility] Dec 16, 2024 10:45 AM AMBULATORY - MEDICINE [facility] Dec 28, 2024 01:00 PM AMBULATORY - [place]IC[place] [facility] February 25, 2025 08:00 AM AMBULATORY - MEDIC[place] [facility] Apr 21, 2025 08:40 AM AMBULATORY - MEDICINE [facility] Apr 29, 2025 10:00 AM AMBULATORY - MEDICINE [facility] Active, Pending, and Scheduled Orders This section includes a listing of several types of active, pending, and scheduled orders, including clinic medications orders, diagnostic test orders, procedure orders and consult orders; where the start date of the order is 45 days before the date of the Encounter or 45 days after the date of theEncounter. The data comes from all [place] treatment facilities. Test Date/Time Test Type Test Details Facility Name Nov 02, 2024 10:00 AM Consult Order [facility]-DERMATOLOGY [id number] Cons Milieu Technician's Choice [facility] Lab Results: +/- 30 days of [...] Unit Interpretation Reference Range Specimen Type Comment Nov 16, 2024 10:39 AM [facility] BASIC METABOLIC PANEL PLASMA Specimen Type: PLASMA No comment entered. Ordering Provider: ELMA FLETCHER Report Released Date/Time: Nov 02, 2024 09:13 AM Reporting Lab: [place] [facility] [address] [facility] [facility] [address] Performing [facility]: [facility] [address] [place] [facility] [address] CREATININE 1.13 mg/dL 0.7-1.3 UREA NITROGEN 31 mg/dL H 9-25 GLUCOSE 93 mg/dL 72-99 SODIUM 144 meq/L 136-145 POTASSIUM 3.9 meq/L 3.5-5 CHLORIDE 109 meq/L H 98-107 CARBON DIOXIDE 25 meq/L 22-31 CALCIUM 9.2 mg/dL 8.4-10.4 EGFR (CKD-EPI 2020) 65 Nov 02, 2024 09:37 AM [facility] DRUG SCREEN URINE-inhouse (PB) URINE Specimen Type: URINE No comment entered. Ordering Provider: ELMA FLETCHER Report Released Date/Time: Nov 02, 2024 09:27 AM Reporting Lab: [place] [facility] [address] [facility] [address] Performing Lab: [place] [facility] [address] [place] [address] METHADONE Negative ng/mL Negative OPIATES (PB) Positive ng/mL H Negative COCAINE... Negative ng/mL Negative THC(Marijuana... Negative ng/mL Negative BENZODIAZEPINE (PB) Negative ng/mL Negat laurence AMPHETAMINE... Negative ng/mL Negative CREATININE URINE/OTHERS 35.77 mg/dL OXYCODONE (VOSXR-JYT-JT) Negative ng/mL Negative BUPRENORPHINE (STL-PB-MA) Negative ng/mL Negative ETHANOL URINE <10.0 mg/dL L <9 FENTANYL, URINE (PB) Negative ng/mL Nega tive Oct 26, 2024 08:56 AM [place] [facility] HGA1C BLOOD Specimen Type: BLOOD No comment entered. Ordering Provider: ELMA FLETCHER Report Released Date/Time: May 06, 2024 09:33 AM Reporting Lab: [place] [facility] [address] [place] [address] Performing Lab: [place] [facility] [address] [place] [facility] HGA1C 6.2 H 4.0-6.0 Oct 26, 2024 08:56 AM [facility] TSH (MA-PB) SERUM Specimen Typ e: SERUM No comment entered. Ordering Provider: ELMA FLETCHER Report Released Date/Time: May 06, 2024 09:33 AM Reporting Lab: [place] [facility] [address] [place] [address] Performing Lab: [place] [facility] [address] [place] [address] TSH 2.687 u[IU]/mL 0.47-5 Oct 26, 2024 08:56 AM [place] [facility] VITAMIN D, 25-HYDROXY SERUM Specimen Type: SE RUM No comment entered. Ordering Provider: ELMA FLETCHER Report Released Date/Time: May 06, 2024 09:33 AM Reporting Lab: [place] [facility] [address] [place] [address] Performing Lab: [place] [facility] [address] [place] [address] VITAMIN D, 25-HYDROXY 42.1 ng/mL 30-96 Oct 26, 2024 08:56 AM [facility] COMPREHENSIVE METABOLIC PANEL PLASMA Specimen Type: PLASMA No comment entered. Ordering Provider: ELMA FLETCHER Report Released Date/Time: May 06, 2024 09:33 AM Reporting Lab: [place] [facility] [address] [place] [address] Performing Lab: [place] [facility] [address] [place] [address] CREATININE 1.29 mg/dL 0.7-1.3 UREA NITROGEN 25 mg/dL 9-25 GLUCOSE 88 mg/dL 72-99 SODIUM 145 meq/L 136-145 POTASSIUM 4.0 meq/L 3.5-5 CHLORIDE 107 meq/L 98-107 CARBON DIOXIDE 25 meq/L 22-31 CALCIUM 9.6 mg/dL 8.4-10.4 PROTEIN 7.6 g/dL 6-8.6 ALBUMIN 4.1 g/dL 3.4-5 TOTAL BILIRUBIN 0.3 mg/dL 0.2-1.2 ALKALINE PHOSPHATASE 70 U/L 40-150 AST/SGOT 19 U/L 5-34 ALT/SGPT 12 U/L 8-40 EGFR (CKD-EPI 2020) 55 Oct 26, 2024 08:56 AM [facility] CHOLESTEROL PANEL (PB) PLASMA Specimen Type: P LASMA No comment entered. Ordering Provider: ELMA FLETCHER Report Released Date/Time: May 06, 2024 09:33 AM Reporting Lab: [place] [facility] [address] [place] [address] Performing Lab: [place] [facility] [address] [place] [address] CHOLESTEROL 197 mg/dL 0-200 TRIGLYCERIDE 183 mg/dL H 0-150 CALCULATED LDL 116.8 mg/dL HDL(New) 43.6 mg/dL H >40 HDL % OF TOTAL CHOLESTEROL (PB) 22.1 >25 Oct 26, 2024 08:56 AM [facility] CBC BLOOD Specimen Type: BLOOD No comment entered. Ordering Provider: ELMA FLETCHER Report Released Date/Time: May 06, 2024 09:33 AM Reporting Lab: [place] [facility] [address] [place] [address] Performing Lab: [place] [place] [facility] [address] [place] [address] WBC 6.3 10*3/uL 3.6-11.2 RBC 4.95 10*6/uL 4.10-5.70 HGB 14.6 g/dL 13.1-16.8 HCT 44.9 38.2-48.4 MCV 90.7 fL 80.0-100.0 MCH 29.5 pg 27.0-34.0 MCHC 32.5 g/dL L 33.0-36.0 PLT 174 10*3/uL 150-400 MPV 11.2 fL 7.5-11.2 RDW 14.7 11.8-15.1 LYMPHOCYTES, AUTO % 32.0 MONOCYTES, AUTO % 5.7 NEUTROPHILS, AUTO % 60.8 EOSINOPHILS, AUTO % 0.8 BASOPHILS, AUTO % 0.5 LYMPHOCYTES, ABSOLUTE 2.01 10*3/uL 0.77- 4.50 MONOCYTES, ABSOLUTE 0.36 10*3/uL 0.19-0. 8 NEUTROPHILS, ABSOLUTE 3.82 10*3/uL 2.10- 8.00 EOSINOPHILS, ABSOLUTE 0.05 10*3/uL 0.00- 0.60 BASOPHILS, ABSOLUTE 0.03 10*3/uL 0.00-0. 20 IMMATURE GRANS, AUTO % 0.2 IMMATURE GRANS, AUTO ABS 0.01 10*3/uL 0. 00-0.05 Vital Signs: All taken on the encounter date This section contains inpatient and outpatient Vital Signs collected on the date of the Encounter. Date/Time Temperature Pulse Blood Pressure Respiratory Rate SP02 Pain Height Weight Body Mass Index Source Nov 02, 2024 08:51 AM 61 173/91 [facility] Nov 02, 2024 08:45 AM 61 159/112 98 [facility] Nov 02, 2024 08:43 AM 61 176/92 18 97 0 74.0 134.5 17 [facility] Immunizations: All administered on the encounter date This section contains immunizations associated to the Encounter. Immunization Series Date Issued Administered By Site Reaction Lot Number CVX Code Drug Digital Asset Specialist Comment(s) Source INFLUENZA, HIGH-DOSE, TRIVALENT, PF Nov 02, 2024 LEO ELLINGTON LEFT DELTO ID [id number] SANOFI PASTEUR ADMINISTERE D AT [facility] Social History: Smoking Status (Most current) [...] Date/Time Current Smoking Status Comment Facil ity Nov 02, 2024 08:30 AM VA-TOBACCO USE EVERY DAY CIGARET HIGINIO [facility] Tobacco Use History This section includes a history of the smoking, or tobacco-related health factors, that were collected on or before the date of the Encounter. The data comes from the [place] facility where the Encounter took place. Date/Time Smoking Status/Tobacco Use Comment F acility Nov 02, 2024 08:30 AM VA-TOBACCO USE EVERY DAY CIGARET HIGINIO [place] [facility] Oct 31, 2023 08:30 AM VA-TOBACCO USE 30 YEARS OR MORE [facility] Oct 31, 2023 08:30 AM VA-TOBACCO USE ADVICE [facility] Oct 31, 2023 08:30 AM VA-TOBACCO USE RESEARCH DEVELOPMENT MANAGER NO [facility] Oct 31, 2023 08:30 AM VA-TOBACCO USE MED NO [facility] [place] [facility] Oct 31, 2023 08:30 AM VA-TOBACCO USE WI 30 MIN OF WAKE UP [facility] Oct 31, 2023 08:30 AM VA-TOBACCO USER EVERY DAY [facility] Oct 29, 2022 08:30 AM VA-TOBACCO USE 30 YEARS OR MORE [facility] Oct 29, 2022 08:30 AM VA-TOBACCO USE ADVICE [facility] Oct 29, 2022 08:30 AM VA-TOBACCO USE RESEARCH DEVELOPMENT MANAGER NO [facility] Oct 29, 2022 08:30 AM VA-TOBACCO USE MED NO [facility] Oct 29, 2022 08:30 AM VA-TOBACCO USE WI 30 MIN OF WAKE UP [facility] Oct 29, 2022 08:30 AM VA-TOBACCO USER EVERY DAY [facility] Nov 09, 2019 12:37 PM VA-TOBACCO USE > 1 5 LESS THAN 30 YEARS [facility] Nov 09, 2019 12:37 PM VA-TOBACCO USE ADVICE [facility] Nov 09, 2019 12:37 PM VA-TOBACCO USE RESEARCH DEVELOPMENT MANAGER NO [facility] Nov 09, 2019 12:37 PM VA-TOBACCO USE MED NO [place] [facility] Nov 09, 2019 12:37 PM VA-TOBACCO USE WI 30 MIN OF WAKE UP [facility] Nov 09, 2019 12:37 PM VA-TOBACCO USER EVERY DAY [facility] Radiology Reports: +/- 30 days of the encounter Radiology Reports For cases when an order for radiology services may have been completed prior to the date of the Encounter, the report list includes the Radiology Reports that were completed up to 30 days before dateof the Encounter. For cases when an order for radiology services may have been completed after the date of the Encounter, the report list also includes the Radiology Reports that were completed up to30 days after date of the Encounter. The data comes from all [place] treatment facilities. Date/Time Radiology Report Provider Source Nov 02, 2024 09:16 AM CHEST X-RAY, 2 VIE WS: LINNEA JOHNSON [id number] [phone] M Exm Date: NOV 02, 2024@09:16 Req Phys: ELMA FLETCHER Pat Loc: PB-[facility] PACT ECHO PCP (Req'g Lo Img Loc: PB-XRAY [facility] Service: [place] [address] (Case [id number] COMPLETE) CHEST X-RAY, 2 VIEWS (RAD Detailed) CPT:69458 Reason for Study: edema Clinical History: Report Status: Verified Date Reported: NOV 02, 2024 Date Verified: NOV 02, 2024 Director Radio News E-Sig: Report: PA and lateral views of the chest reveal degenerative skeletal changes, minimal scoliosis and a metal plate in the spine at the cervicothoracic junction. There are atherosclerotic and granulomas calcifications. There is extensive aortic tortuosity. There is bilateral pulmonary hyperaeration. There is no infiltrate or effusion. Heart size is normal. Impression: 1. Chronic findings as noted 2. No acute process Primary Interpreting Staff: JR EMANUEL RADIOLOGIST (Director Radio News, no e-sig) /JR Frank [facility] Encounter Notes: All associated encounter notes This section contains the clinical notes associated to the Encounter. Date/Time Encounter Note(s) Provider Source Dec 24, 2024 04:16 PM ADDENDUM: LOCAL TITLE: Addendum STANDARD TITLE: ADDENDUM DATE OF NOTE: DEC 24, 2024@16:16:28 ENTRY DATE: DEC 24, 2024@16:16:29 AUTHOR: ELMA FLETCHER COSIGNER: URGENCY: STATUS: COMPLETED Notify patient his echocardiogram performed on 11/13/2024 was unremarkable with a normal EF of 55 to 60%. /demetrice/ Elma Fletcher MD [facility] Primary Care Signed: 12/24/2024 16:16 Receipt Acknowledged By: 12/27/2024 08:04 /demetrice/ LEO ELLINGTON OFFICE AUTOMATION CLERK --- Original Document --- 11/02/24 PRIMARY CARE CLINIC PROGRESS NOTE PB: CC: Patient is here for his annual routine exam in addition to following up from his visit on September 23, 2024 with marked lower extremity edema. HPI: He reports his swelling improved significantly increasing his lisinopril to twice a day for a week he is back down to 40 mg once a day and reports his legs are at their baseline. He does have compression stockings at home but does not wear them routinely. He has seen Dr. Carcamo in the past for his squamous cell cancers he has got some more lesions on his head and would like to get into see a local delivery driver here in [place]. He does have chronic back pain takes Tylenol #3 tablets 2-3 times a day for the pain. He reports overall doing well with his mood and is sleeping well. 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 JOB/DUTIES: [employer] OVERSEAS STATIONS/DEPLOYMENTS: No MAJOR ACCIDENTS OR INJURIES WHILE ON ACTIVE DUTY: No MST: No SURGICAL HX: cholecystectomy PROBLEM LIST: 1) COPD - Chronic Obstructive Pulmonary Disease ([facility] [id number]) 2) HTN - Hypertension ([facility] [id number]) 3) Cataracts 4) Chronic low back pain 5) Prediabetes 6) Chronic diarrhea 7) Benign prostatic hyperplasia 8) Subarachnoid hemorrhage 9) Sensorineural hearing loss of bilateral ears 10) Urinary retention 11) Chronic systolic heart failure Active Outpatient Medications (including Supplies): Active Outpatient Medications Status 1) CODEINE 30/ACETAMINOPHEN 300MG TAB TAKE 1 TABLET BY MOUTH ACTIVE EVERY 6 HOURS NEEDED CAUTION: DO NOT EXCEED 4000MG PER DAY ACETAMINOPHEN (APAP) FROM ALL MEDS. Indication: FOR PAIN 2) FUROSEMIDE 40MG TAB TAKE ONE TABLET BY MOUTH TWICE A DAY ACTIVE Indication: FOR FLUID RETENTION (EDEMA) 3) MIRTAZAPINE 30MG TAB TAKE ONE-HALF TABLET BY MOUTH AT ACTIVE BEDTIME Indication: FOR DEPRESSION 4) POTASSIUM CL 20MEQ SA TAB (DISPERSIBLE) TAKE ONE-HALF TABLET ACTIVE BY MOUTH ONCE A DAY TAKE WITH FOOD Indication: FOR POTASSIUM SUPPLEMENTATION Active Non-VA Medications Status 1) Non-VA FUROSEMIDE 20MG TAB 20MG BY MOUTH EVERY MORNING ACTIVE 5 Total Medications OBJECTIVE: Vital Signs Temperature: 98.2 F [36.8 C] (09/23/2024 09:33) Respiratory Rate: 18 (11/02/2024 08:43) Pulse Rate: 61 (11/02/2024 08:51) Blood Pressure: 173/91 (11/02/2024 08:51) HT: 74.0 in [188.0 cm] (11/02/2024 08:43) WT: 134.5 lb [61.01 kg] (11/02/2024 08:43) BMI: 17.3 98% (11/02/2024 08:45) Physical Exam General: NAD noted, A&Ox3, pleasant, appears stated age HEENT: NCAT, TM's clear, nares and oropharynx clear Neck: Supple with normal active ROM, without any lymphadenopathy Heart: RRR, no murmur, clicks, or rub Resp: Lungs CTA bilaterally, respirations even and unlabored Abdomen: Soft, non-distended, non-tender Ext: No clubbing, cyanosis, 2+ bilateral lower extremity edema or obvious deformity Neuro: Grossly intact Psych: Affect normal, answers questions appropriately throughout visit EKG today shows a normal sinus rhythm with ventricular rate of 62 he does have an old right bundle branch block without any significant changes from his prior EKG on 05/07/2024 Chest x-ray today shows no acute changes Assessment/Plan: Routine health maintenance. Lab reviewed with patient and printed handout given to him. Chronic obstructive pulmonary disease-denies no change in his breathing and has not been using his albuterol; uses DuoNeb as needed Chronic systolic congestive heart failure-continues to have some edema with the Lasix 40 mg daily will add hydrochlorothiazide 25 mg daily and increase his potassium to 20 mEq daily; I will set him up for an echocardiogram; encouraged use of his compression stockings which she does not have on today Hypertension-will add hydrochlorothiazide to his current Lasix and lisinopril due to his elevated blood pressure; will return in 2 weeks for blood pressure check and BMP Weight loss-we stable Chronic low back pain-uses a cane for stability takes Tylenol 3's 2-3 times a day; was willing to give acupuncture a try BFA Chronic diarrhea for several years-stable Squamous cell skin cancer forehead-will refer to dermatology for further treatment Depression-doing well on Lexapro and mirtazapine Follow-up: 6 months and/or as needed. Discussed with patient that [...] appointments. Medications Reconciled. See AVS given to Herm[place]. Time spent 30 minutes. /demetrice/ Elma Fletcher MD [place] [facility] Primary [facility] Signed: 11/02/2024 13:24 12/27/2024 ADDENDUM STATUS: UNSIGNED You may not VIEW this UNSIGNED Addendum. ELMA FLETCHER [facility] Nov 18, 2024 08:45 AM PHYSICIAN LETTERS: LOCAL TITLE: TEST RESULT GENERAL LETTER [facility] STANDARD TITLE: PHYSICIAN LETTERS DATE OF NOTE: NOV 18, 2024@08:45 ENTRY DATE: NOV 18, 2024@08:45:55 AUTHOR: ELMA FLETCHER EXP COSIGNER: URGENCY: STATUS: COMPLETED [address] [address] NOV 18, 2024 LINNEA JOHNSON [address] [place] [id number] Dear Linnea Johnson, I would like to update you on your recent test results. CHEM 7 - This is important information about the current status of your kidneys, liver, and electrolyte and acid/base balance as well as of your blood sugar and blood proteins. SODIUM 144 mEq/L 11/16/2024 10:39 POTASSIUM 3.9 mEq/L 11/16/2024 10:39 CHLORIDE 109 H mEq/L 11/16/2024 10:39 UREA NITROGEN 31 H mg/dL 11/16/2024 10:39 CREATININE 1.13 mg/dL 11/16/2024 10:39 CALCIUM 9.2 mg/dL 11/16/2024 10:39 CARBON DIOXIDE 25 mEq/L 11/16/2024 10:39 GLUCOSE 93 mg/dL 11/16/2024 10:39 EGFR (CKD-EPI 2020) 65 11/16/2024 10:39 These readings are within normal limits. FUTURE APPOINTMENTS: 04/21/2025 08:40 [facility] ( 04/29/2025 10:[address] PACT ECHO PCP Sincerely, Elma Fletcher MD [place] [facility] Primary Care JOHNSONLINNEA TAMMY [facility] Nov 02, 2024 01:24 PM [facility]TEGRATIVE [facility]ALTH NOTE: LOCAL TITLE: [facility] ACUPUNCTURE NOTE STANDARD TITLE: [facility] NOTE DATE OF NOTE: NOV 02, 2024@13:24 ENTRY DATE: NOV 02, 2024@13:24:36 AUTHOR: ELMA FLETCHER EXP COSIGNER: URGENCY: STATUS: COMPLETED Initial visit [place] Acupuncture was the only treatment given. Patient was evaluated and agreed to receive [place] Acupuncture (BFA). Patient was evaluated and agreed to receive [place] Acupuncture Protocol (BFA) for the following pain condition(s): Comment: Lower back left hip Pre BFA Pain Numeric Rating Scale of site with highest pain: 5 The patient was asked the following questions: During the past 24 hours, how much has your pain interfered with your usual activity? 4 During the past 24 hours, how much has your pain interfered with your usual sleep? 7 During the past 24 hours, how much has the pain affected your usual mood? 7 During the past 24 hours, how much has pain contributed to your stress? 7 Oral informed consent obtained for BFA. Procedure: Ear was prepped with alcohol Needle type: Adhesive press tacks 0.6mm The following points were placed: All 10 points in both ears Complications: Patient tolerated well, without any complications. Post treatment Numeric Pain Rating Scale: To be determined standard [id number] time for application of BFA protocol is 15 minutes. No electrical stimulation was used. Face to face time spent durin gthis procedure in the delivery of BFA was 15 minutes. The patient was provided with the following post BFA instructions: -Continue normal activities and avoid over exertion for the initial 6-12 hours after a treatment. Avoid alcohol for 12 hours after treatment. -You may bathe or shower with the needles in place, but be careful not to pull the needles when cleaning or drying the ear. -If you experience new or continued redness, swelling or pain, remove the needles or return to clinic for evaluation and/or needle removal. -You may experience drowsiness, lightheadedness, or euphoria during the treatment or within 30 minutes of treatment. -Do not have an MRI scan with the needles in place (If you need to have an MRI, please remove needles prior to scan). -Continue to take all prescription medication according to your provider's instructions. -After three days, remove all needles. You may have small stud needles (ASP needles) covered by an adhesive bandage, or needles that are attached to the adhesive bandage (press tack needles). ASP needles may be removed by gripping them with your fingernails or tweezers. Rock the needles back and forth to remove. Press tack needles may be removed by peeling off the tape that holds the needle in place. -[place] must be placed in a sharps container or household container that meets sharps disposal guidelines. Household container must be: a. made of a puncture-resistant material; b. able to close with a tight-fitting, puncture resistant lid, without sharps being able to come out; c. stand upright and be stable during use; d. leak-resistant; e. properly labeled (sharps - biohazard); and f. disposed of according to community guidelines, if available. -Please keep all regularly scheduled follow-up visits. Return sooner should your condition worsen. Future visit dates/details: jenna /demetrice/ Elma Fletcher MD [place] [facility] Signed: 11/02/2024 13:25 ELMA FLETCHER [facility] Nov 02, 2024 09:22 AM ACCOUNTING OF DISC LOSURES NOTE: LOCAL TITLE: STATE PRESCRIPTION DRUG MONITORING PROGRAM STANDARD TITLE: ACCOUNTING OF DISCLOSURES NOTE DATE OF NOTE: NOV 02, 2024@09:22:50 ENTRY DATE: NOV 02, 2024@09:22:50 AUTHOR: ELMA FLETCHER EXP COSIGNER: URGENCY: STATUS: COMPLETED This PDMP query was submitted by Elma Fletcher MD. The clinical justification for this PDMP query is to review controlled substances prescribed outside of the [facility], and any additional information that may become available, as an important component of standard clinical care, and in accordance with [facility] policy. Patient information was shared with the PDMP [place]riss [place]. No prescription(s) for controlled substances outside the [facility] were found in the last 90 days. /demetrice/ Elma Fletcher MD [facility] Signed: 11/02/2024 09:28 ELMA FLETCHER [facility] Nov 02, 2024 08:57 AM PRIMARY CARE NURSI NG NOTE: LOCAL TITLE: PRIMARY CARE NURSING PROGRESS NOTE (TEXT) NURSING P STANDARD TITLE: PRIMARY CARE NURSING NOTE DATE OF NOTE: NOV 02, 2024@08:57 ENTRY DATE: NOV 02, 2024@08:57:26 AUTHOR: LEO ELLINGTON EXP COSIGNER: URGENCY: STATUS: COMPLETED PRIMARY CARE NURSING PROGRESS NOTE (TEXT) NURSING PB Has ADDENDA Established Patient LINNEA JOHNSON IS A 84 YEAR OLD MALE BEING SEEN IN CLINIC NOV 02, 2024. REASON FOR VISIT: [place] here today for annual follow up. He would like a flu vaccine today. is requesting all meds come from [facility] due to not having any cost. Alerted provider of veterans request. Are you receiving care any where other than the [facility]? Yes, List: [facility] H[facility]ORY: Does patient report using home oxygen? No CURRENT ACTIVE MEDICATIONS FOR REVIEW: Allergies/ADRs (Tool #5) FACILITY ALLERGY/ADR -------- No Remote Allergy/ADR Data available for this patient [facility] No Known Allergies Med. Reconciliation (Tool #1) INCLUDED IN THIS LIST: Alphabetical list of active outpatient prescriptions dispensed from this [place] (local) and dispensed from another VA or [facility] facility (remote) as well as inpatient orders (local pending and active), local clinic medications, locally documented non-VA medications, and local prescriptions that have or been discontinued in the past 90 days. Non-VA Meds Last Documented On: May 06, 2024 NOTE The display of VA prescriptions dispensed from another [place] or [facility] facility (remote) is limited to active outpatient prescription entries matched to National Drug File at the originating site and may not include some items such as investigational drugs, compounds, etc. NOT INCLUDED IN THIS LIST: Medications self-entered by the patient into personal health records (i.e. ScheduleSoft) are NOT included in this list. Non-VA medications documented outside this [place], remote inpatient orders (regardless of status) and remote clinic medications are NOT included in this list. The patient and provider must always discuss medications the patient is taking, regardless of where the medication was dispensed or obtained. OUTPT ALBUTEROL 3/IPRATROP 0.5MG/3ML INHL 3ML (Status = ) INHALE 1 VIAL (3ML) BY NEBULIZATION FOUR TIMES A DAY DIRECTED NEEDED FOR COPD Rx# [id number] Last Released: 11/05/23 Qty/Days Supply: 360/90 Rx Expiration Date: 10/31/24 Refills Remainin Indication: FOR COPD OUTPT CODEINE 30/ACETAMINOPHEN 300MG TAB (Status = Active) TAKE 1 TABLET BY MOUTH EVERY 6 HOURS NEEDED FOR PAIN CAUTION: DO NOT EXCEED 4000MG PER DAY ACETAMINOPHEN (APAP) FROM ALL MEDS. Rx# [id number] Last Released: 10/22/24 Qty/Days Supply: 60/30 Rx Expiration Date: 12/24/24 Refills Remainin Indication: FOR PAIN OUTPT ESCITALOPRAM OXALATE 20MG TAB (Status = ) TAKE ONE TABLET BY MOUTH ONCE A DAY FOR DEPRESSION Rx# [id number] Last Released: 11/05/23 Qty/Days Supply: Rx Expiration Date: 10/31/24 Refills Remainin Indication: FOR DEPRESSION Non-VA FUROSEMIDE 20MG TAB TAKE ONE TABLET BY MOUTH EVERY MORNING VA RX: Patient wants to buy from Non-VA pharmacy VA RX: Medication prescribed by Non-VA provider OUTPT FUROSEMIDE 40MG TAB (Status = Discontinued) TAKE ONE TABLET BY MOUTH EVERY DAY FOR FLUID RETENTION (EDEMA) Rx# [id number] Last Released: 07/23/24 Qty/Days Supply: Rx Expiration Date: 07/22/25 Refills Remainin Indication: FOR FLUID RETENTION (EDEMA) OUTPT FUROSEMIDE 40MG TAB (Status = Active) TAKE ONE TABLET BY MOUTH TWICE A DAY FOR FLUID RETENTION (EDEMA) Rx# [id number] Last Released: 09/24/24 Qty/Days Supply: 180 Rx Expiration Date: 09/24/25 Refills Remainin Indication: FOR FLUID RETENTION (EDEMA) OUTPT LISINOPRIL 40MG TAB (Status = ) TAKE ONE TABLET BY MOUTH ONCE A DAY FOR HIGH BLOOD PRESSURE Rx# [id number] Last Released: 11/03/23 Qty/Days Supply: Rx Expiration Date: 10/31/24 Refills Remainin Indication: FOR HIGH BLOOD PRESSURE OUTPT MIRTAZAPINE 30MG TAB (Status = Active) TAKE ONE-HALF TABLET BY MOUTH AT BEDTIME FOR DEPRESSION Rx# [id number] Last Released: 05/31/24 Qty/Days Supply: 45 Rx Expiration Date: 05/29/25 Refills Remainin Indication: FOR DEPRESSION OUTPT MONTELUKAST NA 10MG TAB (Status = ) TAKE ONE TABLET BY MOUTH EVERY EVENING FOR COPD Rx# [id number] Last Released: 11/04/23 Qty/Days Supply: 90 Rx Expiration Date: 10/31/24 Refills Remainin Indication: FOR COPD OUTPT POTASSIUM CL 20MEQ SA TAB (DISPERSIBLE) (Status = Active) TAKE ONE-HALF TABLET BY MOUTH ONCE A DAY FOR POTASSIUM SUPPLEMENTATION TAKE WITH FOOD Rx# [id number] Last Released: 09/27/24 Qty/Days Supply: 45 Rx Expiration Date: 11/05/24 Refills Remainin Indication: FOR POTASSIUM SUPPLEMENTATION SUPPLIES PHARMACY TERMS AND POSSIBLE PATIENT ACTIONS INPT = MO inpatient order IV = MO intravenous medication OUTPT = MO outpatient prescription PHARMACY POSSIBLE PATIENT TERMS EXPLANATION ACTIONS -------- - ACTIVE A prescription that can be If you have refills, filled at the local [place] pharmacy. you may request a refill of this prescription from your [place] pharmacy. CLINIC A medication you received during If you have questions a visit to a [place] clinic or about this medication emergency department. contact your [place] healthcare team. DISCONTINUED A prescription your provider has Contact your [place] stopped. It is no longer healthcare team if you available to be sent to you or need more of this picked up at the [place] pharmacy medication. window. A prescription which is [...] the [facility]. Or, it may be an wdda-uxz-utuozkr (OTC), herbal, dietary supplements or sample medication. [...] before this medication now. you run out. ==== Patient reports taking medications as IS PATIENT TAKING ANY OVER THE COUNTER MEDICATIONS, SUCH VITAMINS OR HERBAL SUPPLEMENTS, INCLUDING ANY MEDICATIONS PRESCRIBED BY ANOTHER PHYSICIAN? No ALLERGIES/ADVERSE REACTIONS: Patient has answered NKA Does patient have any new allergies to report since last visit? NO VITALS: TEMPERATURE: 98.2 F [36.8 C] (09/23/2024 09:33) BP: 173/91 (11/02/2024 08:51) RESP: 18 (11/02/2024 08:43) PULSE: 61 (11/02/2024 08:51) HT: 74.0 in [188.0 cm] (11/02/2024 08:43) WT: 134.5 lb [61.01 kg] (11/02/2024 08:43) BMI: 17.3 PAIN ASSESSMENT: (Most Recent Pain Score in Vitals Package: 0 (11/02/2024 08:43) ) The patient indicated that they and [...] Now let us serve you. At the [facility], we strive to provide you with exceptional [...] Not At All SPIRITUAL ASSESSMENT: Are there hinduism practices or spiritual concerns you want the taxi servicer, your physician, and other health care team members to immediately know about? No Patient advised to call the clinic for any concerns, questions, or symptoms. Patient and/or caregiver verbalized understanding of plan of care. Frail/Elderly Screen: ADL Screen - Fontaine Index of Apex in Activities of Daily Living Bathing: (3 Points) Receives no assistance (gets in and out of tub by self, if tub is usual means of bathing) Dressing: (3 Points) Gets clothes and gets completely dressed without assistance. Toileting: (3 Points) Goes to toilet room , cleans self, and arranges clothes without assistance (may use object for support such as cane, walker, or wheelchair, and may manage own night bedpan or commode, emptying same next morning) Transferring: (3 Points) Moves in and out of bed and in and out of chair without assistance (may be using object for support, such as cane or walker) Continence: (3 Points) Controls urination and bowel movement completely by self Feeding: (3 Points) Feeds self without assistance Total Score: 18 Points 18 = High (patient independent) 6 = Low (patient very dependent) IADL Screen - Kennedy Instrumental Activities of Daily Living Scale Ability to use telephone: (1 point) Operates Telephone on own initiative; looks up and dials numbers. Shopping: (1 point) Takes care of all shopping needs independently. Food preparation: (1 point) Plans, prepares, and serves adequate meals independently. Housekeeping: (1 point) Maintains house alone with occasional assistance (heavy work). Laundry: (1 point) Does personal laundry completely. Mode of transportation: (1 point) Travels independently on public transportation or drives own car. Responsibility for own medications: (1 point) Is responsible for taking medications in correct dosages at correct times. Ability to handle finances: (1 point) Manages financial matters independently (budgets, writes checks, pays rent and bills, goes to bank); collects and keeps track of income. Total score: 8 points 8 = High function, independent 0 = Low function, dependent Falls Screen: No falls within the past 12 months. Incontinence Screen No incontinence. Suicide Screen - V: C-SSRS Screening [place]-Suicide Severity Rating Scale (C-SSRS Screener) 1. Over the past month, have you wished you were or wished you could go to sleep and not wake up? No 2. Over the past month, have you had any actual thoughts of killing yourself? No 3. Over the past month, have you been thinking about how you might do this? Response not required due to responses to other questions. 4. Over the past month, have you had these thoughts and had some intention of acting on them? Response not required due to responses to other questions. 5. Over the past month, have you started to work out or worked out the details of how to kill yourself? Response not required due to responses to other questions. 6. If yes, at any time in the past month did you intend to carry out this plan? Response not required due to responses to other questions. 7. In your lifetime, have you ever done anything, started to do anything, or prepared to do anything to end your life (for example, collected pills, obtained a gun, gave away valuables, went to the roof but didn't jump)? No 8. If YES, was this within the past 3 months? Response not required due to responses to other questions. FALL RISK OP PB: TORRES FALL RISK ASSESSMENT Have you experienced any falls within the last 12 months: 0 = No Secondary Dx: 5 = Yes Secondary Dx Ambulatory Aid: 5 = Crutches/Walker/Cane Gait/Transferrin = Weak Mental status: 0 = Oriented to own ability Medications: 5 = High risk meds TOTAL SCORE: 20 Score <30 - patient IS NOT at risk for falls. No action at this time. Reassess annually or if needed. Fall Documentation No - Patient did not experience a fall within the last year Sexual Orientation - CP,L,N,P,PH,PS,S,U: The patient thinks of their sexual orientation as: Straight or Heterosexual RHS Screen - VS: RHS Screen Session Format: Face to Face Environmental Check Screening was not completed at this time due to: Another adult present COVID-19 Immunization - L,N,P,PH,U: Refused Moderna Monovalent COVID-19 vaccine Immunization: COVID-19 (MODERNA), MRNA, LNP-S, PF, 50 MCG/0.5 ML (AGES 12+ YEARS) Refusal Reason: PATIENT DECISION Patient refuses all immunization(s) in the COVID-19 group Date Documented: 11/02/24 09:00 Alcohol Use Screen (AUDIT-C) - V: Alcohol Screen: SCREEN FOR ALCOHOL (AUDIT-C) An alcohol screening test (AUDIT-C) was negative (score=2). 1. How often did you have a drink containing alcohol in the past year? Consider a drink to be a 12 ounce can or bottle of regular beer, 8 ounces of malt liquor, a 5 ounce glass of table wine, or a 1.5 ounce shot of liquor (like scotch, gin, or vodka). Two to four times a month 2. How many drinks containing alcohol did you have on a typical day when you were drinking in the past year? One or two drinks 3. How often did you have six or more drinks on one occasion in the past year? Never Tobacco Use Screening - AT,DE,L,M,N,P,PH,PS,RT,S,U: The patient smokes cigarettes every day. The patient has never used other types of tobacco. Depression Screening - V: Perform PHQ-2 A PHQ-2 screen was performed. The score was 1 which is a negative screen for depression. Over the past two weeks, how often have you been bothered by the following problems? 1. Little interest or pleasure in doing things Not at all 2. Feeling down, depressed, or hopeless Several days Homelessness/Food Insecurity Screen - DI,L,N,P,PH,PS,S,U: In the past 2 months, have you been living in stable housing that you own, rent, or stay in as part of a household? Yes - Living in stable housing. Are you worried or concerned that in the next 2 months you may NOT have stable housing that you own, rent, or stay in as part of a household? No - Not worried about housing near future The [place] reports the following: Within the past 12 months, you worried whether your food would run out before you got money to buy more. Never true Within the past 12 months, the food you bought just didn't last and you didn't have money to get more. Never true PTSD Screening - V: PC-PTSD-5 A PTSD screening test (PC-PTSD-5) was negative (score=0). IN THE PAST MONTH, have you ever had any experience that was so frightening, horrible or traumatic. For example: A serious accident or fire a physical or sexual assault or abuse An earthquake or flood A war Seeing someone be killed or seriously injured Having a loved one through homicide or suicide 1. Have you ever experienced this kind of event? YES 2. Had nightmares about the event(s) or thought about the event(s) when you did not want to? NO 3. Tried hard not to think about the event(s) or went out of your way to avoid situations that reminded you of the event(s)? NO 4. Been constantly on guard, watchful, or easily startled? NO 5. [place] numb or detached from people, activities, or your surroundings? NO 6. [place] guilty or unable to stop blaming yourself or others for the event(s) or any problems the event(s) may have caused? NO Pain Assessment: - PAIN ASSESSMENT: .. Patient reports no pain at this visit. Pain Score = 0. Patient's self identified pain goal: 0 HIV Screening-Routine: Patient has been offered HIV testing and has declined. I have explained that HIV testing is recommended for all adults, even if all risk factors are absent. Herpes Zoster (Shingles) Vaccine - L,N,P,PH,U: The patient declines to receive the recommended dose of zoster (shingles) vaccine. Immunization: ZOSTER RECOMBINANT Refusal Reason: PATIENT DECISION Patient refuses all immunization(s) in the ZOSTER group Date Documented: 11/02/24 09:02 /karime ELLINGTON LPN Signed: 11/02/2024 09:02 11/02/2024 ADDENDUM STATUS: COMPLETED Influenza Immunization - L,N,P,PH,U: Influenza, High-Dose, Trivalent, Preservative Free (Fluzone-Syringe) Administered: INFLUENZA, HIGH-DOSE, TRIVALENT, PF Date Administered: Nov 02, 2024 08:30 Digital Asset Specialist: SANOFI PASTEUR Lot: [id number] Exp Date: Apr 18, 2025 [facility]: [phone] Admin Route/Site: INTRAMUSCULAR/LEFT DELTOID Dosage: 0.5mL Vaccine Information Statement(s): INFLUENZA(FLU) VACC(INACTIVATED OR RECOMBINANT)VIS May 25, 2021 (INDONESIAN) Order By: Policy Administered By: Leo Ellington The Influenza Vaccine Information Statement (VIS) was reviewed with the patient/caregiver which lists the benefits and risks of the vaccine and the risks of not receiving the Influenza vaccine. The patient/caregiver denied any prior severe reaction to this vaccine or its components or a severe allergic reaction, such as anaphylaxis, to any vaccine or any injectable therapy. The patient/caregiver gave verbal consent to receive the vaccine. /karime ELLINGTON LPN Signed: 11/02/2024 09:04 LEO ELLINGTON [facility] Nov 02, 2024 08:56 AM PRIMARY CARE PROGR ESS NOTE: LOCAL TITLE: PRIMARY CARE CLINIC PROGRESS NOTE PB STANDARD TITLE: PRIMARY CARE PROGRESS NOTE DATE OF NOTE: NOV 02, 2024@08:56 ENTRY DATE: NOV 02, 2024@08:56:17 AUTHOR: ELMA FLETCHER EXP COSIGNER: URGENCY: STATUS: COMPLETED PRIMARY CARE CLINIC PROGRESS NOTE PB Has ADDENDA CC: Patient is here for his annual routine exam in addition to following up from his visit on September 23, 2024 with marked lower extremity edema. HPI: He reports his swelling improved significantly increasing his lisinopril to twice a day for a week he is back down to 40 mg once a day and reports his legs are at their baseline. He does have compression stockings at home but does not wear them routinely. He has seen Dr. Carcamo in the past for his squamous cell cancers he has got some more lesions on his head and would like to get into see a local delivery driver here in [place]. He does have chronic back pain takes Tylenol #3 tablets 2-3 times a day for the pain. He reports overall doing well with his mood and is sleeping well. 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 STATIONS/DEPLOYMENTS: No MAJOR ACCIDENTS OR INJURIES WHILE ON ACTIVE DUTY: No MST: No SURGICAL HX: cholecystectomy PROBLEM LIST: 1) COPD - Chronic Obstructive Pulmonary Disease ([facility] [id number]) 2) HTN - Hypertension ([facility] [id number]) 3) Cataracts 4) Chronic low back pain 5) Prediabetes 6) Chronic diarrhea 7) Benign prostatic hyperplasia 8) Subarachnoid hemorrhage 9) Sensorineural hearing loss of bilateral ears 10) Urinary retention 11) Chronic systolic heart failure Active Outpatient Medications (including Supplies): Active Outpatient Medications Status 1) CODEINE 30/ACETAMINOPHEN 300MG TAB TAKE 1 TABLET BY MOUTH ACTIVE EVERY 6 HOURS NEEDED CAUTION: DO NOT EXCEED 4000MG PER DAY ACETAMINOPHEN (APAP) FROM ALL MEDS. Indication: FOR PAIN 2) FUROSEMIDE 40MG TAB TAKE ONE TABLET BY MOUTH TWICE A DAY ACTIVE Indication: FOR FLUID RETENTION (EDEMA) 3) MIRTAZAPINE 30MG TAB TAKE ONE-HALF TABLET BY MOUTH AT ACTIVE BEDTIME Indication: FOR DEPRESSION 4) POTASSIUM CL 20MEQ SA TAB (DISPERSIBLE) TAKE ONE-HALF TABLET ACTIVE BY MOUTH ONCE A DAY TAKE WITH FOOD Indication: FOR POTASSIUM SUPPLEMENTATION Active Non-VA Medications Status 1) Non-VA FUROSEMIDE 20MG TAB 20MG BY MOUTH EVERY MORNING ACTIVE 5 Total Medications OBJECTIVE: Vital Signs Temperature: 98.2 F [36.8 C] (09/23/2024 09:33) Respiratory Rate: 18 (11/02/2024 08:43) Pulse Rate: 61 (11/02/2024 08:51) Blood Pressure: 173/91 (11/02/2024 08:51) HT: 74.0 in [188.0 cm] (11/02/2024 08:43) WT: 134.5 lb [61.01 kg] (11/02/2024 08:43) BMI: 17.3 98% (11/02/2024 08:45) Physical Exam General: NAD noted, A&Ox3, pleasant, appears stated age HEENT: NCAT, TM's clear, nares and oropharynx clear Neck: Supple with normal active ROM, without any lymphadenopathy Heart: RRR, no murmur, clicks, or rub Resp: Lungs CTA bilaterally, respirations even and unlabored Abdomen: Soft, non-distended, non-tender Ext: No clubbing, cyanosis, 2+ bilateral lower extremity edema or obvious deformity Neuro: Grossly intact Psych: Affect normal, answers questions appropriately throughout visit EKG today shows a normal sinus rhythm with ventricular rate of 62 he does have an old right bundle branch block without any significant changes from his prior EKG on 05/07/2024 Chest x-ray today shows no acute changes Assessment/Plan: Routine health maintenance. Lab reviewed with patient and printed handout given to him. Chronic obstructive pulmonary disease-denies no change in his breathing and has not been using his albuterol; uses DuoNeb as needed Chronic systolic congestive heart failure-continues to have some edema with the Lasix 40 mg daily will add hydrochlorothiazide 25 mg daily and increase his potassium to 20 mEq daily; I will set him up for an echocardiogram; encouraged use of his compression stockings which she does not have on today Hypertension-will add hydrochlorothiazide to his current Lasix and lisinopril due to his elevated blood pressure; will return in 2 weeks for blood pressure check and BMP Weight loss-we stable Chronic low back pain-uses a cane for stability takes Tylenol 3's 2-3 times a day; was willing to give acupuncture a try BFA Chronic diarrhea for several years-stable Squamous cell skin cancer forehead-will refer to dermatology for further treatment Depression-doing well on Lexapro and mirtazapine Follow-up: 6 months and/or as needed. Discussed with patient that [...] given to . Time spent 30 minutes. /karime Fletcher MD [facility] Signed: 11/02/2024 13:24 12/24/2024 ADDENDUM STATUS: COMPLETED Notify patient his echocardiogram performed on 11/13/2024 was unremarkable with a normal EF of 55 to 60%. /karime Fletcher MD [facility] Signed: 12/24/2024 16:16 Receipt Acknowledged By: 12/27/2024 08:04 /demetrice/ LEO ELLINGTON LPN 12/27/2024 ADDENDUM STATUS: COMPLETED Called to report providers report review of his ECHO. He voiced understanding. /karime ELLINGTON LPN Signed: 12/27/2024 08:05 [facility]CH[facility]
--- OUTSIDE RECORDS SUMMARY | 2024-12-16 05:45 | XMS_ITS | Encounter Summary ---
Author Name [facility] [facility] [place] Address [address] [place] [id number] Care Team Providers Care Gastroenterology Nurse Name Role Phone ELMA JONES Primary Care [...] Name Patient's Relationship to Policy [place] [employer] [facility] (WNR) MEDICARE ADVANTAGE [facility] (WNR) Oct 20, 2023 [id number] DMITRIY JOHNSON PATIENT Selected Encounter This section includes the information on record at [place] for the Encounter. Date/Time Encounter Type Encounter Description Reason Provider Source Dec 16, 2024 10:45 AM OFF/OP EST FEBRUARY X REQ PHY/QHP PRIMARY CARE/MEDICINE ICD-10-CM Z01.30 Encounter for exam of blood pressure w/o abnormal findings ALANA HERNANDEZ Encounter Template Text not used by [place] Assessments - Encounter Diagnoses This section includes the primary and secondary diagnoses documented for the Encounter. Date/Time Primary/Secondary Diagnosis Diagnosis Name Provider Source Dec 16, 2024 11:42 AM PRIMARY Encounter for exam of blood pressure w/o abnormal findings [facility] Dec 16, 2024 11:42 AM SECONDARY Diarrhea, unspecified [place] [facility] Plan of Treatment: Future Appointments (+ 6 months) and Future Tests (+/- 45 days) The Plan of Treatment section includes future care activities for the patient from all [place] [facility]. This section includes future appointments and future orders which are active, pending or scheduled. Future Appointments This section includes appointments that were scheduled to occur 6 months from the date of the Encounter, up to a maximum of 20 appointments. The data comes from all [facility]. Appointment Date/Time Appointment Type Appointme nt Facility Name Dec 28, 2024 01:00 PM AMBULATORY - MEDICINE [facility] February 25, 2025 08:00 AM AMBULATORY - MEDICINE [facility] Apr 21, 2025 08:40 AM AMBULATORY - MEDICINE [facility] Apr 29, 2025 10:00 AM AMBULATORY MEDICINE [facility] Active, Pending, and Scheduled Orders This section includes a listing of several types of active, pending, and scheduled orders, including clinic medications orders, diagnostic test orders, procedure orders and consult orders; where the start date of the order is 45 days before the date of the Encounter or 45 days after the date of theEncounter. The data comes from all [facility]. Test Date/Time Test Type Test Details Facility Name Nov 02, 2024 10:00 AM Consult Order COMMUNITY CARE-DERMATOLOGY [id number] Cons [employer] Degradation Analyst's Choice [facility] Dec 24, 2024 12:00 AM Laboratory - Microbiology Order C&S STOOL STOOL FECES [facility] Dec 24, 2024 12:00 AM Laboratory - Chemi stry Order OVA & PARASITE, STOOL (PB) STOOL FECES [facility] Dec 24, 2024 12:00 AM Laboratory - Chemi stry Order C DIFF EPI PCR PNL STOOL FECES [facility] Vital Signs: All taken on the encounter date This section contains inpatient and outpatient Vital Signs collected on the date of the Encounter. Date/Time Temperature Pulse Blood Pressure Respiratory Rate SP02 Pain Height Weight Body Mass Index Source Dec 16, 2024 11:22 AM 97.6 58 120/79 17 118.4 15 [facility] Social History: Smoking Status (Most current) and Tobacco Use (All prior to encounter date) This section includes the most current, and the historical, smoking and tobacco- related health factors from the [place] facility where the Encounter took place. Current Smoking Status This section includes the most current smoking, or tobacco-related health factor, from the [place] facility where the Encounter took place. Date/Time Current Smoking Status Comment Mauricio [email or web address] Nov 02, 2024 08:30 AM VA-TOBACCO USE EVERY DAY CIGARET HIGIN[facility] Tobacco Use History This section includes a history of the smoking, or tobacco-related health factors, that were collected on or before the date of the Encounter. The data comes from the [place] facility where the Encounter took place. Date/Time Smoking Status/Tobacco Use Comment Queta [email or web address] Nov 02, 2024 08:30 AM VA-TOBACCO USE EVERY DAY CIGARET [facility] Oct 31, 2023 08:30 AM VA-TOBACCO USE 30 YEARS OR MORE [facility] Oct 31, 2023 08:30 AM VA-TOBACCO USE ADVICE [facility] Oct 31, 2023 08:30 AM VA-TOBACCO USE CAMERA MAKER NO [facility] Oct 31, [...] Oct 29, 2022 08:30 AM VA-TOBACCO USE CAMERA MAKER NO [facility] Oct 29, [...] Nov 09, 2019 12:37 PM VA-TOBACCO USE CAMERA MAKER NO [facility] Nov 09, 2019 12:37 PM VA-TOBACCO USE MED NO [facility] Nov 09, 2019 12:37 PM VA-TOBACCO USE WI 30 MIN OF WAKE UP [facility] Nov 09, 2019 12:37 PM VA-TOBACCO USER EVERY DAY [facility] Encounter Notes: All associated encounter notes This section contains the clinical notes associated to the Encounter. Date/Time Encounter Note(s) Provider Source Dec 24, 2024 02:24 PM ADDENDUM: LOCAL TITLE: Addendum STANDARD TITLE: ADDENDUM DATE OF NOTE: DEC 24, 2024@14:24:41 ENTRY DATE: DEC 24, 2024@14:24:42 AUTHOR: PARK HERNANDEZ COSIGNER: URGENCY: STATUS: COMPLETED The 's called and reported that the is still having rely bad diarrhea. She reported that they had changed to ground turkey to cut back on fat but he has not gotten any better. Let her know that I had talked to Dr. Jones and that they could come picking supervisor the supplies to do a stool test so we could see what was going on. She reports that they will come pick it up today. Let her know that it could not be left at room temperature so it was best to do it when they could bring it right back or to refridurated it. Also let her know that it had to be liquid diarrhea and not formed at all or they would not be able to run the tests. She voiced understanding and had no further questions at this time. /demetrice/ Park Hernandez RN,BSN [facility] Signed: 12/24/2024 14:28 Receipt Acknowledged By: 12/24/2024 14:41 /demetrice/ Elma Jones MD [facility] Primary Care --- Original Document --- 12/16/24 NURSING NOTE PB: This is a 84 year old MALE with known Allergies as noted: Patient has answered NKA On the following Active Medications: Active Outpatient Medications (including Supplies): Active Non-VA Medications Status 1) Non-VA ALBUTEROL 3/IPRATROP 0.5MG/3ML INHL 3ML 1 VIAL (3ML) ACTIVE NEBULIZATION FOUR TIMES A DAY DIRECTED Indication: FOR COPD 2) Non-VA CODEINE 30/ACETAMINOPHEN 300MG TAB 1 TABLET BY MOUTH ACTIVE EVERY 6 HOURS NEEDED Indication: FOR PAIN 3) Non-VA ESCITALOPRAM OXALATE 20MG TAB 20MG BY MOUTH ONCE A ACTIVE DAY Indication: FOR DEPRESSION 4) Non-VA FUROSEMIDE 40MG TAB 40MG BY MOUTH EVERY MORNING ACTIVE Indication: FOR FLUID RETENTION (EDEMA) 5) Non-VA HYDROCHLOROTHIAZIDE 25MG TAB 25MG BY MOUTH ONCE A DAY ACTIVE Indication: FOR HIGH BLOOD PRESSURE 6) Non-VA LISINOPRIL 40MG TAB 40MG BY MOUTH ONCE A DAY ACTIVE Indication: FOR HIGH BLOOD PRESSURE 7) Non-VA MIRTAZAPINE 30MG TAB 15MG BY MOUTH AT BEDTIME ACTIVE Indication: FOR DEPRESSION 8) Non-VA MONTELUKAST NA 10MG TAB 10MG BY MOUTH EVERY EVENING ACTIVE Indication: FOR ALLERGIC RHINITIS 9) Non-VA POTASSIUM CL 20MEQ SA TAB (DISPERSIBLE) 20MEQ BY ACTIVE MOUTH ONCE A DAY Indication: FOR POTASSIUM SUPPLEMENTATION C/C: BP check S: The presented to the clinic today for follow up BP check. The has brought in his BP log. BP are much better. The reports that he is feeling much better. The did report that his Pain medication was stolen, but was worried about letting us know that because he did not want us to think that he was over using it. Called [facility] to ask about when he last had it refilled they reported that 15 tablets were filled on 11/02/24. They reported that the did have a refill if he would like to go ahead and refill. The and his also reported that Dr. Jones had asked if he would like to get Ensure and they would like to go ahead and see about doing that. The reports he does not have much of an appetite. Also reports that he has diarrhea quite often and has had it for years. Reports that it is not all the time but, it just seems to hit me. O/A: The ambulated to the exam room with assistance of a cane, gait is steady. The 's weight today was 118.4 down from 134.5 in October, he has started the HCTZ for BP. The 's swelling is much improved in his lower extremities. Talked to the about the Diarrhea. Asked the and his if he had had his gallbladder removed. The 's reports that he has and that that is about when the diarrhea started. Vitals were stable today. Vital Signs: as charted P: Let the know that his BP looked good. Talked to the and his about avoiding high fat and sugary foods. Gave them a print out of foods to avoid after having the gallbladder out. Let the know that we would need to do a dietetics consult for the ensure, and I would let Dr. Jones know that he would like to do go ahead and do that. The will go picking supervisor his prescription after leaving the clinic The voiced understanding, is in agreement with the plan and has no further questions or complaints at this time. The ambulated to the exit in satisfactory manner. RTC: as needed /demetrice/ Park Hernandez RN,[facility] [place] Signed: 12/16/2024 11:48 Receipt Acknowledged By: 12/16/2024 12:07 /demetrice/ Elma Jones MD [place] [facility] 12/16/2024 ADDENDUM STATUS: COMPLETED Per A Directive 1605.06, wristband documentation: Patient wristband was removed and destroyed by (staff name) Genaro Hernandez RN and placed in the designated [employer]It bin. /demetrice/ Park Hernandez RN,[facility] [place] Signed: 12/16/2024 11:49 [facility] [place] [facility] Dec 16, 2024 10:45 AM NURSING PROGRESS NOTE: LOCAL TITLE: NURSING NOTE PB STANDARD TITLE: NURSING PROGRESS NOTE DATE OF NOTE: DEC 16, 2024@10:45 ENTRY DATE: DEC 16, 2024@10:46:02 AUTHOR: PARK HERNANDEZ COSIGNER: URGENCY: STATUS: COMPLETED NURSING NOTE PB Has ADDENDA This is a 84 year old MALE with known Allergies as noted: Patient has answered NKA On the following Active Medications: Active Outpatient Medications (including Supplies): Active Non-VA Medications Status 1) Non-VA ALBUTEROL 3/IPRATROP 0.5MG/3ML INHL 3ML 1 VIAL (3ML) ACTIVE NEBULIZATION FOUR TIMES A DAY DIRECTED Indication: FOR COPD 2) Non-VA CODEINE 30/ACETAMINOPHEN 300MG TAB 1 TABLET BY MOUTH ACTIVE EVERY 6 HOURS NEEDED Indication: FOR PAIN 3) Non-VA ESCITALOPRAM OXALATE 20MG TAB 20MG BY MOUTH ONCE A ACTIVE DAY Indication: FOR DEPRESSION 4) Non-VA FUROSEMIDE 40MG TAB 40MG BY MOUTH EVERY MORNING ACTIVE Indication: FOR FLUID RETENTION (EDEMA) 5) Non-VA HYDROCHLOROTHIAZIDE 25MG TAB 25MG BY MOUTH ONCE A DAY ACTIVE Indication: FOR HIGH BLOOD PRESSURE 6) Non-VA LISINOPRIL 40MG TAB 40MG BY MOUTH ONCE A DAY ACTIVE Indication: FOR HIGH BLOOD PRESSURE 7) Non-VA MIRTAZAPINE 30MG TAB 15MG BY MOUTH AT BEDTIME ACTIVE Indication: FOR DEPRESSION 8) Non-VA MONTELUKAST NA 10MG TAB 10MG BY MOUTH EVERY EVENING ACTIVE Indication: FOR ALLERGIC RHINITIS 9) Non-VA POTASSIUM CL 20MEQ SA TAB (DISPERSIBLE) 20MEQ BY ACTIVE MOUTH ONCE A DAY Indication: FOR POTASSIUM SUPPLEMENTATION C/C: BP check S: The presented to the clinic today for follow up BP check. The has brought in his BP log. BP are much better. The reports that he is feeling much better. The did report that his Pain medication was stolen, but was worried about letting us know that because he did not want us to think that he was over using it. Called [facility] to ask about when he last had it refilled they reported that 15 tablets were filled on 11/02/24. They reported that the did have a refill if he would like to go ahead and refill. The and his also reported that Dr. Jones had asked if he would like to get Ensure and they would like to go ahead and see about doing that. The reports he does not have much of an appetite. Also reports that he has diarrhea quite often and has had it for years. Reports that it is not all the time but, it just seems to hit me. O/A: The ambulated to the exam room with assistance of a cane, gait is steady. The 's weight today was 118.4 down from 134.5 in October, he has started the HCTZ for BP. The 's swelling is much improved in his lower extremities. Talked to the about the Diarrhea. Asked the and his if he had had his gallbladder removed. The 's reports that he has and that that is about when the diarrhea started. Vitals were stable today. Vital Signs: as charted P: Let the know that his BP looked good. Talked to the and his about avoiding high fat and sugary foods. Gave them a print out of foods to avoid after having the gallbladder out. Let the know that we would need to do a dietetics consult for the ensure, and I would let Dr. Jones know that he would like to do go ahead and do that. The will go picking supervisor his prescription after leaving the clinic The voiced understanding, is in agreement with the plan and has no further questions or complaints at this time. The ambulated to the exit in satisfactory manner. RTC: as needed /demetrice/ Park Hernandez RN,BSN [facility] Signed: 12/16/2024 11:48 Receipt Acknowledged By: 12/16/2024 12:07 /es/ Elma Jones MD [facility] 12/16/2024 ADDENDUM STATUS: COMPLETED Per A Directive 1605.06, wristband documentation: Patient wristband was removed and destroyed by (staff name) Genaro Hernandez RN and placed in the designated [employer] bin. /demetrice/ aPrk Hernandez RN,BSN [place] Signed: 12/16/2024 11:49 12/24/2024 ADDENDUM STATUS: COMPLETED The 's called and reported that the is still having rely bad diarrhea. She reported that they had changed to ground turkey to cut back on fat but he has not gotten any better. Let her know that I had talked to Dr. Jones and that they could come picking supervisor the supplies to do a stool test so we could see what was going on. She reports that they will come pick it up today. Let her know that it could not be left at room temperature so it was best to do it when they could bring it right back or to refridurated it. Also let her know that it had to be liquid diarrhea and not formed at all or they would not be able to run the tests. She voiced understanding and had no further questions at this time. /demetrice/ Park Hernandez RN,[facility] Signed: 12/24/2024 14:28 Receipt Acknowledged By: * AWAITING SIGNATURE * ELMA JONES JOHANNA R [facility]
--- OUTSIDE RECORDS SUMMARY | 2025-02-24 09:23 | XMS_ITS | Encounter Summary ---
Author Name [facility] [place] Address [address] [place] [address] Care Team Providers Care Storage Architect Name Role Phone DARWIN FLETCHER Primary Care [...] Name Patient's Relationship to Policy Stapleton AETNA [facility] (WNR) MEDICARE ADVANTAGE [facility] (WNR) Oct 20, 2023 [id number] DMITRIY JOHNSON PATIENT Selected Encounter This section includes the information on record at [place] for the Encounter. Date/Time Encounter Type Encounter Description Reason Provider Source February 24, 2025 02:23 PM Outpatient Encounter PRIMARY CARE/MEDICINE PARK HERNADNEZ Encounter Template Text not used by [place] Plan of Treatment: Future Appointments (+ 6 months) and Future Tests (+/- 45 days) The Plan of Treatment section includes future care activities for the patient from all [place] treatmentfacilities. This section includes future appointments and future orders which are active, pending or scheduled. Future Appointments This section includes appointments that were scheduled to occur 6 months from the date of the Encounter, up to a maximum of 20 appointments. The data comes from all [place] treatment facilities. Appointment Date/Time Appointment Type Appointme nt Facility Name February 25, 2025 08:00 AM AMBULATORY - MEDICINE [facility] Apr 21, 2025 08:40 AM AMBULATORY - MEDICINE [facility] Apr 29, 2025 10:00 AM AMBULATORY - MEDICINE [facility] Active, Pending, and Scheduled Orders This section includes a listing of several types of active, pending, and scheduled orders, including clinic medications orders, diagnostic test orders, procedure orders and consult orders; where the start date of the order is 45 days before the date of the Encounter or 45 days after the date of theEncounter. The data comes from all [place] treatment facilities. Test Date/Time Test Type Test Details Facility Name February 25, 2025 08:21 AM Consult Order [facility] HOSPICE/PALLIATIVE CARE [id number] Cons Chargemaster Specialist[facility] February 25, 2025 08:21 AM Consult Order [facility] RESPITE [id number] Cons Chargemaster Specialist[facility] February 25, 2025 08:21 AM Consult Order [facility] HOMEMAKER/HOME HEALTH AIDE [id number] Cons [facility] Encounter Notes: All associated encounter notes This section contains the clinical notes associated to the Encounter. Date/Time Encounter Note(s) Provider Source February 24, 2025 02:24 PM GERIATRIC MEDICINE NOTE: LOCAL TITLE: PERSONAL CARE SERVICES CASE MIX TOOL STANDARD TITLE: GERIATRIC MEDICINE NOTE DATE OF NOTE: FEBRUARY 24, 2025@14:24:04 ENTRY DATE: FEBRUARY 24, 2025@14:24:04 AUTHOR: PARK HERNANDEZ EXP COSIGNER: URGENCY: STATUS: COMPLETED HCBS Case Mix & Budget Tool (CASE MIX) Date Given: 02/24/2025 Clinician: Park Hernandez Location: [facility] [place]: Linnea Johnson SSN: [id number] : [birth year] ([birth year]) Gender: Man Type of Evaluation: Initial Anticipated Start Date: 02/24/2025 Anticipated Length of Service: 12 months Case Mix Level: G ADL Category: High Questions and Answers: Q1. DRESSING *2 Need some help from another person to put your clothes on. Q2. GROOMING *2 Needs and get daily help from another person. Q3. BATHING *5 Cannot bathe or shower, need complete help. Q4. EATING *2 Need and get help in cutting food, buttering bread or arranging food. Q5. BED MOBILITY *2 Always need and get help to sit up. Q6. TRANSFERRING *2 Need one other person to help you. Q7. WALKING *2 Need and get help from one person to help you walk. Q8. BEHAVIOR 1 Occasional staff intervention / anxious, irritable, lethargic, demanding / responds to cues. Q9. COMMUNICATION 0 Understood. Q10. TOILETING *4 Have accidents more than once a week. Q11. MDS HC 2.0/CPS Cognitive Skill for Daily Decision Making 0 Independent - decisions consistent/reasonable. Q12. MDS 2.0/CPS: Short Term Memory (recall of what was learned or known) 0 Short-term memory okay- seems/appears to recall after 5 minutes Q13. SPECIAL TREATMENTS 0 No [place] Q14. CLINICAL MONITORING 2 All shifts Q15. SPECIAL NURSING No Q16. NEUROMUSCULAR DIAGNOSIS Yes COMMENTS CHF and COPD Weakness SOURCES 2. Informant, 3. Medical Record, 4. Observation /es/ Park Hernandez, RN,BSN [place], LACY Signed: 02/24/2025 14:45 PARK HERNANDEZ [place] JORDIOC
--- OUTSIDE RECORDS SUMMARY | 2025-02-24 09:26 | XMS_ITS | Encounter Summary ---
Author Name [facility] [place] [facility] [place] Organization [facility] [place] Address [address] [place] [id number] Care Team Providers Care Molded Frames Assembler Name Role Phone DARWIN JONES Primary Care [...] Relationship to Policy [place] AETNA [facility] (WNR) MEDICARE ADVANTAGE [facility] (WNR) Oct 20, 2023 [id number] DMITRIY JOHNSON HN PATIENT Selected Encounter This section includes the information on record at [place] for the Encounter. Date/Time Encounter Type Encounter Description Reason Provider Source February 24, 2025 02:26 PM Outpatient Encounter TELEPHONE PRIMARY CARE DARWIN JONES IHBunny Encounter Template Text not used by [place] Plan of Treatment: Future Appointments (+ 6 [...] 20 appointments. The data comes from all [place] treatment facilities. Appointment Date/Time Appointment Type Appointme nt Facility Name February 25, 2025 08:00 AM AMBULATORY - MEDICINE POPL [facility] Apr 21, 2025 08:40 AM AMBULATORY - MEDICINE [facility] Apr 29, 2025 10:00 AM AMBULATORY - MEDICINE [facility] Active, Pending, and Scheduled Orders This section includes a listing of several types of active, pending, and scheduled orders, including clinic medications orders, diagnostic test orders, procedure orders and consult orders; where the start date of the order is 45 days before the date of the Encounter or 45 days after the date of theEncounter. The data comes from all [place] treatment facilities. Test Date/Time Test Type Test Details Facility Name February 25, 2025 08:21 AM Consult Order [facility] HOSPICE/PALLIATIVE CARE [id number] [facility] Reservations And Ticketing Agent's [facility] February 25, 2025 08:21 AM Consult Order [facility] RESPITE [id number] [facility] Reservations And Ticketing Agent's [facility] February 25, 2025 08:21 AM Consult Order [facility] HOMEMAKER/HOME HEALTH AIDE [id number] [facility] Reservations And Ticketing Agent's [facility] Social History: Smoking Status (Most current) and Tobacco Use (All prior to encounter date) This section includes the most current, and the historical, smoking and tobacco- related health factors from the [place] facility where the Encounter took place. Current Smoking Status This section includes the most current smoking, or tobacco-related health factor, from the [place] facility where the Encounter took place. Date/Time Current Smoking Status Comment Facil ity Nov 02, 2024 08:30 AM VA-TOBACCO USE EVERY DAY CIGARET HIGINIO [facility] Tobacco Use History This section includes a history of the smoking, or tobacco-related health factors, that were collected on or before the date of the Encounter. The data comes from the [place] facility where the Encounter took place. Date/Time Smoking Status/Tobacco Use Comment F acility Nov 02, 2024 08:30 AM VA-TOBACCO USE EVERY DAY CIGARET HIGINIO [facility] Oct 31, 2023 08:30 AM VA-TOBACCO USE 30 YEARS OR MORE [facility] Oct 31, 2023 08:30 AM VA-TOBACCO USE ADVICE [facility] Oct 31, 2023 08:30 AM VA-TOBACCO USE TUMOR REGISTRAR NO [facility] Oct 31, 2023 08:30 AM VA-TOBACCO USE [...] Oct 29, 2022 08:30 AM VA-TOBACCO USE TUMOR REGISTRAR NO [facility] [place] [facility] Oct 29, [...] Nov 09, 2019 12:37 PM VA-TOBACCO USE TUMOR REGISTRAR NO [facility] [place] [facility] Nov 09, [...] Encounter Note(s) Provider Source February 24, 2025 02:37 PM TELEPHONE ENCOUNTE R NOTE: LOCAL TITLE: TELEPHONE NOTE STANDARD TITLE: TELEPHONE ENCOUNTER NOTE DATE OF NOTE: FEBRUARY 24, 2025@14:37 ENTRY DATE: FEBRUARY 24, 2025@14:37:17 AUTHOR: PARK HERNANDEZ EXP COSIGNER: URGENCY: STATUS: COMPLETED The veterans called and reported that the is having increased weakness and having more falls. The 's reports, I am thinking he needs to be on Hospice I just can't do this alone any longer. We have talked to the and his in the past about getting [facility] but they have wanted to do it on their own. His reports that their son came over and talked to them about needing hospice and help with the . Talked to her about doing [facility] and respite she reports that she would be ok with that but that she thinks it is time for hospice. Let her know that I would talk to Dr. Jones and that we would get this taken care of for her. /demetrice/ Park Hernandez RN,BSN [place], [facility] Signed: 02/24/2025 14:42 Receipt Acknowledged By: * AWAITING SIGNATURE * DARWIN JONES JOHANNA R [facility] [place] [facility]
--- OUTSIDE RECORDS SUMMARY | 2025-02-25 04:58 | XMS_ITS | Encounter Summary ---
Author Name [facility] [place] Organization [facility] [place] Address [address] [place] [address] Care Team Providers Care Superintendent Police Name Role Phone ELMA JONES Primary Care [...] Name Patient's Relationship to Policy Stapleton AETNA [facility] (WNR) MEDICARE ADVANTAGE [facility] (WNR) Oct 20, 2023 [id number] DMTIRIY JOHNSON PATIENT Selected Encounter This section includes the information on record at [place] for the Encounter. Date/Time Encounter Type Encounter Description Reason Pro vider Source February 25, 2025 09:58 AM Outpatient Encounter COMMUNITY CARE CONSULT IHE Encounter Template Text not used by [place] Plan of Treatment: Future Appointments (+ 6 [...] Date/Time Appointment Type Appointme nt Facility Name Apr 21, 2025 08:40 AM AMBULATORY - MEDICINE [facility] Apr 29, 2025 10:00 AM AMBULATORY - MEDICINE [facility] Active, Pending, and Scheduled Orders This section includes a listing of several types of active, pending, and scheduled orders, including clinic medications orders, diagnostic test orders, procedure orders and consult orders; where the start date of the order is 45 days before the date of the Encounter or 45 days after the date of theEncounter. The data comes from all [place] treatment facilities. Test Date/Time Test Type Test Details Facility Name February 25, 2025 08:21 AM Consult Order [facility] HOSPICE/PALLIATIVE CARE [id number] Cons Finisher Operator's [facility] February 25, 2025 08:21 AM Consult Order [facility] RESPITE [id number] Cons Finisher Operator's [facility] February 25, 2025 08:21 AM Consult Order [facility] HOMEMAKER/HOME HEALTH AIDE [id number] [facility] Finisher Operator's [facility] Encounter Notes: All associated encounter notes This section contains the clinical notes associated to the Encounter. Date/Time Encounter Note(s) Provider Source February 25, 2025 09:59 AM GERIATRIC MEDICINE IN [place] MEMBER NOTE: LOCAL TITLE: [facility] CARE COORDINATION TEAM NOTE STANDARD TITLE: GERIATRIC MEDICINE IN [place]IGHT [place] MEMBER NOTE DATE OF NOTE: FEBRUARY 25, 2025@09:59 ENTRY DATE: FEBRUARY 25, 2025@09:59:18 AUTHOR: JESSICA BRADLEY COSIGNER: URGENCY: STATUS: COMPLETED THE PATIENT HAS BEEN REFERRED TO THE FOLLOWING SERVICES HOSPICE SERVICES[facility] CARE FUNDING: [place]: [facility] Date service is projected to start: 169709 Date service is projected to end: 409271 DURATION OF CARE: HOSPICE: 90 DAYS NAME OF AGENCY TO PROVIDE SERVICES: Agency: [facility] Address: [address] [place] [address], [facility], [place] [address] Office: [phone] (INTAKE: [phone]) , ([phone] INTAKE) email: [email or web address] ; [email or web address]; [email or web address] ; [email or web address] ; [email or web address] ; [email or web address]; [email or web address] Julianne [email or web address]; [facility]: Region 2 Tax ID: [id number]-Vajpsmy care-community based. Checked [id number]. *Please send all correspondence/orders to Dr. Elma Jones-Enrolled [id number]-Vvpy. Helpful phone numbers: Conner Wall [facility] Graphic Illustrator - [phone] [place] phone: [phone]; fax: [phone] 'Echo' team - Dr. Elma Jones's RN Park Hernandez [phone] Care Coordination Point of Contact: ELLEN Harrell, RN [phone] Email: , PLAN: New Services- Transition to Hospice Services /demetrice/ Jessica HUGHES, RN Linnea Rolon [facility] Signed: 02/25/2025 10:03 Receipt Acknowledged By: 02/25/2025 12:57 /demetrice/ JESSICA MILLER MSA [facility]
[2025-02-27 17:55] VITALS: BP 85/60; PULSE 82; RESP 18; TEMP 36.7; O2SAT 92
--- NOTE | 2025-02-27 18:02 | ECG_ITS ---
[facility] Test Date: 2025-02-27 Pat Name: Judd Beth Department: Room: Gender: Male Bottle Sorter: : 1940 Requested By: Jj Whaley Order Number: [id number] Donnelly MD: Tim Win M.D. Measurements Intervals [place] Rate: 78 P: 87 WA: 132 QRS: 265 QRSD: 144 T: 78 QT: 417 QTc: 477 Interpretive Statements SINUS RHYTHM RIGHT AXIS DEVIATION [QRS AXIS > 100] RIGHT BUNDLE BRANCH BLOCK [120+ ms QRS DURATION, UPRIGHT V1, 40+ ms S IN I/aVL/V4/V5/V6] Compared to ECG 12/30/2024 14:55:05 Right-axis deviation now present Sinus bradycardia no longer present Left posterior fascicular block no longer present Electronically Signed On 02-27-2025 21:08:49 CDT by Tim Win M.D. [id number]
--- NOTE | 2025-02-27 18:13 | XRR_ITS ---
PROCEDURE INFORMATION: Exam: XR Chest Exam date and time: 02/27/2025 6:18 PM Age: 85 years old Clinical indication: Shortness of breath; Arrives with shca from home- EMS report that states he just will not eat. Hypotensive and was sitting with room air in the low 80s. PT placed on 3lnc by EMS with improvement to high 80s. EMS report that is caregiver and reported to EMS that he is going to go on hospice (not sure dx) he does have chf, copd; Additional info: SOB TECHNIQUE: Imaging protocol: Radiologic exam of the chest. Views: 1 view. COMPARISON: CR XR chest 1V portable [id number] 12/30/2024 2:44 PM FINDINGS: Lungs: Moderate-sized patchy right lower lobe airspace disease consistent with pneumonia. There are lung emphysematous changes. Pleural spaces: Unremarkable. No pleural effusion. No pneumothorax. Heart/Mediastinum: Unremarkable. No cardiomegaly. Bones/joints: Unremarkable. XR/XR chest 1V portable [id number] IMPRESSION: Moderate-sized right lower lobe pneumonia.
[2025-02-27] MEDS: LACTATED RINGERS 2397 ML IV (18:29)
[2025-02-27 18:31] LABS: ABG PCO2 32.6 mmHg (35-45); ABG PH Result 7.54 (7.35-7.45); Arterial Blood Gas Hematocrit 42.9 % (42-52); Base Excess ABG 5.6 mmol/L (-2.0-2.0); Blood Gas Operator Identificat glc; Blood Gas Sample Site Brachial, right; Blood Gas Sample Type Arterial; Carboxyhemoglobin 1.4 %THgb (0.4-20.1); HCO3 ABG 27.9 mmol/L (22-26); HGB O2 Sat 86.9 % (95-100); Methemoglobin 0.2 % (0.4-1.5); Oxygen Device NC; PO2 FiO2 Ratio Arterial Blood 182
--- NOTE | 2025-02-27 18:32 | W.ED.GENADLT ---
HPI - General Adult General: Chief complaint: ER Hold Stated complaint: weakness Time Seen by Provider: 02/27/25 17:58 History of Present Illness: 85-year-old gentleman with a history of COPD and CHF. He is evidently supposed to go on hospice tomorrow. He presents with generalized weakness, trouble breathing at home. Saturations were in the low 80s on EMS arrival. He tells me that he does wear oxygen at home. He says that he hurts all over . History is otherwise unreliable. Related Data Home Medications ?Medication ?Instructions ?Recorded ?Confirmed acetaminophen 300 mg-codeine 30 mg 1 tab PO Q6H 12/30/24 01/27/25 tablet hydrochlorothiazide 25 mg tablet 25 mg PO DAILY 12/30/24 01/27/25 Held on 12/31/24. Instructions: Resume on 01/04/25. Previous Rx's ?Medication ?Instructions ?Recorded escitalopram oxalate 20 mg tablet 20 mg PO DAILY #90 tabs 02/25/24 (Lexapro) lisinopril 40 mg tablet 40 mg PO DAILY@0600 #90 tabs 02/25/24 Held on 12/31/24. Instructions: Resume on 01/03/25. mirtazapine 15 mg tablet (Remeron) 15 mg PO .at supper #30 tabs 02/25/24 montelukast 10 mg tablet 10 mg PO DAILY@0600 #90 tabs 02/25/24 furosemide 40 mg tablet 40 mg PO QAM #90 tabs 04/16/24 Held on 12/31/24. Instructions: Resume on 01/03/25. tamsulosin 0.4 mg capsule 0.4 mg PO DAILY #30 caps 04/28/24 albuterol sulfate 90 mcg/actuation 2 puff inhalation Q6H PRN 12/02/24 aerosol inhaler (Ventolin HFA) shortness of breath or wheezing #8.5 grams cholestyramine (with sugar) 4 gram 1 ea PO BID 30 days #60 ea 01/04/25 powder for susp in a packet hospital bed E0250 #1 ea 01/04/25 potassium chloride 20 mEq 20 meq PO BID #60 tabs 01/21/25 tablet,extended release(part/cryst) (Klor-Con M) Wheelchair #1 ea 01/27/25 dexamethasone 4 mg tablet 4 mg PO BID #60 tabs 02/02/25 loperamide 2 mg capsule (Imodium 2 mg PO Q6H PRN loose stool #90 02/02/25 A-D) caps Allergies Allergy/AdvReac Type Severity Reaction Status Date / Time No Known Allergies Allergy Verified 01/27/25 21:51 [facility] ED PFSH: Medical History (Updated 02/27/25 @ 20:14 by Judd Douglass MD) DEAN (acute kidney injury) Hypotension New onset of congestive heart failure Lower extremity edema Abdominal aortic aneurysm (AAA) 3.0 cm to 5.5 cm in diameter in male Irritable bowel syndrome with diarrhea Seasonal and perennial allergic rhinitis RIAZ (generalized anxiety disorder) Personal history of nicotine dependence Lung nodule Osteoarthritis (arthritis due to wear and tear of joints) COPD (chronic obstructive pulmonary disease) Essential (primary) hypertension Surgical History History of cholecystectomy Family History Other Hypertension Social History Smoking and tobacco/nicotine status: former use of tobacco/nicotine Second hand smoke exposure: No Alcohol intake: current Alcohol intake frequency: few times a month Substance/Drug Use: never Adopted: No Caregiver/support person: Yes Lives independently: Yes Household members: spouse Housing: House Marital status: service: Yes Current occupational status: retired Current occupational exposures/hazards: No Do you think of yourself as: Straight/Heterosexual Current gender identity: Male Physical Exam Const: EXAM LIMITATIONS: altered mental status GENERAL APPEARANCE: cooperative, ill appearing and frail appearing (Very) NUTRITIONAL APPEARANCE: cachectic ORIENTATION/CONSCIOUSNESS: Yes awake and Yes oriented to person HENMT: COMMON NORMALS: normocephalic; oral mucous membranes not moist HEAD & SCALP: normocephalic FACE & SINUS: face symmetric Eye: COMMON NORMALS: Equal, round and reactive pupils present and EOMs intact bilaterally PUPIL: Yes Equal, round and reactive pupils present Neck/C-Spine: GENERAL: Yes trachea midline Chest: CHEST: Yes Symmetrical chest wall rise Resp: COMMON NORMALS: clear to auscultation bilaterally EFFORT & INSPECTION: Yes tachypneic AUSCULTATION: clear to auscultation bilaterally and diminished lung sounds GI: OTHER: Suprapubic tenderness. No distention. Neuro: SENSORIUM/ORIENTATION: Yes oriented to person Course Vital Signs: Vital signs: Vital Signs Temperature 98.1 F 02/27/25 17:55 Pulse Rate 79 02/28/25 04:00 Respiratory Rate 22 H 02/28/25 04:00 Blood Pressure 107/71 02/28/25 04:00 Pulse Oximetry 91 02/28/25 03:30 Oxygen Delivery Me thod Oxymask 02/28/25 04:28 Oxygen Flow Rate 15 02/28/25 04:00 MDM - General Adult Medical Decision Making Patient was hypotensive and hypoxic on EMS arrival. He remains so here, although blood pressure is somewhat improved. He is afebrile. He is currently on 4 L, as on 2 L, PO2 is 51 by blood gas testing. He has a respiratory alkalosis otherwise. Right lower lung pneumonia present on chest x-ray. White blood cell count is 18. BUN 83, creatinine 2.4. Urinalysis is negative. COVID flu RSV swabs are negative. Lactic acid is 2.9. He is receiving a sepsis bolus, vancomycin and Zosyn, and a significant amount of oxygen. Currently blood pressure 126/70, saturations 88%. Pulse is 70. His wishes are to be a DNR. He will be admitted for sepsis, pneumonia, hypoxic respiratory failure and hypotension. Hospitalist will see the patient. Lab Data 02/27/25 18:31 02/27/25 18:31 Radiology Impressions Chest X-Ray 02/27/25 18:13 IMPRESSION: Moderate-sized right lower lobe pneumonia. Laboratory Results WBC 17.79 10^3/uL (3.29-11.43) H 02/27/25 18:31 RBC 4.57 10^6/uL (3.85-5.65) 02/27/25 18:31 Hgb 13.70 g/dL (11.27-16.99) 02/27/25 18:31 Hct 42.8 % (37-53) 02/27/25 18:31 MCV 93.7 fl (82-101) 02/27/25 18:31 MCH 30.0 pg (27-33) 02/27/25 18: MCHC 32.0 g/dL (30-55) 02/27/25 18:31 RDW 14.8 % (12.1-15.1) 02/27/25 18: Plt Count 357 10^3/cmm (157-399) 02/27/25 18: MPV 10.2 fL (7.4-10.4) 02/27/25 18: Neut % (Auto) 93.0 % 02/27/25 18: Lymph % (Auto) 3.4 % 02/27/25 18: [place] % (Auto) 2.8 % 02/27/25 18: Eos % (Auto) 0.0 % 02/27/25 18: Baso % (Auto) 0.4 % 02/27/25: Neut # (Auto) 16.52 10^3/uL (1.8-7.7) H 02/27/25 18: Lymph # (Auto) 0.6 10^3/uL (0.8-4.8) L 02/27/25 18: [place] # (Auto) 0.5 10^3/uL (0.2-0.9) 02/27/25 18: Eos # (Auto) 0.0 10^3/uL (0.0-0.8) 02/27/25 18: Baso # (Auto) 0.1 10^3/uL (0.0-0.1) 02/27/25 18: Nucleated RBC % (auto) 0 % 02/27/25: Nucleated RBCs # 0.0 /100WBC 02/27/25 18: Specimen Type Arterial 02/27/25 18:19 Sample Site Brachial, right 02/27/25 18:19 ABG pH 7.54 (7.35-7.45) H 02/27/25 18:19 ABG pCO2 32.6 mmHg (35-45) L 02/27/25 18:19 ABG pO2 51.0 mmHg (80.0-100.0) L 02/27/25 18:19 ABG PO2/FiO2 Ratio 182 02/27/25 18:19 ABG HCO3 27.9 mmol/L (22-26) H 02/27/25 18:19 ABG Base Excess 5.6 mmol/L (-2.0-2.0) H 02/27/25 18:19 Silver Test N/a 02/27/25 18:19 Hematocrit 42.9 % (42-52) 02/27/25 18:19 Hgb O2 Saturation 86.9 % (95-100) L 02/27/25 18:19 Carboxyhemoglobin 1.4 %THgb (0.4-20.1) 02/27/25 18:19 Methemoglobin 0.2 % (0.4-1.5) L 02/27/25 18:19 Total Hemoglobin 14.0 g/dL (14-18) 02/27/25 18:19 O2 Delivery Device Nc 02/27/25 18:19 O2 Liters/Min 2.0 % 02/27/25 18:19 FiO2 28.0 % 02/27/25 18:19 [employer] Hand ID glc 02/27/25 18:19 Sodium 146 mmol/L (136-145) H 02/27/25 18:31 Potassium 4.6 mmol/L (3.5-5.1) 02/27/25 18:31 Chloride 102 mmol/L (98-107) 02/27/25 18:31 Carbon Dioxide 28 mmol/L (22-29) 02/27/25 18:31 Anion Gap 20.6 (5-19) H 02/27/25 18:31 BUN 83 mg/dL (8-23) H* D 02/27/25 18:31 Creatinine 2.4 mg/dL (0.7-1.2) H 02/27/25 18:31 GFR Calculation Not Reportable 02/27/25 18:31 Glucose 158 mg/dL (65-115) H 02/27/25 18:31 Calculated Osmolality 330 mOsm/kg (285-295) H 02/27/25 18:31 Lactic Acid 2.9 mmol/L (0.5-2.2) H 02/27/25 18:31 Calcium 9.1 mg/dL (8.5-10.5) 02/27/25 18:31 Total Bilirubin 1.3 mg/dL (0.15-1.2) H 02/27/25 18:31 AST 11 U/L (0-40) 02/27/25 18:31 ALT 13 U/L (0-41) 02/27/25 18:31 Alkaline Phosphatase 115 U/L (40-130) 02/27/25 18:31 NT-Pro-B Natriuret Pep 1012 pg/mL (0-450) H 02/27/25 18:31 Total Protein 6.4 g/dL (6.6-8.7) L 02/27/25 18: Albumin 3.2 g/dL (3.5-5.2) L 02/27/25 18: Globulin 3.2 g/dL (1.3-4.6) 02/27/25 18:31 Urine Color Yellow (Yellow) 02/27/25 19:03 Urine Appearance Clear (CLEAR) 02/27/25 19: Urine pH 5.0 (5-7) 02/27/25 19: Ur Specific [place] 1.015 (1.005-1.030) 02/27/25 19:03 Urine Protein Negative (Negative) 02/27/25 19:03 Urine Glucose (UA) Negative (Normal) 02/27/25 19: Urine Ketones Negative (Negative) 02/27/25 19: Urine Blood Negative (Negative) 02/27/25 19: Urine Nitrate Negative (Negative) 02/27/25 19: Urine Bilirubin Negative (Negative) 02/27/25 19: Urine Urobilinogen 1.0 mg/dL (Negative) 02/27/25 19:03 Ur Leukocyte Esterase Negative (Negative) 02/27/25 19:03 Urine RBC 3-5 /hpf (0-2) 02/27/25 19:03 Urine WBC 0-5 /hpf (0-5) 02/27/25 19:03 Ur Squamous Epith Cells 0-5 /hpf (0-5) 02/27/25 19:03 Amorphous Sediment Not Reportable 02/27/25 19:03 Urine Bacteria 1+ /hpf (NONE) H 02/27/25 19: Hyaline Casts 32.24 /lpf 02/27/25 19:03 Influenza A (PCR) Negative (Negative) 02/27/25 19:11 Influenza Type B (PCR) Negative (Negative) 02/27/25 19:11 RSV (PCR) Negative (Negative) 02/27/25 19:11 SARS-CoV-2 (PCR) Negative (Negative) 02/27/25 19:11 XR interpretation done by ED provider, pending radiology final review Critical Care Time Critical Care Time: Critical Care Time: Yes Total Critical Care Time: 35 Attestation: This case had a high probability of a clinically significant, sudden, or life threatening deterioration of this patient's condition which required my full and direct attention, intervention and personal management. Time is independent of any procedures performed. Discharge Plan Discharge Patient Disposition: Admitted As Inpatient Admit Provider: Judd Douglass Clinical Impression: Sepsis, Pneumonia, Acute hypoxic respiratory failure Condition: Stable Coding Level of Care Code ED Math Interventionist for Brandan Naranjo
[2025-02-27 18:45] LABS: Basophils # 0.1 10^3/uL (0.0-0.1); Basophils % 0.4 %; Hematocrit 42.8 % (37-53); Lymphocytes # 0.6 10^3/uL (0.8-4.8); Lymphocytes % 3.4 %; Mean Corpuscular Volume 93.7 fl (82-101); Mean Platelet Volume 10.2 fL (7.4-10.4); Monocytes # 0.5 10^3/uL (0.2-0.9); Monocytes % 2.8 %; Neutrophils # 16.52 10^3/uL (1.8-7.7); Nucleated Red Blood Cells % 0 %; Platelet Count 357 10^3/cmm (157-399); Red Blood Count 4.57 10^6/uL (3.85-5.65); Red Cell Distribution Width 14.8 % (12.1-15.1); White Blood Count 17.79 10^3/uL (3.29-11.43)
[2025-02-27 19:05] LABS: Lactic Sepsis W/Reflex 2.9 mmol/L (0.5-2.2)
[2025-02-27 19:12] LABS: Bilirubin Urine Negative (Negative); Blood Urine Negative (Negative); Glucose Urine UA Negative (Normal); Ketones Urine Negative (Negative); Leukocyte Esterase Urine Negative (Negative); Nitrate Urine Negative (Negative); Protein Urine Negative (Negative); Specific Gravity, Urine 1.015 (1.005-1.030); Urine Appearance Clear (CLEAR); Urine Color Yellow (Yellow)
[2025-02-27 19:12] LABS: Reflex Lactate Order REFLEX LACTIC ORDERD
[2025-02-27 19:13] LABS: Alanine Aminotransferase 13 U/L (0-41); Albumin Level 3.2 g/dL (3.5-5.2); Alkaline Phosphatase 115 U/L (40-130); Anion Gap 20.6 (5-19); Aspartate Amino Transferase 11 U/L (0-40); Calcium 9.1 mg/dL (8.5-10.5); Carbon Dioxide 28 mmol/L (22-29); Chloride 102 mmol/L (98-107); Creatinine Clr Calc Pharmacy 15.7103; Globulin 3.2 g/dL (1.3-4.6); Glucose 158 mg/dL (65-115); NT Pro B Type Natriuretic Pept 1012 pg/mL (0-450); Osmolality Calculated 330 mOsm/kg (285-295); Potassium 4.6 mmol/L (3.5-5.1); Sodium 146 mmol/L (136-145); Total Bilirubin 1.3 mg/dL (0.15-1.2); Total Protein 6.4 g/dL (6.6-8.7)
[2025-02-27 19:16] LABS: Blood Urea Nitrogen 83 mg/dL (8-23)
[2025-02-27 19:17] LABS: Add Urine Microscopic? YES; Hyaline Casts Urine 32.24 /lpf; Squamous Epithelial Cell Urine 0-5 /hpf (0-5); WBC Urine 0-5 /hpf (0-5)
[2025-02-27 19:29] LABS: Bacteria Urine 1+ /hpf; UA Slide Review UA Slide Review Perf
[2025-02-27 19:32] VITALS: BP 123/69; PULSE 77; RESP 22; O2SAT 86
--- NOTE | 2025-02-27 19:51 | PM.HP ---
Providers/Chief Complaint Primary Care Provider: Chon Gloria, ERMELINDAC Chief Complaint: weakness History of Present Illness Judd Beth is a 85 year old male with a past medical history significant for congestive heart failure, irritable bowel syndrome, generalized anxiety disorder, hypertension, COPD, and multiple other comorbidities who presents to the emergency department with generalized weakness x 3 days. Patient seen evaluated the emergency department. He is extremely lethargic and unable to provide history due to his lethargic state. His spouse is bedside and provides collateral and history. She reports has been sick for a long time and they have been in the process of setting up hospice recently. She states however for the past 2 to 3 days he has suffered an acute worsening. She states he is extremely weak and they have been unable to care for him. She states the only help she has is her son. She states he is quit eating and taking his medications in the last couple of days. He has been more confused. She is worried that they cannot care for him anymore. They had talked about nursing facility but he had been reluctant to this plan previously. In the emergency department, patient was found to have severe sepsis. Confirmed CODE STATUS. He is DNR/DNI. Review of Systems Narrative: A complete review of systems was obtained and is negative except as stated in HPI. Medications/Allergies Home Medications ?Medication ?Instructions ?Recorded ?Confirmed ?Last Taken ?Type escitalopram oxalate 20 mg tablet 20 mg PO DAILY #90 tabs 02/25/24 01/27/25 12/30/24 Rx (Lexapro) lisinopril 40 mg tablet 40 mg PO DAILY@0600 #90 tabs 02/25/24 01/27/25 12/30/24 Rx Held on 12/31/24. Instructions: Resume on 01/03/25. mirtazapine 15 mg tablet (Remeron) 15 mg PO .at supper #30 tabs 02/25/24 01/27/25 12/29/24 Rx montelukast 10 mg tablet 10 mg PO DAILY@0600 #90 tabs 02/25/24 01/27/25 04/15/24 Rx furosemide 40 mg tablet 40 mg PO QAM #90 tabs 04/16/24 01/27/25 12/30/24 Rx Held on 12/31/24. Instructions: Resume on 01/03/25. tamsulosin 0.4 mg capsule 0.4 mg PO DAILY #30 caps 04/28/24 01/27/25 12/30/24 Rx albuterol sulfate 90 mcg/actuation 2 puff inhalation Q6H PRN 12/02/24 01/27/25 12/30/24 Rx aerosol inhaler (Ventolin HFA) shortness of breath or wheezing #8.5 grams acetaminophen 300 mg-codeine 30 mg 1 tab PO Q6H 12/30/24 01/27/25 12/30/24 History tablet hydrochlorothiazide 25 mg tablet 25 mg PO DAILY 12/30/24 01/27/25 12/30/24 History Held on 12/31/24. Instructions: Resume on 01/04/25. cholestyramine (with sugar) 4 gram 1 ea PO BID 30 days #60 ea 01/04/25 01/27/25 Unknown Rx powder for susp in a [facility] hospital bed E0250 #1 ea 01/04/25 01/27/25 Unknown Rx potassium chloride 20 mEq 20 meq PO BID #60 tabs 01/21/25 01/27/25 Unknown Rx tablet,extended release(part/cryst) (Klor-Con M) Wheelchair #1 ea 01/27/25 01/27/25 Unknown Rx dexamethasone 4 mg tablet 4 mg PO BID #60 tabs 02/02/25 Unknown Rx loperamide 2 mg capsule (Imodium 2 mg PO Q6H PRN loose stool #90 02/02/25 Unknown Rx A-D) caps Allergies Allergy/AdvReac Type Severity Reaction Status Date / Time No Known Allergies Allergy Verified 01/27/25 21:51 PFSH Acute PFSH: Medical History (Updated 02/27/25 @ 20:14 by Judd Douglass MD) DEAN (acute kidney injury) Hypotension New onset of congestive heart failure Lower extremity edema Abdominal aortic aneurysm (AAA) 3.0 cm to 5.5 cm in diameter in male Irritable bowel syndrome with diarrhea Seasonal and perennial allergic rhinitis RIAZ (generalized anxiety disorder) Personal history of nicotine dependence Lung nodule Osteoarthritis (arthritis due to wear and tear of joints) COPD (chronic obstructive pulmonary disease) Essential (primary) hypertension Surgical History History of cholecystectomy Family History Other Hypertension Social History Smoking and tobacco/nicotine status: former use of tobacco/nicotine Second hand smoke exposure: No Alcohol intake: current Alcohol intake frequency: few times a month Substance/Drug Use: never Adopted: No Caregiver/support person: Yes Lives independently: Yes Household members: spouse Housing: House Marital status: service: Yes Current occupational status: retired Current occupational exposures/hazards: No Do you think of yourself as: Straight/Heterosexual Current gender identity: Male Vitals/I&O/Wt Last Vital Signs Temp 98.1 F 02/27/25 17:55 Pulse 82 02/27/25 17:55 Resp 18 02/27/25 17:55 BP 85/60 02/27/25 17:55 Pulse Ox 92 02/27/25 17:55 O2 Del Method Nasal Cannula 02/27/25 17:55 O2 Flow Rate 3 02/27/25 17:55 Weight last 48 hrs Weight 47.627 kg Physical Exam Narrative: General: Patient is very lethargic. Head: Temporal wasting present. Dry mucous membranes. Neck: No JVD. Cardiovascular: RRR. No gallops. 2-3+ pitting edema bilateral lower extremities. Lungs: Bibasilar rhonchi. Increased work of breathing. Tachypneic with respiratory rate 22. Use of accessory muscles. Supplemental oxygen support. Skin: No jaundice. No rashes. Abdomen: Scaphoid abdomen. Hypoactive bowel sounds. Genito Urinary: Genital exam not performed since complaints not related. Rectal: Rectal exam not performed since no symptoms indicated blood loss. Extremities: No cyanosis or clubbing. Musculoskeletal: No swollen or erythematous joints. Neurological: No myoclonus. Lethargic state. Urinary Catheter Management: Osborne: Cath Placed During This Visit: yes Urinary Catheter Date of Insertion: 02/27/25 Urinary Catheter Time of Insertion: 19:00 Data 02/27/25 18:31 02/27/25 18:31 Micro: Microbiology 02/27/25 18:35 Blood Culture - Preliminary Blood SPECIMEN COLLECTED 02/27/25 18:31 Blood Culture - Preliminary Blood SPECIMEN COLLECTED A&P Assessment and plan (1) Leukocytosis: (2) DEAN (acute kidney injury): (3) Hypokalemia: (4) Hyperbilirubinemia: (5) Lactic acidosis: (6) Hyperglycemia: (7) Dehydration: (8) Sepsis: (9) COPD (chronic obstructive pulmonary disease): (10) Malnutrition: (11) Failure to thrive: (12) Cachexia: Plan Severe sepsis Community acquired pneumonia Lactic acidosis - Endorgan damage: Acute kidney injury - Source: Pneumonia - SIRS: Leukocytosis, tachypnea w/ RR 22 on exam - Borderline hemodynamics noted - Sepsis fluid bolus ordered in ED - Follow cultures - Check inflammatory markers, bacterial antigens - Status post vancomycin in ED, MRSA nasal screening ordered - Start cefepime Acute COPD exacerbation Acute hypoxic respiratory failure - Start systemic steroids with Solu-Medrol - Schedule breathing treatments Acute kidney injury Hypernatremia - Status post IVF in ED - Renally dose medications - Hold ACEI - Repeat labs in AM Chronic congestive heart failure - Peripheral edema on exam noted, will likey worsen with sepsis bolus - Strict I&O - Daily assessment of volume Cachexia Severe protein calorie malnutrition Failure to thrive in adulthood Weakness and debility Recurrent falls - Fall precautions - Ongoing goals of care, advance care planning - Case management consult Hyperbilirubinemia - Monitor DVT ppx: Heparin Code: DNR/DNI PDMP PDMP Reviewed: Not Reviewed Attestations Medical Necessity Statement*: Patient presents with severe sepsis with expected hospitalization across 2 midnights for IV antibiotics, electrolyte management, following of cultures, further workup, and supportive care. Coding Level of Care Code Acute Code for Chg Fwd Diagnoses Leukocytosis D72.829 DEAN (acute kidney injury) N17.9 Hypokalemia E87.6 Hyperbilirubinemia E80.6 Lactic acidosis E87.20 Hyperglycemia R73.9 Dehydration E86.0 Sepsis A41.9 COPD (chronic obstructive pulmonary disease) J44.9 Malnutrition E46 Failure to thrive Cachexia R64
[2025-02-27] MEDS: piperacillin-tazobactam 4.5 GM in sodium chloride 0.9% (plus) 50 ML IV (19:54)
[2025-02-27] MEDS: VANCOMYCIN ADD-Vantage 1,000 MG in 0.9% NaCl ADD-Vantage 250 ML 250 MG IV (19:56)
[2025-02-27 19:57] LABS: Influenza A NEGATIVE (Negative); Influenza B NEGATIVE (Negative); Respiratory Syncytial Virus Ce NEGATIVE (Negative); SARS-CoV-2 PCR NEGATIVE (Negative)
[2025-02-27 20:15] VITALS: BP 126/70; PULSE 78; RESP 24; O2SAT 90
[2025-02-27 20:30] VITALS: BP 106/61; PULSE 70; RESP 22; O2SAT 89
[2025-02-27 21:43] LABS: Lactic Acid level (Lactate) 2.7 mmol/L (0.5-2.2)
[2025-02-27 22:00] VITALS: BP 116/62; PULSE 102; RESP 18; O2SAT 91
[2025-02-27] MEDS: haloperidol inj 5 mg/mL INJ 1 mL 2 MG IVP (22:59)
[2025-02-27 23:00] VITALS: BP 112/67; PULSE 94; RESP 15; O2SAT 88
[2025-02-28] VITALS (16 sets, daily range): BP systolic 90–155; BP diastolic 57–113; PULSE 68–110; RESP 14–22; TEMP 36.7–36.9; O2SAT 89–98; BMI 15.7
--- OUTSIDE RECORDS SUMMARY | 2025-02-28 00:30 | XMS_ITS | Continuity of Care Document ---
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 It does not include entries that were removed or entered in error. Problem Status Onset Date Problem Type Date of Resolution Comments Source Benign prostatic hyperplasia Active Condition [place] [facility] Cataracts Active Condition [place] [facility] Chronic diarrhea Active Condition [place] [facility] Chronic low back pain Active Condition [place] [facility] Chronic systolic heart failure Active Condition [facility] COPD - Chronic Obstructive Pulmonary Disease ([facility] [id number]) Active Condition [place] [facility] Depression ([facility] [id number]) Active Condition [place] [facility] HTN - Hypertension ([facility] [id number]) Active Condition [place] [facility] Prediabetes Active Condition [place] [facility] Sensorineural hearing loss of bilateral ears Active Condition [place] [facility] Squamous cell carcinoma of skin Active Condition [place] [facility] Subarachnoid hemorrhage Active Condition Jun 14, 2024 Entered By: PACO FLETCHER MY Comment: Fall with facial fractures 05/30/2024 [place] [facility] Urinary retention Active Condition [place] [facility] COVID-19 Inactive Condition 05/06/2024 [place] [facility] Diagnosis: ICD-10-CM Z01.30 Encounter for exam of blood pressure w/o abnormal findings Active Diagnosis [facility] Diagnosis: ICD-10-CM J44.9 Chronic obstructive pulmonary disease, unspecified Active Diagnosis [facility] Diagnosis: ICD-10-CM I50.22 Chronic systolic (congestive) heart failure Active Diagnosis [facility] Diagnosis: ICD-10-CM Z46.1 Encounter for fitting and adjustment of hearing aid Active Diagnosis [place] [facility] Diagnosis: ICD-10-CM H61.22 Impacted cerumen, left ear Active Diagnosis [place] [facility] Diagnosis: ICD-10-CM I95.2 Hypotension due to drugs Active Diagnosis [facility] Diagnosis: ICD-10-CM H90.3 Sensorineural hearing loss, bilateral Active Diagnosis [place] [facility] Diagnosis: ICD-10-CM Z48.02 Encounter for removal of sutures Active Diagnosis [facility] Diagnosis: ICD-10-CM Z79.899 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 Active Diagnosis [facility] Diagnosis: ICD-10-CM R60.0 Localized edema Active Diagnosis [facility] Diagnosis: ICD-10-CM I10 Essential (primary) hypertension Active Diagnosis [facility] Diagnosis: ICD-10-CM Z13.5 Encounter for screening for eye and ear disorders Active Diagnosis [place] [facility] Medications Combined list of outpatient medications from Department of Defense and Veterans Affairs facilities.Medications provided include 1) outpatient medications from the last 15 months, and 2) patient-reported medications. Medication Details Route Status Patient Instructions Prescription Expires Prescription Number Last Dispense Date Ordering Provider Order Date Order Qty Source ALBUTEROL SO4 3MG/IPRATRO PIUM BR 0.5MG/3ML INHL,3ML INHALE 1 VIAL (3ML) BY NEBULIZA TION FOUR TIMES A DAY DIRECTED NEBULI ZATION ACTIVE DARWIN FLETCHER 2024 [facility] CODEINE 30MG/ACETAM INOPHEN 300MG TAB TAKE 1 TABLET BY MOUTH EVERY 6 HOURS NEEDED FOR PAIN CAUTION: DO NOT EXCEED 4000MG PER DAY ACETAMIN OPHEN (APAP) FROM ALL MEDS. ORAL DISCONT INUED BY PROVIDE R 12/24/2024 [id number] JUSTINEDARWIN FAULKNER 2023 60 [facility] CODEINE 30MG/ACETAM INOPHEN 300MG TAB TAKE ONE TABLET BY MOUTH EVERY 6 HOURS NEEDED ORAL ACTIVE JUSTINEDARWIN CAMPOS 2024 [facility] ESCITALOPRA M OXALATE 20MG TAB TAKE ONE TABLET BY MOUTH ONCE A DAY ORAL ACTIVE JUSTINEDARWIN [facility]OS 2024 [facility] FUROSEMIDE 40MG TAB TAKE ONE TABLET BY MOUTH TWICE A DAY FOR FLUID RETENTIO N (EDEMA) ORAL DISCONT INUED BY PROVIDE R 09/24/2025 [id number] 4 LINNEA STAHL 2023 180 [facility] FUROSEMIDE 40MG TAB TAKE ONE TABLET BY MOUTH EVERY DAY FOR FLUID RETENTIO N (EDEMA) ORAL DISCONT INUED (EDIT) 07/22/2025 [id number] 4 JUSTINE, DARWIN 2023 90 [facility] [facility] FUROSEMIDE 40MG TAB TAKE ONE TABLET BY MOUTH EVERY MORNING ORAL ACTIVE JUSTINE, DARWIN 2024 [place] [facility] HYDROCHLORO THIAZIDE 25MG TAB TAKE ONE TABLET BY MOUTH ONCE A DAY ORAL ACTIVE JUSTINE, DARWIN 2024 [place] [facility] LISINOPRIL 40MG TAB TAKE ONE TABLET BY MOUTH ONCE A DAY ORAL ACTIVE JUSTINE, DARWIN 2024 [place] [facility] MIRTAZAPINE 30MG TAB TAKE ONE-HALF TABLET BY MOUTH AT BEDTIME FOR DEPRESSI ON ORAL DISCONT INUED BY PROVIDE R 05/29/2025 [id number] 4 JUSTINE, DARWIN 2023 45 [place] [facility] MIRTAZAPINE 30MG TAB TAKE ONE-HALF TABLET BY MOUTH AT BEDTIME ORAL ACTIVE JUSTINE, DARWIN 2024 [place] [facility] MONTELUKAST NA 10MG TAB TAKE ONE TABLET BY MOUTH EVERY EVENING ORAL ACTIVE JUSTINE, DARWIN 2024 [facility] POTASSIUM CHLORIDE 20MEQ TAB,SA (DISPERSIBL E) TAKE ONE-HALF TABLET BY MOUTH ONCE A DAY FOR FERNANDOIJami M SUPPLEME NTATION TAKE WITH FOOD ORAL DISCONT INUED BY PROVIDE R 11/05/2024 [id number] 4 KENNETH ELIZONDO 2023 45 [place] [facility] POTASSIUM CHLORIDE 20MEQ TAB,SA (DISPERSIBL E) TAKE ONE TABLET BY MOUTH ONCE A DAY ORAL ACTIVE JUSTINE, DARWIN 2024 [place] [facility] Immunizations Combined list of available immunizations from the Department of Defense and Veterans Affairs facilities. 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 INFLUENZA, UNSPECIFIED FORMULATION 2022 88 complet ed HISTORICA L INFORMATI ON - FROM OTHER PROVIDER, [facility] COVID-19 (MODERNA), MRNA, LNP-S, BIVALENT, PF, 50 MCG/0.5 ML OR 25MCG/0.25 ML DOSE 2 2021 229 complet ed HISTORICA L INFORMATI ON - FROM OTHER REGISTRY, [facility] INFLUENZA, HIGH-DOSE, QUADRIVALENT 4 2021 197 complet ed HISTORICA L INFORMATI ON - FROM OTHER REGISTRY, [facility] PNEUMOCOCCAL CONJUGATE PCV20, POLYSACCHARID E [id number] CONJUGATE, ADJUVANT, PF 3 2021 216 complet ed HISTORICA L INFORMATI ON - FROM OTHER REGISTRY, [facility] N TDAP 1 2021 115 complet ed HISTORICA L INFORMATI ON - FROM OTHER REGISTRY, [facility] INFLUENZA, INJECTABLE, QUADRIVALENT, PRESERVATIVE FREE 3 2020 150 complet ed HISTORICA L INFORMATI ON - FROM OTHER REGISTRY, [facility] PNEUMOCOCCAL POLYSACCHARID E [id number] 2 2020 33 complet ed HISTORICA L INFORMATI ON - FROM OTHER REGISTRY, [facility] COVID-19 (MODERNA), MRNA, LNP-S, PF, 100 MCG/0.5ML DOSE OR 50 MCG/0.25ML DOSE 1 2020 207 complet ed HISTORICA L INFORMATI ON - FROM OTHER REGISTRY, [facility] N INFLUENZA, RECOMBINANT, QUADRIVALENT, INJECTABLE, PRESERVATIVE FREE 2 2019 185 complet ed HISTORICA L INFORMATI ON - FROM OTHER REGISTRY, [facility] INFLUENZA, UNSPECIFIED FORMULATION 2018 88 complet ed [facility] TDAP 2018 115 complet ed will bring documenta tion [facility] PNEUMOCOCCAL CONJUGATE PCV 13 2017 133 complet ed HISTORICA L INFORMATI ON - FROM OTHER REGISTRY, [facility] INFLUENZA, INJECTABLE, QUADRIVALENT, PRESERVATIVE FREE 1 2016 150 complet ed HISTORICA L INFORMATI ON - FROM OTHER REGISTRY, [facility] PNEUMOCOCCAL CONJUGATE PCV 13 1 2014 133 complet ed HISTORICA L INFORMATI ON - FROM OTHER REGISTRY, [facility] Results Combined list of recent chemistry, hematology and other laboratory results from Department of Defense and Veterans Affairs, ranging from 15 months to all on record, depending upon the facility. Order Name Results Value Reference Range Date Interpretation Specimen Comments Source BASIC METABOLIC PANEL CREATININE [MASS/VOLUME] IN SERUM OR PLASMA 1.13 mg/dL 0.7 - 1.3 11/16 Specimen Type: PLASMA No comment entered. Ordering Provider: DARWIN FLETCHER Report Released Date/Time : Nov 02, 2024 09:13 AM Reporting Lab: [place] [facility] [address] [place] [address] Performin g Lab: [place] [facility] [address] [place] [address] [facility] BASIC METABOLIC PANEL UREA NITROGEN [MASS/VOLUME] IN SERUM OR PLASMA 31 mg/dL 9 - 25 11/16 H Specimen Type: PLASMA No comment entered. Ordering Provider: DARWIN FLETCHER Report Released Date/Time : Nov 02, 2024 09:13 AM Reporting Lab: [place] [facility] [address] [place] [address] Performin g Lab: [place] [facility] [address] [place] [address] [facility] BASIC METABOLIC PANEL GLUCOSE [MASS/VOLUME] IN SERUM OR PLASMA 93 mg/dL 72 - 99 11/16 Specimen Type: PLASMA No comment entered. Ordering Provider: DARWIN FLETCHER Report Released Date/Time : Nov 02, 2024 09:13 AM Reporting Lab: [place] [facility] [address] [place] [address] Performin g Lab: [place] [facility] [address] [place] [address] [facility] BASIC METABOLIC PANEL SODIUM [MOLES/VOLUME ] IN SERUM OR PLASMA 144 meq/L 136 - 145 11/16 Specimen Type: PLASMA No comment entered. Ordering Provider: DARWIN FLETCHER Report Released Date/Time : Nov 02, 2024 09:13 AM Reporting Lab: [place] [facility] [address] [place] [address] Performin g Lab: [place] [facility] [address] [place] [address] 8 [facility] BASIC METABOLIC PANEL POTASSIUM [MOLES/VOLUME ] IN SERUM OR PLASMA 3.9 meq/L 3.5 - 5 11/16 Specimen Type: PLASMA No comment entered. Ordering Provider: DARWIN FLETCHER Report Released Date/Time : Nov 02, 2024 09:13 AM Reporting Lab: [place] [facility] [address] [place] [address] Performin g Lab: [place] [facility] [address] [place] [address] 8 [facility] BASIC METABOLIC PANEL CHLORIDE [MOLES/VOLUME ] IN SERUM OR PLASMA 109 meq/L 98 - 107 11/16 H Specimen Type: PLASMA No comment entered. Ordering Provider: DARWIN FLETCHER Report Released Date/Time : Nov 02, 2024 09:13 AM Reporting Lab: [place] [facility] [address] [place] [address] Performin g Lab: [place] [facility] [address] [place] [address] [facility] BASIC METABOLIC PANEL CARBON DIOXIDE, TOTAL [MOLES/VOLUME ] IN SERUM OR PLASMA 25 meq/L 22 - 31 11/16 Specimen Type: PLASMA No comment entered. Ordering Provider: DARWIN FLETCHER Report Released Date/Time : Nov 02, 2024 09:13 AM Reporting Lab: [place] [facility] [address] [place] [address] Performin g Lab: [place] [facility] [address] [place] [address] 8 [facility] BASIC METABOLIC PANEL CALCIUM [MASS/VOLUME] IN SERUM OR PLASMA 9.2 mg/dL 8.4 - 10.4 11/16 Specimen Type: PLASMA No comment entered. Ordering Provider: DARWIN FLETCHER Report Released Date/Time : Nov 02, 2024 09:13 AM Reporting Lab: [place] [facility] [address] [place] [address] Performin g Lab: [place] [facility] [address] [place] [address] [facility] BASIC METABOLIC PANEL GLOMERULAR FILTRATION RATE/1.73 SQ M.PREDICTED [VOLUME RATE/AREA] IN SERUM, PLASMA OR BLOOD BY CREATININE-BA SED FORMULA (CKD-EPI 2020) 65 11/16 Specimen Type: PLASMA No comment entered. Ordering Provider: DARWIN FLETCHER Report Released Date/Time : Nov 02, 2024 09:13 AM Reporting Lab: [place] [facility] [address] [place] [address] Performin g Lab: [place] [facility] [address] [place] [address] [facility] DRUG SCREEN URINE-inhou se (PB) METHADONE [PRESENCE] IN URINE Negati veng/m L 11/02 Specimen Type: URINE No comment entered. Ordering Provider: DARWIN FLETCHER Report Released Date/Time : Nov 02, 2024 09:27 AM Reporting Lab: [place] [facility] [address] [place] [address] Performin g Lab: [place] [facility] [address] [place] [address] 8 [facility] DRUG SCREEN URINE-inhou se (PB) OPIATES [PRESENCE] IN URINE BY SCREEN METHOD Positi veng/m L 11/02 H Specimen Type: URINE No comment entered. Ordering Provider: DARWIN FLETCHER Report Released Date/Time : Nov 02, 2024 09:27 AM Reporting Lab: [place] [facility] [address] [place] [address] Performin g Lab: [place] [facility] [address] [place] [address] 8 [facility] DRUG SCREEN URINE-inhou se (PB) COCAINE [PRESENCE] IN URINE Negati veng/m L 11/02 Specimen Type: URINE No comment entered. Ordering Provider: DARWIN FLETCHER Report Released Date/Time : Nov 02, 2024 09:27 AM Reporting Lab: [place] [facility] [address] [place] [address] Performin g Lab: [place] [facility] [address] [place] [address] 8 [facility] DRUG SCREEN URINE-inhou se (PB) TETRAHYDROCAN NABINOL [PRESENCE] IN URINE BY SCREEN METHOD Negati veng/m L 11/02 Specimen Type: URINE No comment entered. Ordering Provider: DARWIN FLETCHER Report Released Date/Time : Nov 02, 2024 09:27 AM Reporting Lab: [place] [facility] [address] [place] [address] Performin g Lab: [place] [facility] [address] [place] [address] 8 [facility] DRUG SCREEN URINE-inhou se (PB) BENZODIAZEPIN ES [PRESENCE] IN URINE BY SCREEN METHOD Negati veng/m L 11/02 Specimen Type: URINE No comment entered. Ordering Provider: DARWIN FLETCHER Report Released Date/Time : Nov 02, 2024 09:27 AM Reporting Lab: [place] [facility] [address] [place] [address] Performin g Lab: [place] [facility] [address] [place] [address] 8 [facility] DRUG SCREEN URINE-inhou se (PB) AMPHETAMINE [PRESENCE] IN URINE BY SCREEN METHOD Negati veng/m L 11/02 Specimen Type: URINE No comment entered. Ordering Provider: DARWIN FLETCHER Report Released Date/Time : Nov 02, 2024 09:27 AM Reporting Lab: [place] [facility] [address] [place] [address] Performin g Lab: [place] [facility] [address] [place] [address] [facility] DRUG SCREEN URINE-inhou se (PB) CREATININE [MASS/VOLUME] IN URINE 35.77 mg/dL 11/02 Specimen Type: URINE No comment entered. Ordering Provider: DARWIN FLETCHER Report Released Date/Time : Nov 02, 2024 09:27 AM Reporting Lab: [place] [facility] [address] [place] [address] Performin g Lab: [place] [facility] [address] [place] [address] 8 [facility] DRUG SCREEN URINE-inhou se (PB) OXYCODONE CUTOFF [MASS/VOLUME] IN URINE FOR SCREEN METHOD Negati veng/m L 11/02 Specimen Type: URINE No comment entered. Ordering Provider: DARWIN FLETCHER Report Released Date/Time : Nov 02, 2024 09:27 AM Reporting Lab: [place] [facility] [address] [place] [address] Performin g Lab: [place] [facility] [address] [place] [address] [facility] DRUG SCREEN URINE-inhou se (PB) BUPRENORPHINE [PRESENCE] IN URINE Negati veng/m L 11/02 Specimen Type: URINE No comment entered. Ordering Provider: DARWIN FLETCHER Report Released Date/Time : Nov 02, 2024 09:27 AM Reporting Lab: [place] [facility] [address] [place] [address] Performin g Lab: [place] [facility] [address] [place] [address] [facility] DRUG SCREEN URINE-inhou se (PB) ETHANOL [MASS/VOLUME] IN URINE <10.0m g/dL <9 - 9 11/02 L Specimen Type: URINE No comment entered. Ordering Provider: DARWIN FLETCHER Report Released Date/Time : Nov 02, 2024 09:27 AM Reporting Lab: [place] [facility] [address] [place] [address] Performin g Lab: [place] [facility] [address] [place] [address] [facility] DRUG SCREEN URINE-inhou se (PB) FENTANYL [PRESENCE] IN URINE Negati veng/m L 11/02 Specimen Type: URINE No comment entered. Ordering Provider: DARWIN FLETCHER Report Released Date/Time : Nov 02, 2024 09:27 AM Reporting Lab: [place] [facility] [address] [place] [address] Performin g Lab: [place] [facility] [address] [place] [address] [facility] HGA1C HEMOGLOBIN A1C/HEMOGLOBI N.TOTAL IN BLOOD 6.2 4.0 - 6.0 10/26 H Specimen Type: BLOOD No comment entered. Ordering Provider: DARWIN FLETCHER Report Released Date/Time : May 06, 2024 09:33 AM Reporting Lab: [place] [facility] [address] [place] [address] Performin g Lab: [place] [facility] [address] [place] [address] [facility] TSH (MA-PB) THYROTROPIN [UNITS/VOLUME ] IN SERUM OR PLASMA 2.687 u[IU]/ mL 0.47 - 5 10/26 Specimen Type: SERUM No comment entered. Ordering Provider: DARWIN FLETCHER Report Released Date/Time : May 06, 2024 09:33 AM Reporting Lab: [place] [facility] [address] [place] [address] Performin g Lab: [place] [facility] [address] [place] [address] [facility] VITAMIN D, 25-HYDROXY 25-HYDROXYVIT FRANCIS D3 [MASS/VOLUME] IN SERUM OR PLASMA 42.1 ng/mL 30 - 96 10/26 Specimen Type: SERUM No comment entered. Ordering Provider: DARWIN FLETCHER Report Released Date/Time : May 06, 2024 09:33 AM Reporting Lab: [place] [facility] [address] [place] [address] Performin g Lab: [place] [facility] [address] [place] [address] [facility] COMPREHENSI VE METABOLIC PANEL CREATININE [MASS/VOLUME] IN SERUM OR PLASMA 1.29 mg/dL 0.7 - 1.3 10/26 Specimen Type: PLASMA No comment entered. Ordering Provider: DARWIN FLETCHER Report Released Date/Time : May 06, 2024 09:33 AM Reporting Lab: [place] [facility] [address] [place] [address] Performin g Lab: [place] [facility] [address] [place] [address] [facility] COMPREHENSI VE METABOLIC PANEL UREA NITROGEN [MASS/VOLUME] IN SERUM OR PLASMA 25 mg/dL 9 - 25 10/26 Specimen Type: PLASMA No comment entered. Ordering Provider: DARWIN FLETCHER Report Released Date/Time : May 06, 2024 09:33 AM Reporting Lab: [place] [facility] [address] [place] [address] Performin g Lab: [place] [facility] [address] [place] [address] [facility] COMPREHENSI VE METABOLIC PANEL GLUCOSE [MASS/VOLUME] IN SERUM OR PLASMA 88 mg/dL 72 - 99 10/26 Specimen Type: PLASMA No comment entered. Ordering Provider: DARWIN FLETCHER Report Released Date/Time : May 06, 2024 09:33 AM Reporting Lab: [place] [facility] [address] [place] [address] Performin g Lab: [place] [facility] [address] [place] [address] [facility] COMPREHENSI VE METABOLIC PANEL SODIUM [MOLES/VOLUME ] IN SERUM OR PLASMA 145 meq/L 136 - 145 10/26 Specimen Type: PLASMA No comment entered. Ordering Provider: DARWIN FLETCHER Report Released Date/Time : May 06, 2024 09:33 AM Reporting Lab: [place] [facility] [address] [place] [address] Performin g Lab: [place] [facility] [address] [place] [address] [place] [facility] COMPREHENSI VE METABOLIC PANEL POTASSIUM [MOLES/VOLUME ] IN SERUM OR PLASMA 4.0 meq/L 3.5 - 5 10/26 Specimen Type: PLASMA No comment entered. Ordering Provider: DARWIN FLETCHER Report Released Date/Time : May 06, 2024 09:33 AM Reporting Lab: [place] [facility] [address] [place] [address] Performin g Lab: [place] [facility] [address] [place] [address] 8 [place] [facility] COMPREHENSI VE METABOLIC PANEL CHLORIDE [MOLES/VOLUME ] IN SERUM OR PLASMA 107 meq/L 98 - 107 10/26 Specimen Type: PLASMA No comment entered. Ordering Provider: DARWIN FLETCHER Report Released Date/Time : May 06, 2024 09:33 AM Reporting Lab: [place] [facility] [address] [place] [address] Performin g Lab: [place] [facility] [address] [place] [address] [facility] COMPREHENSI VE METABOLIC PANEL CARBON DIOXIDE, TOTAL [MOLES/VOLUME ] IN SERUM OR PLASMA 25 meq/L 22 - 31 10/26 Specimen Type: PLASMA No comment entered. Ordering Provider: DARWIN FLETCHER Report Released Date/Time : May 06, 2024 09:33 AM Reporting Lab: [place] [facility] [address] [place] [address] Performin g Lab: [place] [facility] [address] [place] [address] [place] [facility] COMPREHENSI VE METABOLIC PANEL CALCIUM [MASS/VOLUME] IN SERUM OR PLASMA 9.6 mg/dL 8.4 - 10.4 10/26 Specimen Type: PLASMA No comment entered. Ordering Provider: DARWIN FLETCHER Report Released Date/Time : May 06, 2024 09:33 AM Reporting Lab: [place] [facility] [address] [place] [address] Performin g Lab: [place] [facility] [address] [place] [address] [facility] COMPREHENSI VE METABOLIC PANEL PROTEIN [MASS/VOLUME] IN SERUM OR PLASMA 7.6 g/dL 6 - 8.6 10/26 Specimen Type: PLASMA No comment entered. Ordering Provider: DARWIN FLETCHER Report Released Date/Time : May 06, 2024 09:33 AM Reporting Lab: [place] [facility] [address] [place] [address] 8 Performin g Lab: [place] [facility] [address] [place] [address] 8 [facility] COMPREHENSI VE METABOLIC PANEL ALBUMIN [MASS/VOLUME] IN SERUM OR PLASMA 4.1 g/dL 3.4 - 5 10/26 Specimen Type: PLASMA No comment entered. Ordering Provider: DARWIN FLETCHER Report Released Date/Time : May 06, 2024 09:33 AM Reporting Lab: [place] [facility] [address] [place] [address] 8 Performin g Lab: [place] [facility] [address] [place] [address] 8 [facility] COMPREHENSI VE METABOLIC PANEL BILIRUBIN.TOT AL [MASS/VOLUME] IN SERUM OR PLASMA 0.3 mg/dL 0.2 - 1.2 10/26 Specimen Type: PLASMA No comment entered. Ordering Provider: DARWIN FLETCHER Report Released Date/Time : May 06, 2024 09:33 AM Reporting Lab: [place] [facility] [address] [place] [address] 8 Performin g Lab: [place] [facility] [address] [place] [address] 8 [facility] COMPREHENSI VE METABOLIC PANEL ALKALINE PHOSPHATASE [ENZYMATIC ACTIVITY/VOLU ME] IN SERUM OR PLASMA 70 U/L 40 - 150 10/26 Specimen Type: PLASMA No comment entered. Ordering Provider: DARWIN FLETCHER Report Released Date/Time : May 06, 2024 09:33 AM Reporting Lab: [place] [facility] [address] [place] [address] 8 Performin g Lab: [place] [facility] [address] [place] [address] 8 [facility] COMPREHENSI VE METABOLIC PANEL ASPARTATE AMINOTRANSFER ASE [ENZYMATIC ACTIVITY/VOLU ME] IN SERUM OR PLASMA 19 U/L 5 - 34 10/26 Specimen Type: PLASMA No comment entered. Ordering Provider: DARWIN FLETCHER Report Released Date/Time : May 06, 2024 09:33 AM Reporting Lab: [place] [facility] [address] [place] [address] 8 Performin g Lab: [place] [facility] [address] [place] [address] 8 [facility] COMPREHENSI VE METABOLIC PANEL ALANINE AMINOTRANSFER ASE [ENZYMATIC ACTIVITY/VOLU ME] IN SERUM OR PLASMA 12 U/L 8 - 40 10/26 Specimen Type: PLASMA No comment entered. Ordering Provider: DARWIN FLETCHER Report Released Date/Time : May 06, 2024 09:33 AM Reporting Lab: [place] [facility] [address] [place] [address] 8 Performin g Lab: [place] [facility] [address] [place] [address] 8 [facility] COMPREHENSI VE METABOLIC PANEL GLOMERULAR FILTRATION RATE/1.73 SQ M.PREDICTED [VOLUME RATE/AREA] IN SERUM, PLASMA OR BLOOD BY CREATININE-BA SED FORMULA (CKD-EPI 2020) 55 10/26 Specimen Type: PLASMA No comment entered. Ordering Provider: DARWIN FLETCHER Report Released Date/Time : May 06, 2024 09:33 AM Reporting Lab: [place] [facility] [address] [place] [address] 8 Performin g Lab: [place] [facility] [address] [place] [address] 8 [facility] CHOLESTEROL PANEL (PB) CHOLESTEROL [MASS/VOLUME] IN SERUM OR PLASMA 197 mg/dL 0 - 200 10/26 Specimen Type: PLASMA No comment entered. Ordering Provider: DARWIN FLETCHER Report Released Date/Time : May 06, 2024 09:33 AM Reporting Lab: [place] [facility] [address] [place] [address] 8 Performin g Lab: [place] [facility] [address] [place] [address] 8 [facility] CHOLESTEROL PANEL (PB) TRIGLYCERIDE [MASS/VOLUME] IN SERUM OR PLASMA 183 mg/dL 0 - 150 10/26 H Specimen Type: PLASMA No comment entered. Ordering Provider: DARWIN FLETCHER Report Released Date/Time : May 06, 2024 09:33 AM Reporting Lab: [place] [facility] [address] [place] [address] 8 Performin g Lab: [place] [facility] [address] [place] [address] 8 [facility] CHOLESTEROL PANEL (PB) CHOLESTEROL IN LDL [MASS/VOLUME] IN SERUM OR PLASMA BY CALCULATION 116.8 mg/dL 10/26 Specimen Type: PLASMA No comment entered. Ordering Provider: DARWIN FLETCHER Report Released Date/Time : May 06, 2024 09:33 AM Reporting Lab: [place] [facility] [address] [place] [address] 8 Performin g Lab: [place] [facility] [address] [place] [address] 8 [facility] CHOLESTEROL PANEL (PB) CHOLESTEROL IN HDL [MASS/VOLUME] IN SERUM OR PLASMA 43.6 mg/dL 40 10/26 H Specimen Type: PLASMA No comment entered. Ordering Provider: DARWIN FLETCHER Report Released Date/Time : May 06, 2024 09:33 AM Reporting Lab: [place] [facility] [address] [place] [address] 8 Performin g Lab: [place] [facility] [address] [place] [address] 8 [facility] CHOLESTEROL PANEL (PB) CHOLESTEROL IN HDL/CHOLESTER OL.TOTAL [MASS RATIO] IN SERUM OR PLASMA 22.1 25 10/26 Specimen Type: PLASMA No comment entered. Ordering Provider: DARWIN FLETCHER Report Released Date/Time : May 06, 2024 09:33 AM Reporting Lab: [place] [facility] [address] [place] [address] 8 Performin g Lab: [place] [facility] [address] [place] [address] 8 [facility] CBC LEUKOCYTES [#/VOLUME] IN BLOOD BY AUTOMATED COUNT 6.3 10*3/u L 3.6 - 11.2 10/26 Specimen Type: BLOOD No comment entered. Ordering Provider: DARWIN FLETCHER Report Released Date/Time : May 06, 2024 09:33 AM Reporting Lab: [place] [facility] [address] [place] [address] 8 Performin g Lab: [place] [facility] [address] [place] [address] 8 [facility] CBC ERYTHROCYTES [#/VOLUME] IN BLOOD BY AUTOMATED COUNT 4.95 10*6/u L 4.10 - 5.70 10/26 Specimen Type: BLOOD No comment entered. Ordering Provider: DARWIN FLETCHER Report Released Date/Time : May 06, 2024 09:33 AM Reporting Lab: [place] [facility] [address] [place] [address] 8 Performin g Lab: [place] [facility] [address] [place] [address] 8 [facility] CBC HEMOGLOBIN [MASS/VOLUME] IN BLOOD 14.6 g/dL 13.1 - 16.8 10/26 Specimen Type: BLOOD No comment entered. Ordering Provider: DARWIN FLETCHER Report Released Date/Time : May 06, 2024 09:33 AM Reporting Lab: [place] [facility] [address] [place] [address] 8 Performin g Lab: [place] [facility] [address] [place] [address] 8 [facility] CBC HEMATOCRIT [VOLUME FRACTION] OF BLOOD 44.9 38.2 - 48.4 10/26 Specimen Type: BLOOD No comment entered. Ordering Provider: DARWIN FLETCHER Report Released Date/Time : May 06, 2024 09:33 AM Reporting Lab: [place] [facility] [address] [place] [address] 8 Performin g Lab: [place] [facility] [address] [place] [address] 8 [facility] CBC MCV [ENTITIC VOLUME] BY AUTOMATED COUNT 90.7 fL 80.0 - 100.0 10/26 Specimen Type: BLOOD No comment entered. Ordering Provider: DARWIN FLETCHER Report Released Date/Time : May 06, 2024 09:33 AM Reporting Lab: [place] [facility] [address] [place] [address] 8 Performin g Lab: [place] [facility] [address] [place] [address] 8 [facility] CBC MCH [ENTITIC MASS] BY AUTOMATED COUNT 29.5 pg 27.0 - 34.0 10/26 Specimen Type: BLOOD No comment entered. Ordering Provider: DARWIN FLETCHER Report Released Date/Time : May 06, 2024 09:33 AM Reporting Lab: [place] [facility] [address] [place] [address] 8 Performin g Lab: [place] [facility] [address] [place] [address] 8 [facility] CBC MCHC [MASS/VOLUME] BY AUTOMATED COUNT 32.5 g/dL 33.0 - 36.0 10/26 L Specimen Type: BLOOD No comment entered. Ordering Provider: DARWIN FLETCHER Report Released Date/Time : May 06, 2024 09:33 AM Reporting Lab: [place] [facility] [address] [place] [address] 8 Performin g Lab: [place] [facility] [address] [place] [address] 8 [facility] CBC PLATELETS [#/VOLUME] IN BLOOD BY AUTOMATED COUNT 174 10*3/u L 150 - 400 10/26 Specimen Type: BLOOD No comment entered. Ordering Provider: DARWIN FLETCHER Report Released Date/Time : May 06, 2024 09:33 AM Reporting Lab: [place] [facility] [address] [place] [address] 8 Performin g Lab: [place] [facility] [address] [place] [address] 8 [facility] CBC PLATELET MEAN VOLUME [ENTITIC VOLUME] IN BLOOD BY AUTOMATED COUNT 11.2 fL 7.5 - 11.2 10/26 Specimen Type: BLOOD No comment entered. Ordering Provider: DARWIN FLETCHER Report Released Date/Time : May 06, 2024 09:33 AM Reporting Lab: [place] [facility] [address] [place] [address] 8 Performin g Lab: [place] [facility] [address] [place] [address] 8 [facility] CBC ERYTHROCYTE DISTRIBUTION WIDTH [RATIO] BY AUTOMATED COUNT 14.7 11.8 - 15.1 10/26 Specimen Type: BLOOD No comment entered. Ordering Provider: DARWIN FLETCHER Report Released Date/Time : May 06, 2024 09:33 AM Reporting Lab: [place] [facility] [address] [place] [address] 8 Performin g Lab: [place] [facility] [address] [place] [address] 8 [facility] CBC LYMPHOCYTES/1 00 LEUKOCYTES IN BLOOD BY AUTOMATED COUNT 32.0 10/26 Specimen Type: BLOOD No comment entered. Ordering Provider: DARWIN FLETCHER Report Released Date/Time : May 06, 2024 09:33 AM Reporting Lab: [place] [facility] [address] [place] [address] 8 Performin g Lab: [place] [facility] [address] [place] [address] 8 [facility] CBC MONOCYTES/100 LEUKOCYTES IN BLOOD BY AUTOMATED COUNT 5.7 10/26 Specimen Type: BLOOD No comment entered. Ordering Provider: DARWIN FLETCHER Report Released Date/Time : May 06, 2024 09:33 AM Reporting Lab: [place] [facility] [address] [place] [address] 8 Performin g Lab: [place] [facility] [address] [place] [address] 8 [facility] CBC NEUTROPHILS/1 00 LEUKOCYTES IN BLOOD BY AUTOMATED COUNT 60.8 10/26 Specimen Type: BLOOD No comment entered. Ordering Provider: DARWIN FLETCHER Report Released Date/Time : May 06, 2024 09:33 AM Reporting Lab: [place] [facility] [address] [place] [address] 8 Performin g Lab: [place] [facility] [address] [place] [address] 8 [facility] CBC EOSINOPHILS/1 00 LEUKOCYTES IN BLOOD BY AUTOMATED COUNT 0.8 10/26 Specimen Type: BLOOD No comment entered. Ordering Provider: DARWIN FLETCHER Report Released Date/Time : May 06, 2024 09:33 AM Reporting Lab: [place] [facility] [address] [place] [address] 8 Performin g Lab: [place] [facility] [address] [place] [address] 8 [facility] CBC BASOPHILS/100 LEUKOCYTES IN BLOOD BY AUTOMATED COUNT 0.5 10/26 Specimen Type: BLOOD No comment entered. Ordering Provider: DARWIN FLETCHER Report Released Date/Time : May 06, 2024 09:33 AM Reporting Lab: [place] [facility] [address] [place] [address] 8 Performin g Lab: [place] [facility] [address] [place] [address] 8 [facility] CBC LYMPHOCYTES [#/VOLUME] IN BLOOD BY AUTOMATED COUNT 2.01 10*3/u L 0.77 - 4.50 10/26 Specimen Type: BLOOD No comment entered. Ordering Provider: DARWIN FLETCHER Report Released Date/Time : May 06, 2024 09:33 AM Reporting Lab: [place] [facility] [address] [place] [address] 8 Performin g Lab: [place] [facility] [address] [place] [address] 8 [facility] CBC MONOCYTES [#/VOLUME] IN BLOOD BY AUTOMATED COUNT 0.36 10*3/u L 0.19 - 0.8 10/26 Specimen Type: BLOOD No comment entered. Ordering Provider: DARWIN FLETCHER Report Released Date/Time : May 06, 2024 09:33 AM Reporting Lab: [place] [facility] [address] [place] [address] 8 Performin g Lab: [place] [facility] [address] [place] [address] 8 [facility] CBC NEUTROPHILS [#/VOLUME] IN BLOOD BY AUTOMATED COUNT 3.82 10*3/u L 2.10 - 8.00 10/26 Specimen Type: BLOOD No comment entered. Ordering Provider: DARWIN FLETCHER Report Released Date/Time : May 06, 2024 09:33 AM Reporting Lab: [place] [facility] [address] [place] [address] 8 Performin g Lab: [place] [facility] [address] [place] [address] 8 [facility] CBC EOSINOPHILS [#/VOLUME] IN BLOOD BY AUTOMATED COUNT 0.05 10*3/u L 0.00 - 0.60 10/26 Specimen Type: BLOOD No comment entered. Ordering Provider: DARWIN FLETCHER Report Released Date/Time : May 06, 2024 09:33 AM Reporting Lab: [place] [facility] [address] [place] [address] 8 Performin g Lab: [place] [facility] [address] [place] [address] 8 [facility] CBC BASOPHILS [#/VOLUME] IN BLOOD BY AUTOMATED COUNT 0.03 10*3/u L 0.00 - 0.20 10/26 Specimen Type: BLOOD No comment entered. Ordering Provider: DARWIN FLETCHER Report Released Date/Time : May 06, 2024 09:33 AM Reporting Lab: [place] [facility] [address] [place] [address] 8 Performin g Lab: [place] [facility] [address] [place] [address] 8 [facility] CBC IMMATURE GRANULOCYTES/ 100 LEUKOCYTES IN BLOOD BY AUTOMATED COUNT 0.2 10/26 Specimen Type: BLOOD No comment entered. Ordering Provider: DARWIN FLETCHER Report Released Date/Time : May 06, 2024 09:33 AM Reporting Lab: [place] [facility] [address] [place] [address] 8 Performin g Lab: [place] [facility] [address] [place] [address] 8 [facility] CBC IMMATURE GRANULOCYTES [#/VOLUME] IN BLOOD BY AUTOMATED COUNT 0.01 10*3/u L 0.00 - 0.05 10/26 Specimen Type: BLOOD No comment entered. Ordering Provider: DARWIN FLETCHER Report Released Date/Time : May 06, 2024 09:33 AM Reporting Lab: [place] [facility] [address] [place] [address] 8 Performin g Lab: [place] [facility] [address] [place] [address] 8 [facility] BASIC METABOLIC PANEL CREATININE [MASS/VOLUME] IN SERUM OR PLASMA 1.14 mg/dL 0.7 - 1.3 08/04 Specimen Type: PLASMA No comment entered. Ordering Provider: DARWIN FLETCHER Report Released Date/Time : Jul 26, 2024 01:19 PM Reporting Lab: [place] [facility] [address] [place] [address] 8 Performin g Lab: [place] [facility] [address] [place] [address] 8 [facility] BASIC METABOLIC PANEL UREA NITROGEN [MASS/VOLUME] IN SERUM OR PLASMA 25 mg/dL 9 - 25 08/04 Specimen Type: PLASMA No comment entered. Ordering Provider: DARWIN FLETCHER Report Released Date/Time : Jul 26, 2024 01:19 PM Reporting Lab: [place] [facility] [address] [place] [address] 8 Performin g Lab: [place] [facility] [address] [place] [address] 8 [facility] BASIC METABOLIC PANEL GLUCOSE [MASS/VOLUME] IN SERUM OR PLASMA 94 mg/dL 72 - 99 08/04 Specimen Type: PLASMA No comment entered. Ordering Provider: DARWIN FLETCHER Report Released Date/Time : Jul 26, 2024 01:19 PM Reporting Lab: [place] [facility] [address] [place] [address] 8 Performin g Lab: [place] [facility] [address] [place] [address] 8 [facility] BASIC METABOLIC PANEL SODIUM [MOLES/VOLUME ] IN SERUM OR PLASMA 144 meq/L 136 - 145 08/04 Specimen Type: PLASMA No comment entered. Ordering Provider: DARWIN FLETCHER Report Released Date/Time : Jul 26, 2024 01:19 PM Reporting Lab: [place] [facility] [address] [place] [address] 8 Performin g Lab: [place] [facility] [address] [place] [address] 8 [facility] BASIC METABOLIC PANEL POTASSIUM [MOLES/VOLUME ] IN SERUM OR PLASMA 4.1 meq/L 3.5 - 5 08/04 Specimen Type: PLASMA No comment entered. Ordering Provider: DARWIN FLETCEHR Report Released Date/Time : Jul 26, 2024 01:19 PM Reporting Lab: [place] [facility] [address] [place] [address] 8 Performin g Lab: [place] [facility] [address] [place] [address] 8 [facility] BASIC METABOLIC PANEL CHLORIDE [MOLES/VOLUME ] IN SERUM OR PLASMA 107 meq/L 98 - 107 08/04 Specimen Type: PLASMA No comment entered. Ordering Provider: DARWIN FLETCHER Report Released Date/Time : Jul 26, 2024 01:19 PM Reporting Lab: [place] [facility] [address] [place] [address] 8 Performin g Lab: [place] [facility] [address] [place] [address] 8 [facility] BASIC METABOLIC PANEL CARBON DIOXIDE, TOTAL [MOLES/VOLUME ] IN SERUM OR PLASMA 26 meq/L 22 - 31 08/04 Specimen Type: PLASMA No comment entered. Ordering Provider: DARWIN FLETCHER Report Released Date/Time : Jul 26, 2024 01:19 PM Reporting Lab: [place] [facility] [address] [place] [address] 8 Performin g Lab: [place] [facility] [address] [place] [address] 8 [facility] BASIC METABOLIC PANEL CALCIUM [MASS/VOLUME] IN SERUM OR PLASMA 8.9 mg/dL 8.4 - 10.4 08/04 Specimen Type: PLASMA No comment entered. Ordering Provider: DARWIN FLETCHER Report Released Date/Time : Jul 26, 2024 01:19 PM Reporting Lab: [place] [facility] [address] [place] [address] 8 Performin g Lab: [place] [facility] [address] [place] [address] 8 [facility] BASIC METABOLIC PANEL GLOMERULAR FILTRATION RATE/1.73 SQ M.PREDICTED [VOLUME RATE/AREA] IN SERUM, PLASMA OR BLOOD BY CREATININE-BA SED FORMULA (CKD-EPI 2020) 64 08/04 Specimen Type: PLASMA No comment entered. Ordering Provider: DARWIN FLETCHER Report Released Date/Time : Jul 26, 2024 01:19 PM Reporting Lab: [place] [facility] [address] [place] [address] 8 Performin g Lab: [place] [facility] [address] [place] [address] 8 [facility] COMPREHENSI VE METABOLIC PANEL CREATININE [MASS/VOLUME] IN SERUM OR PLASMA 1.23 mg/dL 0.7 - 1.3 06/23 Specimen Type: PLASMA No comment entered. Ordering Provider: DARWIN FLETCHER Report Released Date/Time : Jun 23, 2024 12:18 PM Reporting Lab: [place] [facility] [address] [place] [address] 8 Performin g Lab: [place] [facility] [address] [place] [address] 8 [facility] COMPREHENSI VE METABOLIC PANEL UREA NITROGEN [MASS/VOLUME] IN SERUM OR PLASMA 20 mg/dL 9 - 06/23 Specimen Type: PLASMA No comment entered. Ordering Provider: DARWIN FLETCHER Report Released Date/Time : Jun 23, 2024 12:18 PM Reporting Lab: [place] [facility] [address] [place] [address] Performin g Lab: [place] [facility] [address] [place] [address] [facility] COMPREHENSI VE METABOLIC PANEL GLUCOSE [MASS/VOLUME] IN SERUM OR PLASMA 82 mg/dL 72 - 99 06/23 Specimen Type: PLASMA No comment entered. Ordering Provider: DARWIN FLETCHER Report Released Date/Time : Jun 23, 2024 12:18 PM Reporting Lab: [place] [facility] [address] [place] [address] Performin g Lab: [place] [facility] [address] [place] [address] [facility] COMPREHENSI VE METABOLIC PANEL SODIUM [MOLES/VOLUME ] IN SERUM OR PLASMA 143 meq/L 136 - 145 06/23 Specimen Type: PLASMA No comment entered. Ordering Provider: DARWIN FLETCHER Report Released Date/Time : Jun 23, 2024 12:18 PM Reporting Lab: [place] [facility] [address] [place] [address] Performin g Lab: [place] [facility] [address] [place] [address] [facility] COMPREHENSI VE METABOLIC PANEL POTASSIUM [MOLES/VOLUME ] IN SERUM OR PLASMA 3.5 meq/L 3.5 - 5 06/23 Specimen Type: PLASMA No comment entered. Ordering Provider: DARWIN FLETCHER Report Released Date/Time : Jun 23, 2024 12:18 PM Reporting Lab: [place] [facility] [address] [place] [address] Performin g Lab: [place] [facility] [address] [place] [address] [facility] COMPREHENSI VE METABOLIC PANEL CHLORIDE [MOLES/VOLUME ] IN SERUM OR PLASMA 106 meq/L 98 - 107 06/23 Specimen Type: PLASMA No comment entered. Ordering Provider: DARWIN FLETCHER Report Released Date/Time : Jun 23, 2024 12:18 PM Reporting Lab: [place] [facility] [address] [place] [address] Performin g Lab: [place] [facility] [address] [place] [address] [facility] COMPREHENSI VE METABOLIC PANEL CARBON DIOXIDE, TOTAL [MOLES/VOLUME ] IN SERUM OR PLASMA 23 meq/L 22 - 31 06/23 Specimen Type: PLASMA No comment entered. Ordering Provider: DARWIN FLETCHER Report Released Date/Time : Jun 23, 2024 12:18 PM Reporting Lab: [place] [facility] [address] [place] [address] Performin g Lab: [place] [facility] [address] [place] [address] [facility] COMPREHENSI VE METABOLIC PANEL CALCIUM [MASS/VOLUME] IN SERUM OR PLASMA 8.6 mg/dL 8.4 - 10.4 06/23 Specimen Type: PLASMA No comment entered. Ordering Provider: DARWIN FLETCHER Report Released Date/Time : Jun 23, 2024 12:18 PM Reporting Lab: [place] [facility] [address] [place] [address] Performin g Lab: [place] [facility] [address] [place] [address] [facility] COMPREHENSI VE METABOLIC PANEL PROTEIN [MASS/VOLUME] IN SERUM OR PLASMA 6.1 g/dL 6 - 8.6 06/23 Specimen Type: PLASMA No comment entered. Ordering Provider: DARWIN FLETCHER Report Released Date/Time : Jun 23, 2024 12:18 PM Reporting Lab: [place] [facility] [address] [place] [address] Performin g Lab: [place] [facility] [address] [place] [address] [facility] COMPREHENSI VE METABOLIC PANEL ALBUMIN [MASS/VOLUME] IN SERUM OR PLASMA 3.7 g/dL 3.4 - 5 06/23 Specimen Type: PLASMA No comment entered. Ordering Provider: DARWNI FLETCHER Report Released Date/Time : Jun 23, 2024 12:18 PM Reporting Lab: [place] [facility] [address] [place] [address] Performin g Lab: [place] [facility] [address] [place] [address] [facility] COMPREHENSI VE METABOLIC PANEL BILIRUBIN.TOT AL [MASS/VOLUME] IN SERUM OR PLASMA 0.4 mg/dL 0.2 - 1.2 06/23 Specimen Type: PLASMA No comment entered. Ordering Provider: DARWIN FLETCHER Report Released Date/Time : Jun 23, 2024 12:18 PM Reporting Lab: [place] [facility] [address] [place] [address] Performin g Lab: [place] [facility] [address] [place] [address] [facility] COMPREHENSI VE METABOLIC PANEL ALKALINE PHOSPHATASE [ENZYMATIC ACTIVITY/VOLU ME] IN SERUM OR PLASMA 77 U/L 40 - 150 06/23 Specimen Type: PLASMA No comment entered. Ordering Provider: DARWIN FLETCHER Report Released Date/Time : Jun 23, 2024 12:18 PM Reporting Lab: [place] [facility] [address] [place] [address] Performin g Lab: [place] [facility] [address] [place] [address] 8 [facility] COMPREHENSI VE METABOLIC PANEL ASPARTATE AMINOTRANSFER ASE [ENZYMATIC ACTIVITY/VOLU ME] IN SERUM OR PLASMA 22 U/L 5 - 34 06/23 Specimen Type: PLASMA No comment entered. Ordering Provider: DARWIN FLETCHER Report Released Date/Time : Jun 23, 2024 12:18 PM Reporting Lab: [place] [facility] [address] [place] [address] Performin g Lab: [place] [facility] [address] [place] [address] 8 [facility] COMPREHENSI VE METABOLIC PANEL ALANINE AMINOTRANSFER ASE [ENZYMATIC ACTIVITY/VOLU ME] IN SERUM OR PLASMA 23 U/L 8 - 40 06/23 Specimen Type: PLASMA No comment entered. Ordering Provider: DARWIN FLETCHER Report Released Date/Time : Jun 23, 2024 12:18 PM Reporting Lab: [place] [facility] [address] [place] [address] Performin g Lab: [place] [facility] [address] [place] [address] [place] [facility] COMPREHENSI VE METABOLIC PANEL GLOMERULAR FILTRATION RATE/1.73 SQ M.PREDICTED [VOLUME RATE/AREA] IN SERUM, PLASMA OR BLOOD BY CREATININE-BA SED FORMULA (CKD-EPI 2020) 59 06/23 Specimen Type: PLASMA No comment entered. Ordering Provider: DARWIN FLETCHER Report Released Date/Time : Jun 23, 2024 12:18 PM Reporting Lab: [place] [facility] [address] [place] [address] Performin g Lab: [place] [facility] [address] [place] [address] [facility] Vital Signs Combined list of inpatient and outpatient Vital Signs from Department of Defense and Veterans Affairs, ranging from 12 months to all on record, depending upon the facility. Vital Sign Value Date Comments Source SYSTOLIC BLOOD PRESSURE 120 12/16/2024 11:22:00 [facility] DIASTOLIC BLOOD PRESSURE 79 12/16/2024 11:22:00 [facility] WEIGHT 118.4 12/16/2024 11:22:00 [facility] BMI 15 kg/m2 12/16/2024 11:22:00 [facility] TEMPERATURE 97.6 12/16/2024 11:22:00 [facility] PULSE 58 12/16/2024 11:22:00 [facility] RESPIRATION 17 12/16/2024 11:22:00 [facility] SYSTOLIC BLOOD PRESSURE 176 11/02/2024 08:43:00 [facility] DIASTOLIC BLOOD PRESSURE 92 11/02/2024 08:43:00 [facility] PULSE OXIMETRY 97 11/02/2024 08:43:00 [facility] WEIGHT 134.5 11/02/2024 08:43:00 [facility] BMI 17 kg/m2 11/02/2024 08:43:00 [place] [facility] PAIN 0 11/02/2024 08:43:00 [place] [facility] HEIGHT 74.0 11/02/2024 08:43:00 [place] [facility] PULSE 61 11/02/2024 08:43:00 [place] [facility] RESPIRATION 18 11/02/2024 08:43:00 [place] [facility] PULSE OXIMETRY 97 09/23/2024 09:32:00 [place] [facility] PULSE 74 09/23/2024 09:32:00 [place] [facility] SYSTOLIC BLOOD PRESSURE 108 06/23/2024 12:14:49 [place] [facility] DIASTOLIC BLOOD PRESSURE 67 06/23/2024 12:14:49 [place] [facility] PULSE OXIMETRY 98 06/23/2024 12:14:49 [place] [facility] WEIGHT 133.9 06/23/2024 12:14:49 [place] [facility] BMI 17 kg/m2 06/23/2024 12:14:49 [place] [facility] TEMPERATURE 98.2 06/23/2024 12:14:49 [place] [facility] PULSE 85 06/23/2024 12:14:49 [place] [facility] RESPIRATION 17 06/23/2024 12:14:49 [place] [facility] SYSTOLIC BLOOD PRESSURE 98 06/04/2024 11:40:00 [place] [facility] DIASTOLIC BLOOD PRESSURE 59 06/04/2024 11:40:00 [place] [facility] PULSE OXIMETRY 94 06/04/2024 11:40:00 [place] [facility] PULSE 56 06/04/2024 11:40:00 [place] [facility] Encounters Combined list of: 1) Encounters from Department of Veterans Affairs facilities going backup to the last 18 months, not all VA inpatient encounters are included; 2) Encounters from the Department of Defense facilities going backup to 280 months. Location Location Details Encounter Type Encounter Number Reason For Visit Attending Provider ADM Date DC Date Status Disposition Source [facility] Outpatient Encounter [id number] 09/22 [facility] Outpatient Encounter [id number] 09/22 [facility] OFFICE O/P EST LOW 20 MIN [id number] Diagnos is: ICD-10- CM J44.9 Chronic obstruc tive pulmona ry disease , unspeci fied Carmen ELIZONDO ICHARD D 10/31 [facility] Outpatient Encounter [id number] CAROCarmen ICHARD D 11/04 [facility] Outpatient Encounter [id number] BERLINSLICK COLLINS L 04/30 [facility] N [facility] Outpatient Encounter [id number] SLICK SLADE RIL L 05/05 [facility] OFFICE O/P EST MOD 30 MIN [id number] Diagnos is: ICD-10- CM J44.9 Chronic obstruc tive pulmona ry disease , unspeci fied Ruthann FLETCHER 05/06 [facility] IMG RTA DETCJ/MNTR DS STAFF [id number] Diagnos is: ICD-10- CM Z13.5 Encount er for screeni ng for eye and ear disorde rs REBECCA GUZMAN 05/06 [facility] Outpatient Encounter [id number] 05/06 [facility] [place] [facility] Outpatient Encounter [id number] Diagnos is: ICD-10- CM Z13.5 Encount er for screeni ng for eye and ear disorde rs SAKINA MARX 05/06 [place] [facility] Outpatient Encounter [id number] 05/07 [facility] OFF/OP EST MAY X REQ PHY/QHP [id number] Diagnos is: ICD-10- CM I10 Essenti al (primar y) hyperte nsion DMITRIY DUNCAN 05/13 [facility] Outpatient Encounter [id number] 05/20 [facility] OFF/OP EST FEBRUARY X REQ PHY/QHP [id number] Diagnos is: ICD-10- CM R60.0 Localiz ed edema DMITRIY DUNCAN 05/21 [facility] HC PRO PHONE CALL 5-10 MIN [id number] Diagnos is: ICD-10- CM Z79.899 Other mcc (curren t) drug therapy DMITRIY DUNCAN 05/27 [facility] Outpatient Encounter [id number] 06/03 XUAN ALEJO [facility] Outpatient Encounter [id number] 06/03 [facility] En[facility] [id number] GLEN CALLOWAY 06/04 XUAN ALEJO [facility] OFF/OP EST MAY X REQ PHY/QHP [id number] Diagnos is: ICD-10- CM Z48.02 Encount er for removal of sutures DMITRIY DUNCAN 06/04 [facility] Outpatient Encounter [id number] YOCASTA PANG SON E 06/07 [facility] OFF/OP EST MAY X REQ PHY/QHP [id number] Diagnos is: ICD-10- CM Z48.02 Encount er for removal of sutures DAKOTADMITRIY STARKS R 06/07 [facility] [place] [facility] Outpatient Encounter [id number] Ruthann FLETCHER 06/08 [facility] FEE [id number] Diagnos is: ICD-10- CM H90.3 Sensori neural hearing loss, bilPRETTY Cote A 06/23 [facility] [place] [id number] Diagnos is: ICD-10- CM H90.3 Sensori neural hearing loss, PRETTY VeraNDRA A 06/23 [facility] Outpatient Encounter [id number] 06/23 [facility] OFFICE O/P EST MOD 30 MIN [id number] Diagnos is: ICD-10- CM 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 Outpatient Encounter [id number] 07[facility]07 [facility] REQ PHY/QHP [id number] Diagnos is: ICD-10- CM H61.22 Impacte d cerumen , left ear DAKOTADMITRIY 07/20 [facility] TE[facility]HE[facility] FAC[facility] FEE [id number] Diagnos is: ICD-10- CM Z46.1 Encount er for fitting and adjustm ent of hearing aid PRETTY CARRILLO A 07/20 [facility] [place] [facility] EAR IMPRESSION [id number] Diagnos is: ICD-10- CM Z46.1 Encount er for fitting and adjustm ent of hearing aid PRETTY CARRILLO A 07/20 [place] [facility] Outpatient Encounter [id number] 07/26 [facility] Encounter [id number] 07/28 [facility] FEE [id number] Diagnos is: ICD-10- CM Z46.1 Encount er for fitting and adjustm ent of hearing aid PRETTY CARRILLO A 08/17 [facility] [place] [facility] CONFORMITY EVALUATION [id number] Diagnos is: ICD-10- CM Z46.1 Encount er for fitting and adjustm ent of hearing aid PRETTY CARRILLO A 08/17 [place] [facility] TELEHEALTH FACILITY FEE [id number] Diagnos is: ICD-10- CM Z46.1 Encount er for fitting and adjustm ent of hearing aid PRETTY CARRILLO A 09/13 [facility] [place] [facility] HEARING AID REPAIR/MOD IFYING [id number] Diagnos is: ICD-10- CM Z46.1 Encount er for fitting and adjustm ent of hearing aid PRETTY CARRILLO 09/13 [facility] Outpatient Encounter [id number] 09/20 [facility] TE[facility]ALTH FACILITY FEE [id number] Diagnos is: ICD-10- CM I50.22 Chronic systoli c (conges tive) heart failure Patricia STAHL 09/23 [facility] OFFICE O/P EST LOW 20 MIN [id number] Diagnos is: ICD-10- CM I50.22 Chronic systoli c (conges tive) heart failure Patricia STAHL 09/23 [facility] Outpatient Encounter [id number] 11/02 [facility] OFFICE O/P EST MOD 30 MIN [id number] Diagnos is: ICD-10- CM J44.9 Chronic obstruc tive pulmona ry disease , unspeci Ruthann Rodriguez 11/02 [facility] Outpatient Encounter [id number] 11/02 [facility] Outpatient Encounter [id number] 11/12 [facility] Outpatient Encounter [id number] 11/16 [facility] Outpatient Encounter [id number] 11/16 [facility] Outpatient Encounter [id number] 11/17 [facility] [place] [facility] Outpatient Encounter [id number] 11/29 [place] [facility] [place] [facility] Outpatient Encounter [id number] 11/29 [place] [facility] Outpatient Encounter [id number] 11/29 [facility] N [facility] Outpatient Encounter [id number] 12/07 [facility] OFF/OP EST FEBRUARY X REQ PHY/QHP [id number] Diagnos is: ICD-10- CM Z01.30 Encount er for exam of blood pressur e w/o abnorma l finding s DMITRIY DUNCAN R 12/16 [facility] En[facility] [id number] 12/29 [facility] Outpatient Encounter [id number] HERMINIA ANDRE SSA D 12/31 [facility] Outpatient Encounter [id number] 01/03 [facility] Outpatient Encounter [id number] 01/04 [facility] [place] [facility] Outpatient Encounter [id number] 01/06 [place] [facility] Outpatient Encounter [id number] DAKOTADMITRIY STARKS Carmen 02/24 [facility] Outpatient Encounter [id number] Ruthann FLETCHER 02/24 [facility] Outpatient Encounter [id number] 02/25 [facility] Social History Combined list of available smoking, tobacco, and other social history from Department of Defense and Veterans Affairs facilities. Social History Type Response Date Comment Sourc e Tobacco smoking status NHIS VA-TOBACCO USE EVERY DAY CIGARETTES 11/02/2024 [facility] History of tobacco use [place]-TO[place]AC[place] NEVER USED OTHER TYPE 11/02/2024 [facility] History of tobacco use VA-TOBACCO USE WI 30 MIN OF WAKEUP 10/31/2023 [facility] History of tobacco use VA-TOBACCO USE WI 30 MIN OF WAKEUP 10/29/2022 [facility] History of tobacco use VA-TOBACCO USE CO UNSEL NO 11/09/2019 [facility] Plan of Care List of future care activities from Department of [facility] Affairs facilities. Additional future care activities may be listed in the Assessment and Plan section. Date/Time Care Activity Care Activity Detail Facili ty 04/21/2025 AMBULATORY - MEDICINE AMBULATORY - MEDICI NE [facility]
--- NOTE | 2025-02-28 01:01 | PC.NURSE ---
pt is extreemly restless calling out for people who are not there. repeatedly pulling o2 mask off pulling tele leads off. charge nurse made aware. awaiting bed assignment.
[2025-02-28] MEDS: methylPREDNISolone sod succ 40 mg/mL INJ IVP ×4 (01:49→18:14)
[2025-02-28] MEDS: cefepime 1,000 mg SDV 1000 MG IVP ×2 (01:49→18:14)
--- NOTE | 2025-02-28 03:32 | PC.NURSE ---
pt restless and still atempting to remove mask. pt has had several episodes of apnea, MD aware. will continue to monitor.
[2025-02-28 04:53] LABS: Basophils # 0.1 10^3/uL (0.0-0.1); Basophils % 0.5 %; Eosinophils % 0.2 %; Hematocrit 37.8 % (37-53); Lymphocytes # 0.4 10^3/uL (0.8-4.8); Lymphocytes % 2.7 %; Mean Corpuscular HGB Conc 31.5 g/dL (30-55); Mean Corpuscular Hemoglobin 29.6 pg (27-33); Mean Platelet Volume 10.3 fL (7.4-10.4); Monocytes # 0.2 10^3/uL (0.2-0.9); Monocytes % 1.8 %; Neutrophils # 12.31 10^3/uL (1.8-7.7); Neutrophils % 94.3 %; Nucleated Red Blood Cells % 0 %; Platelet Count 303 10^3/cmm (157-399); Red Blood Count 4.02 10^6/uL (3.85-5.65); Red Cell Distribution Width 14.8 % (12.1-15.1); White Blood Count 13.06 10^3/uL (3.29-11.43)
[2025-02-28 05:08] LABS: Alanine Aminotransferase 10 U/L (0-41); Albumin Level 2.4 g/dL (3.5-5.2); Alkaline Phosphatase 104 U/L (40-130); Anion Gap 17.6 (5-19); Aspartate Amino Transferase 10 U/L (0-40); Blood Urea Nitrogen 74 mg/dL (8-23); Calcium 8.5 mg/dL (8.5-10.5); Carbon Dioxide 26 mmol/L (22-29); Chloride 107 mmol/L (98-107); Creatinine Clr Calc Pharmacy 18.8524; Globulin 3.1 g/dL (1.3-4.6); Glucose 131 mg/dL (65-115); Magnesium 2.2 mg/dL (1.7-2.3); Osmolality Calculated 328 mOsm/kg (285-295); Phosphorus 3.1 mg/dL (2.5-4.5); Potassium 3.6 mmol/L (3.5-5.1); Sodium 147 mmol/L (136-145); Total Bilirubin 1.4 mg/dL (0.15-1.2); Total Protein 5.5 g/dL (6.6-8.7)
[2025-02-28 05:15] LABS: Procalcitonin 1.45 ng/mL (0-0.5)
--- OUTSIDE RECORDS SUMMARY | 2025-02-28 05:31 | XMS_ITS | Encounter Summary ---
Author Organization [facility] Address [address] [place] [address] Care Team Providers Care Consumer Insight Analyst Name Role Phone Juan Valente MD Primary Care Provider [phone] Encounter Details Date Type Department Care Team (Latest Contact Info) Description 06/26/2001 Outpatient Historical [facility] Internal Medicine- [place] [address] [place] [address] Juan Valente MD [address] [facility] [address] [place] [address] Unspecified essential hypertension (Primary Dx); Pure hypercholesterolem; Anxiety state, unspecified; Allergic rhinitis, cause unspecified; Hypertrophy of prostate Social History Tobacco Use Types Packs/Day Years Used Date Smoking Tobacco: Never Assessed Sex and Gender Information Value Date Recorded Sex Assigned at Not on file Legal Sex Male 4:20 AM [employer]IOR [employer] Gender Identity Not on file Sexual Orientation Not on file documented as of this encounter Plan of Treatment Not on file documented as of this encounter Visit Diagnoses Diagnosis Unspecified essential hypertension- Primary Pure hypercholesterolem Pure hypercholesterolemia Anxiety state, unspecified Allergic rhinitis, cause unspecified Hypertrophy of prostate Hypertrophy (benign) of prostate documented in this encounter Care Teams Consumer Insight Analyst Relationship Specialty Start Date End Date Juan Valente MD PCP - General Internal Medicine 05/30/15 01/29/18 documented as of this encounter
--- OUTSIDE RECORDS SUMMARY | 2025-02-28 05:31 | XMS_ITS | Clinical Summary ---
Author Organization [facility] Address [address] [place] [address] Care Team Providers Care Cloth Baler Name Role Phone Unavailable Primary Care Provider Unavailabl e Allergies Active Allergy Reactions Criticality Noted Date Comments Hydrocodone Abdominal Pain Low 05/23/2015 Medications lisinopril (PRINIVIL) 40 mg tablet Take 40 mg by mouth daily. Active hydrochlorothiaz cirilo 25 mg tablet Take 0.5 Tablet (12.5 mg) by mouth daily. 12/11/2015 Active montelukast (SINGULAIR) 10 mg tablet Take 10 mg by mouth daily at bedtime. Active ALPRAZolam (XANAX) 0.5 mg tablet Take 1 Tablet (0.5 mg) by mouth 3 times daily as needed for Anxiety. 30 Tablet 09/06/2017 Active diphenoxylate-at ropine 2.5-0.025 mg tablet Take 1 Tablet by mouth 4 times daily as needed for Diarrhea/Lo ose Stools. 30 Tablet 10/24/2017 Active pantoprazole (PROTONIX) 40 mg Tablet, Delayed Release (E.C.) TAKE ONE TABLET BY MOUTH EVERY DAY 30 Tablet 02/18/2018 Active cholestyramine, with sugar, (QUESTRAN) 4 gram Powder in PacketIndication s:Chronic diarrhea,Colitis MIX AND DRINK 1 PACKET BY MOUTH TWICE DAILY. 60 Package 2 12/15/2018 Active Active Problems Problem Noted Date Diagnosed Date Gastric ulcer due to nonster oidal anti-inflammatory drug (NSAID) 11/17/2017 Mixed hyperlipidemia 10/04/2016 Essential hypertension 10/02/2015 Anxiety 10/02/2015 Smoker 10/02/2015 Colitis 10/02/2015 Chronic diarrhea 06/13/2015 Choledocholithiasis 05/23/2015 Yearly 10/04 Immunizations Immunization Administration Dates Next Due (PREVNAR 13)(6 WKS UP) PNEUM OCOCCAL CONJUGATE (PCV13) 0.5 ML, IM 09/19/2015 Influenza Vaccine High Dose 65+ Yrs IM 6 Family History Medical History Relation Name Comments Colon Cancer Neg Hx Social History Tobacco Use Types Packs/Day Years Used Date Smoking Tobacco: Every Day Cigarettes Smokeless Tobacco: Never Alcohol Use Standard Drinks/Week Comments No 0 (1 standard drink = 0.6 oz pur e alcohol) Sex and Gender Information Value Date Recorded Sex Assigned at Not on file 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 Gender Identity Not on file Sexual Orientation Not on file Last Filed Vital Signs Vital Sign Reading Time Taken Comments Blood Pressure 137/97 01/13/2018 9:51 AM CDT Pulse 74 01/13/2018 9:51 AM CDT Temperature 36.4 C (97.5 F) 09/06/2017 12:49 PM INSURANCE UNDERWRITER SALES Respiratory Rate 18 01/13/2018 9:51 AM CDT Oxygen Saturation 98% 01/13/2018 9:51 AM CDT Inhaled Oxygen Concentration - - Weight 74.4 kg (164 lb) 01/02/2018 11:58 AM CDT Height 188 cm (6' 2 ) 01/02/2018 11:58 AM CDT Body Mass Index 21.06 01/02/2018 11:58 AM CDT Plan of Treatment Health Maintenance Due Date Last Done Comments DTAP/TDAP/TD VACCINES (1 - Tdap) 1961 ZOSTER VACCINE (1 of 2) 02/24/1992 PNEUMOCOCCAL VACCINE 50+ YEA RS (2 of 2 - PPSV23) 11/14/2015 09/19/2015 RSV VACCINE (60+ or ) (1 - 1-dose 75+ series) 2017 INFLUENZA VACCINE (#1) 2024 08/01/2016 COLORECTAL SCREENING Discontinued 06/16/2015, 06/13/20 15 Colorectal Cancer Screening Discontinued FIT-DNA Q 3 years Discontinued FIT/FOBT Q 1 year Discontinued Flex Sig/CT Colonography Q 5 years Discontinued Procedures Procedure Name Priority Date/Time Associated Diagnosis Comments ENDOSCOPY, COLON, DIAGNOSTIC Routine 06/16/2015 10:48 AM CDT Chronic diarrhea from Last 3 Months or Most Recently Relevant to Health Maintenance Results * ENDOSCOPY, COLON, DIAGNOSTIC (06/16/2015 10:48 AM CDT) Narrative Transcriptions Anson Hidalgo MD - 06/14/2015 1:45 PM CDT [place] Patient: LINNEA JOHNSON CSN: [id number] : 1940 Provider: Anson Hidalgo MD ENDOSCOPY PROCEDURE REPORT DATE: 06/13/2015 PROCEDURE: Colonoscopy to cecum with biopsies. INDICATIONS: A 75-year-old gentleman presents for colonoscopy exam toevaluate chronic diarrhea. Workup to date has proven negative. Refer tooutpatient GI office note for details. ENDOSCOPIST: Anson Hidalgo MD. NURSES: Alicja Estrada RN and Palak Mcghee, distribution field technician. ENDOSCOPE: Olympus CF-Q180AL video colonoscope. MEDICATIONS: Versed 5 mg IV in increments and fentanyl 100 mcg IV inincrements. MONITORING: Blood pressure, oxygen saturation, and cardiac monitoring.The patient was on 2 L of oxygen per nasal cannula. DESCRIPTION OF PROCEDURE: Digital rectal examination was unrevealing.The colonoscope was advanced to the cecum without difficulty. Thelocation of the cecum was verified by identifying its base and theileocecal valve. The valve was entered and the terminal ileum was foundto be grossly normal. Circumferential inspection of the mucosal surfacewas performed on slow withdrawal of the instrument. The bowel prep wasadequate. Pancolonic diverticulosis was noted. There was no endoscopicevidence of diverticulitis or stricture. There were no polyps, masslesions, or angiodysplasias. Random colon biopsies were obtained to ruleout microscopic colitis. A retroflexed view of the rectum was notable formoderate-sized internal hemorrhoids. The procedure was well tolerated. There were no complications.Endoscopic photos were obtained. IMPRESSION: 1. Pancolonic diverticulosis. 2. Moderate-sized internal hemorrhoids. 3. No gross pathology identified to account for diarrheal symptoms.Random colon biopsies were obtained to rule out microscopic colitis. RECOMMENDATIONS: Await path results. Will provide patient educationmaterials on diverticulosis. Anson Hidalgo MD MMODL D: [id number] V: [id number] cc: Ronak Shankar MD Anson Hidalgo MD GI PROCEDURE ORDERABLES Final Result from Last 3 Months or Most Recently Relevant to Health [place] [address] MEDICARE PART A AND B [employer] [place] [id number] Advance Directives For more information, please contact: [phone] * Full Code (Latest Code Status on File) Date Activated Date Inactivated Comments 01/13/2018 7:37 AM 01/13/2018 12:01 PM * Full Code Date Activated Date Inactivated Comments 10/15/2017 12:37 PM 10/15/2017 3:58 PM * Full Code Date Activated Date Inactivated Comments 06/13/2015 11:17 AM 06/13/2015 1:44 PM * Full Code Date Activated Date Inactivated Comments 06/13/2015 10:26 AM 06/13/2015 11:17 AM * Full Code Date Activated Date Inactivated Comments 06/02/2015 7:42 AM 06/02/2015 10:18 AM
--- OUTSIDE RECORDS SUMMARY | 2025-02-28 05:31 | XMS_ITS | Encounter Summary ---
Author Organization [facility] Address [address] [place] [address] Care Team Providers Care Rabbit Breeder Name Role Phone Juan Valente MD Primary Care Provider [phone] Encounter Details Date Type Department Care Team (Latest Contact Info) Description 08/07/2001 Outpatient Historical [facility] Internal Medicine- [place] 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 Gender Identity Not on file Sexual Orientation Not on file documented as of this encounter Plan of Treatment Not on file documented as of this encounter Visit Diagnoses Diagnosis Allergic rhinitis, cause unspecified- Primary Pure hypercholesterolem Pure hypercholesterolemia Need vaccination-viral disease Need for prophylactic vaccination and inoculation against other viral diseases Need for prophylactic vaccination against Streptococcus pneumoniae (pneumococcus) Need for prophylactic vaccination against streptococcus pneumoniae (pneumococcus) documented in this encounter Care Teams Rabbit Breeder Relationship Specialty Start Date End Date Juan Valente MD PCP - General Internal Medicine 05/30/15 01/29/18 documented as of this encounter
--- OUTSIDE RECORDS SUMMARY | 2025-02-28 05:31 | XMS_ITS | Clinical Summary ---
Author Organization [facility] Address [address] N[place]: [place] [address] Care Team Providers Care Control And Recovery Special Tactics Name Role Phone Arcadio Artemio Birch DO Primary Care Provider [phone] Allergies Active Allergy Reactions Criticality Noted Date Comments Hydrocodone Abdominal Pain Low 05/23/2015 Medications cholestyramine, with sugar, (QUESTRAN) 4 gram Powder in PacketIndication s:Chronic diarrhea,Colitis MIX AND DRINK 1 PACKET BY MOUTH TWICE DAILY. 60 Package 2 12/15/2018 Active ALPRAZolam (XANAX) 0.5 mg tablet Take 1 Tablet (0.5 mg) by mouth 3 times daily as needed for Anxiety. 30 Tablet 0 09/06/2017 Active pantoprazole (PROTONIX) 40 mg Tablet, Delayed Release (E.C.) TAKE ONE TABLET BY MOUTH EVERY DAY 30 Tablet PRN 02/18/2018 Active montelukast (SINGULAIR) 10 mg tablet Take 10 mg by mouth daily at bedtime. 08/11/2017 Active diphenoxylate-at ropine 2.5-0.025 mg tablet Take 1 Tablet by mouth 4 times daily as needed for Diarrhea/Lo ose Stools. 30 Tablet 0 10/24/2017 Active hydroCHLOROthiaz cirilo 25 mg tablet Take 0.5 Tablet (12.5 mg) by mouth daily. 12/11/2015 Active lisinopriL (PRINIVIL) 40 mg tablet Take 40 mg by mouth daily. 05/23/2015 Active GABAPENTIN ORAL Take by mouth. Active Active Problems Problem Noted Date Diagnosed Date Gastric ulcer due to nonster oidal anti-inflammatory drug (NSAID) 11/17/2017 Mixed hyperlipidemia 10/04/2016 Essential hypertension 10/02/2015 Smoker 10/02/2015 Anxiety 10/02/2015 Colitis 10/02/2015 Chronic diarrhea 06/13/2015 Choledocholithiasis [...] drink = 0.6 oz pur e alcohol) Feeling Safe Answer Date Recorded Are you in a relationship wi th someone who hurts you emotionally and/or physically? No 10/11/2023 Sex and Gender Information Value Date Recorded Sex Assigned at Not on file Legal Sex Male 4:25 PM ELDER COUNSELOR Gender Identity Not on file Sexual Orientation Not on file Last Filed Vital Signs Vital Sign Reading Time Taken Comments Blood Pressure 133/86 10/11/2023 4:00 PM ELDER COUNSELOR Pulse 74 01/13/2018 9:51 AM CDT Temperature 36.9 C (98.5 F) 10/11/2023 2:45 PM ELDER COUNSELOR Respiratory Rate 18 10/11/2023 4:00 PM ELDER COUNSELOR Oxygen Saturation 98% 10/11/2023 4:00 PM ELDER COUNSELOR Inhaled Oxygen Concentration - - Weight 67 kg (147 lb 9.6 oz) 10/11/2023 2:45 PM ELDER COUNSELOR Height 188 cm (6' 2 ) 10/11/2023 2:45 PM ELDER COUNSELOR Body Mass Index 18.95 10/11/2023 2:45 PM ELDER COUNSELOR Plan of Treatment Health Maintenance Due Date Last Done Comments ZOSTER VACCINE (1 of 2) 02/24/1992 RSV VACCINE (60+ or ) (1 - 1-dose 75+ series) 2017 INFLUENZA VACCINE (#1) 2024 3, 10/22/2022, 10/15/2022, Additional history exists DTAP/TDAP/TD VACCINES (3 - T d or Tdap) 10/15/2032 10/15/2022, 08/02/2019 COLORECTAL SCREENING Discontinued 06/16/2015, 06/16/2015, 06/13/2015 Colorectal Cancer Screening Discontinued PNEUMOCOCCAL VACCINE 50+ YEARS Completed 1 11/20/2020, 08/04/2018, 09/19/2015 FIT-DNA Q 3 years Discontinued FIT/FOBT Q 1 year Discontinued Flex Sig/CT Colonography Q 5 years Discontinued Procedures Procedure Name Priority Date/Time Associated Diagnosis Comments ENDOSCOPY, COLON, DIAGNOSTIC Routine 06/16/2015 10:48 AM CDT from Last 3 Months or Most Recently Relevant to Health Maintenance Results * ENDOSCOPY, COLON, DIAGNOSTIC (06/16/2015 10:48 AM CDT) 06/16/2015 10:4 8 AM CDT Narrative Procedure Note Anson Hidalgo MD - 06/13/2015 12:00 AM CDT Procedures signed by Anson Hidalgo MD at 06/16/2015 10:48 AM Author: Anson Hidalgo MD Service: -- Author Type: Physician Filed: 06/16/2015 10:48 AM Date of Service: 06/14/2015 1:45 PM Status:Signed Track Broom Operator: Anson Hidalgo MD (Physician) Procedure Orders 1. ENDOSCOPY, COLON, DIAGNOSTIC [[id number]] ordered by at 06/07/15 [address] [place], [place] Patient: LINNEA JOHNSON CSN: [id number] : 1940 Provider: Anson Hidalgo MD ENDOSCOPY PROCEDURE REPORT DATE: 06/13/2015 PROCEDURE: Colonoscopy to cecum with biopsies. INDICATIONS: A 75-year-old gentleman presents for colonoscopy exam toevaluate chronic diarrhea. Workup to date has proven negative. Refer tooutpatient GI office note for details. ENDOSCOPIST: Anson Hidalgo MD. NURSES: Alicja Estrada RN and Palak Mcghee, echocardiograph technician. ENDOSCOPE: Olympus CF-Q180AL video colonoscope. MEDICATIONS: [...] on diverticulosis. Anson Hidalgo MD MMODL D: [id number] V: [id number] cc: Ronak Shankar MD Anson Hidalgo MD GI PROCEDURE ORDERABLES Final Result Performing Organization Address [facility] Co [facility] Phone Number [facility] from Last 3 Months or Most Recently Relevant to Health Maintenance Insurance [address] [place] [address] MEDICARE PART A AND B Care Teams Control And Recovery Special Tactics Relationship Specialty Start Date End Date Artemio Ervin DO [address] [place] [id number] PCP - General Family Practice 10/11/23
--- OUTSIDE RECORDS SUMMARY | 2025-02-28 05:32 | XMS_ITS | Patient Health Record ---
Author Organization [facility] Address [address] [place] [address] Care Team Providers Care Juvenile Counselor Name Role Phone GIAN QIU Unavailable [phone] KATHY KUMAR Unavailable [phone] NISHA URENA Unavailable [phone] Allergies No Known Allergies Results Component Value Reference Range Notes Urinalysis, Routine Reviewed date:05/20/2024 10:56:59 AM Interpretation: Performing Lab: Notes/Report: Urine-Color yellow Appearance clear Glucose - Bilirubin - Ketones - Specific [place] 1.015 Occult Blood - pH 6.0 Urine Protein - Urobilinogen,Semi-Qn - Nitrite, Urine - WBC Esterase - Reason For Referral No Information Medications Medication SIG (Take, Route, Frequency, Duration) [...] Problem Status W/U Status Risk Notes Problem [id number] Benign prostatic hyperplasia with lower urinary tract symptoms (N40.1) Active confirmed Vital Signs Heart Rate 65 /min 05/20/2024 Blood pressure diastolic 92 mm Hg 05/20/2024 Height-cm 187.96 cm 05/20/2024 Weight-kg 63.5 kg 05/20/2024 Height 74 in 05/20/2024 Blood pressure systolic 141 mm Hg 05/20/2024 Weight 140 lbs 05/20/2024 BMI 17.97 kg/m2 05/20/2024 Procedures Procedure Date Ordered Date Performed Result Body Sit e Bladder Scan 05/20/2024 05/20/2024 N/A Encounters Encounter Location Date Provider Diagnosis [facility] [address] [place] [address] 04/30/2024 KATHY DELUCAKER [facility] [address] [place] [address] 05/06/2024 KATHY DELUCAKER [facility] [address] [place] [address] 05/20/2024 NISHA URENA Benign prostatic hyperplasia with [...] in 3-4m with FR/PVR. Plan Of Treatment No Information Insurance Providers Payer Name Payer Address Payer Phone Subscriber Number Group Number Insured Name Patient Relationship to Insured Coverage Start Date Coverage End Date [employer] [address] [place] RUFF [id number] [phone] [id number] Judd Beth Self - patient is the insured Medical (General) History Medical History History ICD Code anxiety/depression HTN high cholesterol IBS Surgical History Surgery Date(Month/Year) cholecystectomy
--- OUTSIDE RECORDS SUMMARY | 2025-02-28 05:32 | XMS_ITS | Encounter Summary ---
Author Name [facility] Organization [facility] Address [address] [place] [address] Care Team Providers Care Licensed Tax Consultant Name Role Phone PACO FLETCHERMY Primary Care Provider Unavailabl e Insurance Providers: [...] Name Patient's Relationship to Policy [place] [employer] [facility] (WNR) MEDICARE ADVANTAGE [facility] (WNR) Oct 20, 2023 [id number] DMITRIY JOHNSON PATIENT Selected Encounter This section includes the information on record at [place] for the Encounter. Date/Time Encounter Type Encounter Description Reason Pro vider Source IHE Encounter Template Text not used by [place]
[2025-02-28 05:36] LABS: Slide Review Slide Review Perform
[2025-02-28] MEDS: lactated ringers 1,000 ML 75 ML IV (14:49)
[2025-02-28 14:55] LABS: MRSA PCR OZH (swab) NOT DETECTED (Negative)
--- NOTE | 2025-02-28 15:44 | P.PN_ITS ---
Subjective 2 Subjective: Confused, pulling off oxygen mask. Vitals/I&O/Wt Last Vital Signs Temp 98.1 F 02/27/25 17:55 Pulse 86 02/28/25 12:28 Resp 20 H 02/28/25 06:46 BP 90/57 02/28/25 12:28 Pulse Ox 95 02/28/25 14:51 O2 Del Method Oxymask 02/28/25 14:51 O2 Flow Rate 9 02/28/25 14:51 02/28/25 02/28/25 02/28/25 06:59 14:59 22:59 Output Total 50 / 50 Balance -50 / -50 Weight last 48 hrs Weight 47.627 kg Physical Exam 2 Narrative: Accompanied by his , and second visit accompanied by additional family. Const: ORIENTATION/CONSCIOUSNESS: Yes awake and Yes confused HENMT: COMMON NORMALS: oropharynx normal Neck/C-Spine: COMMON NORMALS: no JVD Resp: COMMON NORMALS: clear to auscultation bilaterally AUSCULTATION: clear to auscultation bilaterally and diminished lung sounds on the right in the lower lung hummel Cardio: COMMON NORMALS: no JVD, regular rhythm, S1 normal heart sound present, S2 normal heart sound present and No murmurs present (Cardio) RHYTHM: regular rhythm HEART SOUNDS: S1 normal heart sound present and S2 normal heart sound present GI: COMMON NORMALS: Normal to inspection, nondistended, normoactive bowel sounds present, Soft to palpation and non-tender PALPATION: Yes Soft to palpation Extremity: COMMON NORMALS: no joint enlargement and no pedal edema Neuro: COMMON NORMALS: moves all extremities Skin: COMMON NORMALS: no rashes or lesions noted GENERAL SKIN EXAM: no rashes or lesions noted Urinary Catheter Management: Osborne: Cath Placed During This Visit: yes Reason for Continuing Indwelling Catheter: Acute Urinary Retention or Obstruction Urinary Catheter Date of Insertion: 02/27/25 Urinary Catheter Time of Insertion: 19:00 Data 02/28/25 04:33 02/28/25 04:33 Micro: Microbiology 02/28/25 12:56 Bacterial Antigens - Final Urine,Voided 02/27/25 18:35 Blood Culture - Preliminary Blood SPECIMEN COLLECTED 02/27/25 18:31 Blood Culture - Preliminary Blood SPECIMEN COLLECTED A&P Assessment and plan (1) Leukocytosis: (2) DEAN (acute kidney injury): (3) Hypokalemia: (4) Hyperbilirubinemia: (5) Lactic acidosis: (6) Hyperglycemia: (7) Dehydration: (8) Sepsis: (9) COPD (chronic obstructive pulmonary disease): (10) Malnutrition: (11) Failure to thrive: (12) Cachexia: Plan Severe sepsis Community acquired pneumonia Reviewed vitals, CBC, CMP. Mild improvement in DEAN, creatinine down to 2. Reassess chemistry. Continue treatment of pneumonia. Continue to respiratory failure, requiring 15 L oxime mask, but has been gradually trending down to 11 and then 9 L. - Source: Pneumonia Right lower lobe pneumonia, requesting speech therapy assessment. Received sepsis fluid bolus. Without oral intake. Given transient low rate maintenance fluids for now. Monitor for risk of fluid overload. Hold off additional fluid for now. Reassess volume status in the morning. - Follow cultures Continue cefepime. Monitor for risk of worsening encephalopathy. Acute metabolic encephalopathy secondary to pneumonia, hypoxia, confused, pulling of the mask. Requiring one-to-one sitter to redirect and reposition oxygen mask. Acute COPD exacerbation: Continue systemic steroids. Monitor for risk of hyperglycemia, hypertension, gastritis, encephalopathy. Acute hypoxic respiratory failure - Start systemic steroids with Solu-Medrol - Scheduled breathing treatments Acute kidney injury: With mild improvement. Received maintenance IV fluid challenge. Reassess chemistry in the morning. Hypernatremia: Gentle IV hydration. Reassess chemistry. Chronic congestive heart failure: Diuretics on hold for now with low blood pressure. - Strict I&O - Daily assessment of volume Cachexia Severe protein calorie malnutrition Failure to thrive in adulthood Weakness and debility Recurrent falls - Fall precautions - Ongoing goals of care, advance care planning: Further discussed with patient's due to his confusion, at current time continue treatment including antibiotics, supportive measures with oxygen. At high risk of deterioration, complications and mortality which she understands. Discussed consideration of transfer with patient's preferring closer transfer due to difficulty with travel, however, no beds have been available in [place] and not accepted for transfer to [place]. Discussed with ER provider. Discussed with hospitalist physician at [place]. Hyperbilirubinemia - Monitor DVT ppx: Heparin Code: DNR/DNI PDMP PDMP Reviewed: Not Reviewed Attestations 2 Medical Necessity Statement*: Continue hospitalization for assessment management of severe sepsis with pneumonia, respiratory failure, complicated by DEAN, hypernatremia and gentleman with underlying CHF, cachexia, advanced age. Diagnoses Leukocytosis D72.829 DEAN (acute kidney injury) N17.9 Hypokalemia E87.6 Hyperbilirubinemia E80.6 Lactic acidosis E87.20 Hyperglycemia R73.9 Dehydration E86.0 Sepsis A41.9 COPD (chronic obstructive pulmonary disease) J44.9 Malnutrition E46 Failure to thrive Cachexia R64
--- NOTE | 2025-02-28 16:10 | DCPLANNER ---
spoke to Yolie and Malcolm Leung, they do not have beds available. Yolie states a possibly 2+ day hold, Malcolm said they may have late PM openings. [place] ishan Ortiz said they had beds and would have Dr. Paez call to speak with Dr. Laws, after talking [facility] declined all 3 ER holds unless they had condition changes and needed a higher level of care
[2025-02-28] MEDS: ipratropium-albuterol 3 mL Neb INHALATION (21:01)
[2025-03-01] VITALS (10 sets, daily range): BP systolic 105–149; BP diastolic 66–89; PULSE 67–92; RESP 16–20; TEMP 36.5–36.8; O2SAT 92–97
[2025-03-01 00:16] LABS: ABG PCO2 38.6 mmHg (35-45); Arterial Blood Gas Hematocrit 42.4 % (42-52); Base Excess ABG 6.7 mmol/L (-2.0-2.0); Blood Gas Allen Test Pos; Blood Gas Operator Identificat JDB; Blood Gas Sample Site Radial, right; Blood Gas Sample Type Arterial; HCO3 ABG 30.3 mmol/L (22-26); Oxygen Device OXY MASK; PO2 ABG 72.4 mmHg (80.0-100.0)
[2025-03-01] MEDS: methylPREDNISolone sod succ 40 mg/mL INJ IVP ×4 (00:16→21:23)
--- NOTE | 2025-03-01 00:16 | XRR_ITS ---
PROCEDURE INFORMATION: Exam: XR Chest Exam date and time: 03/01/2025 12:36 AM Age: 85 years old Clinical indication: Other: AMS; Possible sepsis; Additional info: Altered mental status TECHNIQUE: Imaging protocol: Radiologic exam of the chest. Views: 1 view. COMPARISON: CR (CHEST, ) 02/27/2025 6:18 PM FINDINGS: Lungs: Right mid to lower lung field bronchopneumonia. Emphysematous changes. Pleural spaces: Small right pleural effusion. Heart/Mediastinum: Mild cardiomegaly. Vasculature: Aortic atherosclerotic calcifications. Bones/joints: Unremarkable. XR/XR chest 1V portable [id number] IMPRESSION: 1. Small right pleural effusion. 2. Right mid to lower lung field bronchopneumonia. 3. Emphysematous changes. 4. Mild cardiomegaly. 5. Aortic atherosclerotic calcifications.
[2025-03-01] MEDS: trazodone 50 mg Tablet PO (00:54)
[2025-03-01] MEDS: cefepime 1,000 mg SDV 1000 MG IVP ×2 (05:44→17:21)
[2025-03-01 05:53] LABS: Basophils # 0.1 10^3/uL (0.0-0.1); Basophils % 0.3 %; Eosinophils % 0.3 %; Hematocrit 38.4 % (37-53); Lymphocytes # 0.5 10^3/uL (0.8-4.8); Lymphocytes % 3.4 %; Mean Corpuscular HGB Conc 32.3 g/dL (30-55); Mean Corpuscular Hemoglobin 30.4 pg (27-33); Mean Corpuscular Volume 94.1 fl (82-101); Mean Platelet Volume 10.2 fL (7.4-10.4); Monocytes # 0.4 10^3/uL (0.2-0.9); Monocytes % 2.4 %; Neutrophils % 92.9 %; Nucleated Red Blood Cells % 0 %; Platelet Count 358 10^3/cmm (157-399); Red Blood Count 4.08 10^6/uL (3.85-5.65); Red Cell Distribution Width 14.9 % (12.1-15.1); White Blood Count 14.86 10^3/uL (3.29-11.43)
[2025-03-01 06:23] LABS: Alanine Aminotransferase 9 U/L (0-41); Albumin Level 2.5 g/dL (3.5-5.2); Alkaline Phosphatase 104 U/L (40-130); Anion Gap 15.7 (5-19); Aspartate Amino Transferase 9 U/L (0-40); Blood Urea Nitrogen 68 mg/dL (8-23); Calcium 8.5 mg/dL (8.5-10.5); Carbon Dioxide 30 mmol/L (22-29); Chloride 108 mmol/L (98-107); Creatinine Clr Calc Pharmacy 26.1042; Glucose 148 mg/dL (65-115); Magnesium 2.4 mg/dL (1.7-2.3); Osmolality Calculated 333 mOsm/kg (285-295); Phosphorus 4.6 mg/dL (2.5-4.5); Potassium 3.7 mmol/L (3.5-5.1); Sodium 150 mmol/L (136-145); Total Bilirubin 0.9 mg/dL (0.15-1.2); Total Protein 5.5 g/dL (6.6-8.7)
[2025-03-01 06:24] LABS: Lactate (Lactic Acid level) 1.5 mmol/L (0.5-2.2)
--- NOTE | 2025-03-01 09:04 | PC.RESP ---
pt unable to give sputum sample at this time. will try again later
[2025-03-01] MEDS: acetaminophen 325 mg Tablet 650 MG PO (09:39)
[2025-03-01] MEDS: dextrose 5% 1,000 ML 30 ML IV (11:32)
[2025-03-01] MEDS: thiamine 100 mg/mL 2mL SDV IM (11:33)
--- NOTE | 2025-03-01 11:38 | PC.CHAP ---
Pastoral Care Encounter/Spiritual Assessment Type of Contact [] Declined program support assistant visit [] Patient/Family/Request visit [] Outpatient visit [] Follow-up visit [] Physician referral [] Code/Alert [] Routine visit [] Staff referral [] Actively dying [] Patient sleeping [] Family support [] [] Out of room [] Palliative care [] [x] Receiving care in room [] Pre-surgical visit [] Trauma [] Long length of stay [] ICU visit [] Other: Relational/Emotional Strength [] Patient feels connected with others/family/visitors/staff [] Distress [] Loneliness/isolation [] Abandonment Spirituality of Patient [] Person of Mae [] Attends Methodist of their Mae [] Believes in Prayer [] Reads Bible or Jainism materials [] There are Spiritual issues to be addressed Police Magistrate Interventions [] Prayer [] Active listening [] Non-anxious presence [] Spiritual/emotional support [] Crisis/trauma care [] Spiritual counseling [] Bereavement support [] Provided bereavement packet [] Provided Bible/devotional materials [] Provided toy/stuffed animal, coloring book to patient or family member [] Provided Communion [] Anointing/[place] [] Salvation [] Completed spiritual assessment [] Other: Impact on Illness or Injury [] Angry [] Fearful [] Anxious [] Often cries [] Exhaustion [] Unable to work [] Unable to attend yazidism [] Unable to walk/stand [] Unable to read [] Unable to drive [] Unable to eat/drink [] Unable to sleep [] Unable to be with family [] Patient intubated [] Other: Summary Time spent with patient
[2025-03-01] MEDS: ipratropium-albuterol 3 mL Neb INHALATION ×2 (14:12→19:45)
--- NOTE | 2025-03-01 16:02 | PM.PN ---
Subjective Subjective: He is sleeping. Earlier today confused, with episode of restlessness and agitation. His does confirm that he drinks a large amount of wine daily. Vitals/I&O/Wt Last Vital Signs Temp 98.3 F 03/01/25 11:13 Pulse 78 03/01/25 14:20 Resp 16 03/01/25 14:12 BP 108/66 03/01/25 11:13 Pulse Ox 94 03/01/25 14:12 O2 Del Method Oxymask 03/01/25 14:12 O2 Flow Rate 9 03/01/25 14:12 03/01/25 03/01/25 03/01/25 06:59 14:59 22:59 Output Total 2099 / 2149 Balance -2099 / -2149 Weight last 48 hrs Weight 52.758 kg Weight 52.753 kg Weight 47.627 kg Physical Exam Narrative: Accompanied by his , and second visit accompanied by additional family. Const: ORIENTATION/CONSCIOUSNESS: Yes confused OTHER: Sleeping. HENMT: COMMON NORMALS: oropharynx normal Neck/C-Spine: COMMON NORMALS: no JVD Resp: COMMON NORMALS: clear to auscultation bilaterally AUSCULTATION: clear to auscultation bilaterally and diminished lung sounds on the right in the lower lung hummel Cardio: COMMON NORMALS: no JVD, regular rhythm, S1 normal heart sound present, S2 normal heart sound present and No murmurs present (Cardio) RHYTHM: regular rhythm HEART SOUNDS: S1 normal heart sound present and S2 normal heart sound present GI: COMMON NORMALS: Normal to inspection, nondistended, normoactive bowel sounds present, Soft to palpation and non-tender PALPATION: Yes Soft to palpation Extremity: COMMON NORMALS: no joint enlargement GENERAL: Yes edema (1+) Neuro: COMMON NORMALS: moves all extremities Skin: COMMON NORMALS: no rashes or lesions noted GENERAL SKIN EXAM: no rashes or lesions noted Urinary Catheter Management: Osborne: Cath Placed During This Visit: yes Reason for Continuing Indwelling Catheter: Hospice/Comfort/Palliative Care Urinary Catheter Date of Insertion: 02/27/25 Urinary Catheter Time of Insertion: 19:00 Data 03/01/25 05:46 03/01/25 05:46 Micro: Microbiology 02/27/25 18:35 Blood Culture - Preliminary Blood NEGATIVE TO DATE 02/27/25 18:31 Blood Culture - Preliminary Blood NEGATIVE TO DATE 02/28/25 12:56 Bacterial Antigens - Final Urine,Voided A&P Assessment and plan (1) Leukocytosis: (2) DEAN (acute kidney injury): (3) Hypokalemia: (4) Hyperbilirubinemia: (5) Lactic acidosis: (6) Hyperglycemia: (7) Dehydration: (8) Sepsis: (9) COPD (chronic obstructive pulmonary disease): (10) Malnutrition: (11) Failure to thrive: (12) Cachexia: Plan Severe sepsis Community acquired pneumonia Persistent leukocytosis on review of CBC. Reviewed vitals, CMP. Mild improvement in DEAN, creatinine down to 1.6. Reassess chemistry. Slow improvement in oxygenation, still requiring OxyMask 9 L. With concurrent encephalopathy. Continue treatment of pneumonia. Pending speech therapy assessment. Right lower lobe pneumonia. With worsening hypernatremia, add D5W 30 mL/h, discussed with his family. Reviewed micro. Blood culture negative so far. Urine bacterial antigens negative. Continue cefepime. Monitor for risk of worsening encephalopathy. Acute metabolic encephalopathy secondary to pneumonia, hypoxia, confused, pulling of the mask. With worsening episode of encephalopathy, agitation today. With suspected alcohol withdrawal as he does drink quite a bit of wine daily per discussion with his family. Added benzodiazepine per [facility] protocol, thiamine, focus, multivitamin. Haldol as needed for severe agitation. Requiring one-to-one sitter to redirect and reposition oxygen mask. Alcohol withdrawal: Benzodiazepine per [facility] protocol. Thiamine, folic acid, multivitamin requested. Acute COPD exacerbation: Continue systemic steroids. Monitor for risk of hyperglycemia, hypertension, gastritis, encephalopathy. Acute hypoxic respiratory failure - Continue systemic steroids with Solu-Medrol, monitor for risk of hypertension, hyperglycemia, C. difficile. - Scheduled breathing treatments Acute kidney injury: Showing gradual improvement. Further gentle hydration with D5, reassess. Hypernatremia: Stop LR. Start D5 with worsening hypernatremia. Poor oral intake. Chronic congestive heart failure: Diuretics on hold for now with low blood pressure. - Strict I&O - Daily assessment of volume Cachexia Severe protein calorie malnutrition Failure to thrive in adulthood Weakness and debility Recurrent falls - Fall precautions - Ongoing goals of care, advance care planning: Family giving further consideration to transition to comfort/hospice care at [facility] per discussion with case packer and sealer they will initiate arrangements. Hyperbilirubinemia - Monitor DVT ppx: Heparin Code: DNR/DNI PDMP PDMP Reviewed: Not Reviewed Attestations Medical Necessity Statement*: Continue hospitalization for assessment management of severe sepsis with pneumonia, respiratory failure, complicated by DEAN, hypernatremia and gentleman with underlying CHF, cachexia, advanced age. and High MDM includes amount and/or complexity of data reviewed/ordered [ resulted lab(s)/test(s), ordered lab(s)/test(s), independent historian and other healthcare professional discussion] and described risk of complication, morbidity or mortality of management as documented Diagnoses Leukocytosis D72.829 DEAN (acute kidney injury) N17.9 Hypokalemia E87.6 Hyperbilirubinemia E80.6 Lactic acidosis E87.20 Hyperglycemia R73.9 Dehydration E86.0 Sepsis A41.9 COPD (chronic obstructive pulmonary disease) J44.9 Malnutrition E46 Failure to thrive Cachexia R64
[2025-03-01] MEDS: mirtazapine 15 mg Tablet PO (17:15)
[2025-03-01] MEDS: acetaminophen-codeine 300-30mg Tablet 1 TAB PO ×2 (17:15→21:23)
[2025-03-01] MEDS: morphine 4 mg/mL SDV 1 mL 1 MG IVP (19:38)
[2025-03-01] MEDS: ondansetron 2 mg/ML SDV 2 mL 4 MG IVP (19:39)
[2025-03-02] VITALS (8 sets, daily range): BP systolic 84–132; BP diastolic 58–77; PULSE 61–101; RESP 16–20; TEMP 36.4–36.8; O2SAT 92–99
[2025-03-02] MEDS: methylPREDNISolone sod succ 40 mg/mL INJ IVP (03:13)
[2025-03-02] MEDS: acetaminophen-codeine 300-30mg Tablet 1 TAB PO ×4 (03:13→22:08)
[2025-03-02] MEDS: ipratropium-albuterol 3 mL Neb INHALATION ×2 (03:16→08:02)
[2025-03-02 05:18] LABS: Basophils # 0.1 10^3/uL (0.0-0.1); Basophils % 0.3 %; Eosinophils # 0.1 10^3/uL (0.0-0.8); Eosinophils % 0.5 %; Hematocrit 39.9 % (37-53); Lymphocytes # 0.6 10^3/uL (0.8-4.8); Lymphocytes % 2.9 %; Mean Corpuscular HGB Conc 30.6 g/dL (30-55); Mean Corpuscular Hemoglobin 29.3 pg (27-33); Mean Corpuscular Volume 95.9 fl (82-101); Mean Platelet Volume 10.5 fL (7.4-10.4); Monocytes # 0.4 10^3/uL (0.2-0.9); Monocytes % 1.8 %; Neutrophils # 18.08 10^3/uL (1.8-7.7); Neutrophils % 93.7 %; Nucleated Red Blood Cells % 0 %; Platelet Count 382 10^3/cmm (157-399); Red Blood Count 4.16 10^6/uL (3.85-5.65); Red Cell Distribution Width 15.1 % (12.1-15.1)
[2025-03-02 05:46] LABS: Anion Gap 18.5 (5-19); Blood Urea Nitrogen 75 mg/dL (8-23); Calcium 8.2 mg/dL (8.5-10.5); Carbon Dioxide 28 mmol/L (22-29); Chloride 108 mmol/L (98-107); Creatinine Clr Calc Pharmacy 25.6152; Glucose 191 mg/dL (65-115); Osmolality Calculated 339 mOsm/kg (285-295); Potassium 3.5 mmol/L (3.5-5.1); Sodium 151 mmol/L (136-145)
[2025-03-02] MEDS: cefepime 1,000 mg SDV 1000 MG IVP ×2 (05:49→22:08)
[2025-03-02] MEDS: montelukast sodium 10 mg Tablet PO (05:54)
--- NOTE | 2025-03-02 17:25 | PM.PN ---
Subjective Subjective: He is more alert today, he expresses that his health has been failing for a while and he has been progressively getting more and more debilitated. He expresses that he has come to a point that he no longer wants to continue to keep dying and that he is ready to pass away. He wants to transition to end-of-life care. His family are at bedside and in agreement. Vitals/I&O/Wt Last Vital Signs Temp 97.7 F 03/02/25 07:06 Pulse 79 03/02/25 08:03 Resp 20 H 03/02/25 08:03 BP 132/77 03/02/25 07:06 Pulse Ox 92 03/02/25 08:03 O2 Del Method Oxymask 03/02/25 08:03 O2 Flow Rate 9 03/02/25 08:03 03/02/25 03/02/25 03/02/25 06:59 14:59 22:59 Output Total 250 / 800 Balance -250 / -440 Weight last 48 hrs Weight 48.534 kg Weight 52.758 kg Weight 52.753 kg Physical Exam Narrative: Accompanied by his , and second visit accompanied by additional family. Const: COMMON NORMALS: patient oriented x3 and alert GENERAL APPEARANCE: cooperative ORIENTATION/CONSCIOUSNESS: Yes awake and Yes confused HENMT: COMMON NORMALS: oropharynx normal Neck/C-Spine: COMMON NORMALS: no JVD Resp: COMMON NORMALS: clear to auscultation bilaterally AUSCULTATION: clear to auscultation bilaterally and diminished lung sounds on the right in the lower lung hummel Cardio: COMMON NORMALS: no JVD, regular rhythm, S1 normal heart sound present, S2 normal heart sound present and No murmurs present (Cardio) RHYTHM: regular rhythm HEART SOUNDS: S1 normal heart sound present and S2 normal heart sound present GI: COMMON NORMALS: Normal to inspection, nondistended, normoactive bowel sounds present, Soft to palpation and non-tender PALPATION: Yes Soft to palpation Extremity: COMMON NORMALS: no joint enlargement and no pedal edema GENERAL: Yes edema (1+) Neuro: COMMON NORMALS: patient oriented x3 and moves all extremities SENSORIUM/ORIENTATION: Yes alert Skin: COMMON NORMALS: no rashes or lesions noted GENERAL SKIN EXAM: no rashes or lesions noted Urinary Catheter Management: Osborne: Cath Placed During This Visit: yes Reason for Continuing Indwelling Catheter: Other Urinary Catheter Date of Insertion: 02/27/25 Urinary Catheter Time of Insertion: 19:00 Data 03/02/25 04:38 03/02/25 04:38 A&P Assessment and plan (1) Leukocytosis: (2) DEAN (acute kidney injury): (3) Hypokalemia: (4) Hyperbilirubinemia: (5) Lactic acidosis: (6) Hyperglycemia: (7) Dehydration: (8) Sepsis: (9) COPD (chronic obstructive pulmonary disease): (10) Malnutrition: (11) Failure to thrive: (12) Cachexia: Plan Severe sepsis Community acquired pneumonia Reviewed vitals, CBC, BMP, blood culture. With slow improvement, without improvement since yesterday, continue to require 9 L OxyMask. More alert today. Expressing wanting to transition to end-of-life care and comfort measures. Discussed with assistant case manager, nursing, arrangements underway for continued end-of-life comfort measures at nursing facility. Initiated here. Discontinue lab work. Will discontinue IV fluids, antibiotics, steroid. Oxygen support for comfort. Morphine, benzodiazepine as needed for anxiety. For now continue [facility] protocol. Right lower lobe pneumonia. Acute metabolic encephalopathy with improvement today. Secondary to pneumonia, hypoxia, confused, pulling off the mask. Alcohol withdrawal: Benzodiazepine per [facility] protocol. Thiamine, folic acid, multivitamin requested. Acute COPD exacerbation: Continue systemic steroids. Monitor for risk of hyperglycemia, hypertension, gastritis, encephalopathy. Acute hypoxic respiratory failure Acute kidney injury: Showing gradual improvement. Hypernatremia Chronic congestive heart failure Cachexia Severe protein calorie malnutrition Failure to thrive in adulthood Weakness and debility Recurrent falls - Fall precautions - Ongoing goals of care, advance care planning: Transitioning to comfort end-of-life measures as per discussion with patient and family. Hyperbilirubinemia PDMP PDMP Reviewed: Not Reviewed Attestations Medical Necessity Statement*: Continue hospitalization due to respiratory failure, transition to end-of-life comfort measures, arrangements for continued comfort measures at a nursing facility. and High MDM includes amount and/or complexity of data reviewed/ordered [ resulted lab(s)/test(s), ordered lab(s)/test(s) and other healthcare professional discussion] and described risk of complication, morbidity or mortality of management as documented Diagnoses Leukocytosis D72.829 DEAN (acute kidney injury) N17.9 Hypokalemia E87.6 Hyperbilirubinemia E80.6 Lactic acidosis E87.20 Hyperglycemia R73.9 Dehydration E86.0 Sepsis A41.9 COPD (chronic obstructive pulmonary disease) J44.9 Malnutrition E46 Failure to thrive Cachexia R64
[2025-03-02] MEDS: morphine 4 mg/mL SDV 1 mL IVP (23:20)
[2025-03-02] MEDS: LORazepam 1 MG/0.5 ML injection IVP (23:21)
[2025-03-03 07:33] LABS: SARS Covid-2 Antigen Negative (Negative)
[2025-03-03 08:05] VITALS: BP 135/71; PULSE 70; RESP 16; TEMP 36.3; O2SAT 96
[2025-03-03] MEDS: cefepime 1,000 mg SDV 1000 MG IVP (09:41)
--- NOTE | 2025-03-03 09:47 | P.DS_ITS ---
Discharge Providers Date of Admission: 02/28/25 00:30 Date of Discharge: March 03, 2025 Attending Provider at Admission: Judd Douglass MD Attending Provider at Discharge: Aaron Laws Primary Care Provider: JOVANNY Downs Diagnoses at Discharge Discharge Diagnosis (1) Leukocytosis: Status: Acute (2) DEAN (acute kidney injury): Status: Acute (3) Hypokalemia: Status: Acute (4) Hyperbilirubinemia: Status: Acute (5) Lactic acidosis: Status: Acute (6) Hyperglycemia: Status: Acute (7) Dehydration: Status: Acute (8) Sepsis: Status: Acute (9) COPD (chronic obstructive pulmonary disease): Status: Chronic (10) Malnutrition: Status: Acute (11) Failure to thrive: Status: Acute (12) Cachexia: Status: Acute Reason for Visit Reason for Visit: weakness Brief History: Judd Beth is a 85 year old male with a past medical history significant for congestive heart failure, irritable bowel syndrome, generalized anxiety disorder, hypertension, COPD, and multiple other comorbidities who presents to the emergency department with generalized weakness x 3 days. Patient seen evaluated the emergency department. He is extremely lethargic and unable to provide history due to his lethargic state. His spouse is bedside and provides collateral and history. She reports has been sick for a long time and they have been in the process of setting up hospice recently. She states however for the past 2 to 3 days he has suffered an acute worsening. She states he is extremely weak and they have been unable to care for him. She states the only help she has is her son. She states he is quit eating and taking his medications in the last couple of days. He has been more confused. She is worried that they cannot care for him anymore. They had talked about nursing facility but he had been reluctant to this plan previously. In the emergency department, patient was found to have severe sepsis. Confirmed CODE STATUS. He is DNR/DNI. Hospital Course Hospital Course She is admitted and started on treatment for severe sepsis, pneumonia, COPD exacerbation with IV antibiotics, IV steroid, breathing treatments. Hospitalization was complicated by acute metabolic encephalopathy secondary to hypoxia, pneumonia and sepsis and alcohol withdrawal and worsening hypernatremia despite initial hydration with LR and then switching to D5. His mental status gradually improved. His oxygenation was slow to improve and he continued to require 9-10 L by oxime mask compared to 15 on presentation. Once he was able to communicate and interact he confirmed that his quality of life has been very poor for a long time now and his health has been progressively worsening including significant functional decline, poor appetite and oral intake, progressive weight loss. He declined to continue further medical treatments, wanting to instead continue with end-of-life care only. He was accepted at snf to continue end-of-life comfort measures. Physical Exam Narrative: Accompanied by his and daughter. Const: COMMON NORMALS: alert GENERAL APPEARANCE: cooperative and frail appearing ORIENTATION/CONSCIOUSNESS: Yes awake OTHER: Sleeping. Wakes up to voice. HENMT: COMMON NORMALS: oropharynx normal Neck/C-Spine: COMMON NORMALS: no JVD Resp: COMMON NORMALS: clear to auscultation bilaterally AUSCULTATION: clear to auscultation bilaterally and diminished lung sounds on the right in the lower lung hummel Cardio: COMMON NORMALS: no JVD, regular rhythm, S1 normal heart sound present, S2 normal heart sound present and No murmurs present (Cardio) RHYTHM: regular rhythm HEART SOUNDS: S1 normal heart sound present and S2 normal heart sound present GI: COMMON NORMALS: Normal to inspection, nondistended, normoactive bowel sounds present, Soft to palpation and non-tender PALPATION: Yes Soft to palpation Extremity: COMMON NORMALS: no joint enlargement and no pedal edema GENERAL: Yes edema (1+) Neuro: COMMON NORMALS: moves all extremities SENSORIUM/ORIENTATION: Yes alert Skin: COMMON NORMALS: no rashes or lesions noted GENERAL SKIN EXAM: no rashes or lesions noted Urinary Catheter Management: Osborne: Cath Placed During This Visit: yes Reason for Continuing Indwelling Catheter: Hospice/Comfort/Palliative Care Urinary Catheter Date of Insertion: 02/27/25 Urinary Catheter Time of Insertion: 19:00 Discharge Data Studies Completed and Pending Completed Studies During Hospitalization Category Date Time Status CXRP [XR chest 1V portable [id number]] Stat Exams 03/01/25 00:16 Completed XR chest 1V portable [id number] Stat Exams 02/27/25 18:13 Completed Pending at discharge Category Date Time Status Blood Culture Stat Lab 02/27/25 18:35 Results Sputum Culture and Gram Stain Routine Lab 02/28/25 00:30 Uncollected Radiology Impressions Chest X-Ray 03/01/25 00:16 IMPRESSION: 1. Small right pleural effusion. 2. Right mid to lower lung field bronchopneumonia. 3. Emphysematous changes. 4. Mild cardiomegaly. 5. Aortic atherosclerotic calcifications. Laboratory Results WBC 19.30 10^3/uL (3.29-11.43) H 03/02/25 04:38 RBC 4.16 10^6/uL (3.85-5.65) 03/02/25 04:38 Hgb 12.20 g/dL (11.27-16.99) 03/02/25 04:38 Hct 39.9 % (37-53) 03/02/25 04:38 MCV 95.9 fl (82-101) 03/02/25 04:38 MCH 29.3 pg (27-33) 03/02/25 04:38 MCHC 30.6 g/dL (30-55) D 03/02/25 04:38 RDW 15.1 % (12.1-15.1) 03/02/25 04:38 Plt Count 382 10^3/cmm (157-399) 03/02/25 04:38 MPV 10.5 fL (7.4-10.4) H 03/02/25 04:38 Neut % (Auto) 93.7 % 03/02/25 04:38 Lymph % (Auto) 2.9 % 03/02/25 04:38 [place] % (Auto) 1.8 % 03/02/25 04:38 Eos % (Auto) 0.5 % 03/02/25 04:38 Baso % (Auto) 0.3 % 03/02/25 04:38 Neut # (Auto) 18.08 10^3/uL (1.8-7.7) H 03/02/25 04:38 Lymph # (Auto) 0.6 10^3/uL (0.8-4.8) L 03/02/25 04:38 [place] # (Auto) 0.4 10^3/uL (0.2-0.9) 03/02/25 04:38 Eos # (Auto) 0.1 10^3/uL (0.0-0.8) 03/02/25 04:38 Baso # (Auto) 0.1 10^3/uL (0.0-0.1) 03/02/25 04:38 Nucleated RBC % (auto) 0 % 03/02/25 04:38 Nucleated RBCs # 0.0 /100WBC 03/02/25 04:38 Specimen Type Arterial 03/01/25 00:00 Sample Site Radial, right 03/01/25 00:00 ABG pH 7.50 (7.35-7.45) H 03/01/25 00:00 ABG pCO2 38.6 mmHg (35-45) 03/01/25 00:00 ABG pO2 72.4 mmHg (80.0-100.0) L 03/01/25 00:00 ABG PO2/FiO2 Ratio 182 02/27/25 18:19 ABG HCO3 30.3 mmol/L (22-26) H 03/01/25 00:00 ABG Base Excess 6.7 mmol/L (-2.0-2.0) H 03/01/25 00:00 Silver Test Pos 03/01/25 00:00 Hematocrit 42.4 % (42-52) 03/01/25 00:00 Hgb O2 Saturation 86.9 % (95-100) L 02/27/25 18:19 Carboxyhemoglobin 1.4 %THgb (0.4-20.1) 02/27/25 18:19 Methemoglobin 0.2 % (0.4-1.5) L 02/27/25 18:19 Total Hemoglobin 14.0 g/dL (14-18) 02/27/25 18:19 O2 Delivery Device Oxy mask 03/01/25 00:00 O2 Liters/Min 9.0 % 03/01/25 00:00 FiO2 28.0 % 02/27/25 18:19 Records Management Engineer ID [id number] 03/01/25 00:00 Sodium 151 mmol/L (136-145) H 03/02/25 04:38 Potassium 3.5 mmol/L (3.5-5.1) 03/02/25 04:38 Chloride 108 mmol/L (98-107) H 03/02/25 04:38 Carbon Dioxide 28 mmol/L (22-29) 03/02/25 04:38 Anion Gap 18.5 (5-19) 03/02/25 04:38 BUN 75 mg/dL (8-23) H 03/02/25 04:38 Creatinine 1.5 mg/dL (0.7-1.2) H 03/02/25 04:38 GFR Calculation Not Reportable 03/02/25 04:38 Glucose 191 mg/dL (65-115) H 03/02/25 04:38 Calculated Osmolality 339 mOsm/kg (285-295) H 03/02/25 04:38 Lactic Acid 2.9 mmol/L (0.5-2.2) H 02/27/25 18:31 Lactic Acid (Sepsis) 2.7 mmol/L (0.5-2.2) H 02/27/25 21:18 Lactate 1.5 mmol/L (0.5-2.2) 03/01/25 05:46 Calcium 8.2 mg/dL (8.5-10.5) L 03/02/25 04:38 Phosphorus 4.6 mg/dL (2.5-4.5) H 03/01/25 05:46 Magnesium 2.4 mg/dL (1.7-2.3) H 03/01/25 05:46 Total Bilirubin 0.9 mg/dL (0.15-1.2) 03/01/25 05:46 AST 9 U/L (0-40) 03/01/25 05:46 ALT 9 U/L (0-41) 03/01/25 05:46 Alkaline Phosphatase 104 U/L (40-130) 03/01/25 05:46 NT-Pro-B Natriuret Pep 1012 pg/mL (0-450) H 02/27/25 18:31 Total Protein 5.5 g/dL (6.6-8.7) L 03/01/25 05:46 Albumin 2.5 g/dL (3.5-5.2) L 03/01/25 05:46 Globulin 3.0 g/dL (1.3-4.6) 03/01/25 05:46 Procalcitonin 1.45 ng/mL (0-0.5) H 02/28/25 04:33 Urine Color Yellow (Yellow) 02/27/25 19:03 Urine Appearance Clear (CLEAR) 02/27/25 19:03 Urine pH 5.0 (5-7) 02/27/25 19:03 Ur Specific [place] 1.015 (1.005-1.030) 02/27/25 19:03 Urine Protein Negative (Negative) 02/27/25 19:03 Urine Glucose (UA) Negative (Normal) 02/27/25 19:03 Urine Ketones Negative (Negative) 02/27/25 19:03 Urine Blood Negative (Negative) 02/27/25 19:03 Urine Nitrate Negative (Negative) 02/27/25 19:03 Urine Bilirubin Negative (Negative) 02/27/25 19:03 Urine Urobilinogen 1.0 mg/dL (Negative) 02/27/25 19:03 Ur Leukocyte Esterase Negative (Negative) 02/27/25 19:03 Urine RBC 3-5 /hpf (0-2) 02/27/25 19:03 Urine WBC 0-5 /hpf (0-5) 02/27/25 19:03 Ur Squamous Epith Cells 0-5 /hpf (0-5) 02/27/25 19:03 Amorphous Sediment Not Reportable 02/27/25 19:03 Urine Bacteria 1+ /hpf (NONE) H 02/27/25 19:03 Hyaline Casts 32.24 /lpf 02/27/25 19:03 Nasal MRSA (PCR) Not detected (Negative) 02/28/25 13:38 Influenza A (PCR) Negative (Negative) 02/27/25 19:11 Influenza Type B (PCR) Negative (Negative) 02/27/25 19:11 RSV (PCR) Negative (Negative) 02/27/25 19:11 SARS-CoV-2 (PCR) Negative (Negative) 02/27/25 19:11 SARS-CoV-2 Ag (Rapid) Negative (Negative) 03/03/25 06:50 Vitals Last Vital Signs Temp 97.4 F L 03/03/25 08:05 Pulse 70 03/03/25 08:05 Resp 16 03/03/25 08:05 BP 135/71 03/03/25 08:05 Pulse Ox 96 03/03/25 08:05 O2 Del Method Oxymask 03/03/25 08:05 O2 Flow Rate 10 03/02/25 20:00 Discharge Plan Discharge Patient Disposition: Hospice - Medical Facility Condition: Serious Prescriptions: Continued mirtazapine [Remeron] 15 mg tablet 15 mg PO .at supper Qty: 30 2RF Rx Instructions: Help eat and sleep escitalopram oxalate [Lexapro] 20 mg tablet 20 mg PO DAILY Qty: 90 1RF lisinopril 40 mg tablet 40 mg PO DAILY@0600 Qty: 90 1RF montelukast 10 mg tablet 10 mg PO DAILY@0600 Qty: 90 1RF albuterol sulfate [Ventolin HFA] 90 mcg/actuation HFA aerosol inhaler 2 puff inhalation Q6H PRN (Reason: shortness of breath or wheezing) Qty: 8.5 0RF potassium chloride [Klor-Con M20] 20 mEq tablet,ER particles/crystals 20 meq PO BID Qty: 60 1RF dexamethasone 4 mg tablet 4 mg PO BID Qty: 60 1RF acetaminophen-codeine 300-30 mg tablet 1 tab PO Q6H hydrochlorothiazide 25 mg tablet 25 mg PO DAILY furosemide 40 mg tablet 40 mg PO QAM Qty: 90 2RF Rx Instructions: take in ONE tablet in the AM, tamsulosin 0.4 mg capsule 0.4 mg PO DAILY Qty: 30 1RF Discharge Orders: Discharge Order (Routine); Ordered 03/03/25 Ordered By: Aaron Laws Referrals: Chon Gloria FNP-C [Primary Care Provider, [facility]] Referral Note: As needed Discharge Diet: Advance as tolerated Patient Instructions: Comfort Measures (GEN) Activity Restrictions/Additional Instructions: Continue end of life comfort measures. Continue comfort pack at snf. Benzodiazepine will be helpful for anxiety with recent alcohol withdrawal. Oxygen as needed for comfort. Discharge Attestations Time Spent in Discharge Care*: greater than 30 min Quality Metrics Clinical Quality Measures [ No reported AMI, CVA or VTE this stay] Coding Level of Care Code Acute Code for Chg Fwd Diagnoses Leukocytosis D72.829 DEAN (acute kidney injury) N17.9 Hypokalemia E87.6 Hyperbilirubinemia E80.6 Lactic acidosis E87.20 Hyperglycemia R73.9 Dehydration E86.0 Sepsis A41.9 COPD (chronic obstructive pulmonary disease) J44.9 Malnutrition E46 Failure to thrive Cachexia R64
[2025-03-03] MEDS: acetaminophen-codeine 300-30mg Tablet 1 TAB PO (10:48)
[2025-03-03 11:04] VITALS: BP 135/71; PULSE 60; RESP 16; TEMP 36.3; O2SAT 96
[2025-03-03] MEDS: LORazepam 1 MG/0.5 ML injection IVP (11:33)
== END 2025-03-03 11:58 | disposition hospice, home (50) | DRG 871 ==
LOC: ER 20:59 → ER IP 23:56 → MEDSURG 02-28 17:49
PROVIDERS: Internal Medicine; Admitting Provider Internal Medicine; Emergency Provider Emergency Medicine; PCP Nurse Practitioner; Visit Provider Internal Medicine
DX: A41.9 Sepsis, unspecified organism (principal); E43 Unspecified severe protein-calorie malnutrition; J18.9 Pneumonia, unspecified organism; G93.41 Metabolic encephalopathy; J96.01 Acute respiratory failure with hypoxia; N17.9 Acute kidney failure, unspecified; E87.20 Acidosis, unspecified; J44.1 Chronic obstructive pulmonary disease with (acute) exacerbation; J44.0 Chronic obstructive pulmonary disease with (acute) lower respiratory infection; Z68.1 Body mass index [BMI] 19.9 or less, adult; F10.239 Alcohol dependence with withdrawal, unspecified; E87.0 Hyperosmolality and hypernatremia; R65.20 Severe sepsis without septic shock; E87.6 Hypokalemia; E80.6 Other disorders of bilirubin metabolism; R73.9 Hyperglycemia, unspecified; E86.0 Dehydration; R62.7 Adult failure to thrive; I50.9 Heart failure, unspecified; I11.0 Hypertensive heart disease with heart failure; K58.0 Irritable bowel syndrome with diarrhea; F41.1 Generalized anxiety disorder; Z91.128 Patient's intentional underdosing of medication regimen for other reason; Z66 Do not resuscitate; Z87.891 Personal history of nicotine dependence; I71.40 Abdominal aortic aneurysm, without rupture, unspecified; Z99.81 Dependence on supplemental oxygen
CPT/HCPCS: 36415; 36600; 51702; 71045; 80048; 80053; 81001; 82803; 82805; 83605; 83735; 83880; 84100; 84145; 85025; 86403; 87040; 87426; 87637; 92523; 92610; 93005; 94640; 94664; 96365; 96367; 96372; 96375; 99285; J0692; J1630; J2060; J2270; J2405; J2543; J2919; J3370; J3411; J7050; J7070; J7120; J9999